=== PATIENT | female | born 1945 | race Caucasian/White ===

== ENCOUNTER → 2018-04-13 | Outpatient (CLI) | payer MEDICARE, MEDICAID ==
[~2018-04-13] MED LIST: ASPI-231 PO; GLYB2.5T71 PO
[2018-04-13 10:55] LABS: Cholesterol 190 mg/dL (< 200); HDL Cholesterol 47 mg/dL (40-59); LDL Cholesterol 132 mg/dL (< 100); Triglycerides 128 mg/dL (< 150)
== END | disposition home or self-care (01) ==
LOC: LAB 09:50
PROVIDERS: ATTEND Internal Medicine
DX: E11.9 Type 2 diabetes mellitus without complications (principal); N39.0 Urinary tract infection, site not specified; Z88.0 Allergy status to penicillin; Z88.5 Allergy status to narcotic agent
CPT/HCPCS: 36415; 80061; 82043; 87086; 87088; 87186

== ENCOUNTER → 2018-04-30 | Outpatient (CLI) | payer MEDICARE, MEDICAID ==
[2018-04-30 13:04] LABS: Albumin 3.6 g/dL (3.4-5.0); Bilirubin, Direct 0.2 mg/dL (0-0.2)
[2018-04-30 13:06] LABS: Bilirubin, Total 0.6 mg/dL (0.2-1.0); Total Protein 7.4 g/dL (6.4-8.2)
== END | disposition home or self-care (01) ==
LOC: LAB 09:38
PROVIDERS: ATTEND Internal Medicine
DX: E78.5 Hyperlipidemia, unspecified (principal)
CPT/HCPCS: 36415; 80076

== ENCOUNTER → 2018-05-14 | Outpatient (CLI) | payer MEDICARE, MEDICAID | END | disposition home or self-care (01) | LOC: XYW 09:06 | PROVIDERS: ATTEND Internal Medicine | DX: Z01.810 Encounter for preprocedural cardiovascular examination (principal) | CPT/HCPCS: 93306 ==

== ENCOUNTER → 2018-05-25 | Outpatient (CLI) | payer MEDICARE, MEDICAID ==
[2018-05-25 13:50] LABS: Albumin 3.7 g/dL (3.4-5.0); Bilirubin, Direct 0.2 mg/dL (0-0.2)
[2018-05-25 13:53] LABS: Bilirubin, Total 0.6 mg/dL (0.2-1.0); Total Protein 7.7 g/dL (6.4-8.2)
== END | disposition home or self-care (01) ==
LOC: LAB 08:05
PROVIDERS: ATTEND Internal Medicine
DX: E78.5 Hyperlipidemia, unspecified (principal)
CPT/HCPCS: 36415; 80061; 80076

== ENCOUNTER → 2018-06-29 | Outpatient (CLI) | payer MEDICARE, MEDICAID | END | disposition home or self-care (01) | LOC: XY 08:13 | PROVIDERS: ATTEND Internal Medicine | DX: I10 Essential (primary) hypertension (principal); I31.9 Disease of pericardium, unspecified; E11.9 Type 2 diabetes mellitus without complications | CPT/HCPCS: 93017 ==

== ENCOUNTER 2018-08-11 11:57 | Inpatient (IN) | payer MEDICARE, MEDICAID ==
[~2018-08-11] VITALS: Ht 170.2 cm; Wt 116.0 kg
[2018-08-11] MEDS ORDERED: VANCOMYCIN 1GM/250ML 250 ML IV ONE (13:00)
[2018-08-11 13:37] LABS: Basophils # (auto) 0 uL; Basophils % (auto) 0.4 % (0.0-2.0); Eosinophils # (auto) 0.1 uL; Eosinophils % (auto) 1.5 % (0.0-7.0); Hematocrit 40.7 % (36.0-46.0); Hemoglobin 13.3 g/dL (12.2-16.2); Lymphocytes # (auto) 1.4 uL; Lymphocytes % (auto) 15.7 % (10.0-50.0); Mean Corpuscular Hemoglobin 28.5 pg (28.0-32.0); Mean Corpuscular Hgb Conc. 32.8 g/dL (32.0-36.0); Mean Corpuscular Volume 86.8 fL (80.0-100.0); Monocytes # (auto) 0.5 uL; Monocytes % (auto) 5.9 % (0.0-12.0); Neutrophils # (auto) 6.7 uL; Neutrophils % (auto) 76.5 % (37.0-80.0); Nucleated Red Blood Cells % 0.3 %; Platelet Count (auto) 228 10^3/uL (140-450); Red Blood Cells 4.68 10^6/uL (4.0-5.20); Red Cell Distribution Width 13.1 % (11.8-14.3); White Blood Cell 8.8 10^3/uL (4.4-10.8)
[2018-08-11 13:48] LABS: Alanine Aminotransferase 13 U/L (13-56); Albumin 3.2 g/dL (3.4-5.0); Anion Gap 6 (5-15); Aspartate Aminotransferase 10 U/L (15-37); BUN/Creatinine Ratio 13.5; Blood Urea Nitrogen 13 mg/dL (7-18); Calcium 8.6 mg/dL (8.5-10.1); Carbon Dioxide 27 mmol/L (21-32); Chloride 103 mmol/L (98-107); GFR African American > 60 mL/min; GFR Non-African American > 60 mL/min; Glucose 122 mg/dL (74-106); Magnesium 1.9 mg/dL (1.6-2.6); Potassium 4.2 mmol/L (3.5-5.1); Sodium 136 mmol/L (136-145)
[2018-08-11 13:53] LABS: Alkaline Phosphatase 92 U/L (45-117); Bilirubin, Total 0.6 mg/dL (0.2-1.0); Total Protein 8.2 g/dL (6.4-8.2)
[2018-08-11] MEDS ORDERED: LEVOFLOXACIN 500MG 100 ML IV ONE (17:15)
[2018-08-11] MEDS ORDERED: TEMAZEPAM 15 MG CAP PO PRN (17:30)
[2018-08-11] MEDS ORDERED: MORPHINE SULFATE 4 MG/ML SYR/VIAL IV PRN (17:30)
[2018-08-11] MEDS ORDERED: ACETAMINOPHEN 325 MG TAB PO PRN (17:30)
[2018-08-11] MEDS ORDERED: DOCUSATE SOD 100 MG CAP PO PRN (17:30)
[2018-08-11] MEDS ORDERED: HYDROcodone-ACET 5/325MG TAB PO PRN (17:30)
[2018-08-11] MEDS ORDERED: ONDANSETRON HCL 4 MG/2 ML VIAL IV PRN (17:30)
[2018-08-11] MEDS ORDERED: DEXTROSE (50%) 50ML SYRG IV PRN (17:30)
[2018-08-11] MEDS: glyBURIDE 5 MG TAB PO SCH (18:00)
[2018-08-11 21:12] LABS: Lactic Acid w/Reflex 2.7 mmol/L (0.4-2.0)
--- NOTE | 2018-08-11 21:45 | NUR ---
MS admit from ER UDAY CROWELL admitted to tele/MS after SBAR received. Patient oriented to Rosana alvarado RN, unit, room, bed, and unit policies regarding patient care and visiting hours. Patient weighed by bedscale and encouraged to call if they need something. All questions and concerns addressed, patient verbalized understanding. Note: Came per wheelchair awake alert oriented x 4, not in distress, with dressing in both feet dry and intact, placed in the bed comfortably, vital signs checked.
[2018-08-11] MEDS: FAMOTIDINE 20 MG TAB PO SCH ×2 (21:57→22:00)
[2018-08-11] MEDS: ASCORBIC ACID 500 MG TAB PO SCH (21:58)
[2018-08-11] MEDS: CLINDAMYCIN 300MG IV 50 ML IV SCH (21:58)
[2018-08-11] MEDS: SODIUM CHLOR 0.9% PF (SALINE LOCK) 10ML VIAL/SYR IV SCH (21:58)
[2018-08-11 22:00] VITALS: BP 125/57
[2018-08-11] MEDS: ACCU-CHEK COMFORT CURVE STRIP VI SCH (22:36)
[2018-08-11] MEDS: InsuLIN REG 1unit/0.01ml Soln (100units/ml) SC SCH (22:37)
[2018-08-12 04:52] VITALS: BP 116/55
[2018-08-12 05:09] LABS: Basophils # (auto) 0 uL; Basophils % (auto) 0.7 % (0.0-2.0); Eosinophils # (auto) 0.1 uL; Eosinophils % (auto) 2.2 % (0.0-7.0); Hematocrit 35.5 % (36.0-46.0); Hemoglobin 11.8 g/dL (12.2-16.2); Lymphocytes # (auto) 0.9 uL; Mean Corpuscular Hemoglobin 28.2 pg (28.0-32.0); Mean Corpuscular Hgb Conc. 33.2 g/dL (32.0-36.0); Mean Corpuscular Volume 84.7 fL (80.0-100.0); Monocytes # (auto) 0.5 uL; Monocytes % (auto) 7.7 % (0.0-12.0); Neutrophils # (auto) 4.6 uL; Neutrophils % (auto) 74.4 % (37.0-80.0); Nucleated Red Blood Cells % 0.1 %; Platelet Count (auto) 187 10^3/uL (140-450); Red Blood Cells 4.19 10^6/uL (4.0-5.20); White Blood Cell 6.2 10^3/uL (4.4-10.8)
[2018-08-12 05:33] LABS: Calcium 8.2 mg/dL (8.5-10.1); Chloride 103 mmol/L (98-107); Potassium 4.1 mmol/L (3.5-5.1); Sodium 136 mmol/L (136-145)
[2018-08-12 05:37] LABS: Alanine Aminotransferase 9 U/L (13-56); Albumin 2.7 g/dL (3.4-5.0); Anion Gap 8 (5-15); Aspartate Aminotransferase 7 U/L (15-37); BUN/Creatinine Ratio 20.5; Blood Urea Nitrogen 18 mg/dL (7-18); Carbon Dioxide 25 mmol/L (21-32); GFR African American > 60 mL/min; GFR Non-African American > 60 mL/min; Glucose 136 mg/dL (74-106)
[2018-08-12 05:39] LABS: Alkaline Phosphatase 75 U/L (45-117); Bilirubin, Total 0.4 mg/dL (0.2-1.0); Total Protein 6.8 g/dL (6.4-8.2)
[2018-08-12] MEDS: CLINDAMYCIN 300MG IV 50 ML IV SCH ×3 (05:47→22:12)
[2018-08-12] MEDS: SODIUM CHLOR 0.9% PF (SALINE LOCK) 10ML VIAL/SYR IV SCH ×3 (05:47→22:12)
[2018-08-12] MEDS: glyBURIDE 5 MG TAB PO SCH ×2 (06:38→18:00)
[2018-08-12] MEDS: ACCU-CHEK COMFORT CURVE STRIP VI SCH ×4 (06:38→22:12)
[2018-08-12] MEDS: InsuLIN REG 1unit/0.01ml Soln (100units/ml) SC SCH ×4 (06:39→22:34)
[2018-08-12 07:23] LABS: Urine Bacteria NONE SEEN /hpf (None Seen); Urine Blood Negative /uL (Negative); Urine Specific Gravity 1.007 (1.001-1.035); Urine WBC 3 /hpf (0 - 5)
--- NOTE | 2018-08-12 07:28 | NUR ---
Report given to Erick Hagan to assume care, patient is resting not in distress.
--- NOTE | 2018-08-12 07:30 | NUR ---
Opening Shift Note Assumed care of patient, awake, alert, and oriented x4. No S/S of distress/SOB or pain. IV in right AC 20 gauge asymptomatic, intact, patent, and saline locked. Bed locked and in lowest position and call light is within reach. Instructed on POC and to call for assist PRN, and patient verbalized understanding. Will continue to monitor for changes Q1hr and PRN.
[2018-08-12] MEDS ORDERED: IPRATROPIUM BROM 0.5 MG/2.5ML INH SOL ONE (08:56)
[2018-08-12] MEDS ORDERED: ALBUTEROL SULF 2.5 MG/0.5ML(0.5%) NEB SOLN ONE (08:56)
[2018-08-12] MEDS: ZINC SULFATE 220mg CAP or TAB PO SCH (08:57)
[2018-08-12] MEDS: LEVOFLOXACIN 500MG 100 ML IV SCH (08:57)
[2018-08-12] MEDS: ASCORBIC ACID 500 MG TAB PO SCH ×2 (08:57→22:00)
[2018-08-12] MEDS: MULTIPLE VITAMIN TAB PO SCH (08:58)
[2018-08-12 09:00] VITALS: BP 120/50
[2018-08-12] MEDS: FAMOTIDINE 20 MG TAB PO SCH ×2 (09:23→22:00)
--- NOTE | 2018-08-12 09:41 | NUR ---
PT REPORTS THAT SHE WALKS FINE AND DOES NOT NEED P.T.
--- NOTE | 2018-08-12 11:00 | NUR ---
WOUND CARE NOTE: IN TO SEE PATIENT AT THIS TIME PER WOUND CARE CONSULT REQUEST. PATIENT WAS NOTED UPON ADMIT, TO HAVE WOUNDS TO BILATERAL FEET. WOUND PHOTOS TAKEN AT THAT TIME BY BEDSIDE NURSE FOR REFERENCE. PATIENT HAS MARCO SCORE OF 18. PATIENT ADMITTED TO [facility] WITH DIAGNOSIS OF DFU, BILATERAL FEET. PATIENT HAS HISTORY WITH SKIN GRAFT TO RIGHT # 3 TOE APPROXIMATELY [address] LR[address] PATIENT IS BEING FOLLOWED ON REGULAR BASIS BY DR. LR. SHE NOTED A FEW DAYS AGO, THAT HER RIGHT #3 TOE STARTED TO BECOME PAINFUL, AND NECROTIC LOOKING. WOUND CULTURES WERE TAKEN AND SENT IN FOR PROCESSING BY BEDSIDE NURSE. PATIENT'S ENTIRE RIGHT # 3 TOE IS COVERED WITH YELLOW SLOUGH. SCANT SEROUS DRAINAGE NOTED. YELITZA-WOUND IS RED, EDEMATOUS. LEFT PLANTAR FOOT HAS INTACT CALLOUS NOTED. THERE IS AN OPEN BLISTER NOTED INTERDIGITALLY BETWEEN # 1 AND 2 TOES. WOUND BED IS RED, WITH PINK PERIWOUND. SCANT SEROUS DRAINAGE NOTED. CLEANSED ALL WOUNDS WITH WOUND CLEANSER, PATTED DRY WITH STERILE GAUZE. APPLIED TELFA. WRAPPED WITH KERLIX, SECURED WITH TAPE. ELEVATED BOTH FEET UP ONTO PILLOWS FOR EDEMA CONTROL. RECOMMEND: EOD/PRN DRESSING CHANGE TO WOUND, ELEVATION OF BOTH FEET UP ONTO PILLOWS, DIETARY CONSULT, CONTINUED MONITORING BY WOUND CARE TEAM. Addendum: 08/12/18 at 1521 by Francie Kinsey RN Amended: Links added.
--- NOTE | 2018-08-12 11:15 | NUR ---
WOUND CARE NURSE AT BEDSIDE.
--- NOTE | 2018-08-12 12:00 | NUR ---
PATIENT REFUSED BLOOD SUGAR CHECK.
[2018-08-12 13:00] VITALS: BP 117/52
[2018-08-12 16:45] VITALS: BP 124/53
[2018-08-12] MEDS: Glucerna Carbsteady SHAKE Vanilla 8oz PO SCH (18:10)
--- NOTE | 2018-08-12 19:05 | NUR ---
Opening Shift Note Assumed care of patient, currently resting in bed. No S/S of distress/SOB or pain. Instructed on POC and to call for assistance PRN, will continue to monitor for changes Q1hr and PRN.
[2018-08-12 21:52] VITALS: BP 133/58
[2018-08-13 05:32] VITALS: BP 132/60
[2018-08-13] MEDS: glyBURIDE 5 MG TAB PO SCH ×2 (06:21→18:22)
[2018-08-13] MEDS: CLINDAMYCIN 300MG IV 50 ML IV SCH ×3 (06:21→21:53)
[2018-08-13] MEDS: SODIUM CHLOR 0.9% PF (SALINE LOCK) 10ML VIAL/SYR IV SCH ×3 (06:21→21:53)
[2018-08-13] MEDS: ACCU-CHEK COMFORT CURVE STRIP VI SCH ×4 (06:22→21:53)
[2018-08-13] MEDS: InsuLIN REG 1unit/0.01ml Soln (100units/ml) SC SCH ×4 (06:22→22:06)
--- NOTE | 2018-08-13 07:25 | NUR ---
Opening Shift Note Assumed care of patient, awake and alert. No S/S of distress/SOB or pain. Instructed on POC and to call for assist PRN, will continue to monitor for changes Q1hr and PRN.
[2018-08-13 07:34] LABS: Basophils # (auto) 0 uL; Basophils % (auto) 0.4 % (0.0-2.0); Eosinophils # (auto) 0.1 uL; Eosinophils % (auto) 2.4 % (0.0-7.0); Hematocrit 36.3 % (36.0-46.0); Hemoglobin 12.3 g/dL (12.2-16.2); Lymphocytes # (auto) 0.9 uL; Lymphocytes % (auto) 16.7 % (10.0-50.0); Mean Corpuscular Hgb Conc. 33.9 g/dL (32.0-36.0); Mean Corpuscular Volume 85.5 fL (80.0-100.0); Monocytes # (auto) 0.4 uL; Monocytes % (auto) 7.9 % (0.0-12.0); Neutrophils # (auto) 3.9 uL; Neutrophils % (auto) 72.6 % (37.0-80.0); Platelet Count (auto) 186 10^3/uL (140-450); Red Blood Cells 4.25 10^6/uL (4.0-5.20); Red Cell Distribution Width 12.9 % (11.8-14.3); White Blood Cell 5.4 10^3/uL (4.4-10.8)
[2018-08-13 07:40] LABS: Anion Gap 6 (5-15); BUN/Creatinine Ratio 16.7; Blood Urea Nitrogen 14 mg/dL (7-18); Calcium 8.6 mg/dL (8.5-10.1); Carbon Dioxide 27 mmol/L (21-32); Chloride 105 mmol/L (98-107); GFR African American > 60 mL/min; GFR Non-African American > 60 mL/min; Glucose 134 mg/dL (74-106); Potassium 3.8 mmol/L (3.5-5.1); Sodium 138 mmol/L (136-145)
[2018-08-13 07:51] LABS: INR 1.05 (0.9-1.15); Prothrombin Time 11.2 sec (9.27-12.13)
[2018-08-13 08:14] VITALS: BP 125/60
[2018-08-13] MEDS: Glucerna Carbsteady SHAKE Vanilla 8oz PO SCH (09:12)
[2018-08-13] MEDS: ZINC SULFATE 220mg CAP or TAB PO SCH (09:55)
[2018-08-13] MEDS: ASCORBIC ACID 500 MG TAB PO SCH ×2 (09:55→21:53)
[2018-08-13] MEDS: MULTIPLE VITAMIN TAB PO SCH (09:55)
[2018-08-13] MEDS: LEVOFLOXACIN 500MG 100 ML IV SCH (09:56)
[2018-08-13] MEDS: FAMOTIDINE 20 MG TAB PO SCH ×2 (09:56→21:53)
--- NOTE | 2018-08-13 10:20 | NUR ---
Surgery Received call from Dr. Dougherty to do MRI on right foot and keep patient NPO after midnight for surgery 08/14/18. The patient was informed and states that she does not want Dr. Dougherty to do surgery on her. She will wait for Dr. Tanner to return. Dr. Lin is aware.
[2018-08-13] MEDS ORDERED: LORazepam 2MG/ML-1ML VIAL IV ONE (10:45)
--- NOTE | 2018-08-13 11:00 | NUR ---
Wound care Dressing to left foot removed so MD could have a look at wound. Same redressed as per wound care orders. Dressing to right foot changed as well as patient complained that the dressing became loose and was uncomfortable.
--- NOTE | 2018-08-13 12:27 | NUR ---
NUTRITION CONSULT/ASSESSMENT NOTES Please refer to link notes of nutrition screen form filed under the intervention section of the plan of care for further details. Est. Needs: 1750 kcal to 2350 kcal (15-20 kcal/kgBW), 95 gms to 119 gms pro (0.8-1.0 gms/kgBW). Will continue to monitor pertinent labs and reassess nutrient needs prn Thank you for this consult. Addendum: 08/13/18 at [address] Amended: Links added.
[2018-08-13 12:46] VITALS: BP 124/57
[2018-08-13 16:21] VITALS: BP 139/65
--- NOTE | 2018-08-13 19:05 | NUR ---
Opening Shift Note Assumed care of patient, awake and alert. No S/S of distress or SOB. Patient states that since she went to have the MRI done her left knee has been hurting. She refuses any medication for pain at this time. Instructed on POC and to call for assistance PRN, will continue to monitor for changes Q1hr and PRN.
--- NOTE | 2018-08-13 20:20 | NUR ---
Received call from Dr. Farhat Dougherty called regarding recommended surgery for patient, informed him that patient told day shift nurse that she did not want to have the surgery. She is requesting Dr. Tanner to do the surgery. She is aware that he is out of town but states that she will wait for him to return. Dr. Dougherty verbalized understanding and requested for me to tell patient that it is not best to wait, and it is important to have it done as soon as possible. Verbalized understanding and informed Dr. Dougherty that if she changes her mind I will call him and let him know. He verbalized understanding.
--- NOTE | 2018-08-13 20:30 | NUR ---
Spoke with patient regarding surgery recommendation Informed patient regarding Dr. Dougherty's message about surgery. Patient is still refusing surgery at this time and wants to wait for Dr. Tanner. Educated patient on the importance of having the surgery done as soon as possible per Dr. Dougherty, she verbalized understanding and stated that she will wait for Dr. Tanner to return. No further questions at this time.
[2018-08-13 22:00] VITALS: BP 143/60
[2018-08-14 05:43] VITALS: BP 107/62
[2018-08-14] MEDS: CLINDAMYCIN 300MG IV 50 ML IV SCH ×3 (05:59→22:18)
[2018-08-14] MEDS: SODIUM CHLOR 0.9% PF (SALINE LOCK) 10ML VIAL/SYR IV SCH ×4 (06:00→22:18)
[2018-08-14] MEDS: InsuLIN REG 1unit/0.01ml Soln (100units/ml) SC SCH ×4 (06:37→22:00)
[2018-08-14] MEDS: glyBURIDE 5 MG TAB PO SCH ×2 (06:37→18:29)
[2018-08-14] MEDS: ACCU-CHEK COMFORT CURVE STRIP VI SCH ×4 (06:38→22:20)
--- NOTE | 2018-08-14 07:46 | NUR ---
Opening Shift Note Assumed care of patient, awake and alert. No S/S of distress/SOB or pain. However left knee noted to be swollen, patient states that she has pain with movement. Will follow up with MD. Instructed on POC and to call for assist PRN, will continue to monitor for changes Q1hr and PRN.
[2018-08-14 09:00] VITALS: BP 113/51
[2018-08-14] MEDS ORDERED: KETOROLAC TROMETH 30 MG/ML 1ML VIAL IV ONE (09:45)
[2018-08-14] MEDS: ZINC SULFATE 220mg CAP or TAB PO SCH (09:51)
[2018-08-14] MEDS: MULTIPLE VITAMIN TAB PO SCH (09:51)
[2018-08-14] MEDS: ASCORBIC ACID 500 MG TAB PO SCH ×2 (09:51→22:19)
[2018-08-14] MEDS: LEVOFLOXACIN 500MG 100 ML IV SCH (09:52)
[2018-08-14] MEDS: FAMOTIDINE 20 MG TAB PO SCH ×2 (09:52→22:00)
--- NOTE | 2018-08-14 11:30 | NUR ---
PICC line placement Patient educated on need for PICC line placement. All risks and benefits explained and all questions and concerns addressed prior to procedure. Noted past medical history and allergies with no contraindications. INR and Plt counts within acceptable range. 4 fr PICC line inserted via right basilic vein using [employer] US and Tip Location System. Sterile technique with maximum barrier precautions utilized. Blood return obtained from single lumen and flushed easily with NS using proper technique. PICC secured with Stat-lock; biodisc and occlusive dressing applied. Stat portable chest x-ray obtained for PICC tip placement. *Baseline Arm Circumference 33 cm. *Internal Length 47 cm. *External Length 0 cm. PICC lot #[id number]. Note:
[2018-08-14] MEDS ORDERED: LIDOCAINE 1% (LOCAL ANESTH.) PF 5ml SDV ID ONE (11:45)
--- NOTE | 2018-08-14 12:22 | NUR ---
Okay to use PICC line X-ray completed.
[2018-08-14 13:00] VITALS: BP_SYST 122; BP_SYST 125; BP_DIAS 63; BP_DIAS 72
--- NOTE | 2018-08-14 16:40 | NUR ---
Wound Care Dressing change done as per wound care orders.
[2018-08-14 17:00] VITALS: BP 115/50
--- NOTE | 2018-08-14 19:36 | NUR ---
Opening Shift Note Assumed care of patient, awake and alert. No S/S of distress/SOB or pain. Pt currently laying in bed with the rails up x2, bed is locked in the lowest position and call light is within reach. Instructed on POC and to call for assist as needed. Pt has a Single lumen PICC line in the right upper arm that flushes without any discomfort. Will continue to monitor.
[2018-08-14 22:00] VITALS: BP 120/58
[2018-08-15 05:00] VITALS: BP 126/64
[2018-08-15] MEDS: CLINDAMYCIN 300MG IV 50 ML IV SCH ×3 (05:15→21:15)
[2018-08-15] MEDS: SODIUM CHLOR 0.9% PF (SALINE LOCK) 10ML VIAL/SYR IV SCH ×5 (05:16→21:16)
[2018-08-15] MEDS: ACCU-CHEK COMFORT CURVE STRIP VI SCH ×4 (06:09→21:33)
[2018-08-15] MEDS: InsuLIN REG 1unit/0.01ml Soln (100units/ml) SC SCH ×4 (06:09→21:32)
[2018-08-15] MEDS: glyBURIDE 5 MG TAB PO SCH ×2 (06:09→18:00)
[2018-08-15 08:00] VITALS: BP 113/49
[2018-08-15 09:00] VITALS: BP 113/49
[2018-08-15] MEDS: FAMOTIDINE 20 MG TAB PO SCH ×2 (09:50→21:16)
[2018-08-15] MEDS: ZINC SULFATE 220mg CAP or TAB PO SCH (09:50)
[2018-08-15] MEDS: LEVOFLOXACIN 500MG 100 ML IV SCH (09:50)
[2018-08-15] MEDS: ASCORBIC ACID 500 MG TAB PO SCH ×2 (09:50→21:16)
[2018-08-15] MEDS: MULTIPLE VITAMIN TAB PO SCH (09:50)
[2018-08-15 13:00] VITALS: BP 128/63
[2018-08-15 17:00] VITALS: BP 133/59
[2018-08-15 22:00] VITALS: BP 129/58
[2018-08-16 05:00] VITALS: BP 119/61
[2018-08-16 06:03] LABS: Basophils # (auto) 0 uL; Basophils % (auto) 0.7 % (0.0-2.0); Eosinophils # (auto) 0.2 uL; Eosinophils % (auto) 3.5 % (0.0-7.0); Hematocrit 37.1 % (36.0-46.0); Hemoglobin 12.8 g/dL (12.2-16.2); Lymphocytes # (auto) 0.9 uL; Lymphocytes % (auto) 20.3 % (10.0-50.0); Mean Corpuscular Hemoglobin 28.9 pg (28.0-32.0); Mean Corpuscular Hgb Conc. 34.3 g/dL (32.0-36.0); Mean Corpuscular Volume 84.1 fL (80.0-100.0); Monocytes # (auto) 0.3 uL; Monocytes % (auto) 7.6 % (0.0-12.0); Neutrophils % (auto) 67.9 % (37.0-80.0); Nucleated Red Blood Cells % 0.2 %; Platelet Count (auto) 201 10^3/uL (140-450); Red Blood Cells 4.42 10^6/uL (4.0-5.20); Red Cell Distribution Width 12.8 % (11.8-14.3); White Blood Cell 4.4 10^3/uL (4.4-10.8)
[2018-08-16] MEDS: glyBURIDE 5 MG TAB PO SCH ×2 (06:05→17:25)
[2018-08-16] MEDS: SODIUM CHLOR 0.9% PF (SALINE LOCK) 10ML VIAL/SYR IV SCH ×5 (06:05→21:23)
[2018-08-16] MEDS: CLINDAMYCIN 300MG IV 50 ML IV SCH ×3 (06:05→21:22)
[2018-08-16] MEDS: InsuLIN REG 1unit/0.01ml Soln (100units/ml) SC SCH ×4 (06:06→21:24)
[2018-08-16] MEDS: ACCU-CHEK COMFORT CURVE STRIP VI SCH ×4 (06:06→21:24)
[2018-08-16 06:12] LABS: Calcium 8.8 mg/dL (8.5-10.1); Potassium 4.2 mmol/L (3.5-5.1)
[2018-08-16 06:16] LABS: BUN/Creatinine Ratio 20.5
--- NOTE | 2018-08-16 08:00 | NUR ---
Opening note Assumed care of pt awake, alert, and oriented X4. Pt is sitting up in bed with no S/S of distress noted or complaints of pain. Pt updated on POC and all questions answered. Bed is in lowest, locked position with side rails up x2 and call light within reach. Will continue to monitor Q1h and PRN.
[2018-08-16 08:16] VITALS: BP 109/52
[2018-08-16] MEDS: MULTIPLE VITAMIN TAB PO SCH (09:58)
[2018-08-16] MEDS: ASCORBIC ACID 500 MG TAB PO SCH ×2 (09:58→21:23)
[2018-08-16] MEDS: ZINC SULFATE 220mg CAP or TAB PO SCH (09:58)
[2018-08-16] MEDS: LEVOFLOXACIN 500MG 100 ML IV SCH (09:58)
[2018-08-16] MEDS: FAMOTIDINE 20 MG TAB PO SCH ×2 (09:58→21:23)
[2018-08-16] MEDS ORDERED: KETOROLAC TROMETH 30 MG/ML 1ML VIAL IV ONE (10:15)
[2018-08-16 11:51] VITALS: BP 123/56
--- NOTE | 2018-08-16 15:00 | NUR ---
Wound care Wound care performed to BLE. Area cleansed with wound cleanser and pat dry with sterile gauze. Tefla applied to right middle toe and left interdigital 1st and 2nd toe as well as distal plantar surface then wrapped in kerlix. Pt tolerated well. Will continue to monitor.
[2018-08-16 16:35] VITALS: BP 129/62
--- NOTE | 2018-08-16 18:34 | NUR ---
END OF SHIFT PATIENT RESTING IN BED. NO S/S OF DISTRESS. INSTRUCTED PATIENT TO CALL PRN. BED IN LOWEST LOCKED POSITION, CALL LIGHT WITHIN REACH. ENDORSED CARE TO SHANITA YAN.
[2018-08-16 22:00] VITALS: BP 138/60
[2018-08-17 05:51] VITALS: BP 138/63
[2018-08-17] MEDS: InsuLIN REG 1unit/0.01ml Soln (100units/ml) SC SCH ×4 (06:21→22:00)
[2018-08-17] MEDS: CLINDAMYCIN 300MG IV 50 ML IV SCH ×3 (06:21→22:27)
[2018-08-17] MEDS: glyBURIDE 5 MG TAB PO SCH ×2 (06:21→17:46)
[2018-08-17] MEDS: SODIUM CHLOR 0.9% PF (SALINE LOCK) 10ML VIAL/SYR IV SCH ×5 (06:21→22:27)
[2018-08-17] MEDS: ACCU-CHEK COMFORT CURVE STRIP VI SCH ×4 (06:22→22:28)
[2018-08-17 09:00] VITALS: BP 135/51
[2018-08-17] MEDS: FAMOTIDINE 20 MG TAB PO SCH ×2 (09:16→22:00)
[2018-08-17] MEDS: MULTIPLE VITAMIN TAB PO SCH (09:16)
[2018-08-17] MEDS: ASCORBIC ACID 500 MG TAB PO SCH ×2 (09:16→22:27)
[2018-08-17] MEDS: LEVOFLOXACIN 500MG 100 ML IV SCH (09:16)
[2018-08-17] MEDS: ZINC SULFATE 220mg CAP or TAB PO SCH (09:16)
--- NOTE | 2018-08-17 11:23 | NUR ---
IV insertion IV access obtained, via clean sterile technique by inserting 20 gauge catheter at right AC after 1 attempt. IV secured properly. No trauma to site. Patient tolerated well. Addendum: 08/17/18 at 1124 by Anna Howard RN wrong patient
--- NOTE | 2018-08-17 12:20 | NUR ---
Nutrition Follow-up Notes Wt.: 119.0 kg Pt was sleeping with no family by beside. per pt records pt with DFU and to have sx on Friday. pt is currently on ABX for her infection. pt with no distress noted per nursing. pt is currently on CCHO 45 gm/meal diet with adequate PO of 75% x 6 per RN doc Est. Needs: 1750 kcal to 2350 kcal (15-20 kcal/kgBW), 95 gms to 119 gms pro (0.8-1.0 gms/kgBW). Will continue to monitor pertinent labs and reassess nutrient needs prn Labs: All nutrition related lab wnl for 08/16. Skin: Ben scale 19, low risk, DFU per ski patrol officer. refer to WC notes for details GI: Pt had 1 BM on 08/16 per ski patrol officer. PES: Altered nutrition related lab values r/t current/chronic medical condition aeb hyperglycemia, elev. Hba1c and mod hypoalbuminemia Obesity r.t excessive PO intake aeb 193% IBW, BMI 40.9 kg/m2 and increased body adiposity Will continue to monitor PO intake, skin status, pertinent labs and weight trend. F/u in 3-5 days. Rec.: 1.) Consider Consistent Standard Carb: 60 gms/meal diet. 2.) If Albumin level continues trending down, consider Prostat 1 pkt BID. 3.) Continue close supervision with meals 4.) If pt's PO intake consistently adequate (>75%), consider d/c Glucerna Shakes.5.) Refer to CDE/RD for further nutrition educ. and weight monitoring upon discharge. 6.) Continue current plan of care.
[2018-08-17 13:00] VITALS: BP 142/65
[2018-08-17 18:04] VITALS: BP 140/55
--- NOTE | 2018-08-17 19:45 | NUR ---
Opening Shift Note Assumed care of patient, awake and alert. No S/S of distress/SOB or pain. Dressing to both feet dry and intact. Instructed on POC and to call for assist PRN, patient verbalized understanding, will continue to monitor for changes Q1hr and PRN.
[2018-08-17 21:52] VITALS: BP 131/61
[2018-08-18 05:39] VITALS: BP 117/69
[2018-08-18] MEDS: SODIUM CHLOR 0.9% PF (SALINE LOCK) 10ML VIAL/SYR IV SCH ×5 (06:21→21:49)
[2018-08-18] MEDS: glyBURIDE 5 MG TAB PO SCH (06:21)
[2018-08-18] MEDS: CLINDAMYCIN 300MG IV 50 ML IV SCH ×3 (06:21→21:49)
[2018-08-18] MEDS: InsuLIN REG 1unit/0.01ml Soln (100units/ml) SC SCH ×4 (06:21→21:49)
[2018-08-18] MEDS: ACCU-CHEK COMFORT CURVE STRIP VI SCH ×4 (06:21→21:50)
[2018-08-18 08:00] VITALS: BP 125/58
[2018-08-18 09:00] VITALS: BP 125/58
[2018-08-18] MEDS: FAMOTIDINE 20 MG TAB PO SCH ×2 (10:00→21:48)
[2018-08-18] MEDS: ASCORBIC ACID 500 MG TAB PO SCH ×2 (10:03→21:47)
[2018-08-18] MEDS: LEVOFLOXACIN 500MG 100 ML IV SCH (10:03)
[2018-08-18] MEDS: ZINC SULFATE 220mg CAP or TAB PO SCH (10:03)
[2018-08-18] MEDS: MULTIPLE VITAMIN TAB PO SCH (10:03)
[2018-08-18 13:00] VITALS: BP 133/69
--- NOTE | 2018-08-18 14:19 | NUR ---
I placed a call to Dr. Lin to discuss the plan of care for this patient.
[2018-08-18 17:00] VITALS: BP 119/57
--- NOTE | 2018-08-18 19:05 | NUR ---
Opening Note Received change of shift report from day shift RN. Patient is awake, alert and oriented x4. No signs or symptoms of distress noted at this time. Patient denies pain at this time. Reviewed plan of care with patient, patient verbalized understanding. Dressing to bilateral feet, clean, dry and intact. Bed in low and locked position, call light within reach. Will continue to monitor Q1 hour and PRN.
[2018-08-18 22:03] VITALS: BP 125/63
[2018-08-19 05:29] VITALS: BP 114/51
[2018-08-19] MEDS: SODIUM CHLOR 0.9% PF (SALINE LOCK) 10ML VIAL/SYR IV SCH ×5 (05:42→22:10)
[2018-08-19] MEDS: CLINDAMYCIN 300MG IV 50 ML IV SCH ×3 (05:42→22:09)
[2018-08-19] MEDS: InsuLIN REG 1unit/0.01ml Soln (100units/ml) SC SCH ×4 (06:56→22:19)
[2018-08-19] MEDS: ACCU-CHEK COMFORT CURVE STRIP VI SCH ×4 (06:57→22:11)
--- NOTE | 2018-08-19 07:05 | NUR ---
Closing Note Report given to day shift RN. Patient is resting in bed, awake alert and oriented x4. No signs or symptom of distress noted at this time.
--- NOTE | 2018-08-19 07:30 | NUR ---
Opening Shift Note Assuming care of patient at this time. Patient is awake, alert, and oriented x4. Patient denies pain at this time. Patient is resting in bed, bed is locked and lowered with side rails up x2. Instructed patient on the plan of care at this time and to call for assistance as needed. Call light within reach.
[2018-08-19 09:00] VITALS: BP 122/54
[2018-08-19] MEDS: ASCORBIC ACID 500 MG TAB PO SCH ×2 (10:00→22:10)
[2018-08-19] MEDS: MULTIPLE VITAMIN TAB PO SCH (10:00)
[2018-08-19] MEDS: FAMOTIDINE 20 MG TAB PO SCH ×2 (10:00→22:00)
[2018-08-19] MEDS: ZINC SULFATE 220mg CAP or TAB PO SCH (10:00)
[2018-08-19] MEDS: LEVOFLOXACIN 500MG 100 ML IV SCH (10:13)
--- NOTE | 2018-08-19 12:00 | NUR ---
WOUND CARE NOTE: Weekly reevaluation. Patient has been on wound care team's skin integrity rounds due to bilateral foot ulcers. Discussed with bedside RN, Rosemary. Patient is going for surgery with Dr Tanner today. Will have wound care team follow up post surgery. Nursing to follow Dr Tanner post op orders.
[2018-08-19 13:00] VITALS: BP 131/67
--- NOTE | 2018-08-19 13:05 | NUR ---
Re: Held insulin Held insulin due to blood sugar being 135. Patient is NPO for procedure. Will not administer insulin at this time.
[2018-08-19] MEDS ORDERED: CLINDAMYCIN 600MG IV 50 ML IV ONE (13:12)
--- NOTE | 2018-08-19 13:12 | NUR ---
Re: Patient is off Unit Transported patient to OR at this time. Patient is stable and tolerated the move well.
[2018-08-19] MEDS ORDERED: fentaNYL CITRATE 5 ML ONE (13:44)
[2018-08-19] MEDS ORDERED: MIDAZOLAM HCL 1MG/1ML-2 ML VIAL ONE (13:44)
[2018-08-19] MEDS ORDERED: PROPOFOL 10 MG/ML 20 ML IV ONE (13:44)
[2018-08-19] MEDS ORDERED: CLINDAMYCIN 900MG IV 50 ML IV ONE (13:53)
[2018-08-19] MEDS ORDERED: BUPIVACAINE 0.75% INJ 10ML MPV SDV IJ ONE (14:14)
[2018-08-19] MEDS ORDERED: ePHEDrine SULFATE 50 MG/ML AMP IV PRN (14:30)
[2018-08-19] MEDS ORDERED: ONDANSETRON HCL 4 MG/2 ML VIAL IV ONE (14:30)
[2018-08-19] MEDS ORDERED: hydrALAZINE HCL 20 MG/ML VL IV PRN (14:30)
[2018-08-19] MEDS ORDERED: fentaNYL CITRATE 100 MCG/2 ML VL IV ONE (15:00)
--- NOTE | 2018-08-19 15:30 | NUR ---
Re: Back on unit Patient is back on unit.
--- NOTE | 2018-08-19 16:14 | NUR ---
assessment Patient is a 73 year old female who is alert and oriented. Patients cognitive abilities are intact. Prior to admission patient lived home alone on her son's property and functioned independently. Patient informed me she is able to care for her own ADLs. Per patient she will return home to her prior living arrangements post discharge and family will transport her home. Patients PCP is Dr Espinosa. Patient has been admitted for osteo of foot and may need IV ABX on discharge. Patient has no home health company at this time. I informed patient she has a right to speak to a social media sr strategy manager regarding all care. I informed patient she has a right to participate in any and all discharge planning. Patient is aware of visiting hours on the hospital floor. I informed patient she has a right to privacy. Patient does not have a POA and advanced directive. I have offered patient information on POA and advanced directives. I informed the patient the advantages and benefits of having an Advanced Directive. Patient verbalized understanding and agreed to discharge plan. Addendum: 08/19/18 at 1617 by Miroslava GALDAMEZ Amended: Links added.
[2018-08-19 17:00] VITALS: BP 117/62
--- NOTE | 2018-08-19 19:15 | NUR ---
Opening Note Received report from day shift RN. Patient is awake, alert and oriented x4. No signs or symptoms of distress noted at this time. Patient denies pain at this time. Patient is s/p right third toe amputation. Dressing is clean, dry and intact. Patient is wearing a post op surgery boot per MD orders. Left foot is open to air at this time. Reviewed plan of care with patient, patient verbalized understanding. Bed in low and locked position, call light within reach. Patient instructed to call for assistance when ambulating. Will continue to monitor Q1 hour and PRN.
--- NOTE | 2018-08-19 19:54 | NUR ---
Closing Shift Note Patient is resting in bed. Bed is locked and lowered with side rails up x2. Dr. Espinosa has called and gave diet for orders. Dressing is dry and intact and patient is wearing surgery boot. Will endorse care to the teacher of gifted students RN.
[2018-08-19 21:37] VITALS: BP 129/67
--- NOTE | 2018-08-19 22:35 | NUR ---
Wound Care Wound care performed to left foot per patients request. Left foot was open to air, patient requested that it be "cleaned and covered." Area cleaned with wound cleanser, pat dry with sterile gauze, wrapped in kerlix. Patient tolerated well. Will continue to monitor Q1 hour and PRN.
--- NOTE | 2018-08-20 03:24 | NUR ---
Patient awake, sitting up in bed watching television. Patient states she is unable to sleep. No signs or symptoms of distress noted at this time, Patient denies pain at this time. Will continue to monitor Q1 hour and PRN.
[2018-08-20 05:11] VITALS: BP 130/67
[2018-08-20] MEDS: CLINDAMYCIN 300MG IV 50 ML IV SCH (05:27)
[2018-08-20 05:38] LABS: Basophils # (auto) 0 uL; Basophils % (auto) 0.5 % (0.0-2.0); Eosinophils # (auto) 0.2 uL; Eosinophils % (auto) 2.9 % (0.0-7.0); Hematocrit 39.4 % (36.0-46.0); Hemoglobin 13.3 g/dL (12.2-16.2); Lymphocytes # (auto) 1.1 uL; Lymphocytes % (auto) 20.8 % (10.0-50.0); Mean Corpuscular Hemoglobin 28.6 pg (28.0-32.0); Mean Corpuscular Hgb Conc. 33.9 g/dL (32.0-36.0); Mean Corpuscular Volume 84.4 fL (80.0-100.0); Monocytes # (auto) 0.5 uL; Monocytes % (auto) 8.6 % (0.0-12.0); Neutrophils # (auto) 3.6 uL; Neutrophils % (auto) 67.2 % (37.0-80.0); Nucleated Red Blood Cells % 0.1 %; Platelet Count (auto) 208 10^3/uL (140-450); Red Blood Cells 4.67 10^6/uL (4.0-5.20); Red Cell Distribution Width 12.6 % (11.8-14.3); White Blood Cell 5.3 10^3/uL (4.4-10.8)
[2018-08-20 05:43] LABS: BUN/Creatinine Ratio 19.1; Calcium 9.2 mg/dL (8.5-10.1)
[2018-08-20] MEDS: SODIUM CHLOR 0.9% PF (SALINE LOCK) 10ML VIAL/SYR IV SCH ×5 (05:58→22:00)
[2018-08-20] MEDS: InsuLIN REG 1unit/0.01ml Soln (100units/ml) SC SCH ×4 (06:11→22:00)
[2018-08-20] MEDS: ACCU-CHEK COMFORT CURVE STRIP VI SCH ×4 (06:12→22:00)
--- NOTE | 2018-08-20 07:05 | NUR ---
Closing Note Report given to day shift RN. Patient is awake, alert and oriented x4. No signs or symptoms of distress noted at this time
[2018-08-20 08:30] VITALS: BP 136/61
[2018-08-20 08:44] VITALS: BP 136/61
[2018-08-20] MEDS: LEVOFLOXACIN 500MG 100 ML IV SCH (09:41)
[2018-08-20] MEDS: ASCORBIC ACID 500 MG TAB PO SCH ×2 (09:41→22:00)
[2018-08-20] MEDS: MULTIPLE VITAMIN TAB PO SCH (09:41)
[2018-08-20] MEDS: ZINC SULFATE 220mg CAP or TAB PO SCH (09:41)
[2018-08-20] MEDS: FAMOTIDINE 20 MG TAB PO SCH ×2 (09:42→22:00)
[2018-08-20] MEDS ORDERED: MORPHINE SULFATE 4 MG/ML SYR/VIAL IV PRN (10:30)
[2018-08-20] MEDS ORDERED: ceFAZolin 1GM/50ML 50 ML IV ONE (10:30)
[2018-08-20] MEDS ORDERED: HYDROcodone-ACET 5/325MG TAB PO PRN (10:30)
[2018-08-20] MEDS ORDERED: TEMAZEPAM 15 MG CAP PO PRN (10:30)
--- NOTE | 2018-08-20 11:35 | NUR ---
I faxed home IV ATB order to [facility].
--- NOTE | 2018-08-20 11:46 | NUR ---
spoke with md rubio at the station and he said that we need to keep the patient till Friday bec nobody will come to pick her up and does not have the house marrero and that do not dress the operative site keep it like that.
[2018-08-20 13:00] VITALS: BP 126/61
[2018-08-20 17:00] VITALS: BP 137/64
[2018-08-20] MEDS: ceFAZolin 1GM/50ML 50 ML IV SCH (18:34)
[2018-08-20 22:00] VITALS: BP 131/64
[2018-08-21] MEDS: ceFAZolin 1GM/50ML 50 ML IV SCH ×2 (02:39→10:38)
[2018-08-21 05:00] VITALS: BP 128/64
[2018-08-21] MEDS: SODIUM CHLOR 0.9% PF (SALINE LOCK) 10ML VIAL/SYR IV SCH ×3 (06:25→14:01)
[2018-08-21] MEDS: ACCU-CHEK COMFORT CURVE STRIP VI SCH ×2 (06:25→11:23)
[2018-08-21] MEDS: InsuLIN REG 1unit/0.01ml Soln (100units/ml) SC SCH ×2 (06:26→12:15)
[2018-08-21 08:30] VITALS: BP 124/70
[2018-08-21 09:00] VITALS: BP 124/70
[2018-08-21] MEDS: MULTIPLE VITAMIN TAB PO SCH (09:55)
[2018-08-21] MEDS: ZINC SULFATE 220mg CAP or TAB PO SCH (09:55)
[2018-08-21] MEDS: ASCORBIC ACID 500 MG TAB PO SCH (09:55)
[2018-08-21] MEDS: FAMOTIDINE 20 MG TAB PO SCH (09:55)
--- NOTE | 2018-08-21 10:09 | NUR ---
called and spoke with renard, she will call me re: an update on the home iv abx that was given.
--- NOTE | 2018-08-21 10:44 | NUR ---
as per patient she already had a pending appt with md rubio on 08/25/[address] [place] [address].
[2018-08-21 10:58] VITALS: BP 132/79
--- NOTE | 2018-08-21 11:06 | NUR ---
DISCHARGE PHOTOS ON THE LEFT FOOT TAKEN
--- NOTE | 2018-08-21 11:10 | NUR ---
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
--- NOTE | 2018-08-21 11:22 | NUR ---
Re-faxed home IV ATB order to [facility].
--- NOTE | 2018-08-21 11:38 | NUR ---
CALLED AND SPOKE WITH SAROJ, SHE WILL UPDATE ME RE: INFORMATION ON HOME ABX.
--- NOTE | 2018-08-21 12:03 | NUR ---
PICC LINE DRESSING CHANGED
--- NOTE | 2018-08-21 12:17 | NUR ---
I called Deidre at [facility], let her know that I verified with MD that they do want Ancef 2gm daily, and that patient has single lumen PICC line-I also reminded her that we need home health arranged-and that patient was anxious to leave-Deidre will give me a call back.
[2018-08-21 12:48] VITALS: BP 131/65
--- NOTE | 2018-08-21 13:05 | NUR ---
Patient will be followed by [facility], [facility] to contact patient regarding IV ATB delivery time, I let nurse Sandip know that patient is set to go, I also provided her with phone numbers for [facility] and [facility] to give to patient.
--- NOTE | 2018-08-21 13:25 | NUR ---
SPOKE WITH PATIENT, PER PATIENT [facility] CALLED HER ALREADY AND ALL SET FOR THE DELIVERY OF ABX Addendum: 08/21/18 at 1337 by Kathie Pascual RN RN GIVEN NUMBER OF DYLAN DAVID AND SANKET.
--- NOTE | 2018-08-21 14:01 | NUR ---
Discharge instructions given as ordered. Encourage to follow up with [facility] diggs 08/26/18 at 1330 and md rubio on 08/25/18 as instructed. All questions and concerns addressed. Patient verbalized understanding. Medication reconciliation form completed and copy given to patient. Patient insisted to walk with all personal belongings, accompanied by staff and family member. No distress noted at time of departure.
== END 2018-08-21 13:59 | disposition home health service (06) | DRG 854 ==
LOC: ER 11:57 → OVERFLOW 17:34 → CENTRAL 21:45
PROVIDERS: ADMIT Internal Medicine; ATTEND Internal Medicine
PROC: 02HV33Z Insertion of Infusion Device into Superior Vena Cava, Percutaneous Approach (ICD-10-PCS; 2018-08-14)
PROC: 0Y6T0Z0 Detachment at Right 3rd Toe, Complete, Open Approach (ICD-10-PCS; principal; 2018-08-19 13:56)
DX: A41.9 Sepsis, unspecified organism (principal); E44.0 Moderate protein-calorie malnutrition; L03.115 Cellulitis of right lower limb; L97.419 Non-pressure chronic ulcer of right heel and midfoot with unspecified severity; L03.116 Cellulitis of left lower limb; Z68.41 Body mass index [BMI] 40.0-44.9, adult; M86.171 Other acute osteomyelitis, right ankle and foot; L97.519 Non-pressure chronic ulcer of other part of right foot with unspecified severity; L97.529 Non-pressure chronic ulcer of other part of left foot with unspecified severity; E78.5 Hyperlipidemia, unspecified; I10 Essential (primary) hypertension; E66.01 Morbid (severe) obesity due to excess calories; E11.621 Type 2 diabetes mellitus with foot ulcer; E11.21 Type 2 diabetes mellitus with diabetic nephropathy; M17.10 Unilateral primary osteoarthritis, unspecified knee; Z88.6 Allergy status to analgesic agent; Z88.0 Allergy status to penicillin; Z88.7 Allergy status to serum and vaccine; Z91.048 Other nonmedicinal substance allergy status; Z90.710 Acquired absence of both cervix and uterus; Z83.3 Family history of diabetes mellitus; Z82.49 Family history of ischemic heart disease and other diseases of the circulatory system; Z90.49 Acquired absence of other specified parts of digestive tract; Z71.3 Dietary counseling and surveillance
CPT/HCPCS: 36415; 36569; 71045; 73562; 73630; 73700; 73718; 80048; 80053; 81001; 82962; 83036; 83605; 83735; 84484; 85025; 85610; 87040; 87070; 87075; 87076; 87077; 87081; 87186; 87205; 93005; 93926; 93971; 96365; 96367; G0378; J0690; J1815; J1885; J1956; J2250; J2704; J3490

== ENCOUNTER → 2018-09-25 | Outpatient (CLI) | payer MEDICARE, MEDICAID ==
[2018-09-25 12:10] LABS: Cholesterol 216 mg/dL (< 200); HDL Cholesterol 52 mg/dL (40-59); LDL Cholesterol 142 mg/dL (< 100); Triglycerides 161 mg/dL (< 150)
== END | disposition home or self-care (01) ==
LOC: LAB 11:05
PROVIDERS: ATTEND Internal Medicine
DX: E11.9 Type 2 diabetes mellitus without complications (principal)
CPT/HCPCS: 36415; 80061; 83036

== ENCOUNTER 2018-12-08 11:36 | Inpatient (IN) | payer MEDICARE, MEDICAID | END 2018-12-11 20:00 | LOC: ER 11:36 → OVERFLOW 14:32 → EAST 16:09 | DX: A41.9 Sepsis, unspecified organism (principal); N17.0 Acute kidney failure with tubular necrosis; L03.115 Cellulitis of right lower limb; E87.1 Hypo-osmolality and hyponatremia; E44.0 Moderate protein-calorie malnutrition; M86.9 Osteomyelitis, unspecified; E11.610 Type 2 diabetes mellitus with diabetic neuropathic arthropathy; E11.621 Type 2 diabetes mellitus with foot ulcer; E66.9 Obesity, unspecified; E78.00 Pure hypercholesterolemia, unspecified; E78.5 Hyperlipidemia, unspecified; E87.8 Other disorders of electrolyte and fluid balance, not elsewhere classified; N18.3 Chronic kidney disease, stage 3 (moderate); Z79.82 Long term (current) use of aspirin; Z79.84 Long term (current) use of oral hypoglycemic drugs; E11.40 Type 2 diabetes mellitus with diabetic neuropathy, unspecified ==

== ENCOUNTER → 2019-03-12 | Outpatient (CLI) | payer MEDICARE, MEDICAID ==
[~2019-03-12] MED LIST changes: +GLYB5TAB8 PO; +METF-370 PO
[2019-03-12 09:36] LABS: Cholesterol 192 mg/dL (< 200); HDL Cholesterol 46 mg/dL (40-59); LDL Cholesterol 123 mg/dL (< 100); Triglycerides 166 mg/dL (< 150)
== END | disposition home or self-care (01) ==
LOC: LAB 08:36
PROVIDERS: ATTEND Internal Medicine
DX: E78.5 Hyperlipidemia, unspecified (principal); I12.9 Hypertensive chronic kidney disease with stage 1 through stage 4 chronic kidney disease, or unspecified chronic kidney disease; E11.22 Type 2 diabetes mellitus with diabetic chronic kidney disease; N18.3 Chronic kidney disease, stage 3 (moderate)
CPT/HCPCS: 36415; 80061; 82043

== ENCOUNTER → 2019-03-29 | Outpatient (CLI) | payer MEDICARE, MEDICAID ==
[2019-03-29 12:34] LABS: Basophils # (auto) 0 uL; Basophils % (auto) 0.6 % (0.0-2.0); Eosinophils # (auto) 0.1 uL; Eosinophils % (auto) 2.4 % (0.0-7.0); Hematocrit 39.3 % (36.0-46.0); Hemoglobin 13.1 g/dL (12.2-16.2); Lymphocytes # (auto) 1.1 uL; Mean Corpuscular Hemoglobin 28.5 pg (28.0-32.0); Mean Corpuscular Hgb Conc. 33.2 g/dL (32.0-36.0); Mean Corpuscular Volume 85.8 fL (80.0-100.0); Monocytes # (auto) 0.3 uL; Monocytes % (auto) 4.8 % (0.0-12.0); Neutrophils # (auto) 4.1 uL; Neutrophils % (auto) 72.2 % (37.0-80.0); Nucleated Red Blood Cells % 0.1 %; Platelet Count (auto) 183 10^3/uL (140-450); Red Blood Cells 4.58 10^6/uL (4.0-5.20); Red Cell Distribution Width 15.3 % (11.8-14.3); White Blood Cell 5.7 10^3/uL (4.4-10.8)
[2019-03-29 13:05] LABS: Albumin 3.4 g/dL (3.4-5.0); Bilirubin, Direct 0.1 mg/dL (0-0.2)
[2019-03-29 13:14] LABS: Bilirubin, Total 0.4 mg/dL (0.2-1.0); CRP High Sensitivity 1.24 mg/dL (< 0.3); Total Protein 7.6 g/dL (6.4-8.2)
== END | disposition home or self-care (01) ==
LOC: LAB 11:38
PROVIDERS: ATTEND Internal Medicine
DX: J45.909 Unspecified asthma, uncomplicated (principal); E78.5 Hyperlipidemia, unspecified; I12.9 Hypertensive chronic kidney disease with stage 1 through stage 4 chronic kidney disease, or unspecified chronic kidney disease; E11.22 Type 2 diabetes mellitus with diabetic chronic kidney disease; N18.3 Chronic kidney disease, stage 3 (moderate)
CPT/HCPCS: 36415; 80076; 83036; 85025; 85652; 86141

== ENCOUNTER → 2019-05-19 | Day surgery (SDC) | payer MEDICARE, MEDICAID ==
[2019-05-13 14:11] LABS: Basophils # (auto) 0.1 uL; Basophils % (auto) 1.4 % (0.0-2.0); Eosinophils # (auto) 0.2 uL; Eosinophils % (auto) 2.3 % (0.0-7.0); Hematocrit 41.8 % (36.0-46.0); Lymphocytes # (auto) 1.4 uL; Lymphocytes % (auto) 19.6 % (10.0-50.0); Mean Corpuscular Hemoglobin 28.7 pg (28.0-32.0); Mean Corpuscular Hgb Conc. 33.4 g/dL (32.0-36.0); Mean Corpuscular Volume 86.1 fL (80.0-100.0); Monocytes # (auto) 0.3 uL; Monocytes % (auto) 4.7 % (0.0-12.0); Neutrophils # (auto) 5.1 uL; Platelet Count (auto) 186 10^3/uL (140-450); Red Blood Cells 4.86 10^6/uL (4.0-5.20); Red Cell Distribution Width 14.4 % (11.8-14.3)
[2019-05-13 14:18] LABS: Urine Bacteria NONE SEEN /hpf (None Seen); Urine Blood Negative /uL (Negative); Urine Hyaline Cast MOD /lpf (0 - 2); Urine Mucus FEW (None Seen); Urine Specific Gravity 1.023 (1.001-1.035); Urine WBC 3 /hpf (0 - 5)
[2019-05-13 14:26] LABS: INR 0.98 (0.9-1.15); Partial Thromboplastin Time 27.8 sec (23.64-32.05)
[2019-05-13 14:35] LABS: Albumin 3.7 g/dL (3.4-5.0); Bilirubin, Total 0.5 mg/dL (0.2-1.0); Potassium 4.1 mmol/L (3.5-5.1); Total Protein 7.6 g/dL (6.4-8.2)
[~2019-05-19] VITALS: Ht 1 cm; Wt 0.5 kg
[~2019-05-19] MED LIST changes: +CLINDAMYCIN 600MG IV 50 ML IV ONE; -GLYB5TAB8 PO; -METF-370 PO; +MIDAZOLAM HCL 1MG/1ML-2 ML VIAL ONE; +ONDANSETRON HCL 4 MG/2 ML VIAL IV PRN; +PROPOFOL 10 MG/ML 20 ML IV ONE; +ROPIVACAINE 0.5% (5MG/ML) 20ML AMPULE IJ ONE; +ePHEDrine SULFATE 50 MG/ML AMP IV PRN; +fentaNYL CITRATE 100 MCG/2 ML VL IV PRN; +fentaNYL CITRATE 100 MCG/2 ML VL ONE; +hydrALAZINE HCL 20 MG/ML VL IV PRN
[2019-05-19 11:36] VITALS: BP 114/52
== END | disposition home or self-care (01) ==
LOC: SUR 09:04
PROVIDERS: ATTEND Podiatrist Foot & Ankle Surgery
DX: M62.472 Contracture of muscle, left ankle and foot (principal); Q66.89 Other specified congenital deformities of feet; E11.621 Type 2 diabetes mellitus with foot ulcer; L97.529 Non-pressure chronic ulcer of other part of left foot with unspecified severity; M19.90 Unspecified osteoarthritis, unspecified site; J45.909 Unspecified asthma, uncomplicated; K21.9 Gastro-esophageal reflux disease without esophagitis; E66.9 Obesity, unspecified; Z79.899 Other long term (current) drug therapy; Z88.5 Allergy status to narcotic agent; Z88.0 Allergy status to penicillin; Z88.7 Allergy status to serum and vaccine; Z91.048 Other nonmedicinal substance allergy status; Z68.42 Body mass index [BMI] 45.0-49.9, adult; Z79.84 Long term (current) use of oral hypoglycemic drugs
CPT/HCPCS: 27685; 29999; 36415; 80053; 81001; 82962; 85025; 85610; 85730; J2250; J2704; J2795; J3010; J3490

== ENCOUNTER 2019-06-08 15:49 | Inpatient (IN) | payer MEDICARE, MEDICAID ==
[~2019-06-08] VITALS: Ht 170.2 cm; Wt 82.1 kg
[~2019-06-08 15:49] MED LIST changes: -CLINDAMYCIN 600MG IV 50 ML IV ONE; -MIDAZOLAM HCL 1MG/1ML-2 ML VIAL ONE; -ONDANSETRON HCL 4 MG/2 ML VIAL IV PRN; -PROPOFOL 10 MG/ML 20 ML IV ONE; -ROPIVACAINE 0.5% (5MG/ML) 20ML AMPULE IJ ONE; -ePHEDrine SULFATE 50 MG/ML AMP IV PRN; -fentaNYL CITRATE 100 MCG/2 ML VL IV PRN; -fentaNYL CITRATE 100 MCG/2 ML VL ONE; -hydrALAZINE HCL 20 MG/ML VL IV PRN
[2019-06-08 16:47] LABS: Albumin 3.9 g/dL (3.4-5.0); Anion Gap 8 (5-15); Blood Urea Nitrogen 26 mg/dL (7-18); Calcium 9.5 mg/dL (8.5-10.1); Carbon Dioxide 28 mmol/L (21-32); Chloride 104 mmol/L (98-107); Glucose 112 mg/dL (74-106); Potassium 4.8 mmol/L (3.5-5.1); Sodium 140 mmol/L (136-145)
[2019-06-08 16:52] LABS: Alanine Aminotransferase 16 U/L (13-56); Alkaline Phosphatase 89 U/L (45-117); Aspartate Aminotransferase 18 U/L (15-37); BUN/Creatinine Ratio 19.3; Bilirubin, Total 0.5 mg/dL (0.2-1.0); GFR African American 50 mL/min; GFR Non-African American 41 mL/min
[2019-06-08 16:54] LABS: Basophils # (auto) 0 uL; Basophils % (auto) 0.5 % (0.0-2.0); Eosinophils # (auto) 0.1 uL; Eosinophils % (auto) 1.4 % (0.0-7.0); Hematocrit 42.7 % (36.0-46.0); Hemoglobin 14.1 g/dL (12.2-16.2); Lymphocytes # (auto) 1.7 uL; Lymphocytes % (auto) 20.6 % (10.0-50.0); Mean Corpuscular Hemoglobin 28.5 pg (28.0-32.0); Mean Corpuscular Volume 86.2 fL (80.0-100.0); Monocytes # (auto) 0.5 uL; Monocytes % (auto) 6.1 % (0.0-12.0); Neutrophils # (auto) 5.8 uL; Neutrophils % (auto) 71.4 % (37.0-80.0); Nucleated Red Blood Cells % 0.2 %; Platelet Count (auto) 194 10^3/uL (140-450); Red Blood Cells 4.95 10^6/uL (4.0-5.20); Red Cell Distribution Width 14.3 % (11.8-14.3); White Blood Cell 8.1 10^3/uL (4.4-10.8)
[2019-06-09] MEDS ORDERED: TEMAZEPAM 15 MG CAP PO PRN (03:00)
[2019-06-09] MEDS ORDERED: ONDANSETRON HCL 4 MG/2 ML VIAL IV PRN (03:00)
[2019-06-09] MEDS ORDERED: MECLIZINE HCL 25 MG TAB PO PRN (03:00)
[2019-06-09] MEDS ORDERED: ACETAMINOPHEN 325 MG TAB PO PRN (03:00)
[2019-06-09] MEDS ORDERED: MECLIZINE HCL 25 MG TAB PO ONE (03:00)
[2019-06-09] MEDS: PANTOPRAZOLE 40 MG TAB PO SCH (05:54)
[2019-06-09] MEDS: glyBURIDE 5 MG TAB PO SCH ×2 (06:51→17:55)
[2019-06-09] MEDS: metFORMIN HYDROCHLORIDE 500 MG TAB PO SCH ×2 (08:00→17:55)
--- NOTE | 2019-06-09 08:40 | NUR ---
MED/SURG admit from ER UDAY CROWELL admitted to Telemetry unit after SBAR received. Patient oriented to DANIELLA DE LA TORRE RN primary RN, unit, room, bed, and unit policies regarding patient care and visiting hours weighed by bedscale and encouraged to call if they need something. All questions and concerns addressed, patient verbalized understanding. Note: []
--- NOTE | 2019-06-09 09:40 | NUR ---
MD WILFREDO COTA AT BEDSIDE. ALL QUESTIONS AND CONCERNS ADDRESSED AT THIS TIME.
[2019-06-09] MEDS: ENOXAPARIN SOD 80 MG/0.8ML SYRINGE SC SCH ×2 (09:52→20:54)
[2019-06-09] MEDS ORDERED: ENOXAPARIN SOD 100 MG/1 ML SYRINGE SC SCH (10:00)
[2019-06-09 13:31] VITALS: BP 128/61
[2019-06-09 17:00] VITALS: BP 124/73
--- NOTE | 2019-06-09 20:30 | NUR ---
MD WILFREDO CORRALES AT BEDSIDE FOR NEUROLOGY CONSULT. NEW ORDERS RECEIVED. ALL QUESTIONS AND CONCERNS ADDRESSED AT THIS TIME.
[2019-06-09] MEDS ORDERED: LORazepam 2MG/ML-1ML VIAL IV PRN (21:30)
[2019-06-09] MEDS: AMITRIPTYLINE HCL 10 MG TAB PO SCH (22:00)
[2019-06-09 22:34] VITALS: BP 137/76
[2019-06-09 22:54] LABS: Folate (Folic Acid) 12.19 ng/mL (5.38-24)
[2019-06-10] MEDS: AMITRIPTYLINE HCL 10 MG TAB PO SCH (00:53)
--- NOTE | 2019-06-10 01:29 | NUR ---
PT DOES NOT WANT TO CONTINUE NEW PRESCRIPTION OF AMITRIPTYLINE PT STATES NEW MEDICATION AMITRIPTYLINE IS NOT WORKING AND "IS JUST MAKING ME JITTRY, THAT IS THE PROBLEM WITH MEDICATION IS THAT IS JUST DOES NOT AGREE WITH ME. I WILL BE OKAY AND IT WILL WEAR OFF BUT I JUST WANTED TO LET YOU KNOW."
[2019-06-10 05:14] VITALS: BP 131/61
[2019-06-10] MEDS: PANTOPRAZOLE 40 MG TAB PO SCH (06:00)
--- NOTE | 2019-06-10 06:18 | NUR ---
BLOOD GLUCOSE PATIENT BLOOD GLUCOSE 98
[2019-06-10] MEDS: glyBURIDE 5 MG TAB PO SCH ×2 (06:19→18:00)
[2019-06-10 07:16] LABS: INR 1.07 (0.9-1.15); Partial Thromboplastin Time 31.2 sec (23.64-32.05)
[2019-06-10 07:27] LABS: Potassium 3.7 mmol/L (3.5-5.1)
[2019-06-10 07:32] LABS: BUN/Creatinine Ratio 24.8
[2019-06-10 09:00] VITALS: BP 123/58
[2019-06-10] MEDS: ENOXAPARIN SOD 80 MG/0.8ML SYRINGE SC SCH ×2 (09:28→22:00)
[2019-06-10] MEDS: metFORMIN HYDROCHLORIDE 500 MG TAB PO SCH ×2 (09:29→18:00)
--- NOTE | 2019-06-10 11:40 | NUR ---
EEG COMPLETED AT BEDSIDE. SHANITA POP.
[2019-06-10] MEDS ORDERED: CYANOCOBALAMIN (B-12) 1000 MCG/1 ML VIAL IM ONE (13:15)
[2019-06-10 17:00] VITALS: BP 117/65
--- NOTE | 2019-06-10 18:20 | NUR ---
BLOOD GLUCOSE PATIENT BLOOD GLUCOSE 63. PATIENT RECEIVED DINNER.
[2019-06-10 22:12] VITALS: BP 134/72
[2019-06-11 05:31] VITALS: BP 120/55
[2019-06-11] MEDS: PANTOPRAZOLE 40 MG TAB PO SCH (06:17)
--- NOTE | 2019-06-11 07:25 | NUR ---
Opening Shift Note Assumed care of patient, awake and alert sitting in bed. No S/S of distress/SOB or pain. Instructed on POC and to call for assist PRN, patient bed locked and in lowest position and call light within reach. Will continue to monitor for changes Q1hr and PRN.
[2019-06-11] MEDS: glyBURIDE 5 MG TAB PO SCH (07:53)
[2019-06-11] MEDS: metFORMIN HYDROCHLORIDE 500 MG TAB PO SCH (08:00)
[2019-06-11 09:00] VITALS: BP 135/82
--- NOTE | 2019-06-11 09:19 | NUR ---
Dr. Chew bedside with patient discussing plan of care.
[2019-06-11] MEDS ORDERED: APIX5TAB PO (09:25)
[2019-06-11] MEDS ORDERED: CYANOCOBALAMIN 500 MCG TAB PO SCH (10:00)
[2019-06-11] MEDS ORDERED: APIXABAN 5 MG TAB PO SCH (10:00)
[2019-06-11 10:08] LABS: Basophils # (auto) 0.1 uL; Eosinophils # (auto) 0.1 uL; Eosinophils % (auto) 2.5 % (0.0-7.0); Hematocrit 39.3 % (36.0-46.0); Hemoglobin 13.3 g/dL (12.2-16.2); Lymphocytes # (auto) 0.9 uL; Lymphocytes % (auto) 22.1 % (10.0-50.0); Mean Corpuscular Hemoglobin 28.7 pg (28.0-32.0); Mean Corpuscular Hgb Conc. 33.8 g/dL (32.0-36.0); Mean Corpuscular Volume 84.9 fL (80.0-100.0); Monocytes # (auto) 0.3 uL; Monocytes % (auto) 6.7 % (0.0-12.0); Neutrophils # (auto) 2.9 uL; Neutrophils % (auto) 66.7 % (37.0-80.0); Nucleated Red Blood Cells % 0.1 %; Platelet Count (auto) 151 10^3/uL (140-450); Red Blood Cells 4.62 10^6/uL (4.0-5.20); Red Cell Distribution Width 14.4 % (11.8-14.3); White Blood Cell 4.3 10^3/uL (4.4-10.8)
[2019-06-11 10:15] LABS: BUN/Creatinine Ratio 17.7; Calcium 8.8 mg/dL (8.5-10.1); Potassium 4.1 mmol/L (3.5-5.1)
[2019-06-11 13:00] VITALS: BP 113/68
[2019-06-11 17:00] VITALS: BP 127/64
--- NOTE | 2019-06-11 17:02 | NUR ---
Dr. Pierce bedside with patient discussing plan of care
--- NOTE | 2019-06-11 18:10 | NUR ---
Discharge instructions given as ordered. Encourage to follow up with PMD as instructed. All questions and concerns addressed. Patient verbalized understanding. Medication reconciliation form completed and copy given to patient. New prescription filled at [facility] and medication brought to patient prior to discharge. No vaccines given to patient, vaccines refused. IV removed with catheter intact and pressure dressing applied.
--- NOTE | 2019-06-11 18:56 | NUR ---
Patient taken to vehicle via wheelchair with all personal belongings, accompanied by staff and family member. No distress noted at time of departure.
[2019-06-18] MEDS ORDERED: APIXABAN 5 MG TAB PO SCH (10:00)
== END 2019-06-11 18:56 | disposition home or self-care (01) | DRG 301 ==
LOC: ER 16:08 → OVERFLOW 16:09 → ER 19:15 → EAST 06-09 08:44
PROVIDERS: ADMIT Nurse Practitioner; ATTEND Internal Medicine Nephrology
DX: I82.432 Acute embolism and thrombosis of left popliteal vein (principal); N18.3 Chronic kidney disease, stage 3 (moderate); E66.9 Obesity, unspecified; G43.011 Migraine without aura, intractable, with status migrainosus; F40.240 Claustrophobia; E11.22 Type 2 diabetes mellitus with diabetic chronic kidney disease; E11.42 Type 2 diabetes mellitus with diabetic polyneuropathy; E78.5 Hyperlipidemia, unspecified; G47.00 Insomnia, unspecified; Z68.28 Body mass index [BMI] 28.0-28.9, adult; Z88.5 Allergy status to narcotic agent; Z88.0 Allergy status to penicillin; Z88.7 Allergy status to serum and vaccine; Z90.49 Acquired absence of other specified parts of digestive tract; Z90.710 Acquired absence of both cervix and uterus; Z82.49 Family history of ischemic heart disease and other diseases of the circulatory system; Z80.8 Family history of malignant neoplasm of other organs or systems; Z85.42 Personal history of malignant neoplasm of other parts of uterus; Z79.899 Other long term (current) drug therapy
CPT/HCPCS: 36415; 70450; 70551; 71046; 80048; 80053; 82607; 82746; 82962; 84155; 84165; 84443; 84484; 85025; 85379; 85610; 85652; 85730; 87081; 93005; 93970; 95819; 96372; G0378

== ENCOUNTER → 2019-08-13 | Outpatient (CLI) | payer MEDICARE, MEDICAID ==
[~2019-08-13] MED LIST changes: +APIX5TAB PO; -ASPI-231 PO
== END | disposition home or self-care (01) ==
LOC: LAB 12:01
PROVIDERS: ATTEND Internal Medicine
DX: E11.9 Type 2 diabetes mellitus without complications (principal)
CPT/HCPCS: 36415; 83036

== ENCOUNTER 2021-03-06 10:42 | Emergency (ER) | payer MEDICARE, MEDICAID ==
[~2021-03-06] VITALS: Ht 170.2 cm; Wt 110.7 kg
[2021-03-06 10:43] VITALS: BP 127/73
[2021-03-06] MEDS ORDERED: CLINDAMYCIN 600MG IV 50 ML IV ONE (11:00)
== END 2021-03-06 11:35 | disposition left against medical advice (07) ==
LOC: ER 10:42
DX: L03.116 Cellulitis of left lower limb (principal); J45.909 Unspecified asthma, uncomplicated; E11.9 Type 2 diabetes mellitus without complications; E78.5 Hyperlipidemia, unspecified; Z90.49 Acquired absence of other specified parts of digestive tract; Z90.710 Acquired absence of both cervix and uterus; Z79.899 Other long term (current) drug therapy; Z88.0 Allergy status to penicillin; Z88.5 Allergy status to narcotic agent; Z88.7 Allergy status to serum and vaccine; Z91.048 Other nonmedicinal substance allergy status

== ENCOUNTER 2021-05-02 07:19 | Day surgery (SDC) | payer MEDICARE, MEDICAID ==
[2021-05-01 13:33] LABS: Basophils # (auto) 0 10 ^3/uL (0-0.2); Basophils % (auto) 0.7 % (0.0-2.0); Eosinophils # (auto) 0.2 10 ^3/uL (0-0.8); Eosinophils % (auto) 3.4 % (0.0-7.0); Hematocrit 48.9 % (36.0-46.0); Hemoglobin 15.9 g/dL (12.2-16.2); Lymphocytes # (auto) 1.3 10 ^3/uL (0.4-5.4); Lymphocytes % (auto) 18.4 % (10.0-50.0); Mean Corpuscular Hemoglobin 27.9 pg (28.0-32.0); Mean Corpuscular Hgb Conc. 32.5 g/dL (32.0-36.0); Mean Corpuscular Volume 85.9 fL (80.0-100.0); Monocytes # (auto) 0.2 10 ^3/uL (0-1.3); Monocytes % (auto) 3.4 % (0.0-12.0); Neutrophils # (auto) 5.1 10 ^3/uL (1.6-8.6); Neutrophils % (auto) 74.1 % (37.0-80.0); Nucleated Red Blood Cells % 0.3 %; Red Blood Cells 5.69 10^6/uL (4.0-5.20); Red Cell Distribution Width 14.6 % (11.8-14.3); White Blood Cell 6.9 10^3/uL (4.4-10.8)
[2021-05-01 13:34] LABS: Urine Bacteria NONE SEEN /hpf (None Seen); Urine Blood Negative /uL (Negative); Urine Hyaline Cast FEW /lpf (0 - 2); Urine Mucus FEW (None Seen); Urine Specific Gravity 1.018 (1.001-1.035); Urine WBC 1 /hpf (0 - 5)
[2021-05-01 13:46] LABS: INR 1.06 (0.9-1.15); Partial Thromboplastin Time 29.2 sec (23.6-33.0)
[2021-05-01 14:16] LABS: Albumin 3.9 g/dL (3.4-5.0); Calcium 9.7 mg/dL (8.5-10.1)
[2021-05-01 14:20] LABS: BUN/Creatinine Ratio 14.9; Bilirubin, Total 0.5 mg/dL (0.2-1.0); Total Protein 8.2 g/dL (6.4-8.2)
[~2021-05-02] VITALS: Ht 170.2 cm; Wt 108.9 kg
[~2021-05-02 07:19] MED LIST changes: +METF-370 PO
[2021-05-02] MEDS ORDERED: PHENYLEPHRINE HCL 10 MG/ML VL IV ONE (10:13)
[2021-05-02] MEDS ORDERED: CLINDAMYCIN 600MG IV 50 ML IV ONE (10:32)
[2021-05-02] MEDS ORDERED: MORPHINE SULFATE 4 MG/ML SYR/VIAL IV PRN (11:00)
[2021-05-02] MEDS ORDERED: LABETALOL HCL 5 MG/ML 4ML SYRINGE IV PRN (11:00)
[2021-05-02] MEDS ORDERED: ONDANSETRON HCL 4 MG/2 ML VIAL IV PRN (11:00)
[2021-05-02] MEDS ORDERED: ePHEDrine SULFATE 50 MG/ML AMP IV PRN (11:00)
[2021-05-02] MEDS ORDERED: MIDAZOLAM HCL 2MG/2ML 2ml VIAL (1mg/ml) IV PRN (11:00)
[2021-05-02] MEDS ORDERED: HYDROmorphone HCL 2 MG/ML VL IV PRN (11:00)
[2021-05-02 12:15] VITALS: BP 130/44
== END 2021-05-02 12:40 | disposition home or self-care (01) ==
LOC: SUR 07:19
PROVIDERS: ATTEND Podiatrist Foot & Ankle Surgery
DX: M25.771 Osteophyte, right ankle (principal); M19.071 Primary osteoarthritis, right ankle and foot; I10 Essential (primary) hypertension; E11.9 Type 2 diabetes mellitus without complications; I25.10 Atherosclerotic heart disease of native coronary artery without angina pectoris; J45.909 Unspecified asthma, uncomplicated; Z98.890 Other specified postprocedural states; Z79.899 Other long term (current) drug therapy; Z88.0 Allergy status to penicillin; Z91.048 Other nonmedicinal substance allergy status; Z20.822 Contact with and (suspected) exposure to COVID-19; Z82.49 Family history of ischemic heart disease and other diseases of the circulatory system; Z80.8 Family history of malignant neoplasm of other organs or systems
CPT/HCPCS: 28120; 36415; 80053; 81001; 82962; 85025; 85610; 85730; 88305; 88311; J1100; J2175; J2250; J2370; J2704; J3010; J3490; U0003

== ENCOUNTER → 2021-09-21 | Outpatient (CLI) | payer MEDICARE, MEDICAID ==
[2021-09-21 09:05] LABS: Urine Bacteria FEW /hpf (None Seen); Urine Blood Negative /uL (Negative); Urine Specific Gravity 1.016 (1.001-1.035); Urine WBC 2 /hpf (0 - 5)
[2021-09-21 10:50] LABS: Basophils # (auto) 0 10 ^3/uL (0-0.2); Basophils % (auto) 0.6 % (0.0-2.0); Eosinophils # (auto) 0.1 10 ^3/uL (0-0.8); Eosinophils % (auto) 1.7 % (0.0-7.0); Hematocrit 40.3 % (36.0-46.0); Lymphocytes # (auto) 0.9 10 ^3/uL (0.4-5.4); Lymphocytes % (auto) 20.3 % (10.0-50.0); Mean Corpuscular Hemoglobin 28.4 pg (28.0-32.0); Mean Corpuscular Hgb Conc. 32.4 g/dL (32.0-36.0); Mean Corpuscular Volume 87.6 fL (80.0-100.0); Monocytes # (auto) 0.2 10 ^3/uL (0-1.3); Neutrophils # (auto) 3.3 10 ^3/uL (1.6-8.6); Neutrophils % (auto) 72.4 % (37.0-80.0); Nucleated Red Blood Cells % 0.2 %; Red Blood Cells 4.59 10^6/uL (4.0-5.20); Red Cell Distribution Width 14.5 % (11.8-14.3); White Blood Cell 4.5 10^3/uL (4.4-10.8)
[2021-09-21 10:55] LABS: Potassium 4.4 mmol/L (3.5-5.1)
[2021-09-21 11:09] LABS: Albumin 3.4 g/dL (3.4-5.0); BUN/Creatinine Ratio 20.9; Bilirubin, Total 0.5 mg/dL (0.2-1.0); Calcium 8.9 mg/dL (8.5-10.1); Total Protein 7.3 g/dL (6.4-8.2)
== END | disposition home or self-care (01) ==
LOC: LAB 08:20
PROVIDERS: ATTEND Internal Medicine
DX: E11.9 Type 2 diabetes mellitus without complications (principal); G43.909 Migraine, unspecified, not intractable, without status migrainosus
CPT/HCPCS: 36415; 80053; 80061; 81001; 82043; 83036; 85025

== ENCOUNTER → 2021-10-11 | Outpatient (CLI) | payer MEDICARE, MEDICAID ==
[2021-10-11 12:33] LABS: Potassium 4.2 mmol/L (3.5-5.1)
[2021-10-11 12:37] LABS: BUN/Creatinine Ratio 24.7
== END | disposition home or self-care (01) ==
LOC: LAB 11:04
PROVIDERS: ATTEND Internal Medicine
DX: N18.2 Chronic kidney disease, stage 2 (mild) (principal); D69.6 Thrombocytopenia, unspecified; E55.9 Vitamin D deficiency, unspecified
CPT/HCPCS: 36415; 80048; 82550; 82607; 85652

== ENCOUNTER → 2021-11-08 | Outpatient (CLI) | payer MEDICARE, MEDICAID | END | disposition home or self-care (01) | LOC: LAB 12:38 | PROVIDERS: ATTEND Internal Medicine | DX: L08.9 Local infection of the skin and subcutaneous tissue, unspecified (principal) | CPT/HCPCS: 87070; 87077; 87186; 87205 ==

== ENCOUNTER → 2022-04-12 | Outpatient (CLI) | payer MEDICARE, MEDICAID ==
[2022-04-12 11:46] LABS: Hematocrit 40.1 % (36.0-46.0); Hemoglobin 13.2 g/dL (12.2-16.2); Mean Corpuscular Hgb Conc. 32.8 g/dL (32.0-36.0); Mean Corpuscular Volume 85.2 fL (80.0-100.0); Red Blood Cells 4.71 10^6/uL (4.0-5.20); Red Cell Distribution Width 13.9 % (11.8-14.3); White Blood Cell 7.3 10^3/uL (4.4-10.8)
[2022-04-12 11:50] LABS: Basophils % (manual) 0 (0.0-2.0); Reactive Lymphocytes 0
[2022-04-12 11:54] LABS: Urine Bacteria NONE SEEN /hpf (None Seen); Urine Blood Negative /uL (Negative); Urine Specific Gravity 1.016 (1.001-1.035); Urine WBC 2 /hpf (0 - 5)
[2022-04-12 12:40] LABS: Potassium 4.6 mmol/L (3.5-5.1)
[2022-04-12 12:58] LABS: BUN/Creatinine Ratio 17.5; Bilirubin, Total 0.4 mg/dL (0.2-1.0); Calcium 8.7 mg/dL (8.5-10.1); Total Protein 7.2 g/dL (6.4-8.2)
[2022-04-12 13:15] LABS: Band Neutrophils % (manual) 3; Blast Cells 2; Eosinophils % (manual) 1 (0-7); Lymphocytes % (manual) 13 (10.0-50.0); Metamyelocytes % 2; Monocytes % (manual) 4 (0-12); Myelocytes % 4; Promyelocytes % 1
== END | disposition home or self-care (01) ==
LOC: LAB 11:19
PROVIDERS: ATTEND Internal Medicine
DX: E11.9 Type 2 diabetes mellitus without complications (principal); R10.9 Unspecified abdominal pain
CPT/HCPCS: 36415; 80053; 81001; 82150; 83690; 85007; 85027

== ENCOUNTER 2022-04-23 14:12 | Inpatient (IN) | payer MEDICARE, MEDICAID ==
[~2022-04-23] VITALS: Ht 170.2 cm; Wt 105.1 kg
[2022-04-23 22:13] LABS: Basophils # (auto) 0.1 10 ^3/uL (0-0.2); Basophils % (auto) 0.9 % (0.0-2.0); Eosinophils # (auto) 0.1 10 ^3/uL (0-0.8); Eosinophils % (auto) 1.4 % (0.0-7.0); Hematocrit 36.8 % (36.0-46.0); Hemoglobin 12.4 g/dL (12.2-16.2); Lymphocytes # (auto) 0.9 10 ^3/uL (0.4-5.4); Mean Corpuscular Hemoglobin 28.5 pg (28.0-32.0); Mean Corpuscular Hgb Conc. 33.6 g/dL (32.0-36.0); Mean Corpuscular Volume 84.6 fL (80.0-100.0); Monocytes # (auto) 0.6 10 ^3/uL (0-1.3); Monocytes % (auto) 7.7 % (0.0-12.0); Neutrophils # (auto) 5.9 10 ^3/uL (1.6-8.6); Red Blood Cells 4.35 10^6/uL (4.0-5.20); Red Cell Distribution Width 14.2 % (11.8-14.3); White Blood Cell 7.5 10^3/uL (4.4-10.8)
[2022-04-23 22:33] LABS: BUN/Creatinine Ratio 19.2; Calcium 8.8 mg/dL (8.5-10.1); Potassium 4.2 mmol/L (3.5-5.1)
[2022-04-23 22:36] LABS: Bilirubin, Total 0.6 mg/dL (0.2-1.0); Total Protein 7.4 g/dL (6.4-8.2)
[2022-04-24] MEDS ORDERED: DEXTROSE (50%) 50ML SYRG IV PRN (04:30)
[2022-04-24] MEDS ORDERED: ONDANSETRON HCL 4 MG/2 ML VIAL IV PRN ×2 (04:30→10:00)
[2022-04-24] MEDS ORDERED: MORPHINE SULFATE INJ 2 MG/ml SYRG IV PRN (04:30)
[2022-04-24] MEDS: SODIUM CHLORIDE 0.9% 1,000 ML IV SCH ×2 (05:05→07:02)
[2022-04-24 05:27] LABS: INR 1.08 (0.9-1.15); Partial Thromboplastin Time 31.9 sec (24.6-33.4)
[2022-04-24] MEDS ORDERED: levoFLOXacin 500MG 100 ML IV SCH (06:00)
[2022-04-24] MEDS: ACCU-CHEK COMFORT CURVE STRIP VI SCH ×3 (06:38→18:16)
[2022-04-24] MEDS: InsuLIN REG 1unit/0.01ml Soln (100units/ml) SC SCH ×3 (06:40→18:00)
[2022-04-24] MEDS ORDERED: CLINDAMYCIN 600MG IV 50 ML IV ONE ×2 (09:16→10:24)
[2022-04-24] MEDS ORDERED: ceFAZolin 1GM VL ONE (09:47)
[2022-04-24] MEDS: BACITRACIN TOP OINT 1 UD PKG TOP ONE ×2 (09:47→11:30)
[2022-04-24] MEDS: ROPIVACAINE 0.5% (5MG/ML) 20ML AMPULE IJ ONE ×2 (09:47→10:25)
[2022-04-24 09:52] LABS: Urine Bacteria NONE SEEN /hpf (None Seen); Urine Blood Negative /uL (Negative); Urine Specific Gravity 1.022 (1.001-1.035); Urine WBC 2 /hpf (0 - 5)
[2022-04-24] MEDS ORDERED: MIDAZOLAM HCL 2MG/2ML 2ml VIAL (1mg/ml) ONE (09:58)
[2022-04-24] MEDS ORDERED: PROPOFOL 10 MG/ML 20 ML IV ONE (09:58)
[2022-04-24] MEDS ORDERED: DexAMETHasone SOD PHOS 10MG/1ML VIAL INJ ONE ×2 (09:58→09:59)
[2022-04-24] MEDS ORDERED: fentaNYL CITRATE 100 MCG/2 ML VL ONE (09:58)
[2022-04-24] MEDS ORDERED: MEPERIDINE HCL (50 MG/ML) 1 ML VIAL ONE (09:59)
[2022-04-24] MEDS ORDERED: LABETALOL HCL 5 MG/ML 4ML SYRINGE IV PRN (10:00)
[2022-04-24] MEDS: PANTOPRAZOLE 40 MG/10 ML VIAL INJ IV SCH (10:00)
[2022-04-24] MEDS ORDERED: ePHEDrine SULFATE 50 MG/ML AMP IV PRN (10:00)
[2022-04-24] MEDS ORDERED: MIDAZOLAM HCL 2MG/2ML 2ml VIAL (1mg/ml) IV PRN (10:00)
[2022-04-24] MEDS ORDERED: HYDROmorphone HCL 2 MG/ML VL/or syr IV PRN (10:00)
[2022-04-24] MEDS ORDERED: MORPHINE SULFATE 4 MG/ML SYR/VIAL IV PRN (10:00)
[2022-04-24 13:52] VITALS: BP 121/76
[2022-04-24] MEDS ORDERED: PHENYLEPHRINE HCL 10 MG/ML VL IV ONE (14:56)
[2022-04-24 16:35] VITALS: BP 121/68
[2022-04-24] MEDS: metFORMIN HYDROCHLORIDE 500 MG TAB PO SCH (18:13)
[2022-04-24] MEDS: glyBURIDE 5 MG TAB PO SCH (18:13)
[2022-04-24 22:00] VITALS: BP 117/47
[2022-04-25] MEDS: ACCU-CHEK COMFORT CURVE STRIP VI SCH ×4 (00:08→16:44)
[2022-04-25 05:00] VITALS: BP 127/55
[2022-04-25] MEDS: InsuLIN REG 1unit/0.01ml Soln (100units/ml) SC SCH ×3 (06:00→10:55)
[2022-04-25] MEDS: glyBURIDE 5 MG TAB PO SCH ×2 (06:46→16:43)
[2022-04-25 07:16] LABS: Basophils # (auto) 0 10 ^3/uL (0-0.2); Basophils % (auto) 0.2 % (0.0-2.0); Eosinophils # (auto) 0 10 ^3/uL (0-0.8); Eosinophils % (auto) 0.1 % (0.0-7.0); Hematocrit 35.4 % (36.0-46.0); Hemoglobin 11.9 g/dL (12.2-16.2); Lymphocytes # (auto) 0.5 10 ^3/uL (0.4-5.4); Lymphocytes % (auto) 5.2 % (10.0-50.0); Mean Corpuscular Hemoglobin 28.4 pg (28.0-32.0); Mean Corpuscular Hgb Conc. 33.7 g/dL (32.0-36.0); Mean Corpuscular Volume 84.2 fL (80.0-100.0); Monocytes # (auto) 0.7 10 ^3/uL (0-1.3); Monocytes % (auto) 8.1 % (0.0-12.0); Neutrophils # (auto) 7.7 10 ^3/uL (1.6-8.6); Neutrophils % (auto) 86.4 % (37.0-80.0); Red Blood Cells 4.21 10^6/uL (4.0-5.20); Red Cell Distribution Width 13.8 % (11.8-14.3); White Blood Cell 8.9 10^3/uL (4.4-10.8)
[2022-04-25 07:38] LABS: Albumin 2.6 g/dL (3.4-5.0); Calcium 8.4 mg/dL (8.5-10.1); Potassium 4.2 mmol/L (3.5-5.1)
[2022-04-25 07:44] LABS: BUN/Creatinine Ratio 19.5; Bilirubin, Total 0.5 mg/dL (0.2-1.0); Total Protein 6.4 g/dL (6.4-8.2)
[2022-04-25 08:38] VITALS: BP 129/43
[2022-04-25] MEDS: metFORMIN HYDROCHLORIDE 500 MG TAB PO SCH ×2 (08:45→16:43)
[2022-04-25] MEDS: PANTOPRAZOLE 40 MG/10 ML VIAL INJ IV SCH (08:45)
[2022-04-25] MEDS: metroNIDAZOLE 500 MG TAB PO SCH ×3 (10:55→22:11)
[2022-04-25 12:31] VITALS: BP 124/46
[2022-04-25] MEDS ORDERED: LIDOCAINE 1% (LOCAL ANESTH.) PF 5ml SDV ID ONE (14:00)
[2022-04-25 22:00] VITALS: BP 108/51
[2022-04-25] MEDS: SODIUM CHLOR 0.9% PF (SALINE LOCK) 10ML VIAL/SYR IV SCH ×2 (22:09→22:11)
[2022-04-26] VITALS (10 sets, daily range): BP systolic 75–112; BP diastolic 36–60
[2022-04-26] MEDS: ACCU-CHEK COMFORT CURVE STRIP VI SCH ×4 (06:48→17:44)
[2022-04-26] MEDS: glyBURIDE 5 MG TAB PO SCH (06:52)
[2022-04-26] MEDS ORDERED: cefTRIAXone 1GM/50ML D5W 50 ML IV SCH (09:00)
[2022-04-26] MEDS: SODIUM CHLOR 0.9% PF (SALINE LOCK) 10ML VIAL/SYR IV SCH ×2 (10:00→22:00)
[2022-04-26] MEDS: metFORMIN HYDROCHLORIDE 500 MG TAB PO SCH (10:36)
[2022-04-26] MEDS: metroNIDAZOLE 500 MG TAB PO SCH ×2 (10:36→22:00)
[2022-04-26] MEDS ORDERED: SODIUM CHLORIDE 0.9% 500 ML IV ONE (11:00)
[2022-04-26 11:37] LABS: Albumin 2.5 g/dL (3.4-5.0); Potassium 3.6 mmol/L (3.5-5.1)
[2022-04-26 11:40] LABS: BUN/Creatinine Ratio 9.7; Bilirubin, Total 0.7 mg/dL (0.2-1.0); Total Protein 6.1 g/dL (6.4-8.2)
[2022-04-26 14:42] LABS: Hematocrit 34.1 % (36.0-46.0); Hemoglobin 10.9 g/dL (12.2-16.2); Mean Corpuscular Hemoglobin 27.3 pg (28.0-32.0); Mean Corpuscular Hgb Conc. 32.1 g/dL (32.0-36.0); Mean Corpuscular Volume 85.3 fL (80.0-100.0); Red Cell Distribution Width 14.1 % (11.8-14.3); White Blood Cell 19.3 10^3/uL (4.4-10.8)
[2022-04-26 14:52] LABS: Basophils % (manual) 0 (0.0-2.0); Blast Cells 0; Eosinophils % (manual) 0 (0-7); Metamyelocytes % 0; Myelocytes % 0; Promyelocytes % 0; Reactive Lymphocytes 0
[2022-04-26] MEDS ORDERED: VANCOMYCIN 1GM/250ML 250 ML IV ONE (15:00)
[2022-04-26] MEDS ORDERED: VANCOMYCIN PER PHARMACY 0 MG IV SCH (15:15)
[2022-04-26] MEDS ORDERED: SODIUM CHLORIDE 0.9% 1,000 ML IV ONE (15:30)
[2022-04-26] MEDS: D5W/SOD CHL 0.45% 1,000 ML IV SCH (15:36)
[2022-04-26] MEDS: ACETAMINOPHEN 325 MG TAB PO PRN (15:37)
[2022-04-26 15:57] LABS: Band Neutrophils % (manual) 8; Lymphocytes % (manual) 1 (10.0-50.0); Monocytes % (manual) 2 (0-12)
[2022-04-26 16:12] LABS: Lactic Acid w/Reflex 4.7 mmol/L (0.4-2.0)
[2022-04-26] MEDS ORDERED: NITROGLYCERIN 0.4 MG SL TAB SL PRN ×2 (21:45)
[2022-04-26] MEDS ORDERED: MORPHINE SULFATE INJ 2 MG/ml SYRG IV PRN ×2 (21:45)
[2022-04-27] VITALS (8 sets, daily range): BP systolic 77–109; BP diastolic 42–57
[2022-04-27] MEDS ORDERED: ALBUMIN 25% 50 ML IV ONE (01:45)
[2022-04-27] MEDS: SODIUM CHLOR 0.9% PF (SALINE LOCK) 10ML VIAL/SYR IV SCH ×6 (01:55→21:30)
[2022-04-27] MEDS ORDERED: NOREPINEPHRINE 8 MG/250ML KIT 0 ML IV ONE (03:04)
[2022-04-27] MEDS: ACCU-CHEK COMFORT CURVE STRIP VI SCH ×3 (06:12→13:10)
[2022-04-27] MEDS: metroNIDAZOLE 500 MG TAB PO SCH (09:07)
[2022-04-27] MEDS ORDERED: VANCOMYCIN 1GM/250ML 250 ML IV SCH (10:00)
[2022-04-27] MEDS ORDERED: ENOXAPARIN SOD 40 MG/0.4 ML SYRINGE SC SCH (10:00)
[2022-04-27] MEDS: D5W/SOD CHL 0.45% 1,000 ML IV SCH (11:30)
[2022-04-27] MEDS: VANCOMYCIN 1GM/250ML 250 ML IV SCH (13:18)
[2022-04-27] MEDS ORDERED: PIPERACILLIN-TAZOB 2.25GM 50 ML IV ONE (14:30)
[2022-04-27] MEDS: SODIUM CHLORIDE 0.9% 1,000 ML IV SCH (17:28)
[2022-04-27] MEDS ORDERED: PIPERACILLIN-TAZOB 2.25GM 50 ML IV SCH (20:30)
[2022-04-27] MEDS: PIPERACILLIN-TAZOB 2.25GM 50 ML IV SCH (21:00)
[2022-04-27] MEDS: APIXABAN 5 MG TAB PO SCH (21:21)
[2022-04-27] MEDS: ATORVASTATIN 20 MG TAB PO SCH (21:30)
[2022-04-28] MEDS: PIPERACILLIN-TAZOB 2.25GM 50 ML IV SCH ×2 (03:00→09:00)
[2022-04-28 05:00] VITALS: BP 111/60
[2022-04-28] MEDS: SODIUM CHLORIDE 0.9% 1,000 ML IV SCH ×3 (05:20→21:30)
[2022-04-28] MEDS: SODIUM CHLOR 0.9% PF (SALINE LOCK) 10ML VIAL/SYR IV SCH ×5 (05:56→21:29)
[2022-04-28 08:59] LABS: Basophils # (auto) 0 10 ^3/uL (0-0.2); Basophils % (auto) 0.3 % (0.0-2.0); Eosinophils # (auto) 0 10 ^3/uL (0-0.8); Eosinophils % (auto) 0.4 % (0.0-7.0); Hematocrit 32.6 % (36.0-46.0); Hemoglobin 10.9 g/dL (12.2-16.2); Lymphocytes # (auto) 0.6 10 ^3/uL (0.4-5.4); Lymphocytes % (auto) 6.1 % (10.0-50.0); Mean Corpuscular Hemoglobin 28.2 pg (28.0-32.0); Mean Corpuscular Hgb Conc. 33.3 g/dL (32.0-36.0); Mean Corpuscular Volume 84.6 fL (80.0-100.0); Monocytes # (auto) 0.3 10 ^3/uL (0-1.3); Monocytes % (auto) 3.5 % (0.0-12.0); Neutrophils # (auto) 8.1 10 ^3/uL (1.6-8.6); Neutrophils % (auto) 89.7 % (37.0-80.0); Red Blood Cells 3.85 10^6/uL (4.0-5.20); Red Cell Distribution Width 14.5 % (11.8-14.3); White Blood Cell 9.1 10^3/uL (4.4-10.8)
[2022-04-28 09:00] VITALS: BP 101/43
[2022-04-28] MEDS: APIXABAN 5 MG TAB PO SCH ×2 (09:03→21:29)
[2022-04-28 09:10] LABS: Albumin 2.3 g/dL (3.4-5.0); Calcium 7.8 mg/dL (8.5-10.1); Potassium 3.5 mmol/L (3.5-5.1)
[2022-04-28 09:14] LABS: BUN/Creatinine Ratio 20.6; Bilirubin, Total 0.4 mg/dL (0.2-1.0); Total Protein 5.8 g/dL (6.4-8.2)
[2022-04-28] MEDS ORDERED: levoFLOXacin 500MG 100 ML IV SCH (10:00)
[2022-04-28] MEDS ORDERED: ASPirin 81 mg TAB PO SCH (10:00)
[2022-04-28] MEDS: VANCOMYCIN 1GM/250ML 250 ML IV SCH (11:39)
[2022-04-28 12:58] VITALS: BP 119/61
[2022-04-28 15:24] LABS: Basophils # (auto) 0 10 ^3/uL (0-0.2); Basophils % (auto) 0.5 % (0.0-2.0); Eosinophils # (auto) 0.1 10 ^3/uL (0-0.8); Eosinophils % (auto) 0.9 % (0.0-7.0); Hematocrit 33.1 % (36.0-46.0); Hemoglobin 10.8 g/dL (12.2-16.2); Lymphocytes # (auto) 0.8 10 ^3/uL (0.4-5.4); Lymphocytes % (auto) 10.4 % (10.0-50.0); Mean Corpuscular Hemoglobin 27.8 pg (28.0-32.0); Mean Corpuscular Hgb Conc. 32.5 g/dL (32.0-36.0); Mean Corpuscular Volume 85.5 fL (80.0-100.0); Monocytes # (auto) 0.4 10 ^3/uL (0-1.3); Monocytes % (auto) 5.1 % (0.0-12.0); Neutrophils # (auto) 6.6 10 ^3/uL (1.6-8.6); Neutrophils % (auto) 83.1 % (37.0-80.0); Red Blood Cells 3.87 10^6/uL (4.0-5.20); Red Cell Distribution Width 14.3 % (11.8-14.3); White Blood Cell 7.9 10^3/uL (4.4-10.8)
[2022-04-28 17:17] VITALS: BP 111/50
[2022-04-28 17:27] LABS: Urine Bacteria FEW /hpf (None Seen); Urine Blood TRACE /uL (Negative); Urine Specific Gravity 1.007 (1.001-1.035); Urine WBC 16 /hpf (0 - 5)
[2022-04-28] MEDS: ATORVASTATIN 20 MG TAB PO SCH (21:29)
[2022-04-28 22:00] VITALS: BP 138/75
[2022-04-29 05:00] VITALS: BP 126/62
[2022-04-29] MEDS: SODIUM CHLOR 0.9% PF (SALINE LOCK) 10ML VIAL/SYR IV SCH ×5 (05:36→21:31)
[2022-04-29 06:21] LABS: Basophils # (auto) 0 10 ^3/uL (0-0.2); Basophils % (auto) 0.6 % (0.0-2.0); Eosinophils # (auto) 0.1 10 ^3/uL (0-0.8); Hematocrit 31.5 % (36.0-46.0); Hemoglobin 10.5 g/dL (12.2-16.2); Lymphocytes # (auto) 0.9 10 ^3/uL (0.4-5.4); Lymphocytes % (auto) 14.1 % (10.0-50.0); Mean Corpuscular Hgb Conc. 33.3 g/dL (32.0-36.0); Mean Corpuscular Volume 84.2 fL (80.0-100.0); Monocytes # (auto) 0.4 10 ^3/uL (0-1.3); Monocytes % (auto) 5.7 % (0.0-12.0); Neutrophils % (auto) 78.6 % (37.0-80.0); Red Blood Cells 3.74 10^6/uL (4.0-5.20); Red Cell Distribution Width 14.2 % (11.8-14.3); White Blood Cell 6.4 10^3/uL (4.4-10.8)
[2022-04-29 06:36] LABS: Albumin 2.2 g/dL (3.4-5.0); Calcium 7.9 mg/dL (8.5-10.1)
[2022-04-29 06:39] LABS: BUN/Creatinine Ratio 17.9; Bilirubin, Total 0.4 mg/dL (0.2-1.0); Total Protein 5.6 g/dL (6.4-8.2)
[2022-04-29] MEDS ORDERED: CEFEPIME 2 GM in SODIUM CHL 0.9% 50 ML IV ONE (08:30)
[2022-04-29] MEDS ORDERED: metroNIDAZOLE 500 MG TAB PO ONE (08:45)
[2022-04-29 09:00] VITALS: BP 111/49
[2022-04-29] MEDS ORDERED: DEXTROSE (50%) 50ML SYRG IV PRN (10:00)
[2022-04-29] MEDS ORDERED: levoFLOXacin 250MG 50 ML IV SCH (10:00)
[2022-04-29] MEDS ORDERED: metroNIDAZOLE 500 MG TAB PO SCH ×2 (10:00→10:45)
[2022-04-29] MEDS ORDERED: FUROSEMIDE 20 MG/2 ML VIAL IV ONE (10:15)
[2022-04-29] MEDS: APIXABAN 5 MG TAB PO SCH ×2 (10:22→21:31)
[2022-04-29] MEDS ORDERED: VANCOMYCIN PER PHARMACY 0 MG IV SCH (10:45)
[2022-04-29] MEDS ORDERED: VANCOMYCIN 1GM/250ML 250 ML IV SCH (12:00)
[2022-04-29] MEDS: ACCU-CHEK COMFORT CURVE STRIP VI SCH ×2 (12:04→17:49)
[2022-04-29] MEDS ORDERED: PIPERACILLIN-TAZOB 3.375GM 100 ML IV SCH (12:30)
[2022-04-29 13:00] VITALS: BP 128/61
[2022-04-29] MEDS ORDERED: CEFEPIME 2 GM in SODIUM CHL 0.9% 50 ML IV SCH ×7 (14:00→18:30)
[2022-04-29 17:00] VITALS: BP 130/69
[2022-04-29] MEDS: PIPERACILLIN-TAZOB 3.375GM 100 ML IV SCH ×2 (18:30→23:54)
[2022-04-29] MEDS: ATORVASTATIN 20 MG TAB PO SCH (21:32)
[2022-04-29 22:44] VITALS: BP 95/30
[2022-04-30] MEDS: SODIUM CHLOR 0.9% PF (SALINE LOCK) 10ML VIAL/SYR IV SCH ×5 (05:08→21:20)
[2022-04-30 05:54] VITALS: BP 121/57
[2022-04-30] MEDS: ACCU-CHEK COMFORT CURVE STRIP VI SCH ×3 (06:22→19:10)
[2022-04-30] MEDS: PIPERACILLIN-TAZOB 3.375GM 100 ML IV SCH ×3 (06:22→19:09)
[2022-04-30 08:30] LABS: BUN/Creatinine Ratio 12.5; Calcium 8.2 mg/dL (8.5-10.1); Potassium 3.6 mmol/L (3.5-5.1)
[2022-04-30 09:00] VITALS: BP 121/55
[2022-04-30] MEDS: APIXABAN 5 MG TAB PO SCH ×2 (09:32→21:20)
[2022-04-30] MEDS ORDERED: FUROSEMIDE 20 MG/2 ML VIAL IV SCH (10:00)
[2022-04-30 16:47] LABS: INR 1.18 (0.9-1.15); Partial Thromboplastin Time 35.5 sec (24.6-33.4)
[2022-04-30] MEDS: ATORVASTATIN 20 MG TAB PO SCH (21:20)
[2022-04-30 22:00] VITALS: BP 117/58
[2022-05-01] MEDS: PIPERACILLIN-TAZOB 3.375GM 100 ML IV SCH ×4 (00:24→18:47)
[2022-05-01 04:53] VITALS: BP 117/55
[2022-05-01] MEDS: SODIUM CHLOR 0.9% PF (SALINE LOCK) 10ML VIAL/SYR IV SCH ×4 (05:32→21:06)
[2022-05-01] MEDS: ACCU-CHEK COMFORT CURVE STRIP VI SCH ×3 (06:08→17:28)
[2022-05-01 09:00] VITALS: BP 12/66
[2022-05-01 09:18] LABS: Albumin 2.3 g/dL (3.4-5.0); Potassium 3.6 mmol/L (3.5-5.1)
[2022-05-01 09:24] LABS: BUN/Creatinine Ratio 10.6; Bilirubin, Total 0.6 mg/dL (0.2-1.0)
[2022-05-01 09:25] LABS: Basophils # (auto) 0.1 10 ^3/uL (0-0.2); Eosinophils # (auto) 0.1 10 ^3/uL (0-0.8); Eosinophils % (auto) 1.1 % (0.0-7.0); Hematocrit 33.2 % (36.0-46.0); Hemoglobin 10.8 g/dL (12.2-16.2); Lymphocytes % (auto) 16.9 % (10.0-50.0); Mean Corpuscular Hemoglobin 27.8 pg (28.0-32.0); Mean Corpuscular Hgb Conc. 32.6 g/dL (32.0-36.0); Mean Corpuscular Volume 85.3 fL (80.0-100.0); Monocytes # (auto) 0.6 10 ^3/uL (0-1.3); Neutrophils # (auto) 4.4 10 ^3/uL (1.6-8.6); Nucleated Red Blood Cells % 0.1 %; Red Blood Cells 3.89 10^6/uL (4.0-5.20); Red Cell Distribution Width 14.2 % (11.8-14.3); White Blood Cell 6.1 10^3/uL (4.4-10.8)
[2022-05-01] MEDS: APIXABAN 5 MG TAB PO SCH ×2 (10:44→21:06)
[2022-05-01 12:47] VITALS: BP 125/54
[2022-05-01] MEDS: LIDOCAINE 1% (LOCAL ANESTH.) PF 5ml SDV ID ONE (14:35)
[2022-05-01 16:43] VITALS: BP 136/67
[2022-05-01] MEDS: ATORVASTATIN 20 MG TAB PO SCH (21:06)
[2022-05-01 22:32] VITALS: BP 126/55
[2022-05-02] MEDS: PIPERACILLIN-TAZOB 3.375GM 100 ML IV SCH ×4 (00:44→19:00)
[2022-05-02 05:08] VITALS: BP 118/59
[2022-05-02] MEDS: ACCU-CHEK COMFORT CURVE STRIP VI SCH ×3 (06:05→18:16)
[2022-05-02] MEDS ORDERED: APIX5TAB PO (08:33)
[2022-05-02 09:00] VITALS: BP 129/65
[2022-05-02] MEDS: SODIUM CHLOR 0.9% PF (SALINE LOCK) 10ML VIAL/SYR IV SCH ×4 (09:53→22:47)
[2022-05-02] MEDS: APIXABAN 5 MG TAB PO SCH ×2 (10:18→22:48)
[2022-05-02 13:00] VITALS: BP 125/53
[2022-05-02 17:00] VITALS: BP 134/64
[2022-05-02 22:00] VITALS: BP 111/49
[2022-05-02] MEDS: ATORVASTATIN 20 MG TAB PO SCH (22:00)
[2022-05-03] MEDS: PIPERACILLIN-TAZOB 3.375GM 100 ML IV SCH ×4 (01:43→18:48)
[2022-05-03 05:00] VITALS: BP 132/63
[2022-05-03] MEDS: ACCU-CHEK COMFORT CURVE STRIP VI SCH ×4 (06:19→21:38)
[2022-05-03] MEDS: SODIUM CHLOR 0.9% PF (SALINE LOCK) 10ML VIAL/SYR IV SCH ×3 (07:31→21:37)
[2022-05-03 09:00] VITALS: BP 113/47
[2022-05-03] MEDS: APIXABAN 5 MG TAB PO SCH ×2 (09:04→21:38)
[2022-05-03] MEDS ORDERED: DEXTROSE (50%) 50ML SYRG IV PRN (10:15)
[2022-05-03] MEDS: InsuLIN REG 1unit/0.01ml Soln (100units/ml) SC SCH ×3 (11:30→21:38)
[2022-05-03 12:42] VITALS: BP 126/64
[2022-05-03] MEDS: LIDOCAINE 1% (LOCAL ANESTH.) PF 5ml SDV ID ONE (15:09)
[2022-05-03 17:01] VITALS: BP 137/55
[2022-05-03] MEDS: ATORVASTATIN 20 MG TAB PO SCH (21:38)
[2022-05-03 22:00] VITALS: BP 142/44
[2022-05-04] MEDS: PIPERACILLIN-TAZOB 3.375GM 100 ML IV SCH ×4 (00:29→18:31)
[2022-05-04 05:00] VITALS: BP 137/60
[2022-05-04] MEDS: InsuLIN REG 1unit/0.01ml Soln (100units/ml) SC SCH ×4 (06:50→22:00)
[2022-05-04] MEDS: ACCU-CHEK COMFORT CURVE STRIP VI SCH ×4 (06:50→22:01)
[2022-05-04 09:00] VITALS: BP 122/54
[2022-05-04] MEDS: SODIUM CHLOR 0.9% PF (SALINE LOCK) 10ML VIAL/SYR IV SCH ×2 (09:00→22:02)
[2022-05-04] MEDS: APIXABAN 5 MG TAB PO SCH ×2 (09:11→22:00)
[2022-05-04 13:00] VITALS: BP 126/53
[2022-05-04 17:00] VITALS: BP 142/56
[2022-05-04 22:00] VITALS: BP 123/56
[2022-05-04] MEDS: ATORVASTATIN 20 MG TAB PO SCH (22:00)
[2022-05-05] MEDS: PIPERACILLIN-TAZOB 3.375GM 100 ML IV SCH ×3 (00:20→12:24)
[2022-05-05] MEDS: ACETAMINOPHEN 325 MG TAB PO PRN (03:47)
[2022-05-05 05:00] VITALS: BP 118/71
[2022-05-05] MEDS: InsuLIN REG 1unit/0.01ml Soln (100units/ml) SC SCH ×2 (07:00→11:30)
[2022-05-05] MEDS: ACCU-CHEK COMFORT CURVE STRIP VI SCH ×2 (07:03→12:23)
[2022-05-05 09:00] VITALS: BP 109/67
[2022-05-05] MEDS: APIXABAN 5 MG TAB PO SCH (09:37)
[2022-05-05] MEDS: SODIUM CHLOR 0.9% PF (SALINE LOCK) 10ML VIAL/SYR IV SCH (09:41)
[2022-05-05 12:45] VITALS: BP 139/60
== END 2022-05-05 16:30 | disposition home health service (06) | DRG 854 ==
LOC: ER 14:12 → OVERFLOW 04-24 04:30 → WEST WING 04-24 13:17 → TELE-WESTW 04-26 22:00 → WEST WING 05-01 14:46
PROVIDERS: ADMIT Nurse Practitioner; ATTEND Internal Medicine
PROC: 0QBP0ZZ Excision of Left Metatarsal, Open Approach (ICD-10-PCS; principal; 2022-04-24 10:05)
PROC: 02HV33Z Insertion of Infusion Device into Superior Vena Cava, Percutaneous Approach (ICD-10-PCS; 2022-04-25)
PROC: B548ZZA Ultrasonography of Superior Vena Cava, Guidance (ICD-10-PCS; 2022-04-25)
PROC: 02HV33Z Insertion of Infusion Device into Superior Vena Cava, Percutaneous Approach (ICD-10-PCS; 2022-05-01)
PROC: B548ZZA Ultrasonography of Superior Vena Cava, Guidance (ICD-10-PCS; 2022-05-01)
DX: A41.9 Sepsis, unspecified organism (principal); I82.432 Acute embolism and thrombosis of left popliteal vein; N17.9 Acute kidney failure, unspecified; L03.116 Cellulitis of left lower limb; M86.8X7 Other osteomyelitis, ankle and foot; E11.22 Type 2 diabetes mellitus with diabetic chronic kidney disease; E11.69 Type 2 diabetes mellitus with other specified complication; E66.01 Morbid (severe) obesity due to excess calories; E78.5 Hyperlipidemia, unspecified; J45.909 Unspecified asthma, uncomplicated; N18.9 Chronic kidney disease, unspecified; B95.61 Methicillin susceptible Staphylococcus aureus infection as the cause of diseases classified elsewhere; E11.622 Type 2 diabetes mellitus with other skin ulcer; I12.9 Hypertensive chronic kidney disease with stage 1 through stage 4 chronic kidney disease, or unspecified chronic kidney disease; I65.21 Occlusion and stenosis of right carotid artery; E11.621 Type 2 diabetes mellitus with foot ulcer; E11.628 Type 2 diabetes mellitus with other skin complications; E11.649 Type 2 diabetes mellitus with hypoglycemia without coma; L97.529 Non-pressure chronic ulcer of other part of left foot with unspecified severity; Z80.8 Family history of malignant neoplasm of other organs or systems; Z79.4 Long term (current) use of insulin; Z68.37 Body mass index [BMI] 37.0-37.9, adult; Z82.49 Family history of ischemic heart disease and other diseases of the circulatory system; Z85.42 Personal history of malignant neoplasm of other parts of uterus; Z88.0 Allergy status to penicillin; Z87.442 Personal history of urinary calculi; Z90.710 Acquired absence of both cervix and uterus; Z86.718 Personal history of other venous thrombosis and embolism; Z88.5 Allergy status to narcotic agent; Z91.14 Patient's other noncompliance with medication regimen; Z79.84 Long term (current) use of oral hypoglycemic drugs
CPT/HCPCS: 36415; 36569; 71045; 73700; 80048; 80053; 81001; 82565; 82962; 83036; 83605; 83615; 83880; 85007; 85025; 85027; 85610; 85730; 86850; 86900; 86901; 87040; 87070; 87075; 87076; 87077; 87086; 87186; 87205; 87426; 93005; 93925; 93970; 96360; 96361; 97163; C9113; G0378; J0690; J0696; J1100; J1815; J1956; J2250; J2543; J2704; J3490

== ENCOUNTER 2022-06-19 08:00 | Day surgery (SDC) | payer MEDICARE, MEDICAID ==
[2022-06-18 14:17] LABS: Urine Bacteria None Seen /hpf (None Seen); Urine WBC None Seen /hpf (0 - 5)
[2022-06-18 14:30] LABS: Basophils # (auto) 0.1 10 ^3/uL (0-0.2); Basophils % (auto) 1.3 % (0.0-2.0); Eosinophils # (auto) 0.2 10 ^3/uL (0-0.8); Hematocrit 38.6 % (36.0-46.0); Hemoglobin 12.7 g/dL (12.2-16.2); Lymphocytes # (auto) 1.1 10 ^3/uL (0.4-5.4); Lymphocytes % (auto) 16.9 % (10.0-50.0); Mean Corpuscular Hemoglobin 28.7 pg (28.0-32.0); Mean Corpuscular Hgb Conc. 32.8 g/dL (32.0-36.0); Mean Corpuscular Volume 87.3 fL (80.0-100.0); Monocytes # (auto) 0.4 10 ^3/uL (0-1.3); Monocytes % (auto) 5.7 % (0.0-12.0); Neutrophils # (auto) 4.6 10 ^3/uL (1.6-8.6); Neutrophils % (auto) 73.1 % (37.0-80.0); Red Blood Cells 4.42 10^6/uL (4.0-5.20); Red Cell Distribution Width 17.6 % (11.8-14.3); White Blood Cell 6.3 10^3/uL (4.4-10.8)
[2022-06-18 14:37] LABS: INR 1.04 (0.9-1.15); Partial Thromboplastin Time 29.7 sec (24.6-33.4)
[2022-06-18 15:10] LABS: Alanine Aminotransferase 18 U/L (13-56); Albumin 3.2 g/dL (3.4-5.0); Anion Gap 9 (5-15); Aspartate Aminotransferase 20 U/L (15-37); BUN/Creatinine Ratio 20.4; Blood Urea Nitrogen 20 mg/dL (7-18); Calcium 9.5 mg/dL (8.5-10.1); Carbon Dioxide 25 mmol/L (21-32); Chloride 103 mmol/L (98-107); GFR African American 71 mL/min; GFR Non-African American 59 mL/min; Glucose 131 mg/dL (74-106); Potassium 4.3 mmol/L (3.5-5.1); Sodium 137 mmol/L (136-145)
[2022-06-18 15:13] LABS: Alkaline Phosphatase 91 U/L (45-117); Total Protein 7.8 g/dL (6.4-8.2)
[2022-06-18 16:21] LABS: Urine Specific Gravity 1.014 (1.001-1.035)
[2022-06-18 16:22] LABS: Urine Blood Negative /uL (Negative)
[~2022-06-19] VITALS: Ht 170.2 cm; Wt 103.9 kg
[~2022-06-19 08:00] MED LIST changes: -APIX5TAB PO; -METF-370 PO
[2022-06-19] MEDS ORDERED: CLINDAMYCIN 600MG IV 50 ML IV ONE (08:34)
[2022-06-19] MEDS ORDERED: FAMOTIDINE (10MG/ML) 2ML VL IV ONE (09:05)
[2022-06-19] MEDS ORDERED: MIDAZOLAM HCL 2MG/2ML 2ml VIAL (1mg/ml) ONE (09:06)
[2022-06-19] MEDS ORDERED: KETAMINE HCL 10 ML ONE (09:07)
[2022-06-19] MEDS ORDERED: GLYCOPYRROLATE 0.2 MG/ML 1ML VIAL ONE (09:07)
[2022-06-19] MEDS ORDERED: ONDANSETRON HCL 4 MG/2 ML VIAL ONE (09:07)
[2022-06-19] MEDS ORDERED: BUPIVACAINE 0.5% P/F INJ 10 ML VIAL ONE (09:22)
[2022-06-19] MEDS ORDERED: ONDANSETRON HCL 4 MG/2 ML VIAL IV PRN (10:00)
[2022-06-19] MEDS ORDERED: ACCU-CHEK COMFORT CURVE STRIP VI ONE (10:00)
[2022-06-19] MEDS ORDERED: HYDROmorphone HCL 2 MG/ML VL/or syr IV PRN (10:00)
[2022-06-19 10:30] VITALS: BP 148/85
== END 2022-06-19 10:42 | disposition home or self-care (01) ==
LOC: SUR 08:00
PROVIDERS: ATTEND Podiatrist Foot & Ankle Surgery
DX: E11.621 Type 2 diabetes mellitus with foot ulcer (principal); M79.672 Pain in left foot; L97.528 Non-pressure chronic ulcer of other part of left foot with other specified severity; Z79.84 Long term (current) use of oral hypoglycemic drugs; Z20.822 Contact with and (suspected) exposure to COVID-19
CPT/HCPCS: 15275; 36415; 80053; 81001; 82962; 85025; 85610; 85730; 88305; C1887; J2250; J2405; J3490; Q4126; U0003

== ENCOUNTER → 2022-11-25 | Outpatient (CLI) | payer MEDICARE, MEDICAID ==
[2022-11-25 13:05] LABS: Potassium 4.6 mmol/L (3.5-5.1)
[2022-11-25 13:14] LABS: Albumin 3.5 g/dL (3.4-5.0); Bilirubin, Total 0.6 mg/dL (0.2-1.0); Calcium 9.4 mg/dL (8.5-10.1); Total Protein 7.2 g/dL (6.4-8.2)
== END | disposition home or self-care (01) ==
LOC: LAB 11:52
PROVIDERS: ATTEND Internal Medicine
DX: E11.9 Type 2 diabetes mellitus without complications (principal)
CPT/HCPCS: 36415; 80053; 80061; 82043

== ENCOUNTER → 2022-12-02 | Outpatient (CLI) | payer MEDICARE, MEDICAID | END | disposition home or self-care (01) | LOC: XYW 11:02 | PROVIDERS: ATTEND Internal Medicine | DX: I08.0 Rheumatic disorders of both mitral and aortic valves (principal); R01.1 Cardiac murmur, unspecified | CPT/HCPCS: 93306 ==

== ENCOUNTER → 2023-07-07 | Outpatient (CLI) | payer MEDICARE, MEDICAID ==
[2023-07-07 12:14] LABS: Anion Gap 6 (5-15); Carbon Dioxide 28 mmol/L (20-30); Chloride 106 mmol/L (98-107); Potassium 4.3 mmol/L (3.5-5.1); Sodium 140 mmol/L (136-145)
[2023-07-07 12:15] LABS: Calcium 9.5 mg/dL (8.5-10.1)
[2023-07-07 12:19] LABS: Creatinine, Urine 64.09 mg/dL (30.0-125.0)
[2023-07-07 12:20] LABS: BUN/Creatinine Ratio 11.6 (10.0-20.0); Blood Urea Nitrogen 10 mg/dL (9-23); Glucose 88 mg/dL (74-106)
== END | disposition home or self-care (01) ==
LOC: LAB 11:37
PROVIDERS: ATTEND Internal Medicine
DX: E11.9 Type 2 diabetes mellitus without complications (principal); E78.5 Hyperlipidemia, unspecified
CPT/HCPCS: 36415; 80048; 82043; 82570; 83036; 84443

== ENCOUNTER 2024-03-31 19:36 | Inpatient (IN) | payer MEDICARE, MEDICAID ==
[~2024-03-31] VITALS: Ht 170.2 cm; Wt 108.5 kg
[2024-03-31 20:25] LABS: Basophils # (auto) 0.1 10 ^3/uL (0-0.2); Basophils % (auto) 0.6 % (0.0-2.0); Eosinophils # (auto) 0 10 ^3/uL (0-0.8); Eosinophils % (auto) 0.3 % (0.0-7.0); Hematocrit 43.4 % (36.0-46.0); Hemoglobin 14.2 g/dL (12.2-16.2); Lymphocytes # (auto) 0.4 10 ^3/uL (0.4-5.4); Lymphocytes % (auto) 3.6 % (10.0-50.0); Mean Corpuscular Hemoglobin 28.7 pg (28.0-32.0); Mean Corpuscular Hgb Conc. 32.8 g/dL (32.0-36.0); Mean Corpuscular Volume 87.5 fL (80.0-100.0); Monocytes # (auto) 0.2 10 ^3/uL (0-1.3); Monocytes % (auto) 1.4 % (0.0-12.0); Neutrophils # (auto) 11.1 10 ^3/uL (1.6-8.6); Neutrophils % (auto) 94.1 % (37.0-80.0); Platelet Count (auto) 120 10^3/uL (140-450); Red Blood Cells 4.96 10^6/uL (4.0-5.20); Red Cell Distribution Width 14.7 % (11.8-14.3); White Blood Cell 11.8 10^3/uL (4.4-10.8)
[2024-03-31 20:46] LABS: Alanine Aminotransferase 12 U/L (7-40); Albumin 4.3 g/dL (3.2-4.8); Alkaline Phosphatase 75 U/L (46-116); Anion Gap 9 (5-15); Aspartate Aminotransferase 16 U/L (13-40); BUN/Creatinine Ratio 18.8 (10.0-20.0); Bilirubin, Total 0.7 mg/dL (0.2-1.0); Blood Urea Nitrogen 21 mg/dL (9-23); Calcium 9.4 mg/dL (8.7-10.4); Carbon Dioxide 24 mmol/L (20-30); Chloride 106 mmol/L (98-107); Glucose 217 mg/dL (74-106); Lipase 37 U/L (12-53); Potassium 4.2 mmol/L (3.5-5.1); Sodium 139 mmol/L (136-145); Total Protein 7.1 g/dL (5.7-8.2)
[2024-03-31 23:26] VITALS: PULSE 90; RESP 12; O2SAT 95
[2024-04-01] MEDS: SODIUM CHLORIDE 0.9% 2,000 ML IV ONE (00:53)
[2024-04-01] MEDS: MORPHINE SULFATE 4 MG/ML SYR/VIAL IV ONE (01:04)
[2024-04-01] MEDS: ONDANSETRON HCL 4 MG/2 ML VIAL IV ONE (01:04)
[2024-04-01] MEDS: KETOROLAC TROMETH 30 MG/ML 1ML VIAL IV ONE (01:05)
[2024-04-01] MEDS: levoFLOXacin 500MG 100 ML IV ONE (01:05)
[2024-04-01] MEDS ORDERED: ONDANSETRON HCL 4 MG/2 ML VIAL IV PRN (04:30)
[2024-04-01] MEDS ORDERED: HYDROcodone-ACET 5/325MG TAB PO PRN (04:30)
[2024-04-01 05:26] LABS: Urine Amorphous Crystal FEW /hpf (None Seen); Urine Bacteria FEW /hpf (None Seen); Urine Blood 3+ /uL (Negative); Urine Clarity Turbid (Clear); Urine Color Light-Orange (Yellow); Urine Mucus FEW (None Seen); Urine Protein, UAD 2+ (Negative); Urine Urobilinogen Normal (Negative); Urine WBC 192 /hpf (0 - 5); Urine WBC Clumps PRESENT /hpf (None Seen)
[2024-04-01] MEDS: InsuLIN REG 1unit/0.01ml Soln (100units/ml) SC SCH (06:00)
[2024-04-01] MEDS: ACCU-CHEK COMFORT CURVE STRIP VI SCH (06:12)
[2024-04-01 07:54] VITALS: RESP 18; O2SAT 98
[2024-04-01 08:13] LABS: Chloride 107 mmol/L (98-107); Potassium 4.8 mmol/L (3.5-5.1); Sodium 140 mmol/L (136-145)
[2024-04-01 08:14] LABS: Anion Gap 6 (5-15); Calcium 8.9 mg/dL (8.7-10.4); Carbon Dioxide 27 mmol/L (20-30); Hematocrit 38.7 % (36.0-46.0); Hemoglobin 12.7 g/dL (12.2-16.2); Mean Corpuscular Hemoglobin 28.9 pg (28.0-32.0); Mean Corpuscular Hgb Conc. 32.9 g/dL (32.0-36.0); Platelet Count (auto) 111 10^3/uL (140-450); Red Cell Distribution Width 14.4 % (11.8-14.3); White Blood Cell 23.9 10^3/uL (4.4-10.8)
[2024-04-01 08:19] LABS: Glucose 192 mg/dL (74-106); Triglycerides 105 mg/dL (< 150)
[2024-04-01 08:20] LABS: BUN/Creatinine Ratio 19.4 (10.0-20.0); Blood Urea Nitrogen 24 mg/dL (9-23); LDL Cholesterol 78 mg/dL (< 100)
[2024-04-01 08:21] LABS: Cholesterol 138 mg/dL (< 200); HDL Cholesterol 41 mg/dL (40-59)
[2024-04-01 08:22] LABS: Basophils % (manual) 0 (0.0-2.0); Blast Cells 0; Eosinophils % (manual) 0 (0-7); Metamyelocytes % 0; Myelocytes % 0; Promyelocytes % 0; Reactive Lymphocytes 0
[2024-04-01] MEDS ORDERED: IPRATROPIUM BROM 0.5 MG/2.5ML INH SOL NEB PRN (09:45)
[2024-04-01] MEDS ORDERED: ALBUTEROL SULF 2.5 MG/0.5ML(0.5%) NEB SOLN NEB PRN (09:45)
[2024-04-01 10:13] VITALS: BP 153/51; PULSE 72; RESP 18; TEMP 99.4; O2SAT 98
[2024-04-01 14:23] LABS: Band Neutrophils % (manual) 6; Lymphocytes % (manual) 6 (10.0-50.0); Monocytes % (manual) 4 (0-12)
[2024-04-01 14:24] LABS: Platelet Estimate Decreased
[2024-04-01 15:19] VITALS: PULSE 63; TEMP 98; O2SAT 97
[2024-04-01 15:48] VITALS: BP 124/84; PULSE 63; RESP 16; TEMP 98; O2SAT 97
[2024-04-01 21:00] VITALS: BP 143/63; PULSE 63; RESP 16; TEMP 98.1; O2SAT 99
[2024-04-01] MEDS: levoFLOXacin 500MG 100 ML IV SCH (22:19)
[2024-04-01 22:51] LABS: Protein, Urine 19.1 mg/dL (0.0-11.9)
[2024-04-01 22:54] LABS: Creatinine, Urine 24.4 mg/dL (30.0-125.0); Urine Protein/Creatinine Ratio 0.78
[2024-04-02] VITALS (8 sets, daily range): BP systolic 101–160; BP diastolic 59–79; PULSE 56–83; RESP 16–18; TEMP 97.9–98.3; O2SAT 96–99
[2024-04-02] MEDS: DEXTROSE (50%) 50ML SYRG IV PRN (01:05)
[2024-04-02 06:11] LABS: Alanine Aminotransferase 11 U/L (7-40); Alkaline Phosphatase 58 U/L (46-116); Anion Gap 7 (5-15); BUN/Creatinine Ratio 18.8 (10.0-20.0); Blood Urea Nitrogen 19 mg/dL (9-23); Calcium 9.1 mg/dL (8.7-10.4); Carbon Dioxide 26 mmol/L (20-30); Chloride 108 mmol/L (98-107); Glucose 82 mg/dL (74-106); Potassium 3.7 mmol/L (3.5-5.1); Sodium 141 mmol/L (136-145)
[2024-04-02 06:12] LABS: Albumin 3.8 g/dL (3.2-4.8); Aspartate Aminotransferase 15 U/L (13-40); Bilirubin, Total 0.6 mg/dL (0.2-1.0); Total Protein 6.1 g/dL (5.7-8.2)
[2024-04-02 06:13] LABS: Basophils # (auto) 0 10 ^3/uL (0-0.2); Basophils % (auto) 0.4 % (0.0-2.0); Eosinophils # (auto) 0.1 10 ^3/uL (0-0.8); Hematocrit 37.8 % (36.0-46.0); Hemoglobin 12.9 g/dL (12.2-16.2); Lymphocytes # (auto) 1.2 10 ^3/uL (0.4-5.4); Lymphocytes % (auto) 11.7 % (10.0-50.0); Mean Corpuscular Hemoglobin 29.7 pg (28.0-32.0); Mean Corpuscular Volume 87.2 fL (80.0-100.0); Monocytes # (auto) 0.6 10 ^3/uL (0-1.3); Monocytes % (auto) 5.7 % (0.0-12.0); Neutrophils # (auto) 8.4 10 ^3/uL (1.6-8.6); Neutrophils % (auto) 81.2 % (37.0-80.0); Platelet Count (auto) 102 10^3/uL (140-450); Red Blood Cells 4.34 10^6/uL (4.0-5.20); Red Cell Distribution Width 14.4 % (11.8-14.3); White Blood Cell 10.4 10^3/uL (4.4-10.8)
[2024-04-02] MEDS: ENOXAPARIN SOD 40 MG/0.4 ML SYRINGE SC SCH (09:20)
[2024-04-02] MEDS: MANNITOL FTV 25% 12.5 GM/50 ML 50 ML IV ONE (17:15)
[2024-04-02] MEDS: TAMSULOSIN HYDROCHLORIDE 0.4 MG CAP PO SCH (18:00)
[2024-04-03] VITALS (9 sets, daily range): BP systolic 143–155; BP diastolic 54–82; PULSE 59–73; RESP 12–20; TEMP 97.6–98.4; O2SAT 94–99
[2024-04-03 06:58] LABS: Basophils # (auto) 0 10 ^3/uL (0-0.2); Basophils % (auto) 0.4 % (0.0-2.0); Eosinophils # (auto) 0.1 10 ^3/uL (0-0.8); Eosinophils % (auto) 1.4 % (0.0-7.0); Hematocrit 39.4 % (36.0-46.0); Hemoglobin 13.1 g/dL (12.2-16.2); Mean Corpuscular Hgb Conc. 33.2 g/dL (32.0-36.0); Mean Corpuscular Volume 87.2 fL (80.0-100.0); Monocytes # (auto) 0.5 10 ^3/uL (0-1.3); Monocytes % (auto) 7.5 % (0.0-12.0); Neutrophils # (auto) 5.6 10 ^3/uL (1.6-8.6); Neutrophils % (auto) 76.7 % (37.0-80.0); Nucleated Red Blood Cells % 0.2 %; Platelet Count (auto) 93 10^3/uL (140-450); Red Blood Cells 4.52 10^6/uL (4.0-5.20); Red Cell Distribution Width 14.4 % (11.8-14.3); White Blood Cell 7.2 10^3/uL (4.4-10.8)
[2024-04-03 07:08] LABS: Chloride 107 mmol/L (98-107); Potassium 4.7 mmol/L (3.5-5.1); Sodium 140 mmol/L (136-145)
[2024-04-03 07:09] LABS: Anion Gap 11 (5-15); Calcium 9.5 mg/dL (8.7-10.4); Carbon Dioxide 22 mmol/L (20-30)
[2024-04-03 07:14] LABS: BUN/Creatinine Ratio 11.5 (10.0-20.0); Blood Urea Nitrogen 13 mg/dL (9-23); Glucose 124 mg/dL (74-106)
[2024-04-03] MEDS: MANNITOL FTV 25% 12.5 GM/50 ML 50 ML IV ONE (10:30)
[2024-04-04] VITALS (10 sets, daily range): BP systolic 114–164; BP diastolic 51–78; PULSE 70–89; RESP 14–18; TEMP 97.8–98.5; O2SAT 95–98
[2024-04-04 11:25] LABS: Basophils # (auto) 0 10 ^3/uL (0-0.2); Basophils % (auto) 0.5 % (0.0-2.0); Eosinophils # (auto) 0.1 10 ^3/uL (0-0.8); Eosinophils % (auto) 1.5 % (0.0-7.0); Hematocrit 39.2 % (36.0-46.0); Hemoglobin 13.2 g/dL (12.2-16.2); Lymphocytes # (auto) 0.8 10 ^3/uL (0.4-5.4); Lymphocytes % (auto) 11.5 % (10.0-50.0); Mean Corpuscular Hemoglobin 29.1 pg (28.0-32.0); Mean Corpuscular Hgb Conc. 33.7 g/dL (32.0-36.0); Mean Corpuscular Volume 86.2 fL (80.0-100.0); Monocytes # (auto) 0.5 10 ^3/uL (0-1.3); Monocytes % (auto) 6.9 % (0.0-12.0); Neutrophils # (auto) 5.7 10 ^3/uL (1.6-8.6); Neutrophils % (auto) 79.6 % (37.0-80.0); Platelet Count (auto) 119 10^3/uL (140-450); Red Blood Cells 4.55 10^6/uL (4.0-5.20); White Blood Cell 7.2 10^3/uL (4.4-10.8)
[2024-04-04 11:40] LABS: Anion Gap 10 (5-15); Carbon Dioxide 23 mmol/L (20-30); Chloride 104 mmol/L (98-107); Potassium 3.8 mmol/L (3.5-5.1); Sodium 137 mmol/L (136-145)
[2024-04-04 11:41] LABS: Calcium 9.4 mg/dL (8.7-10.4)
[2024-04-04] MEDS ORDERED: hydrALAZINE HCL 20 MG/ML VL IV PRN (11:45)
[2024-04-04 11:46] LABS: BUN/Creatinine Ratio 10.3 (10.0-20.0); Blood Urea Nitrogen 16 mg/dL (9-23); Glucose 170 mg/dL (74-106)
[2024-04-05] VITALS (7 sets, daily range): BP systolic 132–164; BP diastolic 58–90; PULSE 67–80; RESP 15–19; TEMP 97.6–98.6; O2SAT 84–98
[2024-04-05 08:51] LABS: Chloride 103 mmol/L (98-107); Potassium 3.9 mmol/L (3.5-5.1); Sodium 135 mmol/L (136-145)
[2024-04-05 08:52] LABS: Anion Gap 7 (5-15); Calcium 9.6 mg/dL (8.7-10.4); Carbon Dioxide 25 mmol/L (20-30)
[2024-04-05 08:57] LABS: BUN/Creatinine Ratio 8.3 (10.0-20.0); Blood Urea Nitrogen 13 mg/dL (9-23); Glucose 153 mg/dL (74-106)
[2024-04-05] MEDS: ACETAMINOPHEN 325 MG TAB PO PRN (09:31)
[2024-04-06] VITALS (7 sets, daily range): BP systolic 118–143; BP diastolic 62–82; PULSE 64–104; RESP 16–20; TEMP 93.3–98.5; O2SAT 92–100
[2024-04-06] MEDS ORDERED: PROPOFOL 10 MG/ML 20 ML IV ONE (07:04)
[2024-04-06] MEDS ORDERED: fentaNYL CITRATE 100 MCG/2 ML VL ONE (07:04)
[2024-04-06] MEDS: CIPROFLOXACIN 400MG/200ML 200 ML IV ONE (07:43)
[2024-04-06] MEDS ORDERED: LEVO500T91 PO (14:26)
== END 2024-04-06 15:00 | disposition home or self-care (01) | DRG 690 ==
LOC: ER 19:36 → OVERFLOW 04-01 04:34 → WEST WING 04-01 15:18
PROVIDERS: ADMIT Internal Medicine; ATTEND Internal Medicine
PROC: 0TF7XZZ Fragmentation in Left Ureter, External Approach (ICD-10-PCS; principal; 2024-04-06 07:43)
DX: N13.6 Pyonephrosis (principal); K52.9 Noninfective gastroenteritis and colitis, unspecified; N17.9 Acute kidney failure, unspecified; I25.10 Atherosclerotic heart disease of native coronary artery without angina pectoris; K57.10 Diverticulosis of small intestine without perforation or abscess without bleeding; I12.9 Hypertensive chronic kidney disease with stage 1 through stage 4 chronic kidney disease, or unspecified chronic kidney disease; E11.22 Type 2 diabetes mellitus with diabetic chronic kidney disease; N18.2 Chronic kidney disease, stage 2 (mild); L97.529 Non-pressure chronic ulcer of other part of left foot with unspecified severity; E11.621 Type 2 diabetes mellitus with foot ulcer; J45.909 Unspecified asthma, uncomplicated; D72.820 Lymphocytosis (symptomatic); E11.51 Type 2 diabetes mellitus with diabetic peripheral angiopathy without gangrene; E78.5 Hyperlipidemia, unspecified; I25.2 Old myocardial infarction; Z85.841 Personal history of malignant neoplasm of brain; Z88.0 Allergy status to penicillin; Z90.710 Acquired absence of both cervix and uterus; Z91.048 Other nonmedicinal substance allergy status; Z82.49 Family history of ischemic heart disease and other diseases of the circulatory system; Z80.8 Family history of malignant neoplasm of other organs or systems; Z80.0 Family history of malignant neoplasm of digestive organs; Z85.038 Personal history of other malignant neoplasm of large intestine
CPT/HCPCS: 36415; 71045; 74018; 74176; 76775; 80048; 80053; 80061; 81001; 82306; 82570; 82607; 82962; 83036; 83605; 83690; 84156; 84443; 85007; 85025; 85027; 87040; 87086; 93306; 93925; 96365; 99291; G0378; J1815; J1885; J1956; J2405; J2704

== ENCOUNTER → 2024-05-07 | Outpatient (CLI) | payer MEDICARE, MEDICAID ==
[~2024-05-07] MED LIST changes: +LEVO500T91 PO
== END | disposition home or self-care (01) ==
LOC: LAB 10:18
PROVIDERS: ATTEND Family Medicine
DX: L82.1 Other seborrheic keratosis (principal)

== ENCOUNTER 2024-07-06 11:19 | Inpatient (IN) | payer MEDICARE, MEDICAID ==
[~2024-07-06] VITALS: Ht 170.2 cm; Wt 109.3 kg
--- NOTE | 2024-07-06 11:28 | ECG ---
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
--- NOTE | 2024-07-06 11:30 | ED.PDOC ---
HPI (NEURO) HPI Comments 79 year old female EVA presents to the ED with chief complaint of dizziness and LOC. Patient reports that she had been experiencing dizziness since 2am when going back to her bed from the bathroom, believing she had passed out and fell, hitting the left side of her head and causing a laceration with controlled bleeding now. Patient relays she was able to crawl to her bed, however, EMS states patient was found by family at 8am on the floor. Patient states she is experiencing associated symptoms of chills and tremors. EMS notes patient was 85% on RA, had a blood glucose level of 295, and has new onset A-Fib according to their EKG. Patient denies any fever, headache, chest pain, SOB, or N/V/D. Time Seen by MD: 11:25 Primary Care Provider: KASANDRA Boykin Notes: Nurses Notes, Postal Service Window Clerk Notes, Medications, Allergies Information Source: Patient, Emergency Med Personnel Mode of Arrival: EMS Severity: Moderate Dizziness/Weakness Severity: Bedridden, Unable to do activities Headache Severity: None Timing: Hours Duration: Since onset Prehospital treatment: 12 Lead EKG, Oxygen Onset: With light exertion Circumstances: Spontaneous Symptoms: Faintness, Syncope, Imbalance During: LOC After: Normal Mentation History of: DM Modifying factors: Change in position Past Medical History PAST MEDICAL HISTORY: Asthma, Cancer, DM, High Lipids, Kidney Stones Past Medical History (Other): DVTs Surgical History: Appendectomy, Hernia Repair, Hysterectomy Surgical History (Other): Cataract Surgery x2, Kidney stone removal, Bilateral foot surgery BUCKLE STRAP DRUM OPERATOR History: No Pertinent 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 STRAP DRUM 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 History Family History Family History: Family hx of Cancer Social History Smoker: Non-Smoker Alcohol: Denies ETOH Use Drugs: Denies Drug Use Lives In: Home Constitutional: reports: chills; denies: diaphoresis, fatigue, fever, malaise, sweats, weakness, others EENTM: denies: blurred vision, double vision, ear bleeding, ear discharge, ear drainage, ear pain, ear ringing, eye pain, eye redness, hearing loss, mouth pain, mouth swelling, nasal discharge, nose bleeding, nose congestion, nose pain, photophobia, tearing, throat pain, throat swelling, voice changes, others Respiratory: denies: cough, hemoptysis, orthopnea, SOB at rest, shortness of breath, SOB with excertion, stridor, wheezing, others Cardiovascular: reports: syncope; denies: chest pain, dizzy spells, diaph oresis, Dyspnea on exertion, edema, irregular heart beat, left arm pain, lightheadedness, palpitations, PND, others Gastrointestinal: denies: abdomen distended, abdominal pain, blood streaked bowels, constipated, diarrhea, dysphagia, difficulty swallowing, hematemesis, melena, nausea, poor appetite, poor fluid intake, rectal bleeding, rectal pain, vomiting, others Genitourinary: denies: abnormal vagina bleeding, burning, dyspareunia, dysuria, flank pain, frequency, hematuria, incontinence, pain, , vagina discharge, urgency, others Neurological: reports: dizziness, tremors; denies: fainting, headache, left sided numbness, left sided weakness, numbness, paresthesia, pre-existing deficit, right sided numbness, right sided weakness, seizure, speech problems, tingling, weakness, others Musculoskeletal: denies: back pain, gout, joint pain, joint swelling, muscle pain, muscle stiffness, neck pain, others Integumetry: reports: laceration (Left temporal region); denies: bruises, change in color, change in hair/nails, dryness, lesions, lumps, rash, wounds, others Allergic/Immunocompromised: denies: Difficulty Healing, Frequent Infections, Hives, Itching, others Hematologic/Lymphatic: denies: anemia, blood clots, easy bleeding, easy bruising, swollen glands, others Endocrine: denies: excessive hunger, excessive sweating, excessive thirst, excessive urination, flushing, intolerance to cold, intolerance to heat, unexplained weight gain, unexplained weight loss, others Psychiatric: denies: anxiety, bipolar disorder, depression, hopeless, panic disorder, schizophrenia, sleepless, suicidal, others All Other Systems: Reviewed and Negative Physical Exam General Appearance: Moderate Distress, Obese HEENT: Normal ENT Inspection, Pharynx Normal, TMs Normal Neck: Full Range of Motion, Non-Tender, Normal, Normal Inspection Respiratory: Chest Non-Tender, Lungs Clear, No Accessory Muscle Use, No Respiratory Distress, Normal Breath Sounds Cardiovascular: Irregular, No Edema, No JVD, No Murmur, No Gallop Breast Exam: Deferred Gastrointestinal: No Organomegaly, Non Tender, No Pulsatile Mass, Normal Bowel Sounds, Soft Genitalia: Deferred Pelvic: Deferred Rectal: Deferred Extremities: No calf tenderness, Normal capillary refill, Normal inspection, Normal range of motion, Non-tender, No pedal edema Musculoskeletal : Apperance: Normal Neurologic: Alert, human resources trainee II-XII nml as Tested, No Motor Deficits, Normal Affect, Normal Mood, No Sensory Deficits Cerebellar Function: Normal Reflexes: Normal Skin: Dry, Normal Color, Warm, Other (Dried blood to the left side of the hair and had) Lymphatic: No Adenopathy EKG EKG : Pulse Rate (adult): 92 Miles: Normal Cardiac Rhythm: Afib Block: RBBB Hypertrophy: None ST: Normal Was a procedure done? Was a procedure done?: No Differential Diagnosis (SZ) Seizure: Psychogenic Seizure, CVA/TIA, Idiopathic, Syncope X-Ray, Labs, Meds, VS Vital Signs Date Time Temp Pulse Resp B/P (MAP) Pulse Ox O2 Delivery O2 Flow Rate FiO2 07/06/24 12:09 92 24 96 Room Air* 0 21 07/06/24 12:07 97.6 107/63 (78) 96 97.6 07/06/24 12:00 90 07/06/24 11:30 92 07/06/24 11:27 97.6 117/84 (95) 95 07/06/24 11:24 92 Lab Test 07/06/24 13:42 Range/Units White Blood Count 11.5 H 4.4-10.8 10^3/uL Red Blood Count 4.78 4.0-5.20 10^6/uL Hemoglobin 13.5 12.2-16.2 g/dL Hematocrit 41.3 36.0-46.0 % Mean Corpuscular Volume 86.4 80.0-100.0 fL Mean Corpuscular Hemoglobin 28.2 28.0-32.0 pg Mean Corpuscular Hemoglobin Concent 32.7 32.0-36.0 g/dL Red Cell Distribution Width 14.3 11.8-14.3 % Platelet Count 141 140-450 10^3/uL Mean Platelet Volume 8.9 6.9-10.8 fL Neutrophils (%) (Auto) 82.3 H 37.0-80.0 % Lymphocytes (%) (Auto) 9.6 L 10.0-50.0 % Monocytes (%) (Auto) 4.1 0.0-12.0 % Eosinophils (%) (Auto) 3.2 0.0-7.0 % Basophils (%) (Auto) 0.8 0.0-2.0 % Neutrophils # (Auto) 9.4 H 1.6-8.6 10 ^3/uL Lymphocytes # (Auto) 1.1 0.4-5.4 10 ^3/uL Monocytes # (Auto) 0.5 0-1.3 10 ^3/uL Eosinophils # (Auto) 0.4 0-0.8 10 ^3/uL Basophils # (Auto) 0.1 0-0.2 10 ^3/uL Nucleated Red Blood Cells 0.4 % The CBC shows an elevated white blood cell count of 11.5 The rest of the CBC is within normal limits. The CT scan of the head shows: No sign of any abnormalities At this time, the patient was being admitted to the hospitalist. We discussed the findings with the patient The patient was still having symptoms when she does sit up and gets somewhat dizzy. Her wounds were clean but did not require any repair at this time Images Reviewed?: Images reviewed and evaluated by me Time of 1ST Reevaluation: 14:00 Reevaluation 1ST: Unchanged Patient Education/Counseling: Diagnosis, Treatment, Prognosis Family Education/Counseling: No Family Present Departure 1 Departure Time of Disposition: 13:59 Impression: Primary Impression: Autonomic dysfunction Additional Impressions: Blunt head trauma Qualified Codes: S09.8XXA - Other specified injuries of head, initial encounter New onset a-fib Disposition: ADMITTED INPATIENT Admit to: Tele Condition: Fair Critical Care Note Critical Care Time?: Yes (45 min-critical care time only) Stability Stability form required: Yes Unstable for transfer: Telemetry monitoring (Telemetry monitoring required), ED Physician Assesment (Clinical assesment) Heart Score Heart Score: Heart Score Response (Comments) Value History N/A 0 EKG N/A 0 Age N/A 0 Risk Factors N/A 0 Troponin N/A 0 Total 0 I personally scribed for TRINI PFEIFFER MD ([email or web address]) on 07/06/24 at 11:30. Electronically submitted by Bishop Olsen ([email or web address]). TRINI PFEIFFER MD Jul 06, 2024 11:30
[2024-07-06 12:09] VITALS: PULSE 92; RESP 24; O2SAT 96
--- NOTE | 2024-07-06 12:38 | DVH ---
EXAM: CT HEAD WITHOUT CONTRAST HISTORY: syncope COMPARISON: None TECHNIQUE: Axial images of the head were obtained and reformatted in coronal and sagittal planes. All CT scans at this medical facility are performed using dose modulation techniques as appropriate t o a performed exam including the following: Automated exposure control was utilized; adjustment of th e MA and/or KV according to patient size; and use of iterative reconstruction technique. CT Dose: CTDI volume is 61 mGy. Dose-length product is 973 mGy*cm FINDINGS: There is no evidence of acute intracranial hemorrhage, mass, mass effect midline shift. There is no h ydrocephalus or extra-axial fluid collection. Joseph-white matter differentiation is maintained. The visualized paranasal sinuses and mastoid air cells are clear. The calvarium is intact. IMPRESSION: 1. No acute intracranial process. HS:Y
[2024-07-06 13:53] LABS: Basophils # (auto) 0.1 10 ^3/uL (0-0.2); Basophils % (auto) 0.8 % (0.0-2.0); Eosinophils # (auto) 0.4 10 ^3/uL (0-0.8); Eosinophils % (auto) 3.2 % (0.0-7.0); Hematocrit 41.3 % (36.0-46.0); Hemoglobin 13.5 g/dL (12.2-16.2); Lymphocytes # (auto) 1.1 10 ^3/uL (0.4-5.4); Lymphocytes % (auto) 9.6 % (10.0-50.0); Mean Corpuscular Hemoglobin 28.2 pg (28.0-32.0); Mean Corpuscular Hgb Conc. 32.7 g/dL (32.0-36.0); Mean Corpuscular Volume 86.4 fL (80.0-100.0); Monocytes # (auto) 0.5 10 ^3/uL (0-1.3); Monocytes % (auto) 4.1 % (0.0-12.0); Neutrophils # (auto) 9.4 10 ^3/uL (1.6-8.6); Neutrophils % (auto) 82.3 % (37.0-80.0); Nucleated Red Blood Cells % 0.4 %; Platelet Count (auto) 141 10^3/uL (140-450); Red Blood Cells 4.78 10^6/uL (4.0-5.20); Red Cell Distribution Width 14.3 % (11.8-14.3); White Blood Cell 11.5 10^3/uL (4.4-10.8)
[2024-07-06] MEDS ORDERED: ACETAMINOPHEN 325 MG TAB PO PRN (14:30)
[2024-07-06] MEDS ORDERED: MORPHINE SULFATE INJ 2 MG/ml SYRG IV PRN (14:30)
[2024-07-06] MEDS ORDERED: HYDROcodone-ACET 5/325MG TAB PO PRN (14:30)
[2024-07-06] MEDS ORDERED: NITROGLYCERIN 0.4 MG SL TAB SL PRN (14:30)
[2024-07-06] MEDS ORDERED: ONDANSETRON HCL 4 MG/2 ML VIAL IV PRN (14:30)
[2024-07-06] MEDS ORDERED: DOCUSATE SOD 100 MG CAP PO PRN (14:30)
[2024-07-06 14:44] LABS: COVID19 ANTIGEN SOFIA FIA NEGATIVE (NEGATIVE)
--- NOTE | 2024-07-06 14:51 | DVHHP2 ---
History of Present Illness Reason for Visit: Fall with Injury History of Present Illness Carmelina Sarkar is a 79-year-old female with past medical history of hyperlipidemia, cancer, diabetes, asthma, and peripheral neuropathy who comes in S/P fall with injury. Patient states she got up at 0300 to go to the bathroom. She remembers feeling weird and then she must of lost of consciousness. Next thing she knows is that she wakes up on the floor with blood around her. It took her until about 0800 for her to make it back to her phone to call for help. Once in the ER it was discovered that she was in new onset atrial fibrillation. Patient is non-compliant with medications and states that she does not like to take them due to the side effects.The only medication she takes is her diabetic medication. Cardiovascular: hyperipidemia Pulmonary: Asthma Heme/Onc: Cancer Musculoskeletal: Other (peripheral neuropathy) Endocrine: Diabetes Past Surgical History: Appendectomy, Cataract Removal (bilateral), Hysterectomy, Hernia Repair, Other (right foot toe amputation) Family History: None Smoke: No ALCOHOL: none Drugs: None Lives: Alone Domestic Violence: Neg Review of Systems Constitutional: No: Fever, Chills, Sweats, Weakness, Malaise, Other Eyes: No: Pain, Vision change, Conjunctivae inflammation, Eyelid inflammation, Other, Redness ENT: No: Ear pain, Ear discharge, Nose pain, Nose discharge, Nose congestion, Mouth pain, Mouth swelling, Throat pain, Throat swelling, Other Respiratory: No: Cough, Dry, Shortness of breath, SOB with excertion, Wheezing, Hemoptysis, Pleuritic Pain, Sputum, Wheezing, Other Cardiovascular: No: Chest Pain, Palpitations, Orthopnea, Paroxysmal Noc. Dyspnea, Edema, Lt Headedness, Other Gastrointestinal: No: Nausea, Vomiting, Abdominal Pain, Diarrhea, Constipation, Melena, Hematochezia, Other Genitourinary: No Dysuria, No Frequency, No Incontinence, No Hematuria, No Retention, No Other Musculoskeletal: No: other, neck pain, shoulder pain, arm pain, back pain, hand pain, leg pain, foot pain Skin: No: Rash, Lesions, Jaundice, Bruising, Other Neurological: Weakness, Incoordination, Other (LOC, fall with injury to head); No: Numbness, Change in speech, Confusion, Seizures Allergies: Coded Allergies: Codeine (Verified Allergy, Mild, 03/10/17) Penicillins (Verified Allergy, Mild, 03/10/17) Tetanus Toxoid (Verified Allergy, Unknown, 03/10/17) SWELLING Uncoded Allergies: TAPE (Allergy, Unknown, 10/18/10) Exam Vital Signs Vital Signs Date Time Temp Pulse Resp B/P (MAP) Pulse Ox O2 Delivery O2 Flow Rate FiO2 07/06/24 12:09 92 24 96 Room Air* 0 21 07/06/24 12:07 97.6 107/63 (78) 97.6 General Appearance: Alert, Oriented X3, Cooperative, mild distress, Other (laceration to left side of head, no stitches required) HEENT: Atraumatic, PERRLA Respiratory: Clear to auscultation, Normal air movement Cardiovascular: Normal S1, Normal S2, Other (irregular) Abdominal: Normal bowel sounds, Soft, No tenderness Extremities: No clubbing, No cyanosis, Other (bilateral lower extremity edema) Neuro: Normal speech, Strength at 5/5 X4 ext Psych/Mental Status: Mental status NL, Mood NL Labs/Xrays Labs Test 07/06/24 13:52 07/06/24 13:42 Range/Units White Blood Count 11.5 H 4.4-10.8 10^3/uL Red Blood Count 4.78 4.0-5.20 10^6/uL Hemoglobin 13.5 12.2-16.2 g/dL Hematocrit 41.3 36.0-46.0 % Mean Corpuscular Volume 86.4 80.0-100.0 fL Mean Corpuscular Hemoglobin 28.2 28.0-32.0 pg Mean Corpuscular Hemoglobin Concent 32.7 32.0-36.0 g/dL Red Cell Distribution Width 14.3 11.8-14.3 % Platelet Count 141 140-450 10^3/uL Mean Platelet Volume 8.9 6.9-10.8 fL Neutrophils (%) (Auto) 82.3 H 37.0-80.0 % Lymphocytes (%) (Auto) 9.6 L 10.0-50.0 % Monocytes (%) (Auto) 4.1 0.0-12.0 % Eosinophils (%) (Auto) 3.2 0.0-7.0 % Basophils (%) (Auto) 0.8 0.0-2.0 % Neutrophils # (Auto) 9.4 H 1.6-8.6 10 ^3/uL Lymphocytes # (Auto) 1.1 0.4-5.4 10 ^3/uL Monocytes # (Auto) 0.5 0-1.3 10 ^3/uL Eosinophils # (Auto) 0.4 0-0.8 10 ^3/uL Basophils # (Auto) 0.1 0-0.2 10 ^3/uL Nucleated Red Blood Cells 0.4 % EXAM: CT HEAD WITHOUT CONTRAST FINDINGS: There is no evidence of acute intracranial hemorrhage, mass, mass effect midline shift. There is no hydrocephalus or extra-axial fluid collection. Joseph-white matter differentiation is maintained. The visualized paranasal sinuses and mastoid air cells are clear. The calvarium is intact. IMPRESSION: 1. No acute intracranial process. Assessment/Plan Assessment/Plan Assessment: Autonomic dysfunction, New onset a-fib, Diabetes, Asthma, Plan: Admit to Tele, Cardiology consult, Physical therapy evaluation, Fall precautions, Accu checks Q AC&HS with sliding scale, Wound care consult, Breathing treatments as needed, Home medication reconciled, Plan discussed with: Patient My Orders Orders - TERRY BOLTON Procedure Category Date Status Time Admit ADMIT 07/06/24 Transmitted 14:28 Code Status CODE 07/06/24 Transmitted 14:28 2 Gm Sodium Diet DIET 07/06/24 Transmitted Dinner Sodium Chloride Lock PHA 07/06/24 Transmitted (Saline Lock Ns) 22:00 Hydrocodone-Acet PHA 07/06/24 Transmitted 5/325mg Tab (Ross 14:30 Ondansetron Hcl PHA 07/06/24 Transmitted (Zofran) 14:30 Docusate Sodium PHA 07/06/24 Transmitted Capsule (Colace 14:30 Fall Risk Precautions ANGELITA 07/06/[address] 14:28 Complete Blood Count LAB 07/07/24 Verified 04:00 Comprehensive LAB 07/07/24 Verified Metabolic Panel 04:00 Pt Request For Service PT 07/06/24 Transmitted 14:28 Condition: Serious ANGELITA 07/06/24 Transmitted 14:28 Acetaminophen Tablet PHA 07/06/24 Transmitted (Tylenol Tablet) 14:30 Nitroglycerin PHA 07/06/24 Transmitted Sublingual (Ntrostat 14:30 Morphine Sulfate PHA 12/17/24 Transmitted Injection 14:30 Stat Ekg For Chest BANNER 07/06/24 Transmitted Pain 14:28 Notify Of Changes BANNER 07/06/24 Transmitted From Base 14:28 Spool Carrier For BANNER 07/06/24 Transmitted 24 Hours 14:28 Emergency Dysrhythmia BANNER 07/06/24 Transmitted Protocol 14:28 Rhythm Strips Once BANNER 07/06/24 Transmitted Every Shift 14:28 Oxygen By Nasal RT 07/06/24 Transmitted Cannula 14:28 Glucose Blood [facility] 07/06/24 Transmitted (Accu-Chek Comfort 17:00 Bedtime Insulin Scale PHA 07/06/24 Transmitted 22:00 Moderate Insulin Ss PHA 07/06/24 Transmitted 17:00 Dextrose 50% Syringe PHA 07/06/24 Transmitted 14:30 * Cardiology Consult CONS 07/06/24 Transmitted 14:28 Date of Service: Jul 06, 2024 Billing Provider: TERRY BOLTON Common Visit Codes: [id number] INP/OBS CARE (MOD) TERRY BOLTON Jul 06, 2024 14:51
--- NOTE | 2024-07-06 16:38 | DVH ---
EXAM: XY CHEST PORTABLE TECHNIQUE: Single frontal chest radiograph CLINICAL HISTORY: SOB COMPARISON: XY CHEST PORTABLE on DOS: 04/01/24, CHEST PORTABLE on DOS: 05/01/22, CXRP on DOS: 05/01/22 Findings/Impression: Frontal chest radiograph demonstrates no acute osseous or superficial soft tissue abnormalities. The trachea is midline. The cardiac silhouette and mediastinum are within normal limits. No pneumothorax, pleural effusions, or consolidations.
[2024-07-06] MEDS: InsuLIN REG 1unit/0.01ml Soln (100units/ml) SC SCH ×2 (17:00→22:00)
[2024-07-06] MEDS: ACCU-CHEK COMFORT CURVE STRIP VI SCH (17:00)
[2024-07-06 17:13] LABS: Anion Gap 9 (5-15)
[2024-07-06] MEDS ORDERED: ALBUTEROL SULF 2.5 MG/0.5ML(0.5%) NEB SOLN NEB PRN (17:15)
[2024-07-06] MEDS ORDERED: IPRATROPIUM BROM 0.5 MG/2.5ML INH SOL NEB PRN (17:15)
--- NOTE | 2024-07-06 17:15 | DVHINCON2 ---
Date Seen: Jul 06, 2024 Referring Physician KALLI Garcia Reason for Consultation New onset atrial fibrillation History of Present Illness This is a 79-year-old female who presented to the emergency room via EMS with a chief complaint of syncopal event. The patient reports she stood up to use the bathroom at 3:00 a.m. feeling somewhat dizzy and experiencing a subsequent syncopal event with the patient endorsing it only lasted a few seconds. Upon awaking up she noticed a left scalp laceration. She subsequently crawled back to her bed and eventually called a friend who called 911. Upon EMS arrival she was found with an oxygen saturation level of 85% on room air, blood glucose level of 295 ng/dL, and a 12 lead electrocardiogram revealing an atrial fibrillation rhythm. Denies palpitations or chest pain. Complains of increased lethargy, orthopnea, WALTERS, and PND during the past week. A subsequent 12 lead electrocardiogram in the emergency room revealed an atrial fibrillation rhythm with an associated right bundle branch block and ST segment depression to inferior and anteroseptal leads. Significant medical history includes HfpEF, history of left lower extremity DVT in 2021, peripheral vascular disease with right internal carotid artery occlusion, nli-pebkwor-ffpsfecyv diabetes mellitus, chronic kidney disease, asthma, nephrolithiasis, fasciitis, history of uterine cancer, and morbid obesity. Past Medical History Past medical history reviewed. No other significant than mentioned above. Past Surgical History Abdominal excess skin surgery Hiatal hernia repair Right 3rd toe amputation Hysterectomy Appendectomy Cataracts Bilateral lower extremity Family History: FH: brain cancer G8 MOTHER FH: heart attack G8 FATHER No Family History of: Alcoholism Cancer Cancer of colon Family History Family history reviewed. Social History Denies the use of illicit drugs, alcohol, or tobacco use. Allergies: Coded Allergies: Codeine (Verified Allergy, Mild, 03/10/17) Penicillins (Verified Allergy, Mild, 03/10/17) Tetanus Toxoid (Verified Allergy, Unknown, 03/10/17) SWELLING Uncoded Allergies: TAPE (Allergy, Unknown, 10/18/10) Home Meds Reported Medications Glyburide-Metformin (Glucovance) 1 Tab Tab, 2 TAB PO BID 10/18/10 Discontinued Scripts Levofloxacin Hemihydrate (LEVAQUIN 500 MG) 500 Mg Tab, 500 MG PO DAILY for 5 Days, #5 TAB Prov:NATALEE HAMMOND MD 04/06/24 Home Meds Home medications reviewed. Current Medications Current Medications Medications (Trade) Dose Ordered Sig/Ladan Route PRN Reason Start Time Stop Time Status Last Admin Sodium Chloride (Saline Lock Ns) 10 ml Q8HR IV 07/06/24 22:00 Acetaminophen/ Hydrocodone Bitart ([place] 5/325MG Tab) 1 tab Q4HP PRN PO MODERATE PAIN (4-6 PAIN SCALE) 07/06/24 14:30 Ondansetron HCl (Zofran) 4 mg Q4HP PRN IV NAUSEA / VOMITING 07/06/24 14:30 Docusate Sodium (Colace Capsule) 100 mg BIDPRN PRN PO FOR CONSTIPATION 07/06/24 14:30 Acetaminophen (Tylenol Tablet) 650 mg Q6HP PRN PO PAIN SCALE 1-3 OR TEMP>100.4 07/06/24 14:30 Nitroglycerin (Ntrostat Sublingual) 0.4 mg Q5MINP PRN SL FOR CHEST PAIN 07/06/24 14:30 Morphine Sulfate 2 mg Q30M PRN IV FOR CHEST PAIN 07/06/24 14:30 Diagnostic Test (Pha) (Accu-Chek Comfort Curve T) 1 strip ACHS 07/06/24 17:00 Insulin Human Regular (InsuLIN R) HS SC 07/06/24 22:00 Insulin Human Regular (InsuLIN R) AC SC 07/06/24 17:00 Dextrose 50 ml UD PRN IV Blood Sugar LESS THAN 60 07/06/24 14:30 Review of Systems Constitutional: Generalized weakness Ears, Nose, & Throat: No symptom reported Eyes: No symptom reported Neurological: Dizziness, syncope Pulmonary/Respiratory: WLATERS, PND, orthopnea Cardiovascular: No symptom reported Gastrointestinal: No symptom reported Genitourinary: No symptom reported Musculoskeletal: No symptom reported Skin: No symptom reported Psychiatric: No symptom reported Endocrine: No symptom reported Hemotologic/Lymphatic: No symptom reported Vital Signs Vital Signs Date Time Temp Pulse Resp B/P (MAP) Pulse Ox O2 Delivery O2 Flow Rate FiO2 07/06/24 12:09 92 24 96 Room Air* 0 21 07/06/24 12:07 97.6 107/63 (78) 97.6 Physical Exam General Appearance: Cooperative. Well developed. Obese. Mild acute distress Head Exam: Left scalp laceration Neck Exam: Normal inspection. Non-tender. Normal alignment Pulmonary/Respiratory: Chest non-tender. Diminished bilateral breath sounds Cardiovascular/Chest: Irregularly irregular rate and rhythm. AFib controlled rate. Anteroseptal/inferior ST depression. No murmurs. No JVD. Peripheral Pulses: 2+ Radial (R). 2+ Radial (L). 2+ Pedal (R). 2+ Pedal (L) Abdominal Exam: Normal bowel sounds. Soft. Nontender. No hepatospenomegaly. No masses Ankle Exam: Positive ankle edema, nonpitting Lower extremities: Positive lower extremity edema, nonpitting Neuro/Mental Status: A&O x4. Coherent Thoughts/Psych: Normal thought pattern. Appropriate mood and affect. Good judgement and insight Appearance: Mild acute distress Skin Exam: Left scalp laceration. Left plantar skin graft Labs/Diagnostic Data Labs Test 07/06/24 15:31 07/06/24 13:52 07/06/24 13:42 Range/Units SARS-CoV-2 Antigen (Rapid) Negative NEGATIVE White Blood Count 11.5 H 4.4-10.8 10^3/uL Red Blood Count 4.78 4.0-5.20 10^6/uL Hemoglobin 13.5 12.2-16.2 g/dL Hematocrit 41.3 36.0-46.0 % Mean Corpuscular Volume 86.4 80.0-100.0 fL Mean Corpuscular Hemoglobin 28.2 28.0-32.0 pg Mean Corpuscular Hemoglobin Concent 32.7 32.0-36.0 g/dL Red Cell Distribution Width 14.3 11.8-14.3 % Platelet Count 141 140-450 10^3/uL Mean Platelet Volume 8.9 6.9-10.8 fL Neutrophils (%) (Auto) 82.3 H 37.0-80.0 % Lymphocytes (%) (Auto) 9.6 L 10.0-50.0 % Monocytes (%) (Auto) 4.1 0.0-12.0 % Eosinophils (%) (Auto) 3.2 0.0-7.0 % Basophils (%) (Auto) 0.8 0.0-2.0 % Neutrophils # (Auto) 9.4 H 1.6-8.6 10 ^3/uL Lymphocytes # (Auto) 1.1 0.4-5.4 10 ^3/uL Monocytes # (Auto) 0.5 0-1.3 10 ^3/uL Eosinophils # (Auto) 0.4 0-0.8 10 ^3/uL Basophils # (Auto) 0.1 0-0.2 10 ^3/uL Nucleated Red Blood Cells 0.4 % Assessment Syncope and collapse Atrial fibrillation at a controlled rate, stage III, newly diagnosed Chronic decompensated HFpEF Rule out left carotid artery stenosis Rule out structural heart disease Peripheral vascular disease with chronic right carotid artery occlusion Syf-awtyqri-bmdctcgaj diabetes mellitus Chronic kidney disease History of LLE DVT in 2021 Morbid obesity Plan/Recommendation We will continue the following plan/recommendations (Dr. Higgins): * Echocardiogram to evaluate cardiac function * Bilateral carotid duplex ultrasound rule out left ICA stenosis * Bilateral lower extremity venous use rule out DVT * Bilateral lower extremity arterial duplex revealed mild PAD (04/01/24) * Hold off antiarrhythmic therapy given unknown AFib onset * Hold rate control medications given borderline BP * Initiate therapeutic anticoagulation once CMP/PTT/INR released * [id number] Score 7. HAS-BLED Score 2 * Monitor ECG changes and notify * Podiatry/Wound care consultations Patient may qualify for a cardiac catheterization and coronary angiogram. Blood work pending at this time, only CBC released. Rest of plan per clinical course. Thank you for allowing us to participate in this patient's care. Please call if you have any questions or concerns. Critical care time: 40 min. This medical document was created using an electronic medical record system with voice recognition software and computerized dictation system. Although this document has been carefully reviewed, there might still be some phonetic and typographical errors. Occasional wrong-word or ``sound-alike substitutions may have occurred due to the inherent limitations of voice recognition software. These areas are purely typographical due to imperfections of the software programs and do not reflect any compromise in the patient's medical care. Please read the chart carefully and recognize, using context, where these substitutions have occurred. Plan discussed with: Patient, Other Date of Service: Jul 06, 2024 Billing Provider: VANESA HIGGINS MD Cardiology Common Codes: [id number] CARE 30-74 MIN CRISTINE PADILLA [facility] Jul 06, 2024 17:15
[2024-07-06 17:18] LABS: BUN/Creatinine Ratio 16.1 (10.0-20.0)
[2024-07-06 17:27] LABS: INR 1.15 (0.9-1.15); Partial Thromboplastin Time 30.6 SEC (24.5-34.5); Prothrombin Time 12.1 sec (9.3-11.8)
[2024-07-06 17:30] LABS: Blood Alcohol 8.7 mg/dL (<10); Blood Urea Nitrogen 22 mg/dL (9-23); Calcium 10.1 mg/dL (8.7-10.4); Glucose 117 mg/dL (74-106)
[2024-07-06 17:31] LABS: Carbon Dioxide 23 mmol/L (20-31); Chloride 104 mmol/L (98-107); Sodium 136 mmol/L (136-145)
[2024-07-06 17:32] LABS: Potassium 5.6 mmol/L (3.5-5.1)
[2024-07-06 17:44] LABS: Magnesium 2.3 mg/dL (1.6-2.6)
[2024-07-06 17:55] VITALS: O2SAT 96
[2024-07-06] MEDS: ENOXAPARIN SOD 100 MG/1 ML SYRINGE SC ONE (18:15)
[2024-07-06] MEDS: SODIUM ZIRCONIUM CYCL 10 GM PAK PO ONE (18:47)
--- NOTE | 2024-07-06 18:55 | DVH ---
Bilateral lower extremity venous duplex Clinical History: Edema Comparison: US BILAT LOW EXT ART DUPLEX on DOS: 04/01/24, BI LOWER DVT on DOS: 04/27/22, BLDVT on DOS: 04/27/22 Technique: Duplex Doppler evaluation of the deep venous systems of both lower extremities from the common femora l veins to the popliteal veins including color Doppler and spectral/pulsed waveform analysis was perf ormed. Findings: RIGHT SIDE: The common femoral vein demonstrates appropriate compressibility and waveform variability. There is compressibility/patency of the great saphenous vein at the proximal thigh. The proximal and mid segments of the femoral vein are not compressible lack doppler flow. Distal femo ral vein is partially compressible and contains flow. The deep femoral vein demonstrates appropriate compressibility and waveform variability. The popliteal vein demonstrates appropriate compressibility and waveform variability. There is color flow at the tibioperoneal trunk and in the posterior tibial vein. LEFT SIDE: The common femoral vein demonstrates appropriate compressibility and waveform variability. There is compressibility/patency of the great saphenous vein at the proximal thigh. The femoral vein demonstrates appropriate compressibility and waveform variability. The deep femoral vein demonstrates appropriate compressibility and waveform variability. The popliteal vein demonstrates appropriate compressibility and waveform variability. There is color flow at the tibioperoneal trunk and in the posterior tibial vein. Impression: Right lower extremity: Acute occlusive DVT of the proximal and mid femoral vein and partially occlusi ve thrombosis of distal femoral vein. Left lower extremity: No evidence of DVT. The nurse in charge of the patient was notified of findings by the technologist upon completion of th e exam.
[2024-07-06 19:20] VITALS: BP 96/75; PULSE 88; RESP 21; TEMP 97.6; O2SAT 96
--- NOTE | 2024-07-06 19:36 | DVH ---
CAROTID DOPPLER ULTRASOUND HISTORY: Syncope COMPARISON: None TECHNIQUE: Real time serra scale, color Doppler, and spectral duplex images are obtained through the c arotid and vertebral arteries. Findings: Technically difficult exam. Peak systolic velocity right internal carotid artery is 27 cm/s and right common carotid artery is 32 cm/s. Ratio is 0.8. Antegrade flow noted in right vertebral artery. No significant atherosclerotic p laque noted within the right carotid arterial system. No definite flow visualized within the right external carotid artery. Peak systolic velocity left internal carotid artery is 97 cm/s and left common carotid artery is 70 c m/s. Ratio is 1.4. Antegrade flow noted in left vertebral artery. No significant atherosclerotic plaq ue noted within the left carotid arterial system. Impression: 1. No evidence of hemodynamically significant stenosis within the left carotid arterial system. 2. Decreased velocities within the right internal carotid arterial system may reflect a more proximal stenosis. 3. Antegrade flow within bilateral vertebral arteries. 4. Possible occlusion of the right external carotid artery.
[2024-07-06] MEDS: SODIUM CHLOR 0.9% PF (SALINE LOCK) 10ML VIAL/SYR IV SCH (22:15)
[2024-07-06 22:57] LABS: Urine Bacteria MANY /hpf (None Seen); Urine Blood 2+ /uL (Negative); Urine Clarity Turbid (Clear); Urine Color Yellow (Yellow); Urine Mucus FEW (None Seen); Urine Protein, UAD 2+ (Negative); Urine Specific Gravity 1.026 (1.001-1.035); Urine Squamous Epithelial Cell FEW /hpf (<5); Urine Urobilinogen 2 mg/dL (Negative); Urine WBC 14 /hpf (0 - 5); Urine pH 5.5 (5.0-9.0)
[2024-07-07] VITALS (9 sets, daily range): BP systolic 120–146; BP diastolic 63–76; PULSE 59–84; RESP 14–20; TEMP 97.8–98.9; O2SAT 93–98
[2024-07-07 05:23] LABS: Basophils # (auto) 0 10 ^3/uL (0-0.2); Basophils % (auto) 0.3 % (0.0-2.0); Eosinophils # (auto) 0 10 ^3/uL (0-0.8); Eosinophils % (auto) 0.5 % (0.0-7.0); Hematocrit 41.2 % (36.0-46.0); Hemoglobin 13.6 g/dL (12.2-16.2); Lymphocytes # (auto) 1.3 10 ^3/uL (0.4-5.4); Lymphocytes % (auto) 14.8 % (10.0-50.0); Mean Corpuscular Hemoglobin 28.4 pg (28.0-32.0); Mean Corpuscular Volume 86.2 fL (80.0-100.0); Monocytes # (auto) 0.7 10 ^3/uL (0-1.3); Monocytes % (auto) 7.6 % (0.0-12.0); Neutrophils # (auto) 6.6 10 ^3/uL (1.6-8.6); Neutrophils % (auto) 76.8 % (37.0-80.0); Platelet Count (auto) 133 10^3/uL (140-450); Red Blood Cells 4.78 10^6/uL (4.0-5.20); Red Cell Distribution Width 14.5 % (11.8-14.3); White Blood Cell 8.6 10^3/uL (4.4-10.8)
[2024-07-07 05:31] LABS: Alanine Aminotransferase 15 U/L (7-40); Albumin 4.1 g/dL (3.2-4.8); Alkaline Phosphatase 81 U/L (46-116); Anion Gap 8 (5-15); Aspartate Aminotransferase 29 U/L (13-40); BUN/Creatinine Ratio 20.7 (10.0-20.0); Bilirubin, Total 0.5 mg/dL (0.2-1.0); Carbon Dioxide 27 mmol/L (20-31); Chloride 103 mmol/L (98-107); Potassium 4.2 mmol/L (3.5-5.1); Sodium 138 mmol/L (136-145)
[2024-07-07 06:01] LABS: Blood Urea Nitrogen 28 mg/dL (9-23); Glucose 51 mg/dL (74-106)
[2024-07-07] MEDS: DEXTROSE (50%) 50ML SYRG IV PRN (06:50)
--- NOTE | 2024-07-07 12:20 | DVHPN2 ---
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 Objective vital signs Vital Sign Date Time Temp Pulse Resp B/P (MAP) Pulse Ox O2 Delivery O2 Flow Rate FiO2 07/07/24 10:14 98.9 78 14 120/63 (82) 95 98.9 07/07/24 07:30 Room Air* 0 21 medications Current Medications Medications Dose Ordered Sig/Ladan Route Start Time Stop Time Status Last Admin Dose Admin Sodium Chloride 10 ml Q8HR IV 07/06/24 22:00 07/07/24 06:06 10 ML Acetaminophen/ Hydrocodone Bitart 1 tab Q4HP PRN PO 07/06/24 14:30 Ondansetron HCl 4 mg Q4HP PRN IV 07/06/24 14:30 Docusate Sodium 100 mg BIDPRN PRN PO 07/06/24 14:30 Acetaminophen 650 mg Q6HP PRN PO 07/06/24 14:30 Nitroglycerin 0.4 mg Q5MINP PRN SL 07/06/24 14:30 Morphine Sulfate 2 mg Q30M PRN IV 07/06/24 14:30 Diagnostic Test (Pha) 1 strip ACHS 07/06/24 17:00 07/07/24 12:16 1 STRIP Insulin Human Regular HS SC 07/06/24 22:00 Insulin Human Regular AC SC 07/06/24 17:00 Dextrose 50 ml UD PRN IV 07/06/24 14:30 07/07/24 06:50 50 ML Albuterol 2.5 mg Q4HPRN PRN NEB 07/06/24 17:15 Ipratropium [place] 0.5 mg Q4HPRN PRN NEB 07/06/24 17:15 Enoxaparin Sodium 110 mg Q12HR SC 07/07/24 10:00 Examination: GENERAL:Abnormal (Generalized weakness), LUNGS:Normal, CVS:Normal, NEURO:Normal laboratory and microbiology Laboratory Tests 07/07/24 04:50 Test 07/07/24 04:50 Range/Units Serum Glucose 51 L 74-106 mg/dL Problem List/Assessment/Plan Problem List/Assessment/Plan Syncope and collapse, rule out cardiac etiology Atrial fibrillation at a controlled rate, stage III, newly diagnosed Acute on chronic HFmrEF, NYHA class III Acute occlusive DVT of right proximal and mid femoral vein Qwo-mqxkcky-iakerigal diabetes mellitus Chronic kidney disease History of LLE DVT in 2021 Morbid obesity Plan/Recommendation (Dr. Higgins): * Echocardiogram reveals EF 45%, RVSP 43 mmHg. * The aortic valve is severely thickened and severely calcific, unfortunately gradients were not measured properly * We will order repeat limited echo for HUMPHREY measurements including mean and peak gradients * Carotid US: Possible occlusion of the right external carotid artery * Orthostatic vitals * Bilateral lower extremity arterial duplex revealed mild PAD (04/01/24) * [id number] Score 7. HAS-BLED Score 2 * Therapeutic Lovenox, transition to NOAC when appropriate * Hold off antiarrhythmic agent given unknown AFib onset * Monitor ECG changes and notify Case reviewed with Dr. Higgins. Thank you for allowing us to participate in this patient's care. Please call if you have any questions or concerns. This medical document was created using an electronic medical record system with voice recognition software and computerized dictation system. Although this document has been carefully reviewed, there might still be some phonetic and typographical errors. Occasional wrong-word or ``sound-alike substitutions may have occurred due to the inherent limitations of voice recognition software. These areas are purely typographical due to imperfections of the software programs and do not reflect any compromise in the patient's medical care. Please read the chart carefully and recognize, using context, where these substitutions have occurred. Plan discussed with: Patient Date of Service: Jul 07, 2024 Billing Provider: VANESA HIGGINS MD Common Visit Codes: [id number] INP/OBS CARE(HIGH) TINA NGUYEN [employer] W[employer]ER Jul 07, 2024 12:20
[2024-07-07] MEDS: ENOXAPARIN SOD 120 MG/0.8 ML SYRINGE SC SCH (12:37)
--- NOTE | 2024-07-07 14:17 | DVHSR ---
APPROVED REPORT EXAM: LIMITED Two-dimensional and M-mode echocardiogram with Doppler and color Doppler. Blood Pressure: 107/63 mmHg INDICATION new onset afib RISK FACTORS Obesity: Height: 5'7, Weight: 231 DIMENSIONS LVDd3.5 (3.8-5.7cm)LA (2D) (1.9-4.0cm)Aortic Root3.1 (2.0-3.7cm) LVDs2.9 (2.5-4.0cm)LA (MM) (1.9-4.0cm)Aortic Cusp Exc1.2 (1.5-2.0cm) EF (%) 50.0 (55-70%)Rt. Atrium (1.9-4.0cm)Asc. Aorta3.5 cm IVSd1.0 (0.7-1.1cm)RV (D) (1.8-2.4cm) PWd1.1 (0.7-1.1cm) Mitral Valve MitralMitral Stenosis E wave0.85m/sMV Mean GR.1mmHg A wave0.01m/sMV Peak GR.3mmHg E/A ratio85.02D MVAcm2 DECEL [id number] 1/2 Timems Aortic Valve Aortic ValveAortic Stenosis V1m/Christopher Mean GR.7mmHg V21.73m/Christopher Peak GR.12mmHg LVOT Diameter1.4 (1.8-2.4cm)Doppler AVAcm2 Pulmonic Valve V20.77m/s Tricuspid Valve TR Velocity2.23m/s [id number] Other Information Quality : LimitedTechnically LimitedRhythm : Technically limited study due to patient position.body habitus. Conclusion Mildly reduced left ventricular systolic function with estimated ejection fraction of 45% in a global fashion. There is a grade diastolic dysfunction. Normal right ventricular size and dimension. Moderately elevated right ventricular systolic pressure at 43 mm of mercury. Legx-pt-abndueytsu dilated right and left atria. The aortic valve is severely thickened and severely calcific there is high likelihood of moderate aor tic valve stenosis, unfortunately the gradients were not measured properly due to poor Doppler signal . The mitral valve is thickened there is mild mitral valve regurgitation. There is mild tricuspid valve regurgitation. The pulmonary valve is grossly normal. No pericardial effusion.
--- NOTE | 2024-07-07 14:22 | DVH ---
NUCLEAR MEDICINE VENTILATION/PERFUSION LUNG SCAN. INDICATION: positive DVT, rule out PE COMPARISON: None TECHNIQUE: Following intravenous demonstration of 4.7 millicuries of technetium 99m MAA, and inhala tion of 4.7 mCi of Xe 133 scintigrams were obtained in multiple projections of the lungs. FINDINGS: There is normal uptake of radionuclide on both the ventilation and perfusion portions of the examinat ion. No mismatched perfusion defects are demonstrated. Uptake is normally homogeneous. IMPRESSION: Low probability for PE.
[2024-07-07] MEDS ORDERED: DEXTROSE (50%) 50ML SYRG IV PRN (17:15)
--- NOTE | 2024-07-07 17:26 | DVHPN2 ---
Progress Note Date Seen: Jul 07, 2024 Medical Necessity Reason Pt with a Central, PICC or Fol: No Subjective Patient reports: No new complaints Review of Systems: HEENT:Normal, CVS:Normal, RESPIRATORY:Normal, GI:Normal, :Normal, MSK:Normal, NEURO:Normal Objective vital signs Vital Sign Date Time Temp Pulse Resp B/P (MAP) Pulse Ox O2 Delivery O2 Flow Rate FiO2 07/07/24 17:17 98.0 76 20 146/74 (98) 95 98.0 07/07/24 10:14 Room Air* 0 21 medications Current Medications Medications Dose Ordered Sig/Ladan Route Start Time Stop Time Status Last Admin Dose Admin Sodium Chloride 10 ml Q8HR IV 07/06/24 22:00 07/07/24 14:00 10 ML Acetaminophen/ Hydrocodone Bitart 1 tab Q4HP PRN PO 07/06/24 14:30 Ondansetron HCl 4 mg Q4HP PRN IV 07/06/24 14:30 Docusate Sodium 100 mg BIDPRN PRN PO 07/06/24 14:30 Acetaminophen 650 mg Q6HP PRN PO 07/06/24 14:30 Nitroglycerin 0.4 mg Q5MINP PRN SL 07/06/24 14:30 Morphine Sulfate 2 mg Q30M PRN IV 07/06/24 14:30 Diagnostic Test (Pha) 1 strip ACHS 07/06/24 17:00 07/07/24 12:16 1 STRIP Insulin Human Regular HS SC 07/06/24 22:00 Insulin Human Regular AC SC 07/06/24 17:00 Dextrose 50 ml UD PRN IV 07/06/24 14:30 07/07/24 06:50 50 ML Albuterol 2.5 mg Q4HPRN PRN NEB 07/06/24 17:15 Ipratropium [place] 0.5 mg Q4HPRN PRN NEB 07/06/24 17:15 Enoxaparin Sodium 110 mg Q12HR SC 07/07/24 10:00 07/07/24 12:37 110 MG Examination: GENERAL:Normal, HEENT:Normal, NECK:Normal, LUNGS:Normal, CVS:Normal, ABDOMEN:Normal, MSK:Normal, SKIN:Normal, NEURO:Normal, :Normal laboratory and microbiology Laboratory Tests 07/07/24 04:50 Test 07/07/24 04:50 Range/Units Serum Glucose 51 L 74-106 mg/dL Problem List/Assessment/Plan Problem List/Assessment/Plan #1 a fib- new onset: eliquis #2 right leg dvt: eliquis #4 dm: ssi #5 obesity #6 ckd stage 3 #7 asthma #8 hyperlipidemia #9 peripheral neuropathy #10 thrombocytopenia: monitor advance care planning- full code- time spent 21 mins Plan discussed with: Patient My Orders My Orders Orders - JESSENIA MARROQUIN MD Procedure Category Date Status Time * Hand Sample Maker CONS 07/07/24 Transmitted Consult Date of Service: Jul 07, 2024 Billing Provider: JESSENIA MARROQUIN MD Common Visit Codes: [id number] INP/OBS CARE(HIGH) Secondary Visit Codes: [id number] CARE PLAN 30 MINUTES JESSENIA MARROQUIN MD Jul 07, 2024 17:26
[2024-07-07] MEDS: cefTRIAXone 1GM/50ML D5W 50 ML IV ONE (21:38)
[2024-07-07] MEDS: APIXABAN 5 MG TAB PO SCH (21:41)
[2024-07-07] MEDS: ACCU-CHEK COMFORT CURVE STRIP VI SCH (21:50)
[2024-07-07] MEDS: InsuLIN REG 1unit/0.01ml Soln (100units/ml) SC SCH (21:51)
[2024-07-08] VITALS (9 sets, daily range): BP systolic 117–155; BP diastolic 60–85; PULSE 71–87; RESP 18–20; TEMP 97.7–98.3; O2SAT 91–96
[2024-07-08 06:33] LABS: Basophils # (auto) 0 10 ^3/uL (0-0.2); Basophils % (auto) 0.5 % (0.0-2.0); Eosinophils # (auto) 0.1 10 ^3/uL (0-0.8); Eosinophils % (auto) 0.8 % (0.0-7.0); Hematocrit 38.2 % (36.0-46.0); Hemoglobin 12.9 g/dL (12.2-16.2); Lymphocytes # (auto) 1.1 10 ^3/uL (0.4-5.4); Lymphocytes % (auto) 17.7 % (10.0-50.0); Mean Corpuscular Hemoglobin 28.8 pg (28.0-32.0); Mean Corpuscular Hgb Conc. 33.7 g/dL (32.0-36.0); Mean Corpuscular Volume 85.6 fL (80.0-100.0); Monocytes # (auto) 0.6 10 ^3/uL (0-1.3); Neutrophils # (auto) 4.5 10 ^3/uL (1.6-8.6); Nucleated Red Blood Cells % 0.1 %; Platelet Count (auto) 116 10^3/uL (140-450); Red Blood Cells 4.46 10^6/uL (4.0-5.20); Red Cell Distribution Width 14.3 % (11.8-14.3); White Blood Cell 6.3 10^3/uL (4.4-10.8)
[2024-07-08 06:39] LABS: Calcium 9.8 mg/dL (8.7-10.4); Chloride 104 mmol/L (98-107); Potassium 4.2 mmol/L (3.5-5.1); Sodium 139 mmol/L (136-145)
[2024-07-08 06:40] LABS: Anion Gap 7 (5-15); Carbon Dioxide 28 mmol/L (20-31)
[2024-07-08 06:45] LABS: Blood Urea Nitrogen 22 mg/dL (9-23)
[2024-07-08 06:46] LABS: Glucose 119 mg/dL (74-106); Magnesium 1.9 mg/dL (1.6-2.6)
--- NOTE | 2024-07-08 09:21 | DVHSR ---
APPROVED REPORT EXAM: LIMITED Two-dimensional and M-mode echocardiogram with Doppler and color Doppler. Blood Pressure: 146/74 mmHg INDICATION Syncope limited for HUMPHREY measurments RISK FACTORS Obesity: Height: 5'7, Weight: 239 Mitral Valve MitralMitral Stenosis E/A ratio0.02D MVAcm2 Aortic Valve Aortic ValveAortic Stenosis V10.74m/Christopher Mean GR.13mmHg V22.46m/Christopher Peak GR.24mmHg LVOT Diameter1.6 (1.8-2.4cm)Doppler AVA0.60cm2 Other Information Technically limited study due to repeat for HUMPHREY velocities Conclusion Aortic valve interrogation was done by spectral Doppler, despite having low peak and mean gradient at 24 and 13mm of mercury the aortic valve area was calculated at 0.6 cm2. Given that her ejection frac tion is at 40%, we will recommend doing dobutamine stress echo to rule out low-flow low gradient severe aortic valve stenosis.
--- NOTE | 2024-07-08 09:33 | DVHPN2 ---
Consult Progress Note Subjective Other Systems: Patient remains in atrial fibrillation with controlled rate on front desk monitor. Objective vital signs Vital Sign Date Time Temp Pulse Resp B/P (MAP) Pulse Ox O2 Delivery O2 Flow Rate FiO2 07/08/24 08:57 98.2 80 20 134/69 (90) 94 98.2 07/07/24 20:00 Room Air* 0 21 Total Intake and Output 07/07/24 07/07/24 07/08/24 15:00 23:00 07:00 Intake Total 400 ml 450 ml Output Total 600 ml Balance 400 ml -150 ml medications Current Medications Medications Dose Ordered Sig/Ladan Route Start Time Stop Time Status Last Admin Dose Admin Sodium Chloride 10 ml Q8HR IV 07/06/24 22:00 07/08/24 05:57 10 ML Acetaminophen/ Hydrocodone Bitart 1 tab Q4HP PRN PO 07/06/24 14:30 Ondansetron HCl 4 mg Q4HP PRN IV 07/06/24 14:30 Docusate Sodium 100 mg BIDPRN PRN PO 07/06/24 14:30 Acetaminophen 650 mg Q6HP PRN PO 07/06/24 14:30 Nitroglycerin 0.4 mg Q5MINP PRN SL 07/06/24 14:30 Morphine Sulfate 2 mg Q30M PRN IV 07/06/24 14:30 Insulin Human Regular HS SC 07/06/24 22:00 Albuterol 2.5 mg Q4HPRN PRN NEB 07/06/24 17:15 Cancel Ipratropium [place] 0.5 mg Q4HPRN PRN NEB 07/06/24 17:15 Cancel Apixaban 10 mg BID PO 07/07/24 22:00 07/14/24 21:59 07/08/24 09:26 10 MG Apixaban 5 mg BID PO 07/14/24 22:00 Ceftriaxone Sodium 50 ml @ 100 mls/hr DAILY@09 IV 07/08/24 09:00 Diagnostic Test (Pha) 1 strip ACHS 07/07/24 22:00 07/08/24 06:21 1 STRIP Insulin Human Regular ACHS SC 07/07/24 22:00 Dextrose 50 ml UD PRN IV 07/07/24 17:15 Examination: GENERAL:Abnormal (Generalized weakness), LUNGS:Normal, CVS:Normal, NEURO:Normal laboratory and microbiology Laboratory Tests 07/08/24 05:20 Test 07/08/24 05:20 Range/Units Serum Glucose 119 H 74-106 mg/dL Problem List/Assessment/Plan Problem List/Assessment/Plan Syncope and collapse, rule out cardiac etiology Atrial fibrillation at a controlled rate, stage III, newly diagnosed Acute on chronic HFmrEF, NYHA class III Acute occlusive DVT of right proximal and mid femoral vein Ylb-ilxmulf-vaogsouxo diabetes mellitus Chronic kidney disease History of LLE DVT in 2021 Morbid obesity Plan/Recommendation (Dr. Higgins): * Echocardiogram reveals EF 45%, RVSP 43 mmHg. * The aortic valve is severely thickened and severely calcific, unfortunately gradients were not measured properly * Repeat echo shows HUMPHREY 0.6cm2, mean gradient 13 mmHg and peak gradient of 24 mmHg * Dobutamine stress echo to rule out low-flow low gradient severe aortic valve stenosis * Carotid US: Possible occlusion of the right external carotid artery * Orthostatic vitals * Bilateral lower extremity arterial duplex revealed mild PAD (04/01/24) * [id number] Score 7. HAS-BLED Score 2 * NOAC therapy, Eliquis * Hold off antiarrhythmic agent given unknown AFib onset * Monitor ECG changes and notify Case reviewed with Dr. Higgins. Thank you for allowing us to participate in this patient's care. Please call if you have any questions or concerns. This medical document was created using an electronic medical record system with voice recognition software and computerized dictation system. Although this document has been carefully reviewed, there might still be some phonetic and typographical errors. Occasional wrong-word or ``sound-alike substitutions may have occurred due to the inherent limitations of voice recognition software. These areas are purely typographical due to imperfections of the software programs and do not reflect any compromise in the patient's medical care. Please read the chart carefully and recognize, using context, where these substitutions have occurred. Plan discussed with: Patient Date of Service: Jul 08, 2024 Billing Provider: VANESA HIGGINS MD Common Visit Codes: [id number] INP/OBS CARE(HIGH) TINA NGUYEN [employer]IEF ENGINEER [employer]ODUCTION Jul 08, 2024 09:32
[2024-07-08] MEDS: cefTRIAXone 1GM/50ML D5W 50 ML IV SCH (10:40)
--- NOTE | 2024-07-08 11:32 | DVHINCON2 ---
Date of service: Jul 08, 2024 Referring Physician Hortencia Garcia NP Reason for Consultation Ulceration left foot. Sub 1st. History of Present Illness The patient was seen at bed side resting comfortably. The patient apparently lost consciousness and fell down at home. The patient was admitted for further evaluation. The patient has a chronic ulceration sub 1st left foot which has been treated by me for several weeks. The patient declines any complaints in that regard. The patient was last seen at my office last week. Past Medical History DM II, HTN, cardiac disease, hyperlipidemia, Asthma, cancer. Past Surgical History Foot surgery Family History: FH: brain cancer G8 MOTHER FH: heart attack G8 FATHER No Family History of: Alcoholism Cancer Cancer of colon Family History Reviewed and is non-contributory to management of this case. Social History Denies alcohol, tobacco and illicit drug use. Allergies: Coded Allergies: Codeine (Verified Allergy, Mild, 03/10/17) Penicillins (Verified Allergy, Mild, 03/10/17) Tetanus Toxoid (Verified Allergy, Unknown, 03/10/17) SWELLING Uncoded Allergies: TAPE (Allergy, Unknown, 10/18/10) Home Meds Reported Medications Glyburide-Metformin (Glucovance) 1 Tab Tab, 2 TAB PO BID 10/18/10 Discontinued Scripts Levofloxacin Hemihydrate (LEVAQUIN 500 MG) 500 Mg Tab, 500 MG PO DAILY for 5 Days, #5 TAB Prov:NATALEE HAMMOND MD 04/06/24 Current Medications Current Medications Medications (Trade) Dose Ordered Sig/Ladan Route PRN Reason Start Time Stop Time Status Last Admin Apixaban (Eliquis) 10 mg BID PO 07/07/24 22:00 07/14/24 21:59 07/08/24 09:26 Apixaban (Eliquis) 5 mg BID PO 07/14/24 22:00 Ceftriaxone Sodium 50 ml @ 100 mls/hr DAILY@09 IV 07/08/24 09:00 07/08/24 10:40 Diagnostic Test (Pha) (Accu-Chek Comfort Curve T) 1 strip ACHS 07/07/24 22:00 07/08/24 06:21 Insulin Human Regular (InsuLIN R) ACHS SC 07/07/24 22:00 Dextrose 50 ml UD PRN IV Blood Sugar LESS THAN 60 07/07/24 17:15 Review of Systems Review of Systems Constitutional: No: Fever, Chills, Sweats, Weakness, Malaise, Other Eyes: No: Pain, Vision change, Conjunctivae inflammation, Eyelid inflammation, Other, Redness ENT: No: Ear pain, Ear discharge, Nose pain, Nose discharge, Nose congestion, Mouth pain, Mouth swelling, Throat pain, Throat swelling, Other Respiratory: No: Cough, Dry, Shortness of breath, SOB with excertion, Wheezing, Hemoptysis, Pleuritic Pain, Sputum, Wheezing, Other Cardiovascular: No: Chest Pain, Palpitations, Orthopnea, Paroxysmal Noc. Dyspnea, Edema, Lt Headedness, Other Gastrointestinal: No: Nausea, Vomiting, Abdominal Pain, Diarrhea, Constipation, Melena, Hematochezia, Other Genitourinary: No Dysuria, No Frequency, No Incontinence, No Hematuria, No Retention, No Other Musculoskeletal: No: other, neck pain, shoulder pain, arm pain, back pain, hand pain, leg pain, foot pain. Ulceration sub 1st left foot with allograft intact. DP/PT +2/4 bilaterally, CFT 3 seconds bilaterally. Skin: No: Rash, Lesions, Jaundice, Bruising, Other Neurological: Weakness, Incoordination, Other (LOC, fall with injury to head); No: Numbness, Change in speech, Confusion, Seizures Vital Signs Vital Signs Date Time Temp Pulse Resp B/P (MAP) Pulse Ox O2 Delivery O2 Flow Rate FiO2 07/08/24 08:57 98.2 80 20 134/69 (90) 94 98.2 07/07/24 20:00 Room Air* 0 21 Physical Exam General Appearance: Alert, Oriented X3, Cooperative, mild distress, Other (laceration to left side of head, no stitches required) HEENT: Atraumatic, PERRLA Respiratory: Clear to auscultation, Normal air movement Cardiovascular: Normal S1, Normal S2, Other (irregular) Abdominal: Normal bowel sounds, Soft, No tenderness Extremities: No clubbing, No cyanosis, Other (bilateral lower extremity edema) Neuro: Normal speech, Strength at 5/5 X4 ext Psych/Mental Status: Mental status NL, Mood NL LEFT FOOT: Ulceration sub 1st Left foot with amniotic membrane allograft intact. No discharge is noted. No foul odor is noted. No ascending cellulitis is noted. No signs of infection or discharge is noted. DP/PT +2/4 bilaterally, CFT 3 seconds bilaterally. No focal deficit is noted. Labs/Diagnostic Data Labs Test 07/08/24 05:20 07/07/24 21:11 07/07/24 04:50 07/06/24 22:30 Range/Units White Blood Count 6.3 # 4.4-10.8 10^3/uL Red Blood Count 4.46 4.0-5.20 10^6/uL Hemoglobin 12.9 12.2-16.2 g/dL Hematocrit 38.2 36.0-46.0 % Mean Corpuscular Volume 85.6 80.0-100.0 fL Mean Corpuscular Hemoglobin 28.8 28.0-32.0 pg Mean Corpuscular Hemoglobin Concent 33.7 32.0-36.0 g/dL Red Cell Distribution Width 14.3 11.8-14.3 % Platelet Count 116 L 140-450 10^3/uL Mean Platelet Volume 9.0 6.9-10.8 fL Neutrophils (%) (Auto) 71.0 37.0-80.0 % Lymphocytes (%) (Auto) 17.7 10.0-50.0 % Monocytes (%) (Auto) 10.0 0.0-12.0 % Eosinophils (%) (Auto) 0.8 0.0-7.0 % Basophils (%) (Auto) 0.5 0.0-2.0 % Neutrophils # (Auto) 4.5 1.6-8.6 10 ^3/uL Lymphocytes # (Auto) 1.1 0.4-5.4 10 ^3/uL Monocytes # (Auto) 0.6 0-1.3 10 ^3/uL Eosinophils # (Auto) 0.1 0-0.8 10 ^3/uL Basophils # (Auto) 0 0-0.2 10 ^3/uL Nucleated Red Blood Cells 0.1 % Sodium Level 139 136-145 mmol/L Potassium Level 4.2 3.5-5.1 mmol/L Chloride Level 104 98-107 mmol/L Carbon Dioxide Level 28 20-31 mmol/L Anion Gap 7 5-15 Blood Urea Nitrogen 22 9-23 mg/dL Creatinine 1.05 H 0.550-1.02 mg/dL Glomerular Filtration Rate Calc 54 >90 mL/min BUN/Creatinine Ratio 21.0 H 10.0-20.0 Serum Glucose 119 H 74-106 mg/dL Calcium Level 9.8 8.7-10.4 mg/dL Magnesium Level 1.9 1.6-2.6 mg/dL POC Glucose 181 H 70-106 mg/dl Total Bilirubin 0.5 0.2-1.0 mg/dL Aspartate Amino Transferase (AST) 29 13-40 U/L Alanine Aminotransferase (ALT) 15 7-40 U/L Alkaline Phosphatase 81 46-116 U/L Total Protein 7.0 5.7-8.2 g/dL Albumin 4.1 3.2-4.8 g/dL Urine Color Yellow Yellow Urine Clarity Turbid H Clear Urine pH 5.5 5.0-9.0 Urine Specific [place] 1.026 1.001-1.035 Urine Protein 2+ H Negative Urine Ketones Trace Negative Urine Blood 2+ H Negative /uL Urine Nitrite Negative Negative Urine Bilirubin Negative Negative Urine Urobilinogen 2 H Negative mg/dL Urine Leukocyte Esterase 2+ Negative /uL Urine RBC 10 0 - 4 /hpf Urine WBC 14 0 - 5 /hpf Urine Squamous Epithelial Cells Few <5 /hpf Urine Bacteria Many H None Seen /hpf Urine Mucus Few None Seen Urine Glucose Normal Normal mg/dL Test 07/06/24 16:50 07/06/24 13:52 Range/Units Prothrombin Time 12.1 H 9.3-11.8 sec Prothrombin Time INR 1.15 0.9-1.15 Activated Partial Thromboplast Time 30.6 24.5-34.5 SEC Hemoglobin A1c 6.7 H <5.7 % A1C B-Type Natriuretic Peptide 198.40 0-100 pg/mL Triglycerides Level 195 H < 150 mg/dL Cholesterol Level 192 < 200 mg/dL LDL Cholesterol 117 H < 100 mg/dL HDL Cholesterol 47 40-59 mg/dL Thyroid Stimulating Hormone (TSH) 1.14 0.55-4.78 uIU/mL Plasma/Serum Blood Alcohol 8.7 <10 mg/dL SARS-CoV-2 Antigen (Rapid) Negative NEGATIVE Assessment Painful Chronic Sub 1st diabetic foot ulceration. Plan/Recommendation Continue with dressings as prescribed. The patient to follow up at my office upon discharge from the hospital. All questions and concerns were answered to the patient's satisfaction. Thank you for your consultation. Plan discussed with: Patient ROSIBEL LR DPM Jul 08, 2024 11:32
[2024-07-08] MEDS: DOBUTamine 1000MCG/ML 100 ML IV ONE (13:43)
[2024-07-08] MEDS: DOBUTamine 1000MCG/ML 250 ML IV ONE (13:50)
[2024-07-08] MEDS: METOPROLOL TARTRATE 1MG/1ML-5ML VIAL IV ONE (13:51)
[2024-07-08] MEDS: ATROPINE SULF 0.5 MG/5ML SYR ONE (13:51)
--- NOTE | 2024-07-08 15:28 | DVHPN2 ---
Progress Note Date Seen: Jul 08, 2024 Medical Necessity Reason Pt with a Central, PICC or Fol: No Subjective Patient reports: No new complaints Review of Systems: HEENT:Normal, CVS:Normal, RESPIRATORY:Normal, GI:Normal, :Normal, MSK:Normal, NEURO:Normal Objective vital signs Vital Sign Date Time Temp Pulse Resp B/P (MAP) Pulse Ox O2 Delivery O2 Flow Rate FiO2 07/08/24 13:49 113/60 07/08/24 12:33 97.7 73 20 91 97.7 07/08/24 08:00 Room Air* 0 21 Total Intake and Output 07/07/24 07/07/24 07/08/24 15:00 23:00 07:00 Intake Total 400 ml 450 ml Output Total 600 ml Balance 400 ml -150 ml medications Current Medications Medications Dose Ordered Sig/Ladan Route Start Time Stop Time Status Last Admin Dose Admin Sodium Chloride 10 ml Q8HR IV 07/06/24 22:00 07/08/24 05:57 10 ML Acetaminophen/ Hydrocodone Bitart 1 tab Q4HP PRN PO 07/06/24 14:30 Ondansetron HCl 4 mg Q4HP PRN IV 07/06/24 14:30 Docusate Sodium 100 mg BIDPRN PRN PO 07/06/24 14:30 Acetaminophen 650 mg Q6HP PRN PO 07/06/24 14:30 Nitroglycerin 0.4 mg Q5MINP PRN SL 07/06/24 14:30 Morphine Sulfate 2 mg Q30M PRN IV 07/06/24 14:30 Insulin Human Regular HS SC 07/06/24 22:00 Albuterol 2.5 mg Q4HPRN PRN NEB 07/06/24 17:15 Cancel Ipratropium [place] 0.5 mg Q4HPRN PRN NEB 07/06/24 17:15 Cancel Apixaban 10 mg BID PO 07/07/24 22:00 07/14/24 21:59 07/08/24 09:26 10 MG Apixaban 5 mg BID PO 07/14/24 22:00 Ceftriaxone Sodium 50 ml @ 100 mls/hr DAILY@09 IV 07/08/24 09:00 07/08/24 10:40 100 MLS/HR Diagnostic Test (Pha) 1 strip ACHS 07/07/24 22:00 07/08/24 12:35 1 STRIP Insulin Human Regular ACHS SC 07/07/24 22:00 Dextrose 50 ml UD PRN IV 07/07/24 17:15 Examination: GENERAL:Normal, HEENT:Normal, NECK:Normal, LUNGS:Normal, CVS:Normal, ABDOMEN:Normal, MSK:Normal, SKIN:Normal, NEURO:Normal, :Normal laboratory and microbiology Laboratory Tests 07/08/24 05:20 Test 07/08/24 05:20 Range/Units Serum Glucose 119 H 74-106 mg/dL Problem List/Assessment/Plan Problem List/Assessment/Plan #1 a fib- new onset: eliquis #2 right leg dvt: eliquis #4 dm: ssi #5 obesity #6 acute renal failure ?vasomotor nephropathy #7 asthma #8 hyperlipidemia #9 peripheral neuropathy #10 thrombocytopenia: monitor #11 epistaxis: monitor advance care planning- full code- time spent 21 mins Plan discussed with: Patient My Orders My Orders Orders - JESSENIA MARROQUIN MD Procedure Category Date Status Time Apixaban (Eliquis) PHA 07/07/24 In Process 22:00 Urine Bacterial SILVIA 07/07/24 Logged Culture 17:12 Ceftriaxone 1gm/50ml PHA 07/08/24 In Process D5w (Rocephin) 09:00 Glucose Blood PHA 07/07/24 In Process (Accu-Chek Comfort 22:00 Insulin R (Human) PHA 07/07/24 In Process (Insulin R) 22:00 Dextrose 50% Syringe PHA 07/07/24 In Process 17:15 Apixaban (Eliquis) PHA 07/14/24 In Process 22:00 2 Gm Sodium Diet DIET 07/08/24 Transmitted Lunch Date of Service: Jul 08, 2024 Billing Provider: JESSENIA MARROQUIN MD Common Visit Codes: [id number] INP/OBS CARE(HIGH) JESSENIA MARROQUIN MD Jul 08, 2024 15:28
--- NOTE | 2024-07-08 15:59 | DVHSR ---
APPROVED REPORT ECHOCARDIOGRAM Echocardiogram was performed by geophysical data technician in four stages in quad fashion and compared. Conclusion Dobutamine stress echo was requested to rule out low-flow low gradient aortic valve stenosis, patient presented with syncope and she had mild gradient across the aortic valve with a reduced aortic valve area as well as reduced ejection fraction of 45%, baseline echocardiography was done at the beginnin g of the procedure showing mildly reduced left ventricular ejection fraction and global fashion with an EF 45%, the resting gradient of the aortic valve was measured at15 mean mm of mercury and peak gra dient of23 mm of mercury. Patient then was placed on dobutamine stress protocol starting at 10 mics per kg per minute reaching all the way to 30 microgram/kg per minute reaching 110 % maximum predicted heart rate. Baseline EKG shows atrial fibrillation and patient remains in atrial fibrillation throu ghout the procedure. Patient denies any chest pain despite reaching to 30 mics per kg per minute, at peak stress level, there was augmentation of left ventricular wall segments with increase ejection f raction to 65%, the aortic valve gradient increased to a peak of 40 mm of mercury and a mean off one of 3 mm of mercury, could not assess with the accuracy the aortic valve area due to limited acoustic window to measure the left ventricular outflow tract diameter, no arrhythmia was noted. Impression and plan: Likely moderate aortic valve stenosis with a peak gradient of 40 mm of mercury and mean gradient of23 mm of mercury, there is good augmentation of the left ventricular wall segment s with the improvement in the ejection fraction is 65% indicating the presence of left ventricular re serve. Patient is at this point in time would need regular follow-up echocardiogram every six months to one year to assess progression of aortic valve stenosis. We will be also helpful if cardiac HOMEWORKER is conducted to measure the calcium score of the aortic valve.
[2024-07-08] MEDS: OXYMETAZOLINE HCL 0.05 % NASAL SPRAY 15ML EACHNOSTRI SCH (22:00)
[2024-07-09] VITALS (10 sets, daily range): BP systolic 124–172; BP diastolic 52–85; PULSE 58–101; RESP 17–20; TEMP 97.6–98.4; O2SAT 90–98
[2024-07-09 06:24] LABS: Chloride 105 mmol/L (98-107); Potassium 3.8 mmol/L (3.5-5.1); Sodium 139 mmol/L (136-145)
[2024-07-09 06:25] LABS: Anion Gap 6 (5-15); Calcium 9.4 mg/dL (8.7-10.4); Carbon Dioxide 28 mmol/L (20-31)
[2024-07-09 06:28] LABS: Basophils # (auto) 0 10 ^3/uL (0-0.2); Basophils % (auto) 0.6 % (0.0-2.0); Eosinophils # (auto) 0.1 10 ^3/uL (0-0.8); Eosinophils % (auto) 1.1 % (0.0-7.0); Hematocrit 39.9 % (36.0-46.0); Hemoglobin 13.3 g/dL (12.2-16.2); Lymphocytes # (auto) 1.2 10 ^3/uL (0.4-5.4); Mean Corpuscular Hemoglobin 28.7 pg (28.0-32.0); Mean Corpuscular Hgb Conc. 33.3 g/dL (32.0-36.0); Mean Corpuscular Volume 86.1 fL (80.0-100.0); Monocytes # (auto) 0.6 10 ^3/uL (0-1.3); Monocytes % (auto) 8.2 % (0.0-12.0); Neutrophils # (auto) 5.4 10 ^3/uL (1.6-8.6); Neutrophils % (auto) 74.1 % (37.0-80.0); Nucleated Red Blood Cells % 0.1 %; Platelet Count (auto) 132 10^3/uL (140-450); Red Blood Cells 4.64 10^6/uL (4.0-5.20); White Blood Cell 7.2 10^3/uL (4.4-10.8)
[2024-07-09 06:30] LABS: BUN/Creatinine Ratio 16.7 (10.0-20.0); Blood Urea Nitrogen 17 mg/dL (9-23)
[2024-07-09 06:31] LABS: Glucose 137 mg/dL (74-106)
--- NOTE | 2024-07-09 13:13 | DVHPN2 ---
Reviewed: Care Plan, H&P, Labs, Medications, Previous Orders, Radiology Changes from previous H/P or p: No Changes Eyes: No Pain, No Vision change, No Conjunctivae inflammation, No Eyelid inflammation, No Other, No Redness ENT: No Ear pain, No Ear discharge, No Nose pain, No Nose discharge, No Nose congestion, No Mouth pain, No Mouth swelling, No Throat pain, No Throat swelling, No Other Cardiovascular: No Chest Pain, No Palpitations, No Orthopnea, No Paroxysmal Noc. Dyspnea, No Edema, No Lt Headedness, No Other Respiratory: No Cough, No Dry, No Shortness of breath, No SOB with excertion, No Wheezing, No Hemoptysis, No Pleuritic Pain, No Sputum, No Other Gastrointestinal: No Nausea, No Vomiting, No Abdominal Pain, No Diarrhea, No Constipation, No Melena, No Hematochezia, No Other Genitourinary: No Dysuria, No Frequency, No Incontinence, No Hematuria, No Retention, No Other Musculoskeletal: No other, No neck pain, No shoulder pain, No arm pain, No back pain, No hand pain, No leg pain, No foot pain Skin: No Rash, No Lesions, No Jaundice, No Bruising, No Other Objective Vitals Vital Signs Date Time Temp Pulse Resp B/P (MAP) Pulse Ox O2 Delivery O2 Flow Rate FiO2 07/09/24 12:51 97.9 76 17 143/63 (89) 98 97.9 74 147/70 (95) 94 163/85 (111) 07/09/24 08:00 Room Air* 0 21 Intake/Output Intake and Output 07/09/24 07:00 Intake Total 1150 ml Output Total 1800 ml Balance -650 ml Intake Oral 1100 ml IV Total 50 ml Output Urine Total 1800 ml # Voids 3 Medications Current Medications Medications Dose Ordered Sig/Ladan Route Start Time Stop Time Status Last Admin Dose Admin Sodium Chloride 10 ml Q8HR IV 07/06/24 22:00 07/09/24 06:00 10 ML Acetaminophen/ Hydrocodone Bitart 1 tab Q4HP PRN PO 07/06/24 14:30 Ondansetron HCl 4 mg Q4HP PRN IV 07/06/24 14:30 Docusate Sodium 100 mg BIDPRN PRN PO 07/06/24 14:30 Acetaminophen 650 mg Q6HP PRN PO 07/06/24 14:30 Nitroglycerin 0.4 mg Q5MINP PRN SL 07/06/24 14:30 Morphine Sulfate 2 mg Q30M PRN IV 07/06/24 14:30 Albuterol 2.5 mg Q4HPRN PRN NEB 07/06/24 17:15 Cancel Ipratropium [place] 0.5 mg Q4HPRN PRN NEB 07/06/24 17:15 Cancel Apixaban 10 mg BID PO 07/07/24 22:00 07/14/24 21:59 07/08/24 09:26 10 MG Apixaban 5 mg BID PO 07/14/24 22:00 Ceftriaxone Sodium 50 ml @ 100 mls/hr DAILY@09 IV 07/08/24 09:00 07/09/24 09:16 100 MLS/HR Diagnostic Test (Pha) 1 strip ACHS 07/07/24 22:00 07/09/24 12:16 1 STRIP Insulin Human Regular ACHS SC 07/07/24 22:00 Dextrose 50 ml UD PRN IV 07/07/24 17:15 Oxymetazoline HCl 2 spr BID EACHNOSTRI 07/08/24 22:00 07/09/24 09:16 2 SPR Laboratory Results Laboratory Tests 07/09/24 05:32 Chemistry Test 07/09/24 05:32 Calcium Level 9.4 mg/dL (8.7-10.4) Urinalysis Test 07/06/24 22:30 Urine Color Yellow (Yellow) Urine Clarity Turbid (Clear) H Urine pH 5.5 (5.0-9.0) Urine Specific [place] 1.026 (1.001-1.035) Urine Protein 2+ (Negative) H Urine Ketones Trace (Negative) Urine Blood 2+ /uL (Negative) H Urine Nitrite Negative (Negative) Urine Bilirubin Negative (Negative) Urine Urobilinogen 2 mg/dL (Negative) H Urine Leukocyte Esterase 2+ /uL (Negative) Urine RBC 10 /hpf (0 - 4) Urine WBC 14 /hpf (0 - 5) Urine Squamous Epithelial Cells Few /hpf (<5) Urine Bacteria Many /hpf (None Seen) H Urine Mucus Few (None Seen) Urine Glucose Normal mg/dL (Normal) Labs and/or images reviewed: Labs reviewed by me, Image(s) reviewed by me Assessment/Plan Assessment/Plan Covering for Dr. Lin #1 a fib- new onset: eliquis #2 right leg dvt: eliquis #4 dm: ssi #5 obesity #6 acute renal failure ?vasomotor nephropathy #7 asthma #8 hyperlipidemia #9 peripheral neuropathy #10 thrombocytopenia: monitor #11 epistaxis: monitor Syncope MRI brain Neurology consult ordered Ejection fraction 40 % Stress test negative Noncompliance: Patient refusing to take Eliquis even though she has a AFib and DVT, she says she had epistaxis while taking Eliquis in the past. Patient was educated Plan discussed with: Patient Date of Service: Jul 09, 2024 Billing Provider: PAM GONZALEZ MD Common Visit Codes: [id number] INP/OBS CARE(HIGH) PAM GONZALEZ MD Jul 09, 2024 13:13
--- NOTE | 2024-07-09 13:23 | DVHPN2 ---
Consult Progress Note Subjective Other Systems: Patient remains in atrial fibrillation with controlled rate on front desk monitor. Objective vital signs Vital Sign Date Time Temp Pulse Resp B/P (MAP) Pulse Ox O2 Delivery O2 Flow Rate FiO2 07/09/24 12:51 97.9 76 17 143/63 (89) 98 97.9 74 147/70 (95) 94 163/85 (111) 07/09/24 08:00 Room Air* 0 21 Total Intake and Output 07/08/24 07/08/24 07/09/24 15:00 23:00 07:00 Intake Total 650 ml 500 ml Output Total 1800 ml Balance 650 ml -1300 ml medications Current Medications Medications Dose Ordered Sig/Ladan Route Start Time Stop Time Status Last Admin Dose Admin Sodium Chloride 10 ml Q8HR IV 07/06/24 22:00 07/09/24 06:00 10 ML Acetaminophen/ Hydrocodone Bitart 1 tab Q4HP PRN PO 07/06/24 14:30 Ondansetron HCl 4 mg Q4HP PRN IV 07/06/24 14:30 Docusate Sodium 100 mg BIDPRN PRN PO 07/06/24 14:30 Acetaminophen 650 mg Q6HP PRN PO 07/06/24 14:30 Nitroglycerin 0.4 mg Q5MINP PRN SL 07/06/24 14:30 Morphine Sulfate 2 mg Q30M PRN IV 07/06/24 14:30 Albuterol 2.5 mg Q4HPRN PRN NEB 07/06/24 17:15 Cancel Ipratropium [place] 0.5 mg Q4HPRN PRN NEB 07/06/24 17:15 Cancel Apixaban 10 mg BID PO 07/07/24 22:00 07/14/24 21:59 07/08/24 09:26 10 MG Apixaban 5 mg BID PO 07/14/24 22:00 Ceftriaxone Sodium 50 ml @ 100 mls/hr DAILY@09 IV 07/08/24 09:00 07/09/24 09:16 100 MLS/HR Diagnostic Test (Pha) 1 strip ACHS 07/07/24 22:00 07/09/24 12:16 1 STRIP Insulin Human Regular ACHS SC 07/07/24 22:00 Dextrose 50 ml UD PRN IV 07/07/24 17:15 Oxymetazoline HCl 2 spr BID EACHNOSTRI 07/08/24 22:00 07/09/24 09:16 2 SPR Examination: GENERAL:Normal, LUNGS:Normal, CVS:Normal, NEURO:Normal laboratory and microbiology Laboratory Tests 07/09/24 05:32 Test 07/09/24 05:32 Range/Units Serum Glucose 137 H 74-106 mg/dL Problem List/Assessment/Plan Problem List/Assessment/Plan Syncope and collapse, rule out cardiac etiology Atrial fibrillation at a controlled rate, stage III, newly diagnosed Acute on chronic HFmrEF, NYHA class III Acute occlusive DVT of right proximal and mid femoral vein Aortic valve stenosis, moderate degree Bgo-pznckkg-xuteseehy diabetes mellitus Chronic kidney disease History of LLE DVT in 2021 Morbid obesity Medical noncompliance Plan/Recommendation (Dr. Higgins): * Echocardiogram reveals EF 45%, RVSP 43 mmHg. * The aortic valve is severely thickened and severely calcific, unfortunately gradients were not measured properly * Repeat echo shows HUMPHREY 0.6cm2, mean gradient 13 mmHg and peak gradient of 24 mmHg * Dobutamine stress echo reveals likely moderate aortic valve stenosis * Carotid US: Possible occlusion of the right external carotid artery * Orthostatic vitals: Negative * Bilateral lower extremity arterial duplex revealed mild PAD (04/01/24) * [id number] Score 7. HAS-BLED Score 2 * NOAC therapy, Eliquis * Rate controlled without beta alyssa * Hold off antiarrhythmic agent given unknown AFib onset * Monitor ECG changes and notify Case reviewed with Dr. Higgins. We will recommend for the patient to follow up with Cardiology at least every six months regarding aortic valve stenosis. The patient also has been refusing Eliquis therapy. Educated the patient extensively regarding importance of taking Eliquis for acute right lower extremity DVT as well as prevention of stroke given that she has atrial fibrillation. The patient states she understands the risks involved with not taking anticoagulation. There is no further inpatient cardiac workup indicated at this time. We will also recommend outpatient event monitor. Patient is scheduled to follow up with in the outpatient cardiac clinic on 07/19/2024 at 1:00 p.m. Thank you for allowing us to participate in this patient's care. Please call if you have any questions or concerns. This medical document was created using an electronic medical record system with voice recognition software and computerized dictation system. Although this document has been carefully reviewed, there might still be some phonetic and typographical errors. Occasional wrong-word or ``sound-alike substitutions may have occurred due to the inherent limitations of voice recognition software. These areas are purely typographical due to imperfections of the software programs and do not reflect any compromise in the patient's medical care. Please read the chart carefully and recognize, using context, where these substitutions have occurred. Plan discussed with: Patient Date of Service: Jul 09, 2024 Billing Provider: VANESA HIGGINS MD Common Visit Codes: [id number] INP/OBS CARE(HIGH) TINA NGUYEN COMPUTER INFORMATION SYSTEMS PROFESSOR Jul 09, 2024 13:23
--- NOTE | 2024-07-09 14:27 | DVH ---
PROCEDURE: MRI BRAIN HEAD WO CONTRAST INDICATION: syncope EXAM DATE: 07/09/2024 02:00 PM COMPARISON: CT HEAD WITHOUT CONTRAST on DOS: 07/06/24 TECHNIQUE: MRI of the brain without intravenous contrast. FINDINGS: Diffusion weighted images of the brain demonstrate no evidence of acute infarction. There is no evidence of acute intracranial hemorrhage, extra-axial collection, mass effect, midline s hift, herniation or hydrocephalus. The ventricles, sulci and cisterns appear age appropriate. Mild changes of chronic microvascular ischemic disease. There are no signal abnormalities on the susceptibility weighted sequences. The major vascular flow voids are present. The visualized paranasal sinuses and mastoid air cells are clear. The surrounding soft tissues and o sseous structures are unremarkable. IMPRESSION: 1. No evidence of acute infarction, intracranial hemorrhage, mass effect or hydrocephalus. Mild kelly es of chronic microvascular ischemic disease. HS:Y
[2024-07-10 01:00] VITALS: BP_SYST 0; BP_SYST 102; BP_DIAS 54; PULSE 75; RESP 18; TEMP 98.3; O2SAT 94
[2024-07-10 05:00] VITALS: BP_SYST 135; BP_SYST 139; BP_SYST 144; BP_DIAS 55; BP_DIAS 62; BP_DIAS 72; PULSE 72; PULSE 78; PULSE 92; RESP 18; TEMP 98.2; O2SAT 91
[2024-07-10 08:00] VITALS: PULSE 82
[2024-07-10 09:00] VITALS: BP_SYST 152; BP_SYST 163; BP_DIAS 74; BP_DIAS 89; PULSE 70; PULSE 91; RESP 19; TEMP 97.4; O2SAT 96
--- NOTE | 2024-07-10 10:34 | DVHINCON2 ---
Date of service: Jul 10, [address] Claros Reason for Consultation Syncope History of Present Illness Ms. Sarkar is a left-handed female with a history of diabetes, dyslipidemia, headache, uterine cancer status post hysterectomy, she came to the [facility] 07/06/2024 with a chief company of dizziness and ALOC. At this time, she was alert and fully oriented, she provided the following history I saw her on 06/09/19 four presyncope/headache On 07/06/2024, when she was walking inside the house, she developed dizziness/lightheadedness, and then she woke up on the floor and she was bleeding, she was conscious to everything on waking up, she denies chest pain, nausea, increased sweating, around this event, she was dizziness/lightheadedness sometimes, but she has never had similar problem previously, she denies history of seizure, stroke Since 2016, the patient was has constant flushed with tingling, numbness in the feet Urinalysis, 07/06/2024: WBC: 14, urine leukocyte esterase: 2+ CBC, 07/09/2024: Unremarkable TG/CHO L/LDL/HDL, 02/2019: 166/192/123/46 06/2024: 195/192/117/47 HGB A1c, 07/06/2024: 6.7 Vitamin B 12, 05/2019: 164, 10/11/2021: 160, 10/03/2023:183, 01/01/2024: 519, 04/01/2024: 221 Folic acid, 05/2019: 22, 11/03/2023: 23.56 TSH, 05/2019: 1.56, 07/06/2024: 1.14 SIFE, 06/09/2019: No M protein EEG, 06/10/19: Unremarkable Venous l duplex, 07/06/2024: Right lower extremity: Acute occlusive DVT of the proximal and mid femoral vein and partially occlusive thrombosis of distal femoral vein. Left lower extremity: No evidence of DVT. The nurse in charge of the patient was notified of findings by the technologist upon completion of the exam Carotid Doppler, 07/06/2024: 1. No evidence of hemodynamically significant stenosis within the left carotid arterial system. 2. Decreased velocities within the right internal carotid arterial system may reflect a more proximal stenosis. 3. Antegrade flow within bilateral vertebral arteries. 4. Possible occlusion of the right external carotid artery. CT head, 06/08/2019: 1. No evidence of acute intracranial pathology. 2. Mild age-appropriate atrophy MRI head, 07/09/2024: No evidence of acute infarction, intracranial hemorrhage, mass effect or hydrocephalus. Mild changes of chronic microvascular ischemic disease Orthostatic vitals 07/09/2024: Unremarkable. 07/10/2024: Unremarkable Urinalysis, 07/06/2024: WBC: 14, urine leukocyte esterase: 2+ CBC, 07/09/2024: Unremarkable TG/CHO L/LDL/HDL, 02/2019: 166/192/123/46 06/2024: 195/192/117/47 HGB A1c, 07/06/2024: 6.7 Vitamin B 12, 05/2019: 164, 10/11/2021: 160, 10/03/2023:183, 01/01/2024: 519, 04/01/2024: 221 Folic acid, 05/2019: 22, 11/03/2023: 23.56 TSH, 05/2019: 1.56, 07/06/2024: 1.14 SIFE, 06/09/2019: No M protein EEG, 06/10/19: Unremarkable V/Q scan 07/07/2024: Low probability for PE Venous l duplex, 07/06/2024: Right lower extremity: Acute occlusive DVT of the proximal and mid femoral vein and partially occlusive thrombosis of distal femoral vein. Left lower extremity: No evidence of DVT. The nurse in charge of the patient was notified of findings by the technologist upon completion of the exam Carotid Doppler, 07/06/2024: 1. No evidence of hemodynamically significant stenosis within the left carotid arterial system. 2. Decreased velocities within the right internal carotid arterial system may reflect a more proximal stenosis. 3. Antegrade flow within bilateral vertebral arteries. 4. Possible occlusion of the right external carotid artery. CT head, 06/08/2019: 1. No evidence of acute intracranial pathology. 2. Mild age-appropriate atrophy MRI head, 07/09/2024: No evidence of acute infarction, intracranial hemorrhage, mass effect or hydrocephalus. Mild changes of chronic microvascular ischemic disease Past Medical History Diabetes, dyslipidemia, kidney stone, DVT (diagnosed on 06/08/2019). Past Surgical History Hysterectomy, appendectomy, hernia repair, toe amputation Family History: FH: brain cancer G8 MOTHER FH: heart attack G8 FATHER No Family History of: Alcoholism Cancer Cancer of colon Family History Brain cancer, heart attack, alcoholism. No headache Social History She is a nontobacco smoker, she denies a history of alcohol or recreational substance abuse Allergies: Coded Allergies: Codeine (Verified Allergy, Mild, 03/10/17) Penicillins (Verified Allergy, Mild, 03/10/17) Tetanus Toxoid (Verified Allergy, Unknown, 03/10/17) SWELLING Uncoded Allergies: TAPE (Allergy, Unknown, 10/18/10) Home Meds Reported Medications Glyburide-Metformin (Glucovance) 1 Tab Tab, 2 TAB PO BID 10/18/10 Discontinued Scripts Levofloxacin Hemihydrate (LEVAQUIN 500 MG) 500 Mg Tab, 500 MG PO DAILY for 5 Days, #5 TAB Prov:NATALEE HAMMOND MD 04/06/24 Current Medications Current Medications Medications (Trade) Dose Ordered Sig/Ladan Route PRN Reason Start Time Stop Time Status Last Admin Apixaban (Eliquis) 5 mg BID PO 07/14/24 22:00 Review of Systems As above, the other system negative Vital Signs Vital Signs Date Time Temp Pulse Resp B/P (MAP) Pulse Ox O2 Delivery O2 Flow Rate FiO2 07/10/24 09:00 97.4 70 19 163/74 (103) 96 97.4 91 152/89 (110) 07/09/24 20:00 Room Air* 0 21 Physical Exam GENERAL EXAM: General: the patient is well developed and nourished. No acute distress. HEENT: Normocephalic, this tenderness to palpation bilateral temporal head region, but without erythema, swelling or prominent vasculature. Neck is supple, no carotid bruits. No mass RESPIRATORY: Normal respiratory effort with symmetrical lung expansion. Lungs clear to auscultation. CARDIOVASCULAR: Regular rate and rhythm with no murmurs. S1, S2. ABDOMEN: Soft, nontender, normal bowel sound Status post toe amputation NEUROLOGICAL: MENTAL STATUS: Awake and alert. Oriented to person, place, time and general circumstances. Able to give personal history. SPEECH, LANGUAGE, HIGHER CORTICAL FUNCTION: no aphasia or dysathria. CRANIAL NERVES: #2: Intact visual guido to confrontation. The optic discs were sharp #3,4,6: Pupils are equal, round and reactive. EOMs full and conjugate. No nystagmus. #5: Facial sensation intact in all three divisions bilaterally. Mandibular strength intact. #7: Facial muscles symmetrical and strength intact. #8: Hearing grossly normal to voice. #9,10: Uvula and soft palate rise in the midline. Swallow and voice are normal. #11: Trapezius and sternomastoid strength intact bilaterally. #12: Tongue midline. No fasciculations or atrophy. SENSATION: Sensation to touch and pinprick is diminished distally in the lower extremities MOTOR: Normal tone in the upper and lower extremity. Normal muscle bulk. No fasciculations. No abnormal movements or posturing. Muscle strength of the major groups in the upper extremities is 5/5. Muscle strength of the major groups in the lower extremities is 5/5. REFLEXES: Deep tendon reflexes are symmetrically diminished in the lower extremities. No pathological reflexes. CEREBELLAR/COORDINATION: Finger to nose are normal bilaterally. GAIT/STATION: deferred Labs/Diagnostic Data Labs Test 07/10/24 05:55 07/09/24 05:32 07/08/24 05:20 07/07/24 04:50 Range/Units POC Glucose 193 H 70-106 mg/dl White Blood Count 7.2 4.4-10.8 10^3/uL Red Blood Count 4.64 4.0-5.20 10^6/uL Hemoglobin 13.3 12.2-16.2 g/dL Hematocrit 39.9 36.0-46.0 % Mean Corpuscular Volume 86.1 80.0-100.0 fL Mean Corpuscular Hemoglobin 28.7 28.0-32.0 pg Mean Corpuscular Hemoglobin Concent 33.3 32.0-36.0 g/dL Red Cell Distribution Width 14.0 11.8-14.3 % Platelet Count 132 L 140-450 10^3/uL Mean Platelet Volume 9.0 6.9-10.8 fL Neutrophils (%) (Auto) 74.1 37.0-80.0 % Lymphocytes (%) (Auto) 16.0 10.0-50.0 % Monocytes (%) (Auto) 8.2 0.0-12.0 % Eosinophils (%) (Auto) 1.1 0.0-7.0 % Basophils (%) (Auto) 0.6 0.0-2.0 % Neutrophils # (Auto) 5.4 1.6-8.6 10 ^3/uL Lymphocytes # (Auto) 1.2 0.4-5.4 10 ^3/uL Monocytes # (Auto) 0.6 0-1.3 10 ^3/uL Eosinophils # (Auto) 0.1 0-0.8 10 ^3/uL Basophils # (Auto) 0 0-0.2 10 ^3/uL Nucleated Red Blood Cells 0.1 % Sodium Level 139 136-145 mmol/L Potassium Level 3.8 3.5-5.1 mmol/L Chloride Level 105 98-107 mmol/L Carbon Dioxide Level 28 20-31 mmol/L Anion Gap 6 5-15 Blood Urea Nitrogen 17 9-23 mg/dL Creatinine 1.02 0.550-1.02 mg/dL Glomerular Filtration Rate Calc 56 >90 mL/min BUN/Creatinine Ratio 16.7 10.0-20.0 Serum Glucose 137 H 74-106 mg/dL Calcium Level 9.4 8.7-10.4 mg/dL Magnesium Level 1.9 1.6-2.6 mg/dL Total Bilirubin 0.5 0.2-1.0 mg/dL Aspartate Amino Transferase (AST) 29 13-40 U/L Alanine Aminotransferase (ALT) 15 7-40 U/L Alkaline Phosphatase 81 46-116 U/L Total Protein 7.0 5.7-8.2 g/dL Albumin 4.1 3.2-4.8 g/dL Test 07/06/24 22:30 07/06/24 16:50 07/06/24 13:52 Range/Units Urine Color Yellow Yellow Urine Clarity Turbid H Clear Urine pH 5.5 5.0-9.0 Urine Specific [place] 1.026 1.001-1.035 Urine Protein 2+ H Negative Urine Ketones Trace Negative Urine Blood 2+ H Negative /uL Urine Nitrite Negative Negative Urine Bilirubin Negative Negative Urine Urobilinogen 2 H Negative mg/dL Urine Leukocyte Esterase 2+ Negative /uL Urine RBC 10 0 - 4 /hpf Urine WBC 14 0 - 5 /hpf Urine Squamous Epithelial Cells Few <5 /hpf Urine Bacteria Many H None Seen /hpf Urine Mucus Few None Seen Urine Glucose Normal Normal mg/dL Prothrombin Time 12.1 H 9.3-11.8 sec Prothrombin Time INR 1.15 0.9-1.15 Activated Partial Thromboplast Time 30.6 24.5-34.5 SEC Hemoglobin A1c 6.7 H <5.7 % A1C B-Type Natriuretic Peptide 198.40 0-100 pg/mL Triglycerides Level 195 H < 150 mg/dL Cholesterol Level 192 < 200 mg/dL LDL Cholesterol 117 H < 100 mg/dL HDL Cholesterol 47 40-59 mg/dL Thyroid Stimulating Hormone (TSH) 1.14 0.55-4.78 uIU/mL Plasma/Serum Blood Alcohol 8.7 <10 mg/dL SARS-CoV-2 Antigen (Rapid) Negative NEGATIVE Microbiology Date/Time Source Procedure Growth Status 07/09/24 09:56 Voided Urine Urine Culture - Preliminary Resulted Assessment Passing out Syncope, ? Secondary to DVT/PE ? TIA ? Partial complex seizure Diabetic polyneuropathy Acute DVT Chronic DVT Urinary tract infection Plan/Recommendation Monitoring Support treatment Telemetry EEG Eliquis 5 mg b.i.d. IV antibiotics Foot care Daily foot inspection Soft, white and protective shoes only Progress: Poor This medical document was created using an electronic medical record system with mDialog dictation system. Although this document has been carefully reviewed, there may still be some phonetic and typographical errors. These areas are purely typographical due to imperfections of the software programs, and do not reflect any compromise in the patient's medical care. Plan discussed with: Patient, Other ELVER CORRALES MD Jul 10, 2024 10:34
--- NOTE | 2024-07-10 11:41 | DVHPN2 ---
Reviewed: Care Plan, H&P, Labs, Medications, Previous Orders, Radiology Changes from previous H/P or p: No Changes Eyes: No Pain, No Vision change, No Conjunctivae inflammation, No Eyelid inflammation, No Other, No Redness ENT: No Ear pain, No Ear discharge, No Nose pain, No Nose discharge, No Nose congestion, No Mouth pain, No Mouth swelling, No Throat pain, No Throat swelling, No Other Cardiovascular: No Chest Pain, No Palpitations, No Orthopnea, No Paroxysmal Noc. Dyspnea, No Edema, No Lt Headedness, No Other Respiratory: No Cough, No Dry, No Shortness of breath, No SOB with excertion, No Wheezing, No Hemoptysis, No Pleuritic Pain, No Sputum, No Other Gastrointestinal: No Nausea, No Vomiting, No Abdominal Pain, No Diarrhea, No Constipation, No Melena, No Hematochezia, No Other Genitourinary: No Dysuria, No Frequency, No Incontinence, No Hematuria, No Retention, No Other Musculoskeletal: No other, No neck pain, No shoulder pain, No arm pain, No back pain, No hand pain, No leg pain, No foot pain Skin: No Rash, No Lesions, No Jaundice, No Bruising, No Other Objective Vitals Vital Signs Date Time Temp Pulse Resp B/P (MAP) Pulse Ox O2 Delivery O2 Flow Rate FiO2 07/10/24 09:00 97.4 70 19 163/74 (103) 96 97.4 91 152/89 (110) 07/10/24 08:00 Room Air* 0 21 Intake/Output Intake and Output 07/10/24 07:00 Intake Total 1450 ml Balance 1450 ml Intake Oral 1400 ml IV Total 50 ml # Voids 5 Medications Current Medications Medications Dose Ordered Sig/Ladan Route Start Time Stop Time Status Last Admin Dose Admin Sodium Chloride 10 ml Q8HR IV 07/06/24 22:00 07/10/24 05:19 10 ML Acetaminophen/ Hydrocodone Bitart 1 tab Q4HP PRN PO 07/06/24 14:30 Ondansetron HCl 4 mg Q4HP PRN IV 07/06/24 14:30 Docusate Sodium 100 mg BIDPRN PRN PO 07/06/24 14:30 Acetaminophen 650 mg Q6HP PRN PO 07/06/24 14:30 Nitroglycerin 0.4 mg Q5MINP PRN SL 07/06/24 14:30 Morphine Sulfate 2 mg Q30M PRN IV 07/06/24 14:30 Albuterol 2.5 mg Q4HPRN PRN NEB 07/06/24 17:15 Cancel Ipratropium [place]ard 0.5 mg Q4HPRN PRN NEB 07/06/24 17:15 Cancel Apixaban 10 mg BID PO 07/07/24 22:00 07/14/24 21:59 07/10/24 09:02 10 MG Apixaban 5 mg BID PO 07/14/24 22:00 Ceftriaxone Sodium 50 ml @ 100 mls/hr DAILY@09 IV 07/08/24 09:00 07/10/24 09:02 100 MLS/HR Diagnostic Test (Pha) 1 strip ACHS 07/07/24 22:00 07/10/24 06:00 1 STRIP Insulin Human Regular ACHS SC 07/07/24 22:00 Dextrose 50 ml UD PRN IV 07/07/24 17:15 Oxymetazoline HCl 2 spr BID EACHNOSTRI 07/08/24 22:00 07/09/24 09:16 2 SPR Laboratory Results Laboratory Tests 07/09/24 05:32 Urinalysis Test 07/06/24 22:30 Urine Color Yellow (Yellow) Urine Clarity Turbid (Clear) H Urine pH 5.5 (5.0-9.0) Urine Specific [place] 1.026 (1.001-1.035) Urine Protein 2+ (Negative) H Urine Ketones Trace (Negative) Urine Blood 2+ /uL (Negative) H Urine Nitrite Negative (Negative) Urine Bilirubin Negative (Negative) Urine Urobilinogen 2 mg/dL (Negative) H Urine Leukocyte Esterase 2+ /uL (Negative) Urine RBC 10 /hpf (0 - 4) Urine WBC 14 /hpf (0 - 5) Urine Squamous Epithelial Cells Few /hpf (<5) Urine Bacteria Many /hpf (None Seen) H Urine Mucus Few (None Seen) Urine Glucose Normal mg/dL (Normal) Microbiology Microbiology Date/Time Source Procedure Growth Status 07/09/24 09:56 Voided Urine Urine Culture - Preliminary Resulted Labs and/or images reviewed: Labs reviewed by me, Image(s) reviewed by me Assessment/Plan Assessment/Plan Covering for Dr. Lin #1 a fib- new onset: eliquis #2 right leg dvt: eliquis #4 dm: ssi #5 obesity #6 acute renal failure ?vasomotor nephropathy #7 asthma #8 hyperlipidemia #9 peripheral neuropathy #10 thrombocytopenia: monitor #11 epistaxis: monitor Syncope MRI brain, Neurology consult ordered Ejection fraction 40 % Stress test negative Noncompliance: Patient refusing to take Eliquis even though she has a AFib and DVT, she says she had epistaxis while taking Eliquis in the past. Patient was educated Patient requesting to be discharged today Plan discussed with: Patient My Orders Orders - PAM GONZALEZ MD Procedure Category Date Status Time * Neurology Consult CONS 07/09/24 Transmitted 13:21 Brain Head Wo Contrast MRI 07/09/24 Resulted 13:23 Date of Service: Jul 10, 2024 Billing Provider: PAM GONZALEZ MD Common Visit Codes: [id number] INP/OBS CARE(HIGH) PAM GONZALEZ MD Jul 10, 2024 11:41
--- NOTE | 2024-07-10 11:46 | DVHDS2 ---
Discharge Summary Date of Admission Jul 06, 2024 at 14:28 Date of Discharge: Jul 10, 2024 Admitting Diagnosis Syncope Wounds: None Labs/Diagnostic Data: Laboratory Results Test 07/10/24 05:55 07/09/24 05:32 07/08/24 05:20 07/07/24 04:50 POC Glucose 193 mg/dl (70-106) White Blood Count 7.2 10^3/uL (4.4-10.8) Red Blood Count 4.64 10^6/uL (4.0-5.20) Hemoglobin 13.3 g/dL (12.2-16.2) Hematocrit 39.9 % (36.0-46.0) Mean Corpuscular Volume 86.1 fL (80.0-100.0) Mean Corpuscular Hemoglobin 28.7 pg (28.0-32.0) Mean Corpuscular Hemoglobin Concent 33.3 g/dL (32.0-36.0) Red Cell Distribution Width 14.0 % (11.8-14.3) Platelet Count 132 10^3/uL (140-450) Mean Platelet Volume 9.0 fL (6.9-10.8) Neutrophils (%) (Auto) 74.1 % (37.0-80.0) Lymphocytes (%) (Auto) 16.0 % (10.0-50.0) Monocytes (%) (Auto) 8.2 % (0.0-12.0) Eosinophils (%) (Auto) 1.1 % (0.0-7.0) Basophils (%) (Auto) 0.6 % (0.0-2.0) Neutrophils # (Auto) 5.4 10 ^3/uL (1.6-8.6) Lymphocytes # (Auto) 1.2 10 ^3/uL (0.4-5.4) Monocytes # (Auto) 0.6 10 ^3/uL (0-1.3) Eosinophils # (Auto) 0.1 10 ^3/uL (0-0.8) Basophils # (Auto) 0 10 ^3/uL (0-0.2) Nucleated Red Blood Cells 0.1 % Sodium Level 139 mmol/L (136-145) Potassium Level 3.8 mmol/L (3.5-5.1) Chloride Level 105 mmol/L (98-107) Carbon Dioxide Level 28 mmol/L (20-31) Anion Gap 6 (5-15) Blood Urea Nitrogen 17 mg/dL (9-23) Creatinine 1.02 mg/dL (0.550-1.02) Glomerular Filtration Rate Calc 56 mL/min (>90) BUN/Creatinine Ratio 16.7 (10.0-20.0) Serum Glucose 137 mg/dL (74-106) Calcium Level 9.4 mg/dL (8.7-10.4) Magnesium Level 1.9 mg/dL (1.6-2.6) Total Bilirubin 0.5 mg/dL (0.2-1.0) Aspartate Amino Transferase (AST) 29 U/L (13-40) Alanine Aminotransferase (ALT) 15 U/L (7-40) Alkaline Phosphatase 81 U/L (46-116) Total Protein 7.0 g/dL (5.7-8.2) Albumin 4.1 g/dL (3.2-4.8) Test 07/06/24 22:30 07/06/24 16:50 07/06/24 13:52 Urine Color Yellow (Yellow) Urine Clarity Turbid (Clear) Urine pH 5.5 (5.0-9.0) Urine Specific [place] 1.026 (1.001-1.035) Urine Protein 2+ (Negative) Urine Ketones Trace (Negative) Urine Blood 2+ /uL (Negative) Urine Nitrite Negative (Negative) Urine Bilirubin Negative (Negative) Urine Urobilinogen 2 mg/dL (Negative) Urine Leukocyte Esterase 2+ /uL (Negative) Urine RBC 10 /hpf (0 - 4) Urine WBC 14 /hpf (0 - 5) Urine Squamous Epithelial Cells Few /hpf (<5) Urine Bacteria Many /hpf (None Seen) Urine Mucus Few (None Seen) Urine Glucose Normal mg/dL (Normal) Prothrombin Time 12.1 sec (9.3-11.8) Prothrombin Time INR 1.15 (0.9-1.15) Activated Partial Thromboplast Time 30.6 SEC (24.5-34.5) Hemoglobin A1c 6.7 % A1C (<5.7) B-Type Natriuretic Peptide 198.40 pg/mL (0-100) Triglycerides Level 195 mg/dL (< 150) Cholesterol Level 192 mg/dL (< 200) LDL Cholesterol 117 mg/dL (< 100) HDL Cholesterol 47 mg/dL (40-59) Thyroid Stimulating Hormone (TSH) 1.14 uIU/mL (0.55-4.78) Plasma/Serum Blood Alcohol 8.7 mg/dL (<10) SARS-CoV-2 Antigen (Rapid) Negative (NEGATIVE) Other Laboratory Tests 07/09/24 05:32 Brief Hx & Hospital Course: Patient was originally taken care of by Dr. Lin 79-year-old female with a history of atrial fibrillation DVT right leg diabetes obesity asthma hyperlipidemia peripheral neuropathy thrombocytopenia history of epistaxis came in for syncopal episode. Ejection fraction [address] head was negative MRI brain was negative neurology consult appreciated. Yue test negative Cardiolite stress test negative seen by Cardiology. The patient was placed on Eliquis for AFib and DVT patient is refusing to take Eliquis saying that she had episodes of nosebleeds in the past patient was educated about the importance of taking Eliquis patient wants to be discharged today discharged home prescription for Eliquis sent to the pharmacy. General condition stable . Consults/Reason for consult [employer] or Procedures CT head MRI brain Carotid ultrasound Echocardiogram V/Q scan Condition at Discharge: Fair Final Diagnosis/Problems List #1 a fib- new onset: eliquis #2 right leg dvt: eliquis #4 dm: ssi #5 obesity #6 acute renal failure ?vasomotor nephropathy #7 asthma #8 hyperlipidemia #9 peripheral neuropathy #10 thrombocytopenia: monitor #11 epistaxis: monitor Syncope MRI brain, Neurology consult ordered Ejection fraction 40 % Stress test negative PE ruled out Carotid artery ultrasound normal Noncompliance: Patient refusing to take Eliquis even though she has a AFib and DVT, she says she had epistaxis while taking Eliquis in the past. Patient was educate Discharge Disposition: Home Discharge Instruct/Medications Diet: Cardiac 2g Na,low cholest Activity: Light activity Follow Up/Referral: Resume all previous home medications Follow up with your primary Dr Espinosa Medications: Eliquis 5 mg p.o. b.i.d. 180 Transmitted to pharmacy [address] (Time taken for discharge summary 35 minutes) Discharge Statement: "Patient was advised to return to the ER or call 911 if any headaches, dizziness, shortness of breath, chest pain, abdominal pain, bleeding, fevers, or worsening of medical condition. Patient was counseled about treatment plan, medications, possible side effects, patientverbalized understanding. All questions were answered to the best of my ability. This discharge took greater then 30 minutes in planning, reviewing documentation, counseling the patient, and discussing with other team members." ASSESSMENT ASSESSMENT Hospital Course Improved Assessment #1 a fib- new onset: eliquis #2 right leg dvt: eliquis #4 dm: ssi #5 obesity #6 acute renal failure ?vasomotor nephropathy #7 asthma #8 hyperlipidemia #9 peripheral neuropathy #10 thrombocytopenia: monitor #11 epistaxis: monitor Syncope MRI brain, Neurology consult ordered Ejection fraction 40 % Stress test negative PE ruled out Carotid artery ultrasound normal Noncompliance: Patient refusing to take Eliquis even though she has a AFib and DVT, she says she had epistaxis while taking Eliquis in the past. Patient was educate Date of Service: Jul 10, 2024 Billing Provider: PAM GONZALEZ MD Common Visit Codes: [id number] DISCH DAY >30min PAM GONZALEZ MD Jul 10, 2024 11:46
[2024-07-10 11:54] VITALS: TEMP 36.3
[2024-07-10 13:00] VITALS: BP_SYST 127; BP_SYST 134; BP_SYST 161; BP_DIAS 55; BP_DIAS 65; BP_DIAS 75; PULSE 63; PULSE 64; PULSE 88; RESP 17; TEMP 97.7; O2SAT 95
[2024-07-12] MEDS ORDERED: APIX5TAB PO (13:58)
[2024-07-14] MEDS ORDERED: APIXABAN 5 MG TAB PO SCH (22:00)
== END 2024-07-10 14:14 | disposition home or self-care (01) | DRG 299 ==
LOC: EDBD 11:19 → ER 11:19 → EDUNIT# 11:19 → TELE 14:28 → TELE-WESTW 07-07 09:38
PROVIDERS: ADMIT Nurse Practitioner Family; ATTEND Family Medicine
DX: I82.411 Acute embolism and thrombosis of right femoral vein (principal); I50.43 Acute on chronic combined systolic (congestive) and diastolic (congestive) heart failure; N17.0 Acute kidney failure with tubular necrosis; N39.0 Urinary tract infection, site not specified; I13.0 Hypertensive heart and chronic kidney disease with heart failure and stage 1 through stage 4 chronic kidney disease, or unspecified chronic kidney disease; I48.91 Unspecified atrial fibrillation; R55 Syncope and collapse; Z20.822 Contact with and (suspected) exposure to COVID-19; E11.22 Type 2 diabetes mellitus with diabetic chronic kidney disease; S09.90XA Unspecified injury of head, initial encounter; W18.39XA Other fall on same level, initial encounter; E78.5 Hyperlipidemia, unspecified; J45.909 Unspecified asthma, uncomplicated; I65.21 Occlusion and stenosis of right carotid artery; E66.01 Morbid (severe) obesity due to excess calories; E11.621 Type 2 diabetes mellitus with foot ulcer; D69.6 Thrombocytopenia, unspecified; N18.30 Chronic kidney disease, stage 3 unspecified; R04.0 Epistaxis; I35.0 Nonrheumatic aortic (valve) stenosis; F17.200 Nicotine dependence, unspecified, uncomplicated; E11.42 Type 2 diabetes mellitus with diabetic polyneuropathy; Z87.442 Personal history of urinary calculi; Z90.710 Acquired absence of both cervix and uterus; Y92.89 Other specified places as the place of occurrence of the external cause; Y93.89 Activity, other specified; Y99.8 Other external cause status; Z89.431 Acquired absence of right foot; Z88.0 Allergy status to penicillin; Z88.5 Allergy status to narcotic agent; Z91.048 Other nonmedicinal substance allergy status; Z86.718 Personal history of other venous thrombosis and embolism; Z85.42 Personal history of malignant neoplasm of other parts of uterus; Z80.8 Family history of malignant neoplasm of other organs or systems; Z80.0 Family history of malignant neoplasm of digestive organs; Z82.49 Family history of ischemic heart disease and other diseases of the circulatory system; Z91.199 Patient's noncompliance with other medical treatment and regimen due to unspecified reason; Z79.84 Long term (current) use of oral hypoglycemic drugs; Z68.37 Body mass index [BMI] 37.0-37.9, adult
CPT/HCPCS: 36415; 70450; 70551; 71045; 78582; 80048; 80053; 80061; 80320; 81001; 82962; 83036; 83735; 83880; 84443; 85025; 85610; 85730; 87086; 87426; 93005; 93017; 93306; 93350; 93886; 93970; 97116; 97163; 97530; 99291; G0378; J0461; J1815

== ENCOUNTER → 2024-08-09 | Outpatient (CLI) | payer MEDICARE, MEDICAID ==
[~2024-08-09] MED LIST changes: +APIX5TAB PO; -LEVO500T91 PO
[2024-08-09 11:55] LABS: Basophils # (auto) 0.1 10 ^3/uL (0-0.2); Basophils % (auto) 0.9 % (0.0-2.0); Eosinophils # (auto) 0.2 10 ^3/uL (0-0.8); Eosinophils % (auto) 2.5 % (0.0-7.0); Hematocrit 39.7 % (36.0-46.0); Hemoglobin 12.9 g/dL (12.2-16.2); Lymphocytes # (auto) 1.5 10 ^3/uL (0.4-5.4); Lymphocytes % (auto) 21.8 % (10.0-50.0); Mean Corpuscular Hemoglobin 28.2 pg (28.0-32.0); Mean Corpuscular Hgb Conc. 32.4 g/dL (32.0-36.0); Mean Corpuscular Volume 87.1 fL (80.0-100.0); Monocytes # (auto) 0.4 10 ^3/uL (0-1.3); Monocytes % (auto) 6.6 % (0.0-12.0); Neutrophils # (auto) 4.6 10 ^3/uL (1.6-8.6); Neutrophils % (auto) 68.2 % (37.0-80.0); Nucleated Red Blood Cells % 0.2 %; Platelet Count (auto) 149 10^3/uL (140-450); Red Blood Cells 4.56 10^6/uL (4.0-5.20); Red Cell Distribution Width 14.9 % (11.8-14.3); White Blood Cell 6.7 10^3/uL (4.4-10.8)
[2024-08-09 12:37] LABS: Creatinine, Urine 48.35 mg/dL (30.0-125.0)
[2024-08-09 12:43] LABS: Alanine Aminotransferase 14 U/L (7-40); Albumin 4.5 g/dL (3.2-4.8); Alkaline Phosphatase 75 U/L (46-116); Anion Gap 9 (5-15); Aspartate Aminotransferase 24 U/L (13-40); BUN/Creatinine Ratio 21.1 (10.0-20.0); Blood Urea Nitrogen 20 mg/dL (9-23); Calcium 10.2 mg/dL (8.7-10.4); Carbon Dioxide 26 mmol/L (20-31); Chloride 105 mmol/L (98-107); HDL Cholesterol 57 mg/dL (40-59); Potassium 4.3 mmol/L (3.5-5.1); Sodium 140 mmol/L (136-145); Triglycerides 101 mg/dL (< 150)
[2024-08-09 12:44] LABS: Bilirubin, Total 0.7 mg/dL (0.2-1.0); Total Protein 7.3 g/dL (5.7-8.2)
[2024-08-09 12:54] LABS: Cholesterol 200 mg/dL (< 200); Glucose 58 mg/dL (74-106); LDL Cholesterol 132 mg/dL (< 100)
== END | disposition home or self-care (01) ==
LOC: LAB 11:06
PROVIDERS: ATTEND Internal Medicine
DX: I13.0 Hypertensive heart and chronic kidney disease with heart failure and stage 1 through stage 4 chronic kidney disease, or unspecified chronic kidney disease (principal); E11.22 Type 2 diabetes mellitus with diabetic chronic kidney disease; N18.9 Chronic kidney disease, unspecified; I27.20 Pulmonary hypertension, unspecified; D69.6 Thrombocytopenia, unspecified
CPT/HCPCS: 36415; 80053; 80061; 82043; 82570; 83036; 85025

== ENCOUNTER 2024-10-08 11:05 | Inpatient (IN) | payer MEDICARE, MEDICAID ==
[~2024-10-08] VITALS: Ht 170.2 cm; Wt 115.0 kg
--- NOTE | 2024-10-08 11:22 | ED.PDOC ---
Musculoskeletal HPI Comments 79Y F with PMHx DM, arthritis, asthma, neuropathy, and Afib presents to ED via EMS for chief complaint bilateral shoulder pain x4days with rt knee pain, weakness, and poor appetite. Pt states her rt knee constantly "locks up". Pt is usually able to stand up and get to walker, but now has decreased mobility. Pt last had a fall in 2024, where she had a left rib fracture. Pt was also seen at a [facility] facility yesterday and was told her WBC count was elevated. No other symptoms reported. Time Seen by MD: 11:07 Primary Care Provider: CYNDIE Reviewed Notes: Nurses Notes, Manager E [employer] Notes, Medications, Allergies Allergies: Coded Allergies: Codeine (Verified Allergy, Mild, 03/10/17) Penicillins (Verified Allergy, Mild, 03/10/17) Tetanus Toxoid (Verified Allergy, Unknown, 03/10/17) SWELLING Uncoded Allergies: TAPE (Allergy, Unknown, 10/18/10) Home Meds Active Scripts Apixaban Base (ELIQUIS) 5 Mg Tab, 5 MG PO BID, #180 TAB Prov:PAM GONZALEZ MD 07/12/24 Reported Medications Glyburide-Metformin (Glucovance) 1 Tab Tab, 2 TAB PO BID 10/18/10 Information Source: Patient, Emergency Med Personnel, [facility] Medical Record Mode of Arrival: EMS Brought in by: EMS Location: Bilateral Extremity Location: Knee (right), Shoulder Timing: Days Prehospital treatment: None Severity: Moderate Able to Move Extremity: No Bear Weight: Limited Pain: Moderate Mechanism: Unknown Circumstances: Unknown Onset of Symptoms: Spontaneous Symptoms: Pain DVT Risk Factors: NONE History of: Arthritis Associated signs and symptoms: Shoulder pain, Weakness, Knee pain Past Medical History PAST MEDICAL HISTORY: Asthma, Cancer, DM, High Lipids, Kidney Stones Surgical History: Appendectomy, Hernia Repair, Hysterectomy IRONER SOCK History: No Pertinent IRONER SOCK History Family History Family History: Family hx of Cancer Social History Smoker: Non-Smoker Alcohol: Denies ETOH Use Drugs: Denies Drug Use Lives In: Home Constitutional: reports: weakness; denies: chills, diaphoresis, fatigue, fever, malaise, sweats, others EENTM: denies: blurred vision, double vision, ear bleeding, ear discharge, ear drainage, ear pain, ear ringing, eye pain, eye redness, hearing loss, mouth pain, mouth swelling, nasal discharge, nose bleeding, nose congestion, nose pain, photophobia, tearing, throat pain, throat swelling, voice changes, others Respiratory: denies: cough, hemoptysis, orthopnea, SOB at rest, shortness of breath, SOB with excertion, stridor, wheezing, others Cardiovascular: denies: chest pain, dizzy spells, diaphoresis, Dyspnea on exertion, edema, irregular heart beat, left arm pain, lightheadedness, palpitations, PND, syncope, others Gastrointestinal: reports: poor appetite; denies: abdomen distended, abdominal pain, blood streaked bowels, constipated, diarrhea, dysphagia, difficulty swallowing, hematemesis, melena, nausea, poor fluid intake, rectal bleeding, rectal pain, vomiting, others Genitourinary: denies: abnormal vagina bleeding, burning, dyspareunia, dysuria, flank pain, frequency, hematuria, incontinence, pain, , vagina discharge, urgency, others Neurological: denies: dizziness, fainting, headache, left sided numbness, left sided weakness, numbness, paresthesia, pre-existing deficit, right sided numbness, right sided weakness, seizure, speech problems, tingling, tremors, weakness, others Musculoskeletal: reports: joint pain, others (bilateral shoulder pain, rt knee pain); denies: back pain, gout, joint swelling, muscle pain, muscle stiffness, neck pain Integumetry: denies: bruises, change in color, change in hair/nails, dryness, laceration, lesions, lumps, rash, wounds, others Allergic/Immunocompromised: denies: Difficulty Healing, Frequent Infections, Hives, Itching, others Hematologic/Lymphatic: denies: anemia, blood clots, easy bleeding, easy bruising, swollen glands, others Endocrine: denies: excessive hunger, excessive sweating, excessive thirst, excessive urination, flushing, intolerance to cold, intolerance to heat, unexplained weight gain, unexplained weight loss, others Psychiatric: denies: anxiety, bipolar disorder, depression, hopeless, panic disorder, schizophrenia, sleepless, suicidal, others All Other Systems: Reviewed and Negative Physical Exam General Appearance: No Apparent Distress, Normal HEENT: Normal ENT Inspection, Pharynx Normal, TMs Normal Neck: Full Range of Motion, Non-Tender, Normal, Normal Inspection Respiratory: Chest Non-Tender, Lungs Clear, No Accessory Muscle Use, No Respiratory Distress, Normal Breath Sounds Cardiovascular: No Edema, No JVD, No Murmur, No Gallop, Normal Peripheral Pulses, Regular Rate/Rhythm Breast Exam: Deferred Gastrointestinal: No Organomegaly, Non Tender, No Pulsatile Mass, Normal Bowel Sounds, Soft Genitalia: Deferred Pelvic: Deferred Rectal: Deferred Extremities: No calf tenderness, Normal capillary refill, Normal inspection, Normal range of motion, Non-tender, No pedal edema Musculoskeletal : Location: Left Extremity Location: Shoulder Apperance: Tenderness: Moderate Neurologic: Alert, cracking still operator II-XII nml as Tested, No Motor Deficits, Normal Affect, Normal Mood, No Sensory Deficits Cerebellar Function: Normal Reflexes: Normal Skin: Dry, Normal Color, Warm Lymphatic: No Adenopathy Was a procedure done? Was a procedure done?: No Differential Diagnosis EXT Differential Diagnosis: Fracture, Sprain, Dislocation, Gout, DJD, Myocardial Infarction, Contusion, Strain, Rheumatoid, Neurovascular injury, Arthritis, Bursitis X-Ray, Labs, Meds, VS Vital Signs Date Time Temp Pulse Resp B/P (MAP) Pulse Ox O2 Delivery O2 Flow Rate FiO2 10/08/24 11:23 97.2 88 18 142/73 (96) 99 97.2 10/08/24 11:12 100 Lab Test 10/08/24 11:30 Range/Units White Blood Count 15.0 H 4.4-10.8 10^3/uL Red Blood Count 4.96 4.0-5.20 10^6/uL Hemoglobin 13.9 12.2-16.2 g/dL Hematocrit 41.8 36.0-46.0 % Mean Corpuscular Volume 84.3 80.0-100.0 fL Mean Corpuscular Hemoglobin 28.1 28.0-32.0 pg Mean Corpuscular Hemoglobin Concent 33.3 32.0-36.0 g/dL Red Cell Distribution Width 16.2 H 11.8-14.3 % Platelet Count 124 L 140-450 10^3/uL Mean Platelet Volume 9.0 6.9-10.8 fL Neutrophils (%) (Auto) 95.1 H 37.0-80.0 % Lymphocytes (%) (Auto) 1.9 L 10.0-50.0 % Monocytes (%) (Auto) 2.8 0.0-12.0 % Eosinophils (%) (Auto) 0.1 0.0-7.0 % Basophils (%) (Auto) 0.1 0.0-2.0 % Neutrophils # (Auto) 14.3 H 1.6-8.6 10 ^3/uL Lymphocytes # (Auto) 0.3 L 0.4-5.4 10 ^3/uL Monocytes # (Auto) 0.4 0-1.3 10 ^3/uL Eosinophils # (Auto) 0 0-0.8 10 ^3/uL Basophils # (Auto) 0 0-0.2 10 ^3/uL Nucleated Red Blood Cells 0.0 % Sodium Level 135 L 136-145 mmol/L Potassium Level 3.9 3.5-5.1 mmol/L Chloride Level 102 98-107 mmol/L Carbon Dioxide Level 25 20-31 mmol/L Anion Gap 8 5-15 Blood Urea Nitrogen 49 H 9-23 mg/dL Creatinine 1.09 H 0.550-1.02 mg/dL Glomerular Filtration Rate Calc 52 >90 mL/min BUN/Creatinine Ratio 45.0 H 10.0-20.0 Serum Glucose 183 H 74-106 mg/dL Calcium Level 9.7 8.7-10.4 mg/dL Current Medications Medications (Trade) Dose Ordered Sig/Ladan Route Start Time Stop Time Status Last Admin Acetaminophen/ Hydrocodone Bitart ([place] 5/325MG Tab) 1 tab ONCE ONCE PO 10/08/24 11:15 10/08/24 11:16 DC 10/08/24 11:30 [place] [address] Ph: [phone] DIAGNOSTIC IMAGING Diagnostic Imaging Report : [id number] Signed PATIENT: UDAY CROWELL ACCT: [id number] UNIT: [id number] : 1945 LOC: ER ROOM / BED: / AGE / SEX: 79 / F ADM STATUS: REG ER SERVICE 1111 ORDERING PHYSICIAN: JERICA BRENNAN MD PROCEDURE(s): CXRP - CHEST PORTABLE REASON: r/o pneumonia ORDER NUMBER(s): [id number], ACCESSION NUMBER(s): [id number] CHEST RADIOGRAPH Indication: P pneumonia n Technique: Single frontal view of the chest was obtained COMPARISON: XY CHEST PORTABLE on DOS: 07/06/24, XY CHEST PORTABLE on DOS: 04/01/24, CHEST PORTABLE on DOS: 05/01/22, CXRP on DOS: 05/01/22, CXRP on DOS: 04/30/22 FINDINGS: Lines and Tubes: None Lungs: Clear Pleura: No effusion. No pneumothorax. Cardiomediastinal contours: Unremarkable Bones: Unremarkable IMPRESSION: No acute disease. ATED BY: JAMIE FONG MD DICTATED DATE/TIME: 10/08/241210 SIGNED BY: JAMIE FONG MD SIGNED DATE/TIME: 10/08/241210 CC: [place] [id number] Ph: [phone] DIAGNOSTIC IMAGING Diagnostic Imaging Report : [id number] Signed PATIENT: UDAY CROWELL ACCT: [id number] UNIT: [id number] : 1945 LOC: ER ROOM / BED: / AGE / SEX: 79 / F ADM STATUS: REG ER SERVICE 1113 ORDERING PHYSICIAN: JERICA BRENNAN MD PROCEDURE(s): LSHD2 - L SHOULDER 2+ VIEW XRAY REASON: left shoulder pain ORDER NUMBER(s): [id number], ACCESSION NUMBER(s): [id number] CLINICAL INDICATION: left shoulder pain TECHNIQUE: XY L SHOULDER 2+ VIEW XRAY Comparison: None FINDINGS/IMPRESSION: : There is no evidence of acute fracture or dislocation. Soft tissues are unremarkable. Degenerative changes of the shoulder. ATED BY: JAMIE FONG MD DICTATED DATE/TIME: 10/08/241210 SIGNED BY: JAMIE FONG MD SIGNED DATE/TIME: 10/08/241210 CC: Time of 1ST Reevaluation: 11:37 Reevaluation 1ST: Unchanged Time of 2ND Reevaluation: 12:42 Reevaluation 2ND: Unchanged Patient Education/Counseling: Diagnosis, Treatment, Prognosis, Need For Follow Up Family Education/Counseling: No Family Present Additional Information Previous visit documents reviewed: DV discharge 07/10/2024, 04/06/2024, 05/05/2022 The following tests were ordered, and results were reviewed by me: CBC, BMP, UA, CXR, Lt shoulder x-ray Additional Information was gathered from interviewing the following independent historians: EMS I reviewed and agreed with the following test results read by other providers: CXR, lt shoulder x-ray I discussed treatment and results with medical personnel and: Patient pt still reports that her left shoulder is painful to touch and movement and her weakness is a so bad that she has not been able to get out of her chair for 3 days. she lives alone. pt was told she has a high WBC at [facility] yesterday, but no infections are found. today we have the same results. she will be admitted for workup of the generalized weakness, leukocytosis, and left shoulder pain. the should is not swollen, not red, not warm to touch, so i do not suspect septi c joint. cxr is unremarkable. U is pending. i started rocephin empirically Departure 1 Departure Time of Disposition: 12:46 Impression: Primary Impression: Generalized weakness Additional Impressions: Shoulder pain, left Qualified Codes: M25.512 - Pain in left shoulder Leukocytosis Qualified Codes: D72.829 - Elevated white blood cell count, unspecified Disposition: ADMITTED INPATIENT Admit to: Med Surg Condition: Fair Critical Care Note Critical Care Time?: No Stability Stability form required: No Heart Score Heart Score: Heart Score Response (Comments) Value History N/A 0 EKG N/A 0 Age N/A 0 Risk Factors N/A 0 Troponin N/A 0 Total 0 I personally scribed for JERICA BRENNAN MD ([email or web address]) on 10/08/24 at 11:22. Electronically submitted by Connie Valentine ([employer]). I personally scribed for JERICA BRENNAN MD ([email or web address]) on 10/08/24 at 12:42. Electronically submitted by Connie Valentine ([employer]). JERICA BRENNAN MD Oct 08, 2024 11:22
[2024-10-08] MEDS: HYDROcodone-ACET 5/325MG TAB PO ONE (11:30)
[2024-10-08 11:50] LABS: Basophils # (auto) 0 10 ^3/uL (0-0.2); Basophils % (auto) 0.1 % (0.0-2.0); Eosinophils # (auto) 0 10 ^3/uL (0-0.8); Eosinophils % (auto) 0.1 % (0.0-7.0); Hematocrit 41.8 % (36.0-46.0); Hemoglobin 13.9 g/dL (12.2-16.2); Lymphocytes # (auto) 0.3 10 ^3/uL (0.4-5.4); Lymphocytes % (auto) 1.9 % (10.0-50.0); Mean Corpuscular Hemoglobin 28.1 pg (28.0-32.0); Mean Corpuscular Hgb Conc. 33.3 g/dL (32.0-36.0); Mean Corpuscular Volume 84.3 fL (80.0-100.0); Monocytes # (auto) 0.4 10 ^3/uL (0-1.3); Monocytes % (auto) 2.8 % (0.0-12.0); Neutrophils # (auto) 14.3 10 ^3/uL (1.6-8.6); Neutrophils % (auto) 95.1 % (37.0-80.0); Platelet Count (auto) 124 10^3/uL (140-450); Red Blood Cells 4.96 10^6/uL (4.0-5.20); Red Cell Distribution Width 16.2 % (11.8-14.3)
[2024-10-08 11:59] LABS: Chloride 102 mmol/L (98-107); Potassium 3.9 mmol/L (3.5-5.1)
[2024-10-08 12:00] LABS: Anion Gap 8 (5-15); Calcium 9.7 mg/dL (8.7-10.4); Carbon Dioxide 25 mmol/L (20-31)
[2024-10-08 12:01] LABS: Sodium 135 mmol/L (136-145)
[2024-10-08 12:05] LABS: Blood Urea Nitrogen 49 mg/dL (9-23); Glucose 183 mg/dL (74-106)
--- NOTE | 2024-10-08 12:13 | DVH ---
CHEST RADIOGRAPH Indication: P pneumonia n Technique: Single frontal view of the chest was obtained COMPARISON: XY CHEST PORTABLE on DOS: 07/06/24, XY CHEST PORTABLE on DOS: 04/01/24, CHEST PORTABLE on DOS: 05/01/22, CXRP on DOS: 05/01/22, CXRP on DOS: 04/30/22 FINDINGS: Lines and Tubes: None Lungs: Clear Pleura: No effusion. No pneumothorax. Cardiomediastinal contours: Unremarkable Bones: Unremarkable IMPRESSION: No acute disease.
--- NOTE | 2024-10-08 12:14 | DVH ---
CLINICAL INDICATION: left shoulder pain TECHNIQUE: XY L SHOULDER 2+ VIEW XRAY Comparison: None FINDINGS/IMPRESSION: : There is no evidence of acute fracture or dislocation. Soft tissues are unremarkable. Degenerative changes of the shoulder.
[2024-10-08 13:45] VITALS: PULSE 88; RESP 16; O2SAT 98
[2024-10-08 14:20] LABS: Urine Bacteria MANY /hpf (None Seen); Urine Blood TRACE /uL (Negative); Urine Clarity Turbid (Clear); Urine Color Yellow (Yellow); Urine Mucus FEW (None Seen); Urine Protein, UAD 1+ (Negative); Urine Specific Gravity 1.028 (1.001-1.035); Urine Squamous Epithelial Cell None Seen /hpf (<5); Urine Urobilinogen 2 mg/dL (Negative); Urine WBC 6 /HPF (0-5); Urine pH 5.5 (5.0-9.0)
[2024-10-08] MEDS: SODIUM CHLORIDE 0.9% 500 ML IV ONE (15:19)
[2024-10-08] MEDS: cefTRIAXone 1GM/50ML D5W 50 ML IV ONE (15:19)
[2024-10-08] MEDS: fentaNYL CITRATE 100 MCG/2 ML VL IV ONE (15:37)
--- NOTE | 2024-10-08 16:08 | ECG ---
[facility] Test Date: 2024-10-08 Test Time: 11:12:01 Pat Name: UDAY CROWELL Department: ED Room: 0274 Gender: F Senior Biostatistician: crow : 1945 Requested By: JERICA BRENNAN Order Number: [id number] Reading MD: Reji Medeiros Measurements Intervals [place] Rate: 100 P: 0 NE: 0 QRS: 78 QRSD: 132 T: -12 QT: 352 QTc: 454 Interpretive Statements Atrial fibrillation Right bundle branch block Inferior infarct, age indeterminate Consider anterolateral infarct Electronically Signed On 10-09-2024 17:45:22 PDT by Reji Medeiros Please click the below link to view image of tracing.
[2024-10-08] MEDS ORDERED: DEXTROSE (50%) 50ML SYRG IV PRN (16:30)
[2024-10-08] MEDS ORDERED: ONDANSETRON HCL 4 MG/2 ML VIAL IV PRN (16:30)
--- NOTE | 2024-10-08 16:34 | DVHHP2 ---
History of Present Illness Reason for Visit: Right knee pain with generalized weakness History of Present Illness Carmelina Sarkar is a 79-year-old female with past medical history of arthritis, hyperlipidemia, diabetes type 2, asthma, AFib on Eliquis, peripheral neuropathy, lithotripsy, appendectomy, bilateral cataract removal, hysterectomy, hernia repair, right 3rd toe amputation, bone spurs, and cancer. Patient states that she had a reproductive organs removed and does not know what type of cancer. Patient also reports that she fell on August 03, 2024 when her niece brought her some shoes and she slipped and fell on her right side of her hip. She states she is to rib fractures from the fall. Patient reports the right knee pain sharp constant and 7/10 pain. Patient also reports that she can not lift up her left shoulder in his in pain. Patient reports that she was taking Eliquis for her AFib but stopped taking a month ago and told her doctor which instructed her to still take. She said that she stopped taking it because of nosebleeds. At educated the patient to continue to take the medication as it has serious consequences if not. Patient states she understand and she said that she has the right to refuse. Patient also reports that she lives alone and uses a front wheel walker with ambulation. However since Friday of this week she stated that she has been progressively getting weak and not been able to walk. She also reports that she was at [facility] on Friday and was discharged . She stated that she did not want to be discharged because she was not ready. Patient currently denies any chest pain, fever, chills, lightheadedness, dizziness, shortness of breath, abdominal pain, nausea, vomiting, and diarrhea. Patient denies falling on her left side. Cardiovascular: AFIB, hyperipidemia Pulmonary: Asthma Endocrine: Diabetes Past Medical History Arthritis Cancer Peripheral neuropathy Bone spurs Past Surgical History: Appendectomy, Hysterectomy, Hernia Repair, Other (Lithotripsy, bilateral cataract removal, and right 3rd toe amputation) Family History: Cancer, Other (Mom with brain cancer and dad with WI) Smoke: No ALCOHOL: none Drugs: None Lives: Alone Domestic Violence: Neg Review of Systems Constitutional: Yes: Weakness Musculoskeletal: other (Right knee pain), shoulder pain Allergies: Coded Allergies: Codeine (Verified Allergy, Mild, 03/10/17) Penicillins (Verified Allergy, Mild, 03/10/17) Tetanus Toxoid (Verified Allergy, Unknown, 03/10/17) SWELLING Uncoded Allergies: TAPE (Allergy, Unknown, 10/18/10) Medications Current Medications Medications Dose Ordered Sig/Ladan Route Start Time Stop Time Status Last Admin Dose Admin Apixaban 5 mg BID PO 10/08/24 22:00 Exam Vital Signs Vital Signs Date Time Temp Pulse Resp B/P (MAP) Pulse Ox O2 Delivery O2 Flow Rate FiO2 10/08/24 16:00 98.5 90 12 132/48 (76) 97 98.5 10/08/24 13:45 Room Air* 0 21 General Appearance: Alert, Oriented X3, Cooperative, mild distress HEENT: Atraumatic, PERRLA, EOMI, Mucous membr. moist/pink Respiratory: Normal air movement Cardiovascular: Normal S1, Normal S2, No murmurs Abdominal: Soft Extremities: Normal pulses Neuro: Normal speech, Sensation intact Psych/Mental Status: Mental status NL, Mood NL Labs/Xrays Labs Test 10/08/24 13:50 10/08/24 11:30 Range/Units Urine Color Yellow Yellow Urine Clarity Turbid H Clear Urine pH 5.5 5.0-9.0 Urine Specific [place] 1.028 1.001-1.035 Urine Protein 1+ H Negative Urine Ketones Negative Negative Urine Blood Trace H Negative /uL Urine Nitrite Negative Negative Urine Bilirubin Negative Negative Urine Urobilinogen 2 H Negative mg/dL Urine Leukocyte Esterase 1+ Negative /uL Urine RBC 2 0 - 4 /hpf Urine Microscopic WBC 6 H 0-5 /HPF Urine Squamous Epithelial Cells None seen <5 /hpf Urine Bacteria Many H None Seen /hpf Urine Mucus Few None Seen Urine Glucose Normal Normal mg/dL White Blood Count 15.0 H 4.4-10.8 10^3/uL Red Blood Count 4.96 4.0-5.20 10^6/uL Hemoglobin 13.9 12.2-16.2 g/dL Hematocrit 41.8 36.0-46.0 % Mean Corpuscular Volume 84.3 80.0-100.0 fL Mean Corpuscular Hemoglobin 28.1 28.0-32.0 pg Mean Corpuscular Hemoglobin Concent 33.3 32.0-36.0 g/dL Red Cell Distribution Width 16.2 H 11.8-14.3 % Platelet Count 124 L 140-450 10^3/uL Mean Platelet Volume 9.0 6.9-10.8 fL Neutrophils (%) (Auto) 95.1 H 37.0-80.0 % Lymphocytes (%) (Auto) 1.9 L 10.0-50.0 % Monocytes (%) (Auto) 2.8 0.0-12.0 % Eosinophils (%) (Auto) 0.1 0.0-7.0 % Basophils (%) (Auto) 0.1 0.0-2.0 % Neutrophils # (Auto) 14.3 H 1.6-8.6 10 ^3/uL Lymphocytes # (Auto) 0.3 L 0.4-5.4 10 ^3/uL Monocytes # (Auto) 0.4 0-1.3 10 ^3/uL Eosinophils # (Auto) 0 0-0.8 10 ^3/uL Basophils # (Auto) 0 0-0.2 10 ^3/uL Nucleated Red Blood Cells 0.0 % Sodium Level 135 L 136-145 mmol/L Potassium Level 3.9 3.5-5.1 mmol/L Chloride Level 102 98-107 mmol/L Carbon Dioxide Level 25 20-31 mmol/L Anion Gap 8 5-15 Blood Urea Nitrogen 49 H 9-23 mg/dL Creatinine 1.09 H 0.550-1.02 mg/dL Glomerular Filtration Rate Calc 52 >90 mL/min BUN/Creatinine Ratio 45.0 H 10.0-20.0 Serum Glucose 183 H 74-106 mg/dL Calcium Level 9.7 8.7-10.4 mg/dL CLINICAL INDICATION: right knee pain TECHNIQUE: 2 radiographic views of the right knee were obtained. Comparison: None FINDINGS/IMPRESSION: Arthritic changes noted of the knee all 3 compartments of the right knee with deformity of the proximal tibia correlate for history of old trauma. Although a cortical break is not currently seen the angulation of the proximal tibia suggests old trauma which May have healed consider CT for further evaluation. The visualized joint space is well maintained. The alignment is anatomical. There is no radiopaque foreign body. CLINICAL INDICATION: left shoulder pain TECHNIQUE: XY L SHOULDER 2+ VIEW XRAY Comparison: None FINDINGS/IMPRESSION: : There is no evidence of acute fracture or dislocation. Soft tissues are unremarkable. Degenerative changes of the shoulder. CHEST RADIOGRAPH Indication: P pneumonia n Technique: Single frontal view of the chest was obtained COMPARISON: XY CHEST PORTABLE on DOS: 07/06/24, XY CHEST PORTABLE on DOS: 04/01/24, CHEST PORTABLE on DOS: 05/01/22, CXRP on DOS: 05/01/22, CXRP on DOS: 04/30/22 FINDINGS: Lines and Tubes: None Lungs: Clear Pleura: No effusion. No pneumothorax. Cardiomediastinal contours: Unremarkable Bones: Unremarkable IMPRESSION: No acute disease. Assessment/Plan Assessment/Plan Assessment Intractable right knee pain Intractable left shoulder pain Generalized weakness ?Degenerative joint disease Leukocytosis likely due to UTI Diabetes type 2 uncontrolled HIRAL Thrombocytopenia History of hyperlipidemia History of asthma History of AFib on Eliquis History of arthritis History of cancer History of peripheral neuropathy History of lithotripsy History of appendectomy History of bilateral cataract removal History of hysterectomy History of hernia repair History of right 3rd toe amputation History of bone spurs Plan Admit to med surge UA IV antibiotics-ceftriaxone NS half a L given ED Pain management EKG UA Chest x-ray noted X-ray left shoulder noted X-ray right knee noted CT right tib-fib ordered IV fluids ESR CRP Diet Discussed plan of care with patient and nurse Home medications reconciled - Eliquis Plan discussed with: Patient My Orders Orders - GEORGE ZHENG 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 Procedure Category Date Status Time R Knee 2v Xray XY 10/08/24 Taken 15:57 Apixaban (Eliquis) PHA 10/08/24 In Process 22:00 Admit ADMIT 10/08/24 Verified 16:23 Allergies ANGELITA 10/08/24 Verified 16:23 Code Status CODE 10/08/24 Verified 16:23 Ondansetron Hcl PHA 10/08/24 Verified (Zofran) 16:30 Complete Blood Count LAB 10/09/24 Verified 04:00 Comprehensive LAB 10/09/24 Verified Metabolic Panel 04:00 Cardiac DIET 10/08/24 Verified Diet-2gna,Lofat,Lochol Dinner Acetaminophen Tablet PHA 10/08/24 Verified (Tylenol Tablet) 16:30 Glucose Blood PHA 10/08/24 Verified (Accu-Chek Comfort 17:00 Mild Sliding Scale PHA 10/08/24 Verified 17:00 Dextrose 50% Syringe PHA 10/08/24 Verified 16:30 Hemoglobin A1c LAB 10/08/24 Verified 16:23 NS PHA 10/08/24 Verified 16:30 Erythrocyte LAB 10/08/24 Verified Sedimentation Rate 16:23 C-Reactive Protein LAB 10/08/24 Verified 16:23 Ceftriaxone Ivpb PHA 10/09/24 Verified Rocephin 09:00 Date of Service: Oct 08, 2024 Billing Provider: GEORGE ZHENG Common Visit Codes: [id number] INP/OBS CARE (HIGH) GEORGE ZHENG Oct 08, 2024 16:34
--- NOTE | 2024-10-08 16:46 | DVH ---
CLINICAL INDICATION: right knee pain TECHNIQUE: 2 radiographic views of the right knee were obtained. Comparison: None FINDINGS/IMPRESSION: Arthritic changes noted of the knee all 3 compartments of the right knee with deformity of the proxim al tibia correlate for history of old trauma. Although a cortical break is not currently seen the angulation of the proximal tibia suggests old tra carlos which May have healed consider CT for further evaluation. The visualized joint space is well maintained. The alignment is anatomical. There is no radiopaque foreign body.
[2024-10-08] MEDS: ACCU-CHEK COMFORT CURVE STRIP VI SCH (17:00)
[2024-10-08] MEDS: InsuLIN REG 1unit/0.01ml Soln (100units/ml) SC SCH (17:00)
[2024-10-08 17:09] VITALS: BP 171/61; PULSE 69; RESP 16; TEMP 97.6; O2SAT 96
[2024-10-08] MEDS: ACETAMINOPHEN 325 MG TAB PO PRN (18:03)
[2024-10-08] MEDS: SODIUM CHLORIDE 0.9% 1,000 ML IV SCH (18:04)
[2024-10-08 19:06] LABS: Erythrocyte Sedimentation Rate 66 mm/hr (0-20)
[2024-10-08 20:00] VITALS: PULSE 87; RESP 18; O2SAT 97
[2024-10-08 21:00] VITALS: BP 119/49; PULSE 97; RESP 18; TEMP 98.3; O2SAT 96
[2024-10-08] MEDS: HYDROcodone-ACET 5/325MG TAB PO PRN (21:27)
[2024-10-08] MEDS: APIXABAN 5 MG TAB PO SCH (21:29)
[2024-10-09] VITALS (9 sets, daily range): BP systolic 99–164; BP diastolic 39–70; PULSE 71–105; RESP 16–20; TEMP 97.7–99.3; O2SAT 92–100
[2024-10-09 06:02] LABS: Basophils # (auto) 0 10 ^3/uL (0-0.2); Basophils % (auto) 0.1 % (0.0-2.0); Eosinophils # (auto) 0 10 ^3/uL (0-0.8); Eosinophils % (auto) 0.2 % (0.0-7.0); Hematocrit 39.2 % (36.0-46.0); Hemoglobin 12.6 g/dL (12.2-16.2); Lymphocytes # (auto) 0.5 10 ^3/uL (0.4-5.4); Lymphocytes % (auto) 4.3 % (10.0-50.0); Mean Corpuscular Hemoglobin 27.5 pg (28.0-32.0); Mean Corpuscular Hgb Conc. 32.1 g/dL (32.0-36.0); Mean Corpuscular Volume 85.7 fL (80.0-100.0); Monocytes # (auto) 0.7 10 ^3/uL (0-1.3); Monocytes % (auto) 5.8 % (0.0-12.0); Neutrophils # (auto) 10.4 10 ^3/uL (1.6-8.6); Neutrophils % (auto) 89.6 % (37.0-80.0); Nucleated Red Blood Cells % 0.1 %; Platelet Count (auto) 97 10^3/uL (140-450); Red Blood Cells 4.57 10^6/uL (4.0-5.20); Red Cell Distribution Width 16.2 % (11.8-14.3); White Blood Cell 11.6 10^3/uL (4.4-10.8)
[2024-10-09 06:35] LABS: Alanine Aminotransferase 12 U/L (7-40); Albumin 3.6 g/dL (3.2-4.8); Alkaline Phosphatase 115 U/L (46-116); Anion Gap 9 (5-15); Aspartate Aminotransferase 25 U/L (13-40); BUN/Creatinine Ratio 41.4 (10.0-20.0); Bilirubin, Total 0.7 mg/dL (0.2-1.0); Calcium 9.4 mg/dL (8.7-10.4); Total Protein 6.2 g/dL (5.7-8.2)
[2024-10-09 06:36] LABS: Blood Urea Nitrogen 41 mg/dL (9-23); Carbon Dioxide 20 mmol/L (20-31); Chloride 104 mmol/L (98-107); Glucose 146 mg/dL (74-106); Potassium 4.4 mmol/L (3.5-5.1); Sodium 133 mmol/L (136-145)
[2024-10-09] MEDS: cefTRIAXone 1GM/50ML D5W 50 ML IV SCH (08:30)
--- NOTE | 2024-10-09 11:19 | DVHPN2 ---
Reviewed: Care Plan, H&P, Labs, Medications, Previous Orders, Radiology Changes from previous H/P or p: No Changes Musculoskeletal: other (Right knee pain), shoulder pain Objective Vitals Vital Signs Date Time Temp Pulse Resp B/P (MAP) Pulse Ox O2 Delivery O2 Flow Rate FiO2 10/09/24 08:42 98.8 92 20 121/42 (68) 93 98.8 10/08/24 20:00 Room Air* 0 21 Intake/Output Intake and Output 10/09/24 07:00 Intake Total 1650 ml Balance 1650 ml Intake Oral 1000 ml IV Total 650 ml # Voids 1 Medications Current Medications Medications Dose Ordered Sig/Ladan Route Start Time Stop Time Status Last Admin Dose Admin Apixaban 5 mg BID PO 10/08/24 22:00 10/08/24 21:29 5 MG Ondansetron HCl 4 mg Q4HP PRN IV 10/08/24 16:30 Acetaminophen 650 mg Q6HP PRN PO 10/08/24 16:30 10/08/24 18:03 650 MG Diagnostic Test (Pha) 1 strip ACHS 10/08/24 17:00 10/09/24 05:52 1 STRIP Insulin Human Regular ACHS SC 10/08/24 17:00 Dextrose 50 ml UD PRN IV 10/08/24 16:30 Sodium Chloride 1,000 ml @ 100 mls/hr Q10H IV 10/08/24 16:30 10/09/24 06:53 100 MLS/HR Ceftriaxone Sodium 50 ml @ 100 mls/hr DAILY@09 IV 10/09/24 09:00 10/09/24 08:30 100 MLS/HR Acetaminophen/ Hydrocodone Bitart 1 tab Q6HPRN PRN PO 10/08/24 20:15 10/09/24 05:56 1 TAB Laboratory Results Laboratory Tests 10/09/24 05:07 Chemistry Test 10/08/24 11:30 10/09/24 05:07 Calcium Level 9.7 mg/dL (8.7-10.4) 9.4 mg/dL (8.7-10.4) Albumin 3.6 g/dL (3.2-4.8) Total Protein 6.2 g/dL (5.7-8.2) LFT Test 10/09/24 05:07 Alanine Aminotransferase (ALT) 12 U/L (7-40) Alkaline Phosphatase 115 U/L (46-116) Aspartate Amino Transferase (AST) 25 U/L (13-40) Total Bilirubin 0.7 mg/dL (0.2-1.0) HgA1c, TSH Test 10/08/24 11:30 Hemoglobin A1c 6.2 % A1C (<5.7) H Urinalysis Test 10/08/24 13:50 Urine Color Yellow (Yellow) Urine Clarity Turbid (Clear) H Urine pH 5.5 (5.0-9.0) Urine Specific [place] 1.028 (1.001-1.035) Urine Protein 1+ (Negative) H Urine Ketones Negative (Negative) Urine Blood Trace /uL (Negative) H Urine Nitrite Negative (Negative) Urine Bilirubin Negative (Negative) Urine Urobilinogen 2 mg/dL (Negative) H Urine Leukocyte Esterase 1+ /uL (Negative) Urine RBC 2 /hpf (0 - 4) Urine Microscopic WBC 6 /HPF (0-5) H Urine Squamous Epithelial Cells None seen /hpf (<5) Urine Bacteria Many /hpf (None Seen) H Urine Mucus Few (None Seen) Urine Glucose Normal mg/dL (Normal) Labs and/or images reviewed: Labs reviewed by me, Image(s) reviewed by me Assessment/Plan Assessment/Plan Intractable right knee pain x-ray shows severe DJD with possible old right proximal tibial fracture, CT right knee pending, ortho consult for Dr. Kendall Intractable left shoulder pain x-ray shows severe DJD Generalized weakness Mild UTI Diabetes type 2 uncontrolled HIRAL Thrombocytopenia Hypercholesterolemia Asthma AFib on Eliquis History of uterine cancer History of kidney stones status post lithotripsy Moderate malnutrition PCP Dr Espinosa Plan discussed with: Patient Date of Service: Oct 09, 2024 Billing Provider: PAM GONZALEZ MD Common Visit Codes: [id number] INP/OBS CARE(HIGH) PAM GONZALEZ MD Oct 09, 2024 11:19
--- NOTE | 2024-10-09 12:46 | DVH ---
INDICATION: r/o fx COMPARISON: None TECHNIQUE: CT of the right tibia and fibula was performed without contrast. Volume transverse images were obtained and reconstructed in multiple planes using bone and soft tissue algorithms. Radiation Dose Information: CT Dose: CTDI volume is 25.13 mGy. Dose-length product is 1245.21 mGy*cm FINDINGS: Severe advanced degenerative osteoarthritic changes seen of both the knee and ankle. No fracture. No osteomyelitis. IMPRESSION: 1. No fracture. Severe degenerative osteoarthritic changes of the knee and ankle 2. All CT scans at this medical facility are performed using dose modulation techniques as appropriat e to a performed exam including the following: Automated exposure control was utilized; adjustment of the MA and/or KV according to patient size; and use of iterative reconstruction technique.
[2024-10-10] VITALS (7 sets, daily range): BP systolic 106–138; BP diastolic 45–56; PULSE 81–101; RESP 17–20; TEMP 97.9–99.3; O2SAT 90–92
--- NOTE | 2024-10-10 10:42 | DVHPN2 ---
Reviewed: Care Plan, H&P, Labs, Medications, Previous Orders, Radiology Changes from previous H/P or p: No Changes Musculoskeletal: other (Right knee pain), shoulder pain Objective Vitals Vital Signs Date Time Temp Pulse Resp B/P (MAP) Pulse Ox O2 Delivery O2 Flow Rate FiO2 10/10/24 08:57 97.9 94 20 138/56 (83) 91 97.9 10/09/24 20:00 Room Air* 0 21 Intake/Output Intake and Output 10/10/24 07:00 Intake Total 700 ml Balance 700 ml Intake Oral 700 ml # Voids 3 Medications Current Medications Medications Dose Ordered Sig/Ladan Route Start Time Stop Time Status Last Admin Dose Admin Apixaban 5 mg BID PO 10/08/24 22:00 10/10/24 10:21 5 MG Ondansetron HCl 4 mg Q4HP PRN IV 10/08/24 16:30 Acetaminophen 650 mg Q6HP PRN PO 10/08/24 16:30 10/08/24 18:03 650 MG Diagnostic Test (Pha) 1 strip ACHS 10/08/24 17:00 10/10/24 06:27 1 STRIP Insulin Human Regular ACHS SC 10/08/24 17:00 Dextrose 50 ml UD PRN IV 10/08/24 16:30 Sodium Chloride 1,000 ml @ 100 mls/hr Q10H IV 10/08/24 16:30 10/10/24 10:22 100 MLS/HR Ceftriaxone Sodium 50 ml @ 100 mls/hr DAILY@09 IV 10/09/24 09:00 10/10/24 10:22 100 MLS/HR Acetaminophen/ Hydrocodone Bitart 1 tab Q6HPRN PRN PO 10/08/24 20:15 10/10/24 06:52 1 TAB Laboratory Results Laboratory Tests 10/09/24 05:07 Urinalysis Test 10/08/24 13:50 Urine Color Yellow (Yellow) Urine Clarity Turbid (Clear) H Urine pH 5.5 (5.0-9.0) Urine Specific [place] 1.028 (1.001-1.035) Urine Protein 1+ (Negative) H Urine Ketones Negative (Negative) Urine Blood Trace /uL (Negative) H Urine Nitrite Negative (Negative) Urine Bilirubin Negative (Negative) Urine Urobilinogen 2 mg/dL (Negative) H Urine Leukocyte Esterase 1+ /uL (Negative) Urine RBC 2 /hpf (0 - 4) Urine Microscopic WBC 6 /HPF (0-5) H Urine Squamous Epithelial Cells None seen /hpf (<5) Urine Bacteria Many /hpf (None Seen) H Urine Mucus Few (None Seen) Urine Glucose Normal mg/dL (Normal) Labs and/or images reviewed: Labs reviewed by me, Image(s) reviewed by me Assessment/Plan Assessment/Plan Sepsis Secondary to the cellulitis of the right foot: Rocephin clindamycin Intractable right knee pain x-ray shows severe DJD with possible old right proximal tibial fracture, CT right knee pending, ortho consult for Dr. Kendall Intractable left shoulder pain x-ray shows severe DJD Generalized weakness Mild UTI Diabetes type 2 uncontrolled HIRAL Cellulitis right foot : Consult for patient's child care attendant Dr. Tanner Thrombocytopenia Hypercholesterolemia Asthma AFib on Eliquis History of uterine cancer History of kidney stones status post lithotripsy Moderate malnutrition PCP Dr Espinosa Plan discussed with: Patient My Orders Orders - PAM GONZALEZ MD Procedure Category Date Status Time * Orthopedic Consult CONS 10/09/24 Transmitted 11:20 Date of Service: Oct 10, 2024 Billing Provider: PAM GONZALEZ MD Common Visit Codes: [id number] INP/OBS CARE(HIGH) PAM GONZALEZ MD Oct 10, 2024 10:42
--- NOTE | 2024-10-10 12:41 | DVHINCON2 ---
Date of service: Oct 10, 2024 Reason for Consultation Left shoulder and right knee pain History of Present Illness Mrs. Sarkar is a 79-year-old female who was brought to the hospital due to complaints of progressively worsening left shoulder and right knee pain. Patient reports that she was given a new pair of shoes with thick heels at the beginning of this year which caused her to slip and fall onto her right lower extremity and has been having progressively worsening right knee pain and left shoulder pain since this most recent fall. Patient reports that she had occasional episodes of right knee pain and left shoulder pain which she believes were due to her osteoarthritis but the pain has been worse since this most recent incident. Patient is otherwise feeling well denying any chest pain, shortness of breath, nausea, vomiting, fever, or chills. Past Medical History AFib, hyperlipidemia, asthma, diabetes, osteoarthritis, cancer, peripheral neuropathy Past Surgical History Appendectomy, Hysterectomy, Hernia Repair, Other (Lithotripsy, bilateral cataract removal, and right 3rd toe amputation) Family History: FH: brain cancer G8 MOTHER FH: heart attack G8 FATHER No Family History of: Alcoholism Cancer Cancer of colon Family History Family history of cancer Social History Patient denies smoking, EtOH, or illicit substance abuse Allergies: Coded Allergies: Codeine (Verified Allergy, Mild, 03/10/17) Penicillins (Verified Allergy, Mild, 03/10/17) Tetanus Toxoid (Verified Allergy, Unknown, 03/10/17) SWELLING Uncoded Allergies: TAPE (Allergy, Unknown, 10/18/10) Home Meds Active Scripts Apixaban Base (ELIQUIS) 5 Mg Tab, 5 MG PO BID, #180 TAB Prov:PAM GONZALEZ MD 07/12/24 Reported Medications Glyburide-Metformin (Glucovance) 1 Tab Tab, 2 TAB PO BID 10/18/10 Current Medications Current Medications Medications (Trade) Dose Ordered Sig/Ladan Route PRN Reason Start Time Stop Time Status Last Admin Clindamycin Phosphate 50 ml @ 50 mls/hr Q8HR IV 10/10/24 14:00 Review of Systems 10 point review of systems negative except as per HPI Vital Signs Vital Signs Date Time Temp Pulse Resp B/P (MAP) Pulse Ox O2 Delivery O2 Flow Rate FiO2 10/10/24 12:33 99.3 85 20 117/50 (72) 91 99.3 10/10/24 08:00 Room Air* 0 21 Physical Exam General appearance: A&O x4 in no acute distress HEENT: Normal ENT inspection, pharynx normal, TMs normal Neck: Full range of motion, nontender, normal inspection Respiratory: Chest nontender, without accessory muscle use, no respiratory distress Cardiovascular: No edema, no JVD, normal peripheral pulses Gastrointestinal: Soft, nontender, no organomegaly. Musculoskeletal: Left shoulder range of motion grossly limited with pain on m ovement, right knee range of motion grossly limited with pain on movement, no calf tenderness, normal capillary refill, no pedal edema, neurovascularly intact. Skin: Dry, normal color, warm Lymphatic: No adenopathy Labs/Diagnostic Data Labs Test 10/10/24 11:48 10/09/24 05:07 10/08/24 13:50 10/08/24 11:30 Range/Units POC Glucose 153 H 70-106 mg/dl White Blood Count 11.6 H 4.4-10.8 10^3/uL Red Blood Count 4.57 4.0-5.20 10^6/uL Hemoglobin 12.6 12.2-16.2 g/dL Hematocrit 39.2 36.0-46.0 % Mean Corpuscular Volume 85.7 80.0-100.0 fL Mean Corpuscular Hemoglobin 27.5 L 28.0-32.0 pg Mean Corpuscular Hemoglobin Concent 32.1 32.0-36.0 g/dL Red Cell Distribution Width 16.2 H 11.8-14.3 % Platelet Count 97 L 140-450 10^3/uL Mean Platelet Volume 9.2 6.9-10.8 fL Neutrophils (%) (Auto) 89.6 H 37.0-80.0 % Lymphocytes (%) (Auto) 4.3 L 10.0-50.0 % Monocytes (%) (Auto) 5.8 0.0-12.0 % Eosinophils (%) (Auto) 0.2 0.0-7.0 % Basophils (%) (Auto) 0.1 0.0-2.0 % Neutrophils # (Auto) 10.4 H 1.6-8.6 10 ^3/uL Lymphocytes # (Auto) 0.5 0.4-5.4 10 ^3/uL Monocytes # (Auto) 0.7 0-1.3 10 ^3/uL Eosinophils # (Auto) 0 0-0.8 10 ^3/uL Basophils # (Auto) 0 0-0.2 10 ^3/uL Nucleated Red Blood Cells 0.1 % Sodium Level 133 L 136-145 mmol/L Potassium Level 4.4 3.5-5.1 mmol/L Chloride Level 104 98-107 mmol/L Carbon Dioxide Level 20 20-31 mmol/L Anion Gap 9 5-15 Blood Urea Nitrogen 41 H 9-23 mg/dL Creatinine 0.99 0.550-1.02 mg/dL Glomerular Filtration Rate Calc 58 >90 mL/min BUN/Creatinine Ratio 41.4 H 10.0-20.0 Serum Glucose 146 H 74-106 mg/dL Calcium Level 9.4 8.7-10.4 mg/dL Total Bilirubin 0.7 0.2-1.0 mg/dL Aspartate Amino Transferase (AST) 25 13-40 U/L Alanine Aminotransferase (ALT) 12 7-40 U/L Alkaline Phosphatase 115 46-116 U/L Total Protein 6.2 5.7-8.2 g/dL Albumin 3.6 3.2-4.8 g/dL Urine Color Yellow Yellow Urine Clarity Turbid H Clear Urine pH 5.5 5.0-9.0 Urine Specific [place] 1.028 1.001-1.035 Urine Protein 1+ H Negative Urine Ketones Negative Negative Urine Blood Trace H Negative /uL Urine Nitrite Negative Negative Urine Bilirubin Negative Negative Urine Urobilinogen 2 H Negative mg/dL Urine Leukocyte Esterase 1+ Negative /uL Urine RBC 2 0 - 4 /hpf Urine Microscopic WBC 6 H 0-5 /HPF Urine Squamous Epithelial Cells None seen <5 /hpf Urine Bacteria Many H None Seen /hpf Urine Mucus Few None Seen Urine Glucose Normal Normal mg/dL Erythrocyte Sedimentation Rate 66 H 0-20 mm/hr Hemoglobin A1c 6.2 H <5.7 % A1C C-Reactive Protein High Sensitivity > 20.00 H <1.0 mg/dL Left shoulder x-ray reviewed and demonstrated: There is no evidence of acute fracture or dislocation. Soft tissues are unremarkable. Degenerative changes of the shoulder. Right knee x-ray reviewed and demonstrated: Arthritic changes noted of the knee all 3 compartments of the right knee with deformity of the proximal tibia correlate for history of old trauma. Although a cortical break is not currently seen the angulation of the proximal tibia suggests old trauma which May have healed consider CT for further evaluation. The visualized joint space is well maintained. The alignment is anatomical. There is no radiopaque foreign body. Right lower extremity CT scan reviewed and demonstrated: No fracture. Severe degenerative osteoarthritic changes of the knee and ankle Assessment Left glenohumeral osteoarthritis and her right knee tricompartmental osteoarthritis Plan/Recommendation I had a lengthy discussion with the patient and after discussing her case and reviewing her imaging studies with Dr. Berg we have recommended against any surgical intervention at this time and instead advised to continue with conservative treatment with pain control. I advised the patient to continue conservative treatment with rice and to follow up with our office on an outpatient basis for further evaluation and treatment options. She understood and agreed. Thank you for allowing us to participate in the care of your patient. Plan discussed with: Patient ALEC TINSLEY Oct 10, 2024 12:41
--- NOTE | 2024-10-10 13:23 | DVH ---
BILATERAL Lower Extremity Arterial Duplex Date: 10/10/2024 11:24 AM Clinical History: Right foot cellulitis Comparison: US BILAT LOW EXT ART DUPLEX on DOS: 04/01/24, BILAT LOW EXT ART DUPLEX on DOS: 04/25/22 Technique: Duplex Doppler evaluation including color Doppler and spectral/pulsed waveform analysis of the lower extremity arteries was performed. Finding: Velocities and waveforms within normal limits. IMPRESSION: There is no evidence for peripheral vascular insufficiency in the right lower extremity. No significant focal stenosis is identified.
[2024-10-10] MEDS: CLINDAMYCIN 300MG IV 50 ML IV SCH (14:33)
[2024-10-10] MEDS: traMADol HCL 50 MG TAB PO ONE (23:32)
[2024-10-11] VITALS (7 sets, daily range): BP systolic 116–131; BP diastolic 52–69; PULSE 69–84; RESP 17–19; TEMP 97.5–98; O2SAT 93–98
--- NOTE | 2024-10-11 12:13 | DVHPN2 ---
Reviewed: Care Plan, H&P, Labs, Medications, Previous Orders, Radiology Changes from previous H/P or p: No Changes Musculoskeletal: other (Right knee pain), shoulder pain Objective Vitals Vital Signs Date Time Temp Pulse Resp B/P (MAP) Pulse Ox O2 Delivery O2 Flow Rate FiO2 10/11/24 09:00 97.5 71 18 116/59 (78) 94 97.5 10/10/24 20:00 Room Air* 0 21 Intake/Output Intake and Output 10/11/24 07:00 Intake Total 1865 ml Balance 1865 ml Intake Oral 715 ml IV Total 1150 ml # Voids 2 Medications Current Medications Medications Dose Ordered Sig/Ladan Route Start Time Stop Time Status Last Admin Dose Admin Apixaban 5 mg BID PO 10/08/24 22:00 10/10/24 10:21 5 MG Ondansetron HCl 4 mg Q4HP PRN IV 10/08/24 16:30 Acetaminophen 650 mg Q6HP PRN PO 10/08/24 16:30 10/08/24 18:03 650 MG Diagnostic Test (Pha) 1 strip ACHS 10/08/24 17:00 10/11/24 06:24 1 STRIP Insulin Human Regular ACHS SC 10/08/24 17:00 Dextrose 50 ml UD PRN IV 10/08/24 16:30 Sodium Chloride 1,000 ml @ 100 mls/hr Q10H IV 10/08/24 16:30 10/10/24 23:00 100 MLS/HR Ceftriaxone Sodium 50 ml @ 100 mls/hr DAILY@09 IV 10/09/24 09:00 10/11/24 08:47 100 MLS/HR Acetaminophen/ Hydrocodone Bitart 1 tab Q6HPRN PRN PO 10/08/24 20:15 10/11/24 11:00 1 TAB Clindamycin Phosphate 50 ml @ 50 mls/hr Q8HR IV 10/10/24 14:00 10/11/24 05:29 50 MLS/HR Laboratory Results Laboratory Tests 10/09/24 05:07 Urinalysis Test 10/08/24 13:50 Urine Color Yellow (Yellow) Urine Clarity Turbid (Clear) H Urine pH 5.5 (5.0-9.0) Urine Specific [place] 1.028 (1.001-1.035) Urine Protein 1+ (Negative) H Urine Ketones Negative (Negative) Urine Blood Trace /uL (Negative) H Urine Nitrite Negative (Negative) Urine Bilirubin Negative (Negative) Urine Urobilinogen 2 mg/dL (Negative) H Urine Leukocyte Esterase 1+ /uL (Negative) Urine RBC 2 /hpf (0 - 4) Urine Microscopic WBC 6 /HPF (0-5) H Urine Squamous Epithelial Cells None seen /hpf (<5) Urine Bacteria Many /hpf (None Seen) H Urine Mucus Few (None Seen) Urine Glucose Normal mg/dL (Normal) Labs and/or images reviewed: Labs reviewed by me, Image(s) reviewed by me Assessment/Plan Assessment/Plan Sepsis Secondary to cellulitis of the right foot: Rocephin clindamycin Intractable right knee pain x-ray shows severe DJD with possible old right proximal tibial fracture, CT right knee shows severe DJD ortho consult for Dr. Berg appreciated advised conservative management with pain medications and physical therapy Intractable left shoulder pain x-ray shows severe DJD, Dr. Berg advised conservative management Generalized weakness Mild UTI Diabetes type 2 uncontrolled HIRAL Cellulitis right foot : Consult for patient's non destructive testing scientist Dr. Tanner Thrombocytopenia Hypercholesterolemia Asthma AFib on Eliquis History of uterine cancer History of kidney stones status post lithotripsy Moderate malnutrition Bilateral lower extremity arterial ultrasound negative for any occlusion PCP Dr Espinosa Physical therapy ordered Plan discussed with: Patient Date of Service: Oct 11, 2024 Billing Provider: PAM GONZALEZ MD Common Visit Codes: [id number] INP/OBS CARE(HIGH) PAM GONZALEZ MD Oct 11, 2024 12:13
[2024-10-11 19:44] LABS: COVID19 ANTIGEN SOFIA FIA NEGATIVE (NEGATIVE)
[2024-10-12 01:00] VITALS: BP 137/50; PULSE 82; RESP 17; TEMP 98.3; O2SAT 94
[2024-10-12 05:00] VITALS: BP 128/49; PULSE 62; RESP 17; TEMP 98; O2SAT 99
[2024-10-12 08:00] VITALS: PULSE 80; RESP 17; O2SAT 98
[2024-10-12 09:00] VITALS: BP 128/46; PULSE 76; RESP 16; TEMP 97.5; O2SAT 95
--- NOTE | 2024-10-12 10:19 | DVHPN2 ---
Reviewed: Care Plan, H&P, Labs, Medications, Previous Orders, Radiology Changes from previous H/P or p: No Changes Musculoskeletal: other (Right knee pain), shoulder pain Objective Vitals Vital Signs Date Time Temp Pulse Resp B/P (MAP) Pulse Ox O2 Delivery O2 Flow Rate FiO2 10/12/24 05:00 98.0 62 17 128/49 (75) 99 98.0 10/11/24 20:00 Room Air* 0 21 Intake/Output Intake and Output 10/12/24 07:00 Intake Total 3662 ml Balance 3662 ml Intake Oral 2012 ml IV Total 1650 ml # Voids 5 Medications Current Medications Medications Dose Ordered Sig/Ladan Route Start Time Stop Time Status Last Admin Dose Admin Apixaban 5 mg BID PO 10/08/24 22:00 10/10/24 10:21 5 MG Ondansetron HCl 4 mg Q4HP PRN IV 10/08/24 16:30 Acetaminophen 650 mg Q6HP PRN PO 10/08/24 16:30 10/08/24 18:03 650 MG Diagnostic Test (Pha) 1 strip ACHS 10/08/24 17:00 10/12/24 06:25 1 STRIP Insulin Human Regular ACHS SC 10/08/24 17:00 Dextrose 50 ml UD PRN IV 10/08/24 16:30 Sodium Chloride 1,000 ml @ 100 mls/hr Q10H IV 10/08/24 16:30 10/12/24 00:21 100 MLS/HR Ceftriaxone Sodium 50 ml @ 100 mls/hr DAILY@09 IV 10/09/24 09:00 10/12/24 09:21 100 MLS/HR Acetaminophen/ Hydrocodone Bitart 1 tab Q6HPRN PRN PO 10/08/24 20:15 10/12/24 07:05 1 TAB Clindamycin Phosphate 50 ml @ 50 mls/hr Q8HR IV 10/10/24 14:00 10/12/24 05:59 50 MLS/HR Laboratory Results Laboratory Tests 10/09/24 05:07 Urinalysis Test 10/08/24 13:50 Urine Color Yellow (Yellow) Urine Clarity Turbid (Clear) H Urine pH 5.5 (5.0-9.0) Urine Specific [place] 1.028 (1.001-1.035) Urine Protein 1+ (Negative) H Urine Ketones Negative (Negative) Urine Blood Trace /uL (Negative) H Urine Nitrite Negative (Negative) Urine Bilirubin Negative (Negative) Urine Urobilinogen 2 mg/dL (Negative) H Urine Leukocyte Esterase 1+ /uL (Negative) Urine RBC 2 /hpf (0 - 4) Urine Microscopic WBC 6 /HPF (0-5) H Urine Squamous Epithelial Cells None seen /hpf (<5) Urine Bacteria Many /hpf (None Seen) H Urine Mucus Few (None Seen) Urine Glucose Normal mg/dL (Normal) Labs and/or images reviewed: Labs reviewed by me, Image(s) reviewed by me Assessment/Plan Assessment/Plan Sepsis Secondary to cellulitis of the right foot: Rocephin clindamycin Intractable right knee pain x-ray shows severe DJD with possible old right proximal tibial fracture, CT right knee shows severe DJD ortho consult for Dr. Berg appreciated advised conservative management with pain medications and physical therapy Intractable left shoulder pain x-ray shows severe DJD, Dr. Berg advised conservative management Generalized weakness Mild UTI Diabetes type 2 uncontrolled HIRAL Cellulitis right foot : Consult for patient's straddle bug operator Dr. Tanner Thrombocytopenia Hypercholesterolemia Asthma AFib on Eliquis History of uterine cancer History of kidney stones status post lithotripsy Moderate malnutrition Bilateral lower extremity arterial ultrasound negative for any occlusion Physical therapy ordered Midline ordered Physical therapy ordered Plan discussed with: Patient My Orders Orders - PAM GONZALEZ MD Procedure Category Date Status Time Consistent DIET 10/11/24 Transmitted Carb(Ccho)Diabetes Lunch Pt Request For Service PT 10/11/24 Logged 12:16 Date of Service: Oct 12, 2024 Billing Provider: PAM GONZALEZ MD Common Visit Codes: [id number] INP/OBS CARE(HIGH) PAM GONZALEZ MD Oct 12, 2024 10:19
--- NOTE | 2024-10-12 10:30 | DVHDS2 ---
Discharge Summary Date of Admission Oct 08, 2024 at 16:23 Date of Discharge: Oct 12, 2024 Admitting Diagnosis Generalized weakness infection of the bilateral feet Wounds: Bilateral foot cellulitis Labs/Diagnostic Data: Laboratory Results Test 10/12/24 06:18 10/11/24 18:39 10/09/24 05:07 10/08/24 13:50 POC Glucose 118 mg/dl (70-106) SARS-CoV-2 Antigen (Rapid) Negative (NEGATIVE) White Blood Count 11.6 10^3/uL (4.4-10.8) Red Blood Count 4.57 10^6/uL (4.0-5.20) Hemoglobin 12.6 g/dL (12.2-16.2) Hematocrit 39.2 % (36.0-46.0) Mean Corpuscular Volume 85.7 fL (80.0-100.0) Mean Corpuscular Hemoglobin 27.5 pg (28.0-32.0) Mean Corpuscular Hemoglobin Concent 32.1 g/dL (32.0-36.0) Red Cell Distribution Width 16.2 % (11.8-14.3) Platelet Count 97 10^3/uL (140-450) Mean Platelet Volume 9.2 fL (6.9-10.8) Neutrophils (%) (Auto) 89.6 % (37.0-80.0) Lymphocytes (%) (Auto) 4.3 % (10.0-50.0) Monocytes (%) (Auto) 5.8 % (0.0-12.0) Eosinophils (%) (Auto) 0.2 % (0.0-7.0) Basophils (%) (Auto) 0.1 % (0.0-2.0) Neutrophils # (Auto) 10.4 10 ^3/uL (1.6-8.6) Lymphocytes # (Auto) 0.5 10 ^3/uL (0.4-5.4) Monocytes # (Auto) 0.7 10 ^3/uL (0-1.3) Eosinophils # (Auto) 0 10 ^3/uL (0-0.8) Basophils # (Auto) 0 10 ^3/uL (0-0.2) Nucleated Red Blood Cells 0.1 % Sodium Level 133 mmol/L (136-145) Potassium Level 4.4 mmol/L (3.5-5.1) Chloride Level 104 mmol/L (98-107) Carbon Dioxide Level 20 mmol/L (20-31) Anion Gap 9 (5-15) Blood Urea Nitrogen 41 mg/dL (9-23) Creatinine 0.99 mg/dL (0.550-1.02) Glomerular Filtration Rate Calc 58 mL/min (>90) BUN/Creatinine Ratio 41.4 (10.0-20.0) Serum Glucose 146 mg/dL (74-106) Calcium Level 9.4 mg/dL (8.7-10.4) Total Bilirubin 0.7 mg/dL (0.2-1.0) Aspartate Amino Transferase (AST) 25 U/L (13-40) Alanine Aminotransferase (ALT) 12 U/L (7-40) Alkaline Phosphatase 115 U/L (46-116) Total Protein 6.2 g/dL (5.7-8.2) Albumin 3.6 g/dL (3.2-4.8) Urine Color Yellow (Yellow) Urine Clarity Turbid (Clear) Urine pH 5.5 (5.0-9.0) Urine Specific [place] 1.028 (1.001-1.035) Urine Protein 1+ (Negative) Urine Ketones Negative (Negative) Urine Blood Trace /uL (Negative) Urine Nitrite Negative (Negative) Urine Bilirubin Negative (Negative) Urine Urobilinogen 2 mg/dL (Negative) Urine Leukocyte Esterase 1+ /uL (Negative) Urine RBC 2 /hpf (0 - 4) Urine Microscopic WBC 6 /HPF (0-5) Urine Squamous Epithelial Cells None seen /hpf (<5) Urine Bacteria Many /hpf (None Seen) Urine Mucus Few (None Seen) Urine Glucose Normal mg/dL (Normal) Test 10/08/24 11:30 Erythrocyte Sedimentation Rate 66 mm/hr (0-20) Hemoglobin A1c 6.2 % A1C (<5.7) C-Reactive Protein High Sensitivity > 20.00 mg/dL (<1.0) Other Laboratory Tests 10/09/24 05:07 Brief Hx & Hospital Course: 79-year-old female with a history of diabetes hypercholesterolemia AFib on Eliquis history of uterine cancer history of kidney stones status post lithotripsy came in for generalized weakness and infection bilateral feet. Patient was started on Rocephin and clindamycin patient also had intractable right knee pain x-ray showed DJD and possible old right proximal tibial fracture. Seen by orthopedic Dr Berg advised conservative management patient also had severe pain in the left shoulder x-ray showed severe DJD changes and orthopedic advised conservative management. A podiatric consult was placed for Dr Tanner is also patient's crime scene specialist. Consult pending Being discharged to half-way facility for IV antibiotics for four weeks and for physical therapy. The patient lives alone in a trailer and has difficulty getting in and out of application trainer because of severe knee pain and physical therapy recommended half-way facility placement for rehab . patient agrees . Consults/Reason for consult None Podiatric Consult for Dr. Tanner pending Operations or Procedures None Condition at Discharge: Fair Final Diagnosis/Problems List Sepsis Secondary to cellulitis of the right foot: Rocephin clindamycin Intractable right knee pain x-ray shows severe DJD with possible old right proximal tibial fracture, CT right knee shows severe DJD ortho consult for Dr. Berg appreciated advised conservative management with pain medications and physical therapy Intractable left shoulder pain x-ray shows severe DJD, Dr. Berg advised conservative management Generalized weakness Mild UTI Diabetes type 2 uncontrolled HIRAL Cellulitis right foot : Consult for patient's crime scene specialist Dr. Tanner Thrombocytopenia Hypercholesterolemia Asthma AFib on Eliquis History of uterine cancer History of kidney stones status post lithotripsy Moderate malnutrition Bilateral lower extremity arterial ultrasound negative for any occlusion Discharge Disposition: Detention Facility Discharge Instruct/Medications Diet: Cardiac 2g Na,low cholest Activity: Light activity Follow Up/Referral: Follow up with the assisted Medications: Rocephin 1 g IV daily for four weeks clindamycin 300 mg IV q.8 hours for 4 weeks 39 (Time taken for discharge summary 39 minutes) Discharge Statement: "Patient was advised to return to the ER or call 911 if any headaches, dizziness, shortness of breath, chest pain, abdominal pain, bleeding, fevers, or worsening of medical condition. Patient was counseled about treatment plan, medications, possible side effects, patientverbalized understanding. All questions were answered to the best of my ability. This discharge took greater then 30 minutes in planning, reviewing documentation, counseling the patient, and discussing with other team members." ASSESSMENT ASSESSMENT Hospital Course Marginally improved Assessment Sepsis Secondary to cellulitis of the right foot: Rocephin clindamycin Intractable right knee pain x-ray shows severe DJD with possible old right proximal tibial fracture, CT right knee shows severe DJD ortho consult for Dr. Berg appreciated advised conservative management with pain medications and physical therapy Intractable left shoulder pain x-ray shows severe DJD, Dr. Berg advised conservative management Generalized weakness Mild UTI Diabetes type 2 uncontrolled HIRAL Cellulitis right foot : Consult for patient's crime scene specialist Dr. Tanner Thrombocytopenia Hypercholesterolemia Asthma AFib on Eliquis History of uterine cancer History of kidney stones status post lithotripsy Moderate malnutrition Bilateral lower extremity arterial ultrasound negative for any occlusion Date of Service: Oct 12, 2024 Billing Provider: PAM GONZALEZ MD Common Visit Codes: 30675-LAQ/OBS DISCH DAY >30min PAM GONZALEZ MD Oct 12, 2024 10:30
--- NOTE | 2024-10-12 11:26 | DVHINCON2 ---
Date of service: Oct 12, 2024 Referring Physician FAB Segal Reason for Consultation Status post healed ulceration sub 5th to the left foot. History of Present Illness This is a 79-year-old white female who I am very familiar with as the patient at my office. The patient apparently has been seen at my office for a chronic nonhealing ulceration which has resolved as of last week without sequela. Apparently the patient on August 03, 2019 had fell and sustained a broken rib and apparently she fell again and sustained injury to her right knee and right hip as well. Patient was admitted for further evaluation and management. Patient has a history of diabetes hypertension AFib with surgical history of amputation 3rd right toe 5th left toe as well and radical hysterectomy as well. Patient was seen at bedside today resting comfortably declining any complaints has no new complaints. Patient apparently will be transferred to [facility] sometime today for rehab. Patient denies nausea vomiting diarrhea or shortness of breath. Past Medical History Diabetes type 2 Hypertension Arthritis AFib High lipids Past Surgical History Amputation of the 5th left toe 3rd right toe Radical hysterectomy Family History: FH: brain cancer G8 MOTHER FH: heart attack G8 FATHER No Family History of: Alcoholism Cancer Cancer of colon Family History Reviewed and is noncontributory to management of this case Social History Denies smoking Denies alcohol use Denies the use of illicit drugs Lives at home Allergies: Coded Allergies: Codeine (Verified Allergy, Mild, 03/10/17) Penicillins (Verified Allergy, Mild, 03/10/17) Tetanus Toxoid (Verified Allergy, Unknown, 03/10/17) SWELLING Uncoded Allergies: TAPE (Allergy, Unknown, 10/18/10) Home Meds Active Scripts Apixaban Base (ELIQUIS) 5 Mg Tab, 5 MG PO BID, #180 TAB Prov:PAM GONZALEZ MD 07/12/24 Reported Medications Glyburide-Metformin (Glucovance) 1 Tab Tab, 2 TAB PO BID 10/18/10 Review of Systems For history of present illness otherwise negative Vital Signs Vital Signs Date Time Temp Pulse Resp B/P (MAP) Pulse Ox O2 Delivery O2 Flow Rate FiO2 10/12/24 09:00 97.5 76 16 128/46 (73) 95 97.5 10/12/24 08:00 Room Air* 0 21 Physical Exam General Appearance: Alert, Oriented X3, Cooperative, mild distress HEENT: Atraumatic, PERRLA, EOMI, Mucous membr. moist/pink Respiratory: Normal air movement Cardiovascular: Normal S1, Normal S2, No murmurs Abdominal: Soft Extremities: Normal pulses, healed ulcer with good stable scab formation noted to the sub 5th left foot. Dp/PT +2/4 bilaterally, CFT 3 seconds, No focal deficit noted. Neuro: Normal speech, Sensation intact Psych/Mental Status: Mental status NL, Mood NL Arterial study BLE is WNL. no significant stenosis noted BLE. Labs/Diagnostic Data Labs Test 10/12/24 06:18 10/11/24 18:39 10/09/24 05:07 10/08/24 13:50 Range/Units POC Glucose 118 H 70-106 mg/dl SARS-CoV-2 Antigen (Rapid) Negative NEGATIVE White Blood Count 11.6 H 4.4-10.8 10^3/uL Red Blood Count 4.57 4.0-5.20 10^6/uL Hemoglobin 12.6 12.2-16.2 g/dL Hematocrit 39.2 36.0-46.0 % Mean Corpuscular Volume 85.7 80.0-100.0 fL Mean Corpuscular Hemoglobin 27.5 L 28.0-32.0 pg Mean Corpuscular Hemoglobin Concent 32.1 32.0-36.0 g/dL Red Cell Distribution Width 16.2 H 11.8-14.3 % Platelet Count 97 L 140-450 10^3/uL Mean Platelet Volume 9.2 6.9-10.8 fL Neutrophils (%) (Auto) 89.6 H 37.0-80.0 % Lymphocytes (%) (Auto) 4.3 L 10.0-50.0 % Monocytes (%) (Auto) 5.8 0.0-12.0 % Eosinophils (%) (Auto) 0.2 0.0-7.0 % Basophils (%) (Auto) 0.1 0.0-2.0 % Neutrophils # (Auto) 10.4 H 1.6-8.6 10 ^3/uL Lymphocytes # (Auto) 0.5 0.4-5.4 10 ^3/uL Monocytes # (Auto) 0.7 0-1.3 10 ^3/uL Eosinophils # (Auto) 0 0-0.8 10 ^3/uL Basophils # (Auto) 0 0-0.2 10 ^3/uL Nucleated Red Blood Cells 0.1 % Sodium Level 133 L 136-145 mmol/L Potassium Level 4.4 3.5-5.1 mmol/L Chloride Level 104 98-107 mmol/L Carbon Dioxide Level 20 20-31 mmol/L Anion Gap 9 5-15 Blood Urea Nitrogen 41 H 9-23 mg/dL Creatinine 0.99 0.550-1.02 mg/dL Glomerular Filtration Rate Calc 58 >90 mL/min BUN/Creatinine Ratio 41.4 H 10.0-20.0 Serum Glucose 146 H 74-106 mg/dL Calcium Level 9.4 8.7-10.4 mg/dL Total Bilirubin 0.7 0.2-1.0 mg/dL Aspartate Amino Transferase (AST) 25 13-40 U/L Alanine Aminotransferase (ALT) 12 7-40 U/L Alkaline Phosphatase 115 46-116 U/L Total Protein 6.2 5.7-8.2 g/dL Albumin 3.6 3.2-4.8 g/dL Urine Color Yellow Yellow Urine Clarity Turbid H Clear Urine pH 5.5 5.0-9.0 Urine Specific [place] 1.028 1.001-1.035 Urine Protein 1+ H Negative Urine Ketones Negative Negative Urine Blood Trace H Negative /uL Urine Nitrite Negative Negative Urine Bilirubin Negative Negative Urine Urobilinogen 2 H Negative mg/dL Urine Leukocyte Esterase 1+ Negative /uL Urine RBC 2 0 - 4 /hpf Urine Microscopic WBC 6 H 0-5 /HPF Urine Squamous Epithelial Cells None seen <5 /hpf Urine Bacteria Many H None Seen /hpf Urine Mucus Few None Seen Urine Glucose Normal Normal mg/dL Test 10/08/24 11:30 Range/Units Erythrocyte Sedimentation Rate 66 H 0-20 mm/hr Hemoglobin A1c 6.2 H <5.7 % A1C C-Reactive Protein High Sensitivity > 20.00 H <1.0 mg/dL Assessment Healed ulceration sub 5th left foot. Intractable right knee pain Intractable left shoulder pain Generalized weakness ?Degenerative joint disease Leukocytosis likely due to UTI Diabetes type 2 uncontrolled HIRAL Thrombocytopenia History of hyperlipidemia History of asthma History of AFib on Eliquis History of arthritis History of cancer History of peripheral neuropathy History of lithotripsy History of appendectomy History of bilateral cataract removal History of hysterectomy History of hernia repair History of right 3rd toe amputation History of bone spurs Plan/Recommendation The patient is advised to continue to offload the left foot prevent any further exacerbations. The patient will be transferred today to [facility] for rehab. The patient will schedule an appointment at my office upon discharge from the facility. All questions and concerns were answered trot he patient's satisfaction. Thank you for your consultation. Plan discussed with: Patient ROSIBEL LR DPM Oct 12, 2024 11:26
[2024-10-12 13:00] VITALS: BP 120/68; PULSE 70; RESP 18; TEMP 97.4; O2SAT 98
[2024-10-12] MEDS ORDERED: ALBUTEROL SULF 2.5 MG/0.5ML(0.5%) NEB SOLN NEB PRN (13:45)
== END 2024-10-12 17:45 | DRG 872 ==
LOC: ER 11:05 → EDBD 11:05 → OVERFLOW 16:23 → WEST WING 17:14
PROVIDERS: ADMIT Family Medicine; ATTEND Family Medicine
PROC: 05HD33Z Insertion of Infusion Device into Right Cephalic Vein, Percutaneous Approach (ICD-10-PCS; principal; 2024-10-12)
PROC: B54MZZA Ultrasonography of Right Upper Extremity Veins, Guidance (ICD-10-PCS; 2024-10-12)
DX: A41.9 Sepsis, unspecified organism (principal); N17.9 Acute kidney failure, unspecified; N39.0 Urinary tract infection, site not specified; E44.0 Moderate protein-calorie malnutrition; L03.115 Cellulitis of right lower limb; J45.909 Unspecified asthma, uncomplicated; I48.91 Unspecified atrial fibrillation; E11.65 Type 2 diabetes mellitus with hyperglycemia; M17.11 Unilateral primary osteoarthritis, right knee; I10 Essential (primary) hypertension; Z20.822 Contact with and (suspected) exposure to COVID-19; E78.00 Pure hypercholesterolemia, unspecified; M19.012 Primary osteoarthritis, left shoulder; E11.42 Type 2 diabetes mellitus with diabetic polyneuropathy; D69.6 Thrombocytopenia, unspecified; Z68.39 Body mass index [BMI] 39.0-39.9, adult; Z88.0 Allergy status to penicillin; Z88.5 Allergy status to narcotic agent; Z91.048 Other nonmedicinal substance allergy status; Z79.84 Long term (current) use of oral hypoglycemic drugs; Z79.01 Long term (current) use of anticoagulants; Z79.899 Other long term (current) drug therapy; Z90.49 Acquired absence of other specified parts of digestive tract; Z90.710 Acquired absence of both cervix and uterus; Z89.421 Acquired absence of other right toe(s); Z85.42 Personal history of malignant neoplasm of other parts of uterus; Z82.49 Family history of ischemic heart disease and other diseases of the circulatory system; Z80.8 Family history of malignant neoplasm of other organs or systems; Z80.0 Family history of malignant neoplasm of digestive organs; Z98.42 Cataract extraction status, left eye; Z98.41 Cataract extraction status, right eye; Z87.442 Personal history of urinary calculi
CPT/HCPCS: 36415; 71045; 73030; 73560; 73700; 80048; 80053; 81001; 82962; 83036; 85025; 85652; 86141; 87426; 93005; 93926; 96365; 97110; 97163; 97530; G0378; J3490

== ENCOUNTER 2024-12-02 12:21 | Inpatient (IN) | payer MEDICARE, MEDICAID ==
[~2024-12-02] VITALS: Ht 167.6 cm; Wt 103.0 kg
--- NOTE | 2024-12-02 12:54 | ED.PDOC ---
History of Present Illness HPI Comments 71-year-old female brought in by ambulance with no prior history associated with a chief complaint of bed sore. EMS informed us that the patient was sent from [facility]. EMS state that the nurses at the facility informed that the patient stated that she did not want to go but the nurses convinced the patient to go to the ER. Nurses that the to EMS that the been sore is getting worse but the patient is in denial. EMS note the pain of the that sore was a 0/10 at the facility but when they moved the pt from the facility bed to in the EMS gurney it jumped to a 10/10. Patient states that she does not want people to touch or clean the bed sore. Denies chills, fever, N/V/D, SOB, CP. No other associated symptoms, modifiers, recent injuries or sick contacts present at this time. Chief Complaint: Wound Check Time Seen by MD: 12:25 Primary Care Provider: Francisca Reviewed Notes: Nurses Notes, Yardage Caller Notes, Medications, Allergies Allergies: Coded Allergies: Codeine (Verified Allergy, Mild, 03/10/17) Penicillins (Verified Allergy, Mild, 03/10/17) Tetanus Toxoid (Verified Allergy, Unknown, 03/10/17) SWELLING Uncoded Allergies: TAPE (Allergy, Unknown, 10/18/10) Home Meds Active Scripts Apixaban Base (ELIQUIS) 5 Mg Tab, 5 MG PO BID, #180 TAB Prov:PAM GONZALEZ MD 07/12/24 Reported Medications Glyburide-Metformin (Glucovance) 1 Tab Tab, 2 TAB PO BID 10/18/10 Information Source: Patient, Emergency Med Personnel Mode of Arrival: EMS Severity: Moderate Timing: Came on: Gradually Duration: Since onset Prehospital treatment: None Past Medical History PAST MEDICAL HISTORY: Denies Surgical History: Denies all surgeries SLAB WORKER History: No Pertinent SLAB WORKER History Family History Family History: Reviewed,noncontributory to illness, Unknown Social History Smoker: Non-Smoker Alcohol: Denies ETOH Use Drugs: Denies Drug Use Lives In: Home Constitutional: reports: others (Bed sore); denies: chills, diaphoresis, fatigue, fever, malaise, sweats, weakness EENTM: denies: blurred vision, double vision, ear bleeding, ear discharge, ear drainage, ear pain, ear ringing, eye pain, eye redness, hearing loss, mouth pain, mouth swelling, nasal discharge, nose bleeding, nose congestion, nose pain, photophobia, tearing, throat pain, throat swelling, voice changes, others Respiratory: denies: cough, hemoptysis, orthopnea, SOB at rest, shortness of breath, SOB with excertion, stridor, wheezing, others Cardiovascular: denies: chest pain, dizzy spells, diaphoresis, Dyspnea on exertion, edema, irregular heart beat, left arm pain, lightheadedness, palpitations, PND, syncope, others Gastrointestinal: denies: abdomen distended, abdominal pain, blood streaked bowels, constipated, diarrhea, dysphagia, difficulty swallowing, hematemesis, melena, nausea, poor appetite, poor fluid intake, rectal bleeding, rectal pain, vomiting, others Genitourinary: denies: abnormal vagina bleeding, burning, dyspareunia, dysuria, flank pain, frequency, hematuria, incontinence, pain, , vagina discharge, urgency, others Neurological: denies: dizziness, fainting, headache, left sided numbness, left sided weakness, numbness, paresthesia, pre-existing deficit, right sided n umbness, right sided weakness, seizure, speech problems, tingling, tremors, weakness, others Musculoskeletal: denies: back pain, gout, joint pain, joint swelling, muscle pain, muscle stiffness, neck pain, others Integumetry: denies: bruises, change in color, change in hair/nails, dryness, laceration, lesions, lumps, rash, wounds, others Allergic/Immunocompromised: denies: Difficulty Healing, Frequent Infections, Hives, Itching, others Hematologic/Lymphatic: denies: anemia, blood clots, easy bleeding, easy bruising, swollen glands, others Endocrine: denies: excessive hunger, excessive sweating, excessive thirst, excessive urination, flushing, intolerance to cold, intolerance to heat, unexplained weight gain, unexplained weight loss, others Psychiatric: denies: anxiety, bipolar disorder, depression, hopeless, panic disorder, schizophrenia, sleepless, suicidal, others All Other Systems: Reviewed and Negative Physical Exam General Appearance: No Apparent Distress, Normal HEENT: Normal ENT Inspection, Pharynx Normal, TMs Normal Neck: Full Range of Motion, Non-Tender, Normal, Normal Inspection Respiratory: Chest Non-Tender, Lungs Clear, No Accessory Muscle Use, No Respiratory Distress, Normal Breath Sounds Cardiovascular: No Edema, No JVD, No Murmur, No Gallop, Normal Peripheral Pulses, Regular Rate/Rhythm Breast Exam: Deferred Gastrointestinal: No Organomegaly, Non Tender, No Pulsatile Mass, Normal Bowel Sounds, Soft Genitalia: Deferred Pelvic: Deferred Rectal: Deferred Extremities: No calf tenderness, Normal capillary refill, Normal inspection, Normal range of motion, Non-tender, No pedal edema Musculoskeletal : Apperance: Normal Neurologic: Alert, refrigeration person II-XII nml as Tested, No Motor Deficits, Normal Affect, Normal Mood, No Sensory Deficits Cerebellar Function: Normal Reflexes: Normal Skin: Dry, Normal Color, Warm, Wounds (Large buttock wound) Lymphatic: No Adenopathy Was a procedure done? Was a procedure done?: No Differential Dx Considerations may include: Nonhealing wound, worsening cellulitis, generalized weakness X-Ray, Labs, Meds, VS Vital Signs Date Time Temp Pulse Resp B/P (MAP) Pulse Ox O2 Delivery O2 Flow Rate FiO2 12/02/24 14:30 97.9 104 19 122/69 (86) 99 97.9 12/02/24 14:30 104 19 99 Room Air* 0 21 12/02/24 12:37 97.0 98 18 140/90 (107) 100 97.0 Lab Test 12/02/24 13:10 Range/Units White Blood Count 6.6 4.4-10.8 10^3/uL Red Blood Count 4.47 4.0-5.20 10^6/uL Hemoglobin 12.4 12.2-16.2 g/dL Hematocrit 37.9 36.0-46.0 % Mean Corpuscular Volume 84.7 80.0-100.0 fL Mean Corpuscular Hemoglobin 27.6 L 28.0-32.0 pg Mean Corpuscular Hemoglobin Concent 32.6 32.0-36.0 g/dL Red Cell Distribution Width 16.5 H 11.8-14.3 % Platelet Count 179 140-450 10^3/uL Mean Platelet Volume 7.5 6.9-10.8 fL Neutrophils (%) (Auto) 73.5 37.0-80.0 % Lymphocytes (%) (Auto) 17.1 10.0-50.0 % Monocytes (%) (Auto) 8.8 0.0-12.0 % Eosinophils (%) (Auto) 0.3 0.0-7.0 % Basophils (%) (Auto) 0.3 0.0-2.0 % Neutrophils # (Auto) 4.9 1.6-8.6 10 ^3/uL Lymphocytes # (Auto) 1.1 0.4-5.4 10 ^3/uL Monocytes # (Auto) 0.6 0-1.3 10 ^3/uL Eosinophils # (Auto) 0 0-0.8 10 ^3/uL Basophils # (Auto) 0 0-0.2 10 ^3/uL Nucleated Red Blood Cells 0.1 % Sodium Level 135 L 136-145 mmol/L Potassium Level 3.9 3.5-5.1 mmol/L Chloride Level 100 98-107 mmol/L Carbon Dioxide Level 25 20-31 mmol/L Anion Gap 10 5-15 Blood Urea Nitrogen 16 9-23 mg/dL Creatinine 0.74 0.550-1.02 mg/dL Glomerular Filtration Rate Calc 83 >90 mL/min BUN/Creatinine Ratio 21.6 H 10.0-20.0 Serum Glucose 76 74-106 mg/dL Lactic Acid Level 1.7 0.4-2.0 mmol/L Calcium Level 9.4 8.7-10.4 mg/dL Time of 1ST Reevaluation: 12:55 Reevaluation 1ST: Unchanged Patient Education/Counseling: Diagnosis, Treatment, Prognosis Family Education/Counseling: No Family Present Departure 1 Departure Time of Disposition: 16:18 (Patient presents with worsening pain to her buttock ulcer. We will empirically cover patient is still with antibiotics and admit patient for further workup) Impression: Primary Impression: Decubitus ulcer Qualified Codes: L89.323 - Pressure ulcer of left buttock, stage 3 Disposition: ADMITTED INPATIENT Admit to: Med Surg Condition: Serious Critical Care Note Critical Care Time?: No Stability Stability form required: No I personally scribed for CINTIA MENENDEZ MD ([email or web address]) on 12/02/24 at 12:54. Electronically submitted by Reginald Peterson ([email or web address]). CINTIA MENENDEZ MD December 02, 2024 12:54
[2024-12-02 13:24] LABS: Basophils # (auto) 0 10 ^3/uL (0-0.2); Basophils % (auto) 0.3 % (0.0-2.0); Eosinophils # (auto) 0 10 ^3/uL (0-0.8); Eosinophils % (auto) 0.3 % (0.0-7.0); Hematocrit 37.9 % (36.0-46.0); Hemoglobin 12.4 g/dL (12.2-16.2); Lymphocytes # (auto) 1.1 10 ^3/uL (0.4-5.4); Lymphocytes % (auto) 17.1 % (10.0-50.0); Mean Corpuscular Hemoglobin 27.6 pg (28.0-32.0); Mean Corpuscular Hgb Conc. 32.6 g/dL (32.0-36.0); Mean Corpuscular Volume 84.7 fL (80.0-100.0); Monocytes # (auto) 0.6 10 ^3/uL (0-1.3); Monocytes % (auto) 8.8 % (0.0-12.0); Neutrophils # (auto) 4.9 10 ^3/uL (1.6-8.6); Neutrophils % (auto) 73.5 % (37.0-80.0); Nucleated Red Blood Cells % 0.1 %; Platelet Count (auto) 179 10^3/uL (140-450); Red Blood Cells 4.47 10^6/uL (4.0-5.20); Red Cell Distribution Width 16.5 % (11.8-14.3); White Blood Cell 6.6 10^3/uL (4.4-10.8)
[2024-12-02 13:39] LABS: Chloride 100 mmol/L (98-107); Potassium 3.9 mmol/L (3.5-5.1)
[2024-12-02 13:40] LABS: Anion Gap 10 (5-15); Calcium 9.4 mg/dL (8.7-10.4); Carbon Dioxide 25 mmol/L (20-31)
[2024-12-02 13:41] LABS: Sodium 135 mmol/L (136-145)
[2024-12-02 13:45] LABS: BUN/Creatinine Ratio 21.6 (10.0-20.0); Blood Urea Nitrogen 16 mg/dL (9-23); Glucose 76 mg/dL (74-106)
[2024-12-02 14:30] VITALS: PULSE 104; RESP 19; O2SAT 99
[2024-12-02] MEDS: MORPHINE SULFATE 4 MG/ML SYR/VIAL IV ONE (16:50)
[2024-12-02] MEDS: VANCOMYCIN 1GM/200ML PM 200 ML IV ONE (16:52)
[2024-12-02] MEDS: SODIUM CHLORIDE 0.9% 1,000 ML IV ONE ×2 (16:53→22:36)
[2024-12-02] MEDS: IOHEXOL 300 MG/ML 100ML BOTTLE IJ ONE (17:04)
--- NOTE | 2024-12-02 17:54 | DVH ---
Exam: CT CT AB PEL WITH IV CON ONLY History: worsening gluteal wound Comparison Study: None Contrast: Type of contrast: Omnipaque 300 Contrast injected: 100 mL Contrast wasted: 0 TECHNIQUE: A digital director epidemiology image was obtained. During the uneventful, intravenous administration of c ontrast material, multislice data acquisition was obtained through the abdomen and pelvis. The data s et was subsequently reconstructed into axial images. Images were reviewed on a work station using a c ombination of axial and multiplanar using a variety of window levels and settings. Radiation Dose Information: CT Dose: CTDI volume is 26.54 mGy. Dose-length product is 1485.51 mGy*cm FINDINGS: Lung Bases: No acute or significant lung base finding. Normal heart size. No pleural or pericardial effusion. Liver: The liver is normal in size. No focal lesions. Normal hepatic vascular enhancement. Gallbladder and Biliary Tree: Calcified gallstones Spleen: Unremarkable Pancreas: The pancreas is normal in appearance without focal lesions or abnormal enhancement. Adrenal Glands: Unremarkable Kidneys: 9 mm nonobstructing calculus right kidney Bladder: Unremarkable Bowel: The stomach is grossly normal in appearance. Small bowel and colon are normal in caliber and d istribution. The appendix is not visualized; however, no secondary findings of acute appendicitis gregory ntified. Ascites: Absent Lymphadenopathy: No mesenteric, retroperitoneal or periportal lymphadenopathy. Abdominal Wall and Mesentery: Unremarkable. Vasculature: The visualized abdominal aorta is normal in size and caliber. Abdominal and pelvic vess els demonstrate normal enhancement. Pelvic Organs: Unremarkable Musculoskeletal: No aggressive focal bony lesions, acute fractures or dislocation. Soft tissues: Ulceration in the skin in the right gluteal region surrounding subcutaneous edema and i nflammatory changes. Measures a proximally 17 mm in depth 27 mm in width. There is gas noted in the soft tissues series 2 images 82- 85 IMPRESSION: 1. Disruption of the skin in the right gluteal area with surrounding inflammatory changes in subcutan eous tissues approximately 17 mm in depth and 27 mm in width. There are several small bubbles of air in the adjacent soft tissues suggesting infection; series 2, images 82--85. 2. Cholelithiasis 3. 9 mm nonobstructing calculus right kidney. All CT scans at this medical facility are performed using dose modulation techniques as appropriate t o a performed exam including the following: Automated exposure control was utilized; adjustment of th e MA and/or KV according to patient size; and use of iterative reconstruction technique.
--- NOTE | 2024-12-02 22:32 | DVHHP2 ---
History of Present Illness History of Present Illness Patient is 79 years old female with a past medical history of asthma, diabetes mellitus type 2, hyperlipidemia, atrial fibrillation on Eliquis, bedsore, uterine cancer, kidney stone, neuropathy was brought in from [facility] due to worsening bedsore. As per patient she has been having basilar for a while, which got worse. Patient also reported pain in the back 04/29. Patient reported she had wound debridement 2 weeks before at the facility. Even after that she had ongoing back pain. On further inquiry patient reported dysuria for last couple of days. Patient denied any fever, chest pain, short of breath, dysarthria or change in vision. Of the abdomen and pelvis with contrast revealed-1. Disruption of the skin in the right gluteal area with surrounding inflammatory changes in subcutaneous tissues approximately 17 mm in depth and 27 mm in width. There are several small bubbles of air in the adjacent soft tissues suggesting infection; series 2, images 82--85.. Cholelithiasis. 9 mm nonobstructing calculus right kidney. Past Medical History asthma, diabetes mellitus type 2, hyperlipidemia, atrial fibrillation on Eliquis, bedsore, uterine cancer, kidney stone, neuropathy Review of Systems Review of Systems Allergy- codeine, penicillin, tape, tetanus toxoid Patient was seen today at the bedside. Cardiovascular- deny acute chest pain or shortness of breath or cough or palpitation Respiratory denies cough or short of breath or wheezing Gastrointestinal- denies any rectal bleeding, nausea or vomiting Musculoskeletal-lower extremity pain, right knee swollen Neurological- denies acute dysarthria, dysphagia, change in vision Psychiatry- denies depression or SI or HI Skin- denies acute rash or purpura Allergies: Coded Allergies: Codeine (Verified Allergy, Mild, 03/10/17) Penicillins (Verified Allergy, Mild, 03/10/17) Tetanus Toxoid (Verified Allergy, Unknown, 03/10/17) SWELLING Uncoded Allergies: TAPE (Allergy, Unknown, 10/18/10) Exam Vital Signs Vital Signs Date Time Temp Pulse Resp B/P (MAP) Pulse Ox O2 Delivery O2 Flow Rate FiO2 12/02/24 19:30 Room Air* 0 N/A Nasal Cannula* 12/02/24 19:30 97.9 104 16 93/51 (65) 99 97.9 Exam General examination- awake, alert, oriented conversant HEENT- PEERLA, no acute nasal discharge Cardiovascular- S1-S2 audible, rate and rhythm regular, no murmur Respiratory- CTAB, no wheeze or rhonchi Gastrointestinal-nontender, bowel sound+. Nondistended Musculoskeletal-stage IV wound on the right gluteal to part of the left gluteal region of the sacral area, parasacral is skin redness and erythematous Lower extremity- right lower food pigmentation, right knee swollen, red, warm, tender to touch Neurological- cranial nerves intact, no acute dysarthria or dysphagia Psychiatry- denies depression or SI or HI Skin- no acute rash or purpura Labs/Xrays Labs Test 12/02/24 13:10 Range/Units White Blood Count 6.6 4.4-10.8 10^3/uL Red Blood Count 4.47 4.0-5.20 10^6/uL Hemoglobin 12.4 12.2-16.2 g/dL Hematocrit 37.9 36.0-46.0 % Mean Corpuscular Volume 84.7 80.0-100.0 fL Mean Corpuscular Hemoglobin 27.6 L 28.0-32.0 pg Mean Corpuscular Hemoglobin Concent 32.6 32.0-36.0 g/dL Red Cell Distribution Width 16.5 H 11.8-14.3 % Platelet Count 179 140-450 10^3/uL Mean Platelet Volume 7.5 6.9-10.8 fL Neutrophils (%) (Auto) 73.5 37.0-80.0 % Lymphocytes (%) (Auto) 17.1 10.0-50.0 % Monocytes (%) (Auto) 8.8 0.0-12.0 % Eosinophils (%) (Auto) 0.3 0.0-7.0 % Basophils (%) (Auto) 0.3 0.0-2.0 % Neutrophils # (Auto) 4.9 1.6-8.6 10 ^3/uL Lymphocytes # (Auto) 1.1 0.4-5.4 10 ^3/uL Monocytes # (Auto) 0.6 0-1.3 10 ^3/uL Eosinophils # (Auto) 0 0-0.8 10 ^3/uL Basophils # (Auto) 0 0-0.2 10 ^3/uL Nucleated Red Blood Cells 0.1 % Sodium Level 135 L 136-145 mmol/L Potassium Level 3.9 3.5-5.1 mmol/L Chloride Level 100 98-107 mmol/L Carbon Dioxide Level 25 20-31 mmol/L Anion Gap 10 5-15 Blood Urea Nitrogen 16 9-23 mg/dL Creatinine 0.74 0.550-1.02 mg/dL Glomerular Filtration Rate Calc 83 >90 mL/min BUN/Creatinine Ratio 21.6 H 10.0-20.0 Serum Glucose 76 74-106 mg/dL Lactic Acid Level 1.7 0.4-2.0 mmol/L Calcium Level 9.4 8.7-10.4 mg/dL Assessment/Plan Assessment/Plan Assessment and plan Infected stage IV right gluteal and partial left gluteal ulcer, Stage I sacral ulcer Suspected Sepsis Suspected UTI Hypokalemia-supplemented asthma, diabetes mellitus type 2, hyperlipidemia, atrial fibrillation on Eliquis, uterine cancer, kidney stone, neuropathy Plan Ordered surgery consult Ordered wound consult Ordered blood culture, wound culture, urine culture Ordered ceftriaxone and vancomycin Insulin sliding scale mild Atorvastatin 40 mg p.o. q.h.s. Supplemented for hypokalemia Ordered IV normal saline Pending UA report Ordered surgery consult Goals of care, Code status ; discussed with >15 minutes PUD prophylaxis: Pantoprazole DVT prophylaxis: Eliquis Plan discussed with Dr. Hammond , nursing staff, Total time spent on patient evaluation, chart review, assessment and plan, discussion discussion >35 minutes Plan discussed with: Patient, Other (RN) My Orders Orders - JEFFREY SANCHEZ Procedure Category Date Status Time Admit ADMIT 12/02/24 Transmitted 22:26 Notify Of Changes [facility] 12/02/24 In Process From Base 22:26 Urinalysis LAB 12/02/24 Logged 22:28 Wound Culture W/ Gs SILVIA 12/02/24 Logged 22:28 Urine Bacterial SILVIA 12/02/24 Logged Culture 22:28 * Wound Consult CONS 12/02/24 Transmitted NS PHA 12/02/24 Transmitted 22:30 NS PHA 12/02/24 Transmitted 22:30 Date of Service: December 02, 2024 Billing Provider: NATALEE HAMMOND MD Common Visit Codes: [id number] INP/OBS CARE (HIGH) Secondary Visit Codes: [id number] CARE PLAN 30 MINUTES JEFFREY SANCHEZ December 02, 2024 22:32
[2024-12-03] MEDS: SODIUM CHLORIDE 0.9% 1,000 ML IV SCH (00:25)
[2024-12-03] MEDS ORDERED: MORPHINE SULFATE INJ 2 MG/ml SYRG IV PRN (01:15)
[2024-12-03] MEDS ORDERED: VANCOMYCIN PER PHARMACY 0 MG IV SCH (01:15)
[2024-12-03] MEDS: PANTOPRAZOLE 40 MG TAB PO ONE (01:23)
[2024-12-03] MEDS: ACETAMINOPHEN 325 MG TAB PO PRN (01:23)
[2024-12-03] MEDS ORDERED: DEXTROSE (50%) 50ML SYRG IV PRN (01:30)
[2024-12-03] MEDS: cefTRIAXone 1GM/50ML D5W 50 ML IV ONE (01:45)
[2024-12-03] MEDS: SODIUM CHLORIDE 0.9% 500 ML IV ONE (03:15)
[2024-12-03 03:53] VITALS: PULSE 102; RESP 17; O2SAT 84
--- NOTE | 2024-12-03 05:19 | DVH ---
EXAM: XY R KNEE 2V XRAY HISTORY: pain, redness, swelling COMPARISON: XY R KNEE 2V XRAY on DOS: 10/08/24 TECHNIQUE: AP and lateral views of the right knee were performed. FINDINGS: No acute fracture is identified about the right knee. Medial and lateral compartment joint space linda rowing and periarticular osteophytes. [id number] contact in the medial compartment. Soft tissue swe lling in the suprapatellar. IMPRESSION: No acute fracture or dislocation. Severe osteoarthrosis. Soft tissue swelling. If there is concern for infection, recommend MRI of the right knee without and with intravenous contrast.
[2024-12-03] MEDS: GABAPENTIN 100 MG CAP PO SCH (06:00)
[2024-12-03] MEDS: PANTOPRAZOLE 40 MG TAB PO SCH (06:05)
[2024-12-03 06:11] LABS: COVID19 ANTIGEN SOFIA FIA NEGATIVE (NEGATIVE); Rapid Influenza A Negative (Negative); Rapid Influenza B Negative (Negative)
[2024-12-03 06:24] LABS: Basophils # (auto) 0 10 ^3/uL (0-0.2); Basophils % (auto) 0.2 % (0.0-2.0); Eosinophils # (auto) 0.1 10 ^3/uL (0-0.8); Eosinophils % (auto) 0.7 % (0.0-7.0); Hemoglobin 11.9 g/dL (12.2-16.2); Lymphocytes # (auto) 1.2 10 ^3/uL (0.4-5.4); Lymphocytes % (auto) 15.3 % (10.0-50.0); Mean Corpuscular Hemoglobin 28.1 pg (28.0-32.0); Mean Corpuscular Hgb Conc. 32.9 g/dL (32.0-36.0); Mean Corpuscular Volume 85.3 fL (80.0-100.0); Monocytes # (auto) 0.5 10 ^3/uL (0-1.3); Monocytes % (auto) 6.5 % (0.0-12.0); Neutrophils % (auto) 77.3 % (37.0-80.0); Platelet Count (auto) 180 10^3/uL (140-450); Red Blood Cells 4.22 10^6/uL (4.0-5.20); Red Cell Distribution Width 16.5 % (11.8-14.3); White Blood Cell 7.7 10^3/uL (4.4-10.8)
[2024-12-03 06:43] LABS: Alkaline Phosphatase 78 U/L (46-116); Anion Gap 8 (5-15); BUN/Creatinine Ratio 17.3 (10.0-20.0); Blood Urea Nitrogen 13 mg/dL (9-23); Calcium 9.1 mg/dL (8.7-10.4); Carbon Dioxide 24 mmol/L (20-31); Chloride 106 mmol/L (98-107); Sodium 138 mmol/L (136-145)
[2024-12-03 06:48] LABS: Alanine Aminotransferase < 9 U/L (7-40); Albumin 3.1 g/dL (3.2-4.8); Aspartate Aminotransferase 13 U/L (13-40); Glucose 73 mg/dL (74-106); Magnesium 1.5 mg/dL (1.6-2.6); Potassium 3.3 mmol/L (3.5-5.1)
[2024-12-03] MEDS: InsuLIN REG 1unit/0.01ml Soln (100units/ml) SC SCH (07:00)
[2024-12-03] MEDS: ACCU-CHEK COMFORT CURVE STRIP VI SCH (07:01)
[2024-12-03 07:02] LABS: Uric Acid 3.8 mg/dL (3.1-7.8)
[2024-12-03 07:30] VITALS: PULSE 81; RESP 13; O2SAT 97
[2024-12-03] MEDS: MAGNESIUM SULFATE 1GM/100ML 100 ML IV ONE (08:10)
[2024-12-03] MEDS: POTASSIUM CHL 20 Meq TABLET PO ONE (08:10)
[2024-12-03] MEDS: ASPirin 81 mg TAB PO SCH (10:00)
[2024-12-03] MEDS: APIXABAN 5 MG TAB PO SCH (10:00)
[2024-12-03] MEDS ORDERED: HEPARIN SODIUM (PORCINE) 5000 UNITS/ML 1ML VIAL SC SCH (10:00)
[2024-12-03] MEDS: cefTRIAXone 1GM/50ML D5W 50 ML IV SCH (11:10)
[2024-12-03] MEDS: metroNIDAZOLE 500MG/100ML 100 ML IV ONE (11:41)
[2024-12-03] MEDS: metroNIDAZOLE 500MG/100ML 100 ML IV SCH (14:06)
--- NOTE | 2024-12-03 14:21 | DVHPNRES ---
Progress Note Date Seen: December 03, 2024 Resident Creating Document: MILO OSWALD RESIDENT Has the PT tested + for MRSA If YES, has PT been informed?: No Medical Necessity Reason Pt with a Central, PICC or Fol: No Subjective Review of Systems UDAY CROWELL is 79 years old female with a past medical history of asthma, diabetes mellitus type 2, hyperlipidemia, atrial fibrillation on Eliquis, bedsore, uterine cancer, kidney stone, neuropathy was brought in from [facility] due to worsening bedsore. As per patient she has been having basilar for a while, which got worse. Patient also reported pain in the back 04/29. Patient reported she had wound debridement 2 weeks before at the facility. Even after that she had ongoing back pain. On further inquiry patient reported dysuria for last couple of days. Patient denied any fever, chest pain, short of breath, dysarthria or change in vision. Patient seen and examined at the bedside. Patient seen and examined at the bedside. Patient currently reporting mild pain and refusing wound care. Currently on IV antibiotics. Objective vital signs Vital Sign Date Time Temp Pulse Resp B/P (MAP) Pulse Ox O2 Delivery O2 Flow Rate FiO2 12/03/24 12:00 98.0 89 11 136/68 (90) 95 98.0 12/03/24 07:30 Room Air* 0 21 Total Intake and Output 12/02/24 12/02/24 12/03/24 15:00 23:00 07:00 Intake Total 2425 ml Balance 2425 ml medications Current Medications Medications Dose Ordered Sig/Ladan Route Start Time Stop Time Status Last Admin Dose Admin Sodium Chloride 1,000 ml @ 125 mls/hr Q8H IV 12/02/24 22:30 12/03/24 05:58 125 MLS/HR Morphine Sulfate 1 mg Q4HP PRN IV 12/03/24 01:15 Acetaminophen 650 mg Q6HP PRN PO 12/03/24 01:15 12/03/24 01:23 650 MG Ceftriaxone Sodium 50 ml @ 100 mls/hr DAILY@09 IV 12/03/24 09:00 12/03/24 11:10 100 MLS/HR Vancomycin HCl 0 ml @ 0 mls/hr UD IV 12/03/24 01:15 Pantoprazole Sodium 40 mg DAILY@0600 PO 12/03/24 06:00 Apixaban 5 mg BID PO 12/03/24 10:00 Diagnostic Test (Pha) 1 strip ACHS 12/03/24 07:00 12/03/24 11:39 1 STRIP Insulin Human Regular ACHS SC 12/03/24 07:00 Dextrose 50 ml UD PRN IV 12/03/24 01:30 Gabapentin 100 mg TID PO 12/03/24 06:00 Atorvastatin Calcium 40 mg HS PO 12/03/24 22:00 Aspirin 81 mg DAILY PO 12/03/24 10:00 Metronidazole 100 ml @ 100 mls/hr Q8HR IV 12/03/24 14:00 12/03/24 14:06 100 MLS/HR Examination Pt is lying on bed General Appearance: Alert, Oriented X3, Cooperative, Not in acute distress HEENT: Atraumatic, Mucous membranes moist/pink Respiratory: Clear to auscultation, Normal air movement, No added sounds Cardiovascular: Regular rate, Normal S1, Normal S2, No murmurs Abdominal/Trunk: Active bowel sounds, Soft, no distention, no tenderness,stage IV wound on the right gluteal to part of the left gluteal region of the sacral area, parasacral is skin redness and erythematous Extremities: No edema, Normal pulses, No tenderness/swelling Skin: sacral wound as described above Neuro: Normal speech, sensorimotor deficits none Psych/Mental Status: Mental status NL, Mood NL Nurse was there as sharperone during examination laboratory and microbiology Laboratory Tests 12/03/24 06:08 Test 12/03/24 06:08 Range/Units Serum Glucose 73 L 74-106 mg/dL Microbiology Date/Time Source Procedure Growth Status 12/03/24 05:25 Nose MRSA Screen - Final Complete 12/02/24 13:10 Blood Blood Culture - Preliminary NO GROWTH AFTER 24 HOURS OF INCUBATION. Resulted Labs and/or images reviewed: Labs reviewed by me, Image(s) reviewed by me Problem List/Assessment/Plan Problem List/Assessment/Plan # Stage IV right gluteal and partial left gluteal ulcer, Likely infected # Stage I sacral ulcer # ?Sepsis from ulcer -- Ordered surgery consult - Ordered wound consult - Ordered blood culture, wound culture, urine culture - Ordered ceftriaxone and vancomycin - refusing care # ? UTI - pending urinalysis - ordered urine bacterial culture - currently giving Rocephin # Hypokalemia - Repleting - Monitor lab # type 2 DM with HbA1c 5.7 - Accu-Cheks and insulin sliding scale # Asthma, - not in exacerbation # hyperlipidemia- Lipitor # Atrial fibrillation on Eliquis, # Uterine cancer, # kidney stone, # neuropathy Protonix Eliquis Cardiac/Renal diet Goals of care discussed with the patient for more than 29 minutes: Full code status Case management discussed with Dr. Sanchez, patient and nurse Plan discussed with: Patient My Orders My Orders Orders - MILO OSWALD Procedure Category Date Status Time Metronidazole PHA 12/03/24 In Process 500mg/100ml (Flagyl 14:00 Rt Knee With Out Con MRI 12/03/24 Logged 12:50 Date of Service: December 03, 2024 Billing Provider: RONALDO SUMNER MD Common Visit Codes: [id number] INP/OBS CARE(HIGH) MILO OSWALD December 03, 2024 14:21 RONALDO SUMNER MD December 05, 2024 00:54
[2024-12-03 15:43] VITALS: BP 144/68; PULSE 101; RESP 18; TEMP 97.7; O2SAT 98
--- NOTE | 2024-12-03 16:05 | DVH ---
CLINICAL HISTORY: septic arthritis COMPARISON: None TECHNIQUE: Multisequence multiplanar MRI images of the right knee knee were obtained without contrast . FINDINGS: Motion limited study. Large complex collection in the right knee joint, likely correlating with repor opal clinical history of septic arthritis. There is marrow edema with areas of patchy T2 hyperintense and T1 hypointense signal involving the distal femur, proximal tibia, proximal fibula, and patella, consistent with osteomyelitis in the setting of septic arthritis. The osseous findings are most sever e in the medial femoral condyle and medial tibial plateau. Severe osteoarthritic changes are seen inv olving all 3 compartments with joint space narrowing, subchondral sclerosis, and prominent marginal o steophytes, also greatest involving the medial compartment. There is extrusion of the body of the med ial meniscus, abutting and displacing the MCL. Large medial osteophyte of the distal femur also displ aces the MCL. There is a multidirectional tear involving the posterior horn of the medial meniscus, w ith macerated appearance. Suspected tear of the posterior horn of the lateral meniscus at its medial aspect, appears to be multidirectional. Very limited visualization of the ACL. Can not exclude tear. Intrasubstance signal in the PCL, may be due to intrasubstance degeneration interstitial tear. Quadr iceps mechanism and patellar tendon appear intact given the limitations of the exam. There is edema i n Hoffa's fat pad. There is edema along the superficial fibers of the medial collateral ligament and lateral collateral ligament, may be sequela of the process in the joint. Intramuscular edema involvin g the popliteus, gastrocnemius, and soleus muscles, suspected myositis. Milder intramuscular edema se en in the distal semimembranosus, sartorius, and biceps femoris muscles, also possible myositis. Prom inent intramuscular edema in the vastus medialis muscle, likely myositis. IMPRESSION: 1. Large complex collection in the joint, likely correlating with reported clinical history of septic arthritis. 2. Suspected osteomyelitis of the distal femur, proximal tibia, proximal fibula, and patella, suspect ed osteomyelitis. 3. Suspected myositis involving the adjacent musculature around the knee as detailed above. 4. Medial and lateral meniscal tears as detailed above with prominent extrusion of the body of the me dial meniscus. 5. Severe arthritic changes. 6. Additional findings as detailed above. 7. Motion limited study.
[2024-12-03 17:00] VITALS: BP 128/59; PULSE 100; RESP 18; TEMP 97.5; O2SAT 100
[2024-12-03] MEDS: CEFEPIME 1GM/ 50ML 50 ML IV ONE (17:00)
--- NOTE | 2024-12-03 18:52 | DVHINCON2 ---
Date of service: December 03, 2024 History of Present Illness 79-year-old female with a history of multiple medical problems admitted secondary to worsening sacral ulcer. Past Medical History Asthma, diabetes mellitus type 2, hyperlipidemia, atrial fibrillation on Eliquis, bedsore, uterine cancer, kidney stone, neuropathy Past Surgical History TAHBSO. Bilateral lower extremity surgeries. Appendectomy. Family History: FH: brain cancer G8 MOTHER FH: heart attack G8 FATHER No Family History of: Alcoholism Cancer Cancer of colon Family History Noncontributory Social History Denies alcohol, tobacco, IV drug use Allergies: Coded Allergies: Codeine (Verified Allergy, Mild, 03/10/17) Penicillins (Verified Allergy, Mild, 03/10/17) Tetanus Toxoid (Verified Allergy, Unknown, 03/10/17) SWELLING Uncoded Allergies: TAPE (Allergy, Unknown, 10/18/10) Home Meds Active Scripts Apixaban Base (ELIQUIS) 5 Mg Tab, 5 MG PO BID, #180 TAB Prov:PAM GONZALEZ MD 07/12/24 Reported Medications Glyburide-Metformin (Glucovance) 1 Tab Tab, 2 TAB PO BID 10/18/10 Current Medications Current Medications Medications (Trade) Dose Ordered Sig/Ladan Route PRN Reason Start Time Stop Time Status Last Admin Sodium Chloride 1,000 ml @ 125 mls/hr Q8H IV 12/02/24 22:30 12/03/24 14:25 Morphine Sulfate 1 mg Q4HP PRN IV SEVERE PAIN (7-10 PAIN SCALE) 12/03/24 01:15 Acetaminophen (Tylenol Tablet) 650 mg Q6HP PRN PO MODERATE PAIN (4-6 PAIN SCALE) 12/03/24 01:15 12/03/24 01:23 Ceftriaxone Sodium 50 ml @ 100 mls/hr DAILY@09 IV 12/03/24 09:00 12/03/24 16:31 DC 12/03/24 11:10 Vancomycin HCl 0 ml @ 0 mls/hr UD IV 12/03/24 01:15 Pantoprazole Sodium (Protonix Tablet) 40 mg DAILY@0600 PO 12/03/24 06:00 Heparin Sodium (Porcine) 5,000 units Q12HR SC 12/03/24 10:00 12/03/24 03:08 DC Apixaban (Eliquis) 5 mg BID PO 12/03/24 10:00 Diagnostic Test (Pha) (Accu-Chek Comfort Curve T) 1 strip ACHS 12/03/24 07:00 12/03/24 17:00 Insulin Human Regular (InsuLIN R) ACHS SC 12/03/24 07:00 Dextrose 50 ml UD PRN IV Blood Sugar LESS THAN 60 12/03/24 01:30 Gabapentin (Neurontin Capsule) 100 mg TID PO 12/03/24 06:00 Atorvastatin Calcium (Lipitor) 40 mg HS PO 12/03/24 22:00 Aspirin 81 mg DAILY PO 12/03/24 10:00 Metronidazole 100 ml @ 100 mls/hr Q8HR IV 12/03/24 14:00 12/03/24 14:06 Cefepime HCl 50 ml @ 12.5 mls/hr Q8H IV 12/04/24 01:00 Vital Signs Vital Signs Date Time Temp Pulse Resp B/P (MAP) Pulse Ox O2 Delivery O2 Flow Rate FiO2 12/03/24 17:00 97.5 100 18 128/59 (82) 100 97.5 12/03/24 15:43 Room Air* 0 21 Physical Exam GEN: Obese elderly female in no acute distress. Alert. HEENT: Normocephalic atraumatic. Moist mucous membranes. Anicteric sclerae. Skin: There is a stage IV sacral pressure ulcer that is relatively clean without gross necrotic tissue. There was some minimal serous drainage. Labs/Diagnostic Data Labs Test 12/03/24 17:02 12/03/24 06:08 12/03/24 05:25 12/02/24 13:10 Range/Units POC Glucose 154 H 70-106 mg/dl White Blood Count 7.7 4.4-10.8 10^3/uL Red Blood Count 4.22 4.0-5.20 10^6/uL Hemoglobin 11.9 L 12.2-16.2 g/dL Hematocrit 36.0 36.0-46.0 % Mean Corpuscular Volume 85.3 80.0-100.0 fL Mean Corpuscular Hemoglobin 28.1 28.0-32.0 pg Mean Corpuscular Hemoglobin Concent 32.9 32.0-36.0 g/dL Red Cell Distribution Width 16.5 H 11.8-14.3 % Platelet Count 180 140-450 10^3/uL Mean Platelet Volume 7.5 6.9-10.8 fL Neutrophils (%) (Auto) 77.3 37.0-80.0 % Lymphocytes (%) (Auto) 15.3 10.0-50.0 % Monocytes (%) (Auto) 6.5 0.0-12.0 % Eosinophils (%) (Auto) 0.7 0.0-7.0 % Basophils (%) (Auto) 0.2 0.0-2.0 % Neutrophils # (Auto) 6.0 1.6-8.6 10 ^3/uL Lymphocytes # (Auto) 1.2 0.4-5.4 10 ^3/uL Monocytes # (Auto) 0.5 0-1.3 10 ^3/uL Eosinophils # (Auto) 0.1 0-0.8 10 ^3/uL Basophils # (Auto) 0 0-0.2 10 ^3/uL Nucleated Red Blood Cells 0.0 % Sodium Level 138 136-145 mmol/L Potassium Level 3.3 L 3.5-5.1 mmol/L Chloride Level 106 98-107 mmol/L Carbon Dioxide Level 24 20-31 mmol/L Anion Gap 8 5-15 Blood Urea Nitrogen 13 9-23 mg/dL Creatinine 0.75 0.550-1.02 mg/dL Glomerular Filtration Rate Calc 81 >90 mL/min BUN/Creatinine Ratio 17.3 10.0-20.0 Serum Glucose 73 L 74-106 mg/dL Hemoglobin A1c 5.7 <5.7 % A1C Uric Acid 3.8 3.1-7.8 mg/dL Calcium Level 9.1 8.7-10.4 mg/dL Magnesium Level 1.5 L 1.6-2.6 mg/dL Total Bilirubin 1.0 0.2-1.0 mg/dL Aspartate Amino Transferase (AST) 13 13-40 U/L Alanine Aminotransferase (ALT) < 9 7-40 U/L Alkaline Phosphatase 78 46-116 U/L Total Protein 7.0 5.7-8.2 g/dL Albumin 3.1 L 3.2-4.8 g/dL Vitamin B12 Level 232 211-911 pg/mL Vitamin D 25-Hydroxy 35.5 30.0-100 ng/mL Thyroid Stimulating Hormone (TSH) 1.57 0.55-4.78 uIU/mL Influenza Type A Antigen Negative Negative Influenza Type B Antigen Negative Negative SARS-CoV-2 Antigen (Rapid) Negative NEGATIVE Lactic Acid Level 1.7 0.4-2.0 mmol/L Microbiology Date/Time Source Procedure Growth Status 12/03/24 05:25 Nose MRSA Screen - Final Complete 12/02/24 13:10 Blood Blood Culture - Preliminary NO GROWTH AFTER 24 HOURS OF INCUBATION. Resulted Assessment 1. Stage IV sacral pressure ulcer, relatively clean Plan/Recommendation 1. She will be a good candidate for VAC dressing. However patient is allergic to tape and refuses any kind of tape in order to treat her wound. I recommend continuing with local wound care at this time as no surgical debridement is necessary at this time. Plan discussed with: Patient SIRENA ROSS MD December 03, 2024 18:52
[2024-12-03 20:00] VITALS: PULSE 90; RESP 19
[2024-12-03 21:00] VITALS: BP 132/51; PULSE 90; RESP 19; TEMP 98.1; O2SAT 98
[2024-12-03] MEDS: ATORVASTATIN 20 MG TAB PO SCH (22:00)
[2024-12-04] VITALS (7 sets, daily range): BP systolic 95–151; BP diastolic 36–65; PULSE 74–89; RESP 19–20; TEMP 97.6–98.9; O2SAT 96–99
[2024-12-04] MEDS: CEFEPIME 1GM/ 50ML 50 ML IV SCH (01:04)
[2024-12-04 06:51] LABS: Basophils # (auto) 0 10 ^3/uL (0-0.2); Basophils % (auto) 0.2 % (0.0-2.0); Eosinophils # (auto) 0.1 10 ^3/uL (0-0.8); Eosinophils % (auto) 0.8 % (0.0-7.0); Hemoglobin 10.8 g/dL (12.2-16.2); Lymphocytes # (auto) 1.2 10 ^3/uL (0.4-5.4); Lymphocytes % (auto) 16.9 % (10.0-50.0); Mean Corpuscular Hemoglobin 27.5 pg (28.0-32.0); Mean Corpuscular Hgb Conc. 32.8 g/dL (32.0-36.0); Monocytes # (auto) 0.4 10 ^3/uL (0-1.3); Monocytes % (auto) 5.8 % (0.0-12.0); Neutrophils # (auto) 5.5 10 ^3/uL (1.6-8.6); Neutrophils % (auto) 76.3 % (37.0-80.0); Nucleated Red Blood Cells % 0.1 %; Platelet Count (auto) 168 10^3/uL (140-450); Red Blood Cells 3.93 10^6/uL (4.0-5.20); Red Cell Distribution Width 16.6 % (11.8-14.3); White Blood Cell 7.2 10^3/uL (4.4-10.8)
[2024-12-04 06:56] LABS: Chloride 106 mmol/L (98-107); Potassium 3.7 mmol/L (3.5-5.1); Sodium 136 mmol/L (136-145)
[2024-12-04 06:57] LABS: Anion Gap 9 (5-15); Carbon Dioxide 21 mmol/L (20-31)
[2024-12-04 07:02] LABS: BUN/Creatinine Ratio 20.3 (10.0-20.0); Blood Urea Nitrogen 14 mg/dL (9-23); Glucose 97 mg/dL (74-106)
[2024-12-04] MEDS: ERGOCALCIFEROL 50,000 UNIT(1.25MG) CAP PO SCH (08:00)
--- NOTE | 2024-12-04 09:33 | DVHPN2 ---
Subjective Pain in the right knee with limited range of motion going on since September admission. Gluteal pressure ulcers developed at the correction facility. Reviewed: Care Plan, H&P, Labs, Medications, Previous Orders, Radiology, Other (Physician President/surgery) Changes from previous H/P or p: No Changes Objective Vitals Vital Signs Date Time Temp Pulse Resp B/P (MAP) Pulse Ox O2 Delivery O2 Flow Rate FiO2 12/04/24 08:53 97.6 87 20 113/53 (73) 98 97.6 12/03/24 20:00 Room Air* 0 21 Intake/Output Intake and Output 12/04/24 07:00 Intake Total 1830 ml Balance 1830 ml Intake Oral 480 ml IV Total 1350 ml # Voids 2 General Appearance: Alert, Oriented X3, Cooperative, No acute distress HEENT: Atraumatic Lungs: Clear to auscultation Cardiovascular: Regular rate Abdomen: Normal bowel sounds Musculoskeletal: Other (Right knee warm and tender with limited range of motion) Extremities: Other (Decubitus ulcers in the gluteal and sacral area) Medications Current Medications Medications Dose Ordered Sig/Ladan Route Start Time Stop Time Status Last Admin Dose Admin Sodium Chloride 1,000 ml @ 125 mls/hr Q8H IV 12/02/24 22:30 12/03/24 21:59 125 MLS/HR Morphine Sulfate 1 mg Q4HP PRN IV 12/03/24 01:15 Acetaminophen 650 mg Q6HP PRN PO 12/03/24 01:15 12/03/24 01:23 650 MG Vancomycin HCl 0 ml @ 0 mls/hr UD IV 12/03/24 01:15 Pantoprazole Sodium 40 mg DAILY@0600 PO 12/03/24 06:00 Apixaban 5 mg BID PO 12/03/24 10:00 Diagnostic Test (Pha) 1 strip ACHS 12/03/24 07:00 12/04/24 05:41 1 STRIP Insulin Human Regular ACHS SC 12/03/24 07:00 Dextrose 50 ml UD PRN IV 12/03/24 01:30 Gabapentin 100 mg TID PO 12/03/24 06:00 Atorvastatin Calcium 40 mg HS PO 12/03/24 22:00 Aspirin 81 mg DAILY PO 12/03/24 10:00 Metronidazole 100 ml @ 100 mls/hr Q8HR IV 12/03/24 14:00 12/04/24 05:31 100 MLS/HR Cefepime HCl 50 ml @ 12.5 mls/hr Q8H IV 12/04/24 01:00 12/04/24 01:04 12.5 MLS/HR Vancomycin HCl 300 ml @ 200 mls/hr Q24H IV 12/03/24 23:00 12/03/24 23:05 200 MLS/HR Ergocalciferol 50,000 unit Q7D PO 12/04/24 08:00 Laboratory Results Laboratory Tests 12/04/24 06:07 Chemistry Test 12/04/24 06:07 Calcium Level 9.0 mg/dL (8.7-10.4) Microbiology Microbiology Date/Time Source Procedure Growth Status 12/03/24 05:25 Nose MRSA Screen - Final Complete 12/02/24 13:10 Blood Blood Culture - Preliminary NO GROWTH AFTER 24 HOURS OF INCUBATION. Resulted Assessment/Plan Assessment/Plan Right knee septic arthritis Right knee large complex effusion Suspected osteomyelitis of the distal femur proximal tibia, fibula and patella Suspected myositis Gluteal and sacral decubitus ulcers Anemia of chronic disease Diabetes Asthma Hyperlipidemia Atrial fibrillation History of uterine cancer Nephrolithiasis Poor medical compliance Plan: Continue vancomycin and cefepime for now. Orthopedic consultation. Further plan per orders Plan discussed with: Patient Date of Service: December 04, 2024 Billing Provider: TREVOR AGEE MD Common Visit Codes: [id number] INP/OBS CARE(HIGH) TREVOR AGEE MD December 04, 2024 09:33
[2024-12-04 09:57] LABS: INR 1.23 (0.9-1.15); Prothrombin Time 12.8 sec (9.3-11.8)
[2024-12-04 10:15] LABS: Erythrocyte Sedimentation Rate 69 mm/hr (0-20)
--- NOTE | 2024-12-04 16:20 | DVHINCON2 ---
ALEC TINSLEY 12/04/24 1620: Date of service: December 04, 2024 Reason for Consultation Right knee pain History of Present Illness Mrs. Sarkar is a 79-year-old female who has been experiencing progressively worsening right knee pain since mid September without a known inciting injury or incident. Patient reports that her pain has been progressively worsening over the last few months and feels as if her knee swelling more and more and the pain has begun to limit her physical activity and quality of life. Patient has not been able to bear weight on her right side due to the pain and has developed decubitus ulcers due to her limitations. Patient was otherwise feeling well denying any other complaints or concerns during my evaluation. Past Medical History asthma, diabetes mellitus type 2, hyperlipidemia, atrial fibrillation on Eliquis, bedsore, uterine cancer, kidney stone, neuropathy Past Surgical History TAHBSO. Bilateral lower extremity surgeries. Appendectomy. Family History: FH: brain cancer G8 MOTHER FH: heart attack G8 FATHER No Family History of: Alcoholism Cancer Cancer of colon Family History Noncontributory Social History Patient denies smoking, EtOH, or any illicit substance abuse Allergies: Coded Allergies: Codeine (Verified Allergy, Mild, 03/10/17) Penicillins (Verified Allergy, Mild, 03/10/17) Tetanus Toxoid (Verified Allergy, Unknown, 03/10/17) SWELLING Uncoded Allergies: TAPE (Allergy, Unknown, 10/18/10) Home Meds Active Scripts Apixaban Base (ELIQUIS) 5 Mg Tab, 5 MG PO BID, #180 TAB Prov:PAM GONZALEZ MD 07/12/24 Reported Medications Glyburide-Metformin (Glucovance) 1 Tab Tab, 2 TAB PO BID 10/18/10 Current Medications Current Medications Medications (Trade) Dose Ordered Sig/Ladan Route PRN Reason Start Time Stop Time Status Last Admin Atorvastatin Calcium (Lipitor) 40 mg HS PO 12/03/24 22:00 Cefepime HCl 50 ml @ 12.5 mls/hr Q8H IV 12/04/24 01:00 12/04/24 10:47 Vancomycin HCl 300 ml @ 200 mls/hr Q24H IV 12/03/24 23:00 12/03/24 23:05 Ergocalciferol (Vitamin D 50,000 Unit) 50,000 unit Q7D PO 12/04/24 08:00 Review of Systems 10 point review of systems negative except as per HPI Vital Signs Vital Signs Date Time Temp Pulse Resp B/P (MAP) Pulse Ox O2 Delivery O2 Flow Rate FiO2 12/04/24 11:59 97.7 84 20 151/65 (93) 99 97.7 12/03/24 20:00 Room Air* 0 21 Physical Exam General appearance: A&O x4 in no acute distress HEENT: Normal ENT inspection, pharynx normal, TMs normal Neck: Full range of motion, nontender, normal inspection Respiratory: Chest nontender, without accessory muscle use, no respiratory distress Cardiovascular: No edema, no JVD, normal peripheral pulses Gastrointestinal: Soft, nontender, no organomegaly. Musculoskeletal: Right knee range of motion grossly limited with pain on slight movement, no calf tenderness, normal capillary refill, no pedal edema, neurovascularly intact. Skin: Dry, normal color, warm Lymphatic: No adenopathy Labs/Diagnostic Data Labs Test 12/04/24 12:19 12/04/24 06:07 12/03/24 06:08 12/03/24 05:25 Range/Units POC Glucose 154 H 70-106 mg/dl White Blood Count 7.2 4.4-10.8 10^3/uL Red Blood Count 3.93 L 4.0-5.20 10^6/uL Hemoglobin 10.8 L 12.2-16.2 g/dL Hematocrit 33.0 L 36.0-46.0 % Mean Corpuscular Volume 84.0 80.0-100.0 fL Mean Corpuscular Hemoglobin 27.5 L 28.0-32.0 pg Mean Corpuscular Hemoglobin Concent 32.8 32.0-36.0 g/dL Red Cell Distribution Width 16.6 H 11.8-14.3 % Platelet Count 168 140-450 10^3/uL Mean Platelet Volume 7.7 6.9-10.8 fL Neutrophils (%) (Auto) 76.3 37.0-80.0 % Lymphocytes (%) (Auto) 16.9 10.0-50.0 % Monocytes (%) (Auto) 5.8 0.0-12.0 % Eosinophils (%) (Auto) 0.8 0.0-7.0 % Basophils (%) (Auto) 0.2 0.0-2.0 % Neutrophils # (Auto) 5.5 1.6-8.6 10 ^3/uL Lymphocytes # (Auto) 1.2 0.4-5.4 10 ^3/uL Monocytes # (Auto) 0.4 0-1.3 10 ^3/uL Eosinophils # (Auto) 0.1 0-0.8 10 ^3/uL Basophils # (Auto) 0 0-0.2 10 ^3/uL Nucleated Red Blood Cells 0.1 % Erythrocyte Sedimentation Rate 69 H 0-20 mm/hr Prothrombin Time 12.8 H 9.3-11.8 sec Prothrombin Time INR 1.23 H 0.9-1.15 Sodium Level 136 136-145 mmol/L Potassium Level 3.7 3.5-5.1 mmol/L Chloride Level 106 98-107 mmol/L Carbon Dioxide Level 21 20-31 mmol/L Anion Gap 9 5-15 Blood Urea Nitrogen 14 9-23 mg/dL Creatinine 0.69 0.550-1.02 mg/dL Glomerular Filtration Rate Calc 89 >90 mL/min BUN/Creatinine Ratio 20.3 H 10.0-20.0 Serum Glucose 97 74-106 mg/dL Calcium Level 9.0 8.7-10.4 mg/dL Hemoglobin A1c 5.7 <5.7 % A1C Uric Acid 3.8 3.1-7.8 mg/dL Magnesium Level 1.5 L 1.6-2.6 mg/dL Total Bilirubin 1.0 0.2-1.0 mg/dL Aspartate Amino Transferase (AST) 13 13-40 U/L Alanine Aminotransferase (ALT) < 9 7-40 U/L Alkaline Phosphatase 78 46-116 U/L Total Protein 7.0 5.7-8.2 g/dL Albumin 3.1 L 3.2-4.8 g/dL Vitamin B12 Level 232 211-911 pg/mL Vitamin D 25-Hydroxy 35.5 30.0-100 ng/mL Thyroid Stimulating Hormone (TSH) 1.57 0.55-4.78 uIU/mL Influenza Type A Antigen Negative Negative Influenza Type B Antigen Negative Negative SARS-CoV-2 Antigen (Rapid) Negative NEGATIVE Test 12/02/24 13:10 Range/Units Lactic Acid Level 1.7 0.4-2.0 mmol/L Microbiology Date/Time Source Procedure Growth Status 12/03/24 05:25 Nose MRSA Screen - Final Complete 12/02/24 13:10 Blood Blood Culture - Preliminary NO GROWTH AFTER 48 HOURS OF INCUBATION. Resulted Right knee x-ray reviewed and demonstrated: No acute fracture or dislocation. Severe osteoarthrosis. Soft tissue swelling. Right knee MRI reviewed and demonstrated: Large complex collection in the joint, likely correlating with reported clinical history of septic arthritis. Suspected osteomyelitis of the distal femur, proximal tibia, proximal fibula, and patella, suspected osteomyelitis. Suspected myositis involving the adjacent musculature around the knee as detailed above. Medial and lateral meniscal tears as detailed above with prominent extrusion of the body of the medial meniscus. Severe arthritic changes. Assessment Right knee osteoarthritis and chronic osteomyelitis Plan/Recommendation I had a lengthy discussion with the patient regarding nonoperative versus operative management and after discussing her case and reviewing her imaging studies with Dr. Berg we have recommended a right knee arthroscopic irrigation and debridement. I discussed all of the risks and complications involved with surgery including but not limited to bleeding, infection, nerve injury, chronic pain, nonunion, malunion, need for further surgery, blood clots, DVT, PE, cardiac and pulmonary complications, and even . She understood and agreed to proceed with the surgery. We will plan to undergo surgery Friday if schedule allows and patient remains medically stable, we recommend continuing with antibiotics while pending surgery. Thank you for allowing us to participate in the care of your patient. Plan discussed with: Patient BAHMAN BERG MD 12/07/24 0821: Family History: FH: brain cancer G8 MOTHER FH: heart attack G8 FATHER No Family History of: Alcoholism Cancer Cancer of colon Allergies: Coded Allergies: Codeine (Verified Allergy, Mild, 03/10/17) Penicillins (Verified Allergy, Mild, 03/10/17) Tetanus Toxoid (Verified Allergy, Unknown, 03/10/17) SWELLING Uncoded Allergies: TAPE (Allergy, Unknown, 10/18/10) Home Meds Active Scripts Apixaban Base (ELIQUIS) 5 Mg Tab, 5 MG PO BID, #180 TAB Prov:PAM GONZALEZ MD 07/12/24 Reported Medications Glyburide-Metformin (Glucovance) 1 Tab Tab, 2 TAB PO BID 10/18/10 Assessment Will consider open due to extensive osteomyelitis ALEC TINSLEY December 04, 2024 16:20 BAHMAN BERG MD December 07, 2024 08:21
[2024-12-04 17:31] LABS: Urine Bacteria FEW /hpf (None Seen); Urine Blood TRACE /uL (Negative); Urine Clarity Turbid (Clear); Urine Color Yellow (Yellow); Urine Mucus FEW (None Seen); Urine Protein, UAD 1+ (Negative); Urine Specific Gravity 1.017 (1.001-1.035); Urine Squamous Epithelial Cell FEW /hpf (<5); Urine Urobilinogen Normal (Negative); Urine WBC 359 /HPF (0-5); Urine pH 5.5 (5.0-9.0)
[2024-12-04 17:47] LABS: Amphetamine Screen, Urine Neg (NEGATIVE); Barbiturate Scree,Urine Neg (NEGATIVE); Benzodiazephine Screen, Urine Neg (NEGATIVE); Cannabinoid Screen, Urine Neg (NEGATIVE); Cocaine Screen, Urine Neg (NEGATIVE); Opiate Scree,Urine Neg (NEGATIVE); Phencyclidine Screen, Urine Neg (NEGATIVE)
[2024-12-05 01:00] VITALS: BP 122/50; PULSE 89; RESP 18; TEMP 98; O2SAT 96
[2024-12-05 05:00] VITALS: BP 133/55; PULSE 86; RESP 20; TEMP 98.1; O2SAT 96
[2024-12-05 09:00] VITALS: BP 128/52; PULSE 79; RESP 16; TEMP 98; O2SAT 96
[2024-12-05 09:33] LABS: Basophils # (auto) 0 10 ^3/uL (0-0.2); Basophils % (auto) 0.3 % (0.0-2.0); Eosinophils # (auto) 0.1 10 ^3/uL (0-0.8); Eosinophils % (auto) 0.9 % (0.0-7.0); Hematocrit 34.1 % (36.0-46.0); Lymphocytes # (auto) 0.9 10 ^3/uL (0.4-5.4); Lymphocytes % (auto) 13.6 % (10.0-50.0); Mean Corpuscular Hemoglobin 27.4 pg (28.0-32.0); Mean Corpuscular Hgb Conc. 32.4 g/dL (32.0-36.0); Mean Corpuscular Volume 84.6 fL (80.0-100.0); Monocytes # (auto) 0.4 10 ^3/uL (0-1.3); Monocytes % (auto) 6.2 % (0.0-12.0); Neutrophils # (auto) 5.5 10 ^3/uL (1.6-8.6); Platelet Count (auto) 175 10^3/uL (140-450); Red Blood Cells 4.03 10^6/uL (4.0-5.20); Red Cell Distribution Width 16.5 % (11.8-14.3); White Blood Cell 6.9 10^3/uL (4.4-10.8)
[2024-12-05 09:49] LABS: Alkaline Phosphatase 74 U/L (46-116); Anion Gap 8 (5-15); BUN/Creatinine Ratio 17.3 (10.0-20.0); Blood Urea Nitrogen 13 mg/dL (9-23); Calcium 8.9 mg/dL (8.7-10.4); Carbon Dioxide 22 mmol/L (20-31); Chloride 105 mmol/L (98-107); Total Protein 6.7 g/dL (5.7-8.2)
[2024-12-05 09:50] LABS: Aspartate Aminotransferase 12 U/L (13-40); Bilirubin, Total 0.6 mg/dL (0.2-1.0); Glucose 183 mg/dL (74-106); Potassium 3.4 mmol/L (3.5-5.1); Sodium 135 mmol/L (136-145)
[2024-12-05 09:51] LABS: Alanine Aminotransferase < 9 U/L (7-40); Albumin 2.9 g/dL (3.2-4.8)
[2024-12-05 10:13] LABS: Erythrocyte Sedimentation Rate 74 mm/hr (0-20)
--- NOTE | 2024-12-05 11:58 | DVHPNRES ---
Progress Note Date Seen: December 05, 2024 Resident Creating Document: KHANH ROSALES RESIDENT Has the PT tested + for MRSA If YES, has PT been informed?: No Medical Necessity Reason Pt with a Central, PICC or Fol: No Medical Necessity Reason History of Presenting illness UDAY CROWELL is 79 years old female with a past medical history of asthma, diabetes mellitus type 2, hyperlipidemia, atrial fibrillation on Eliquis, bedsore, uterine cancer, kidney stone, neuropathy was brought in from [facility] due to worsening bedsore. As per patient she has been having basilar for a while, which got worse. Patient also reported pain in the back 04/29. Patient reported she had wound debridement 2 weeks before at the facility. Even after that she had ongoing back pain. On further inquiry patient reported dysuria for last couple of days. Patient denied any fever, chest pain, short of breath, dysarthria or change in vision. Patient seen and examined at the bedside. PN: 12/05/2024: Patient seen and examined at the bedside. She has has no major complaints today. She denies fever, chills,nausea or vomiting. Having pain in her right knee that is a plan for arthrocentesis up on Friday. Of note, patient is currently on antibiotics she also has diabetes however according to the nurse patient is only accepting to take IV antibiotics, but she is very non compliant wit other medication. On examination today there is notable to be a used stage IV sacral ulcer and we are going to call wound care to have it assessed. Subjective Review of Systems Constitutional: Denies fever no chills no feeling of malaise HEENT: Denies headache, ear pain, ear discharges, conjunctivitis, nasal discharge throat pain Cardiovascular: Denies chest pain, palpitation, orthopnea, PND, or pedal edema Respiratory: Denies shortness of breath, cough cough, sputum production, hemoptysis, GI: Denies abdominal pain, nausea, vomiting, diarrhea, hematemesis, hematochezia, : Denies frequency, urgency, hematuria, Endocrine: Denies unintentional weight gain or weight loss, feeling of hot flashes, [place]: Denies easy bruising, bleeding disorders, epistaxis Musculoskeletal: Denies joint pains, muscle aches Psych: No evidence of depression, emi, suicidal ideation Sacrum: Large 5x5 deep ulcer, possible stage 4 Changes from previous H/P or p: No Changes Objective vital signs Vital Sign Date Time Temp Pulse Resp B/P (MAP) Pulse Ox O2 Delivery O2 Flow Rate FiO2 12/05/24 09:00 98.0 79 16 128/52 (77) 96 98.0 12/05/24 08:10 Room Air* 0 21 Total Intake and Output 12/04/24 12/04/24 12/05/24 15:00 23:00 07:00 Intake Total 50 ml 1605 ml 650 ml Output Total 600 ml Balance 50 ml 1005 ml 650 ml medications Current Medications Medications Dose Ordered Sig/Ladan Route Start Time Stop Time Status Last Admin Dose Admin Sodium Chloride 1,000 ml @ 125 mls/hr Q8H IV 12/02/24 22:30 12/03/24 21:59 125 MLS/HR Morphine Sulfate 1 mg Q4HP PRN IV 12/03/24 01:15 Acetaminophen 650 mg Q6HP PRN PO 12/03/24 01:15 12/03/24 01:23 650 MG Vancomycin HCl 0 ml @ 0 mls/hr UD IV 12/03/24 01:15 Pantoprazole Sodium 40 mg DAILY@0600 PO 12/03/24 06:00 Apixaban 5 mg BID PO 12/03/24 10:00 Diagnostic Test (Pha) 1 strip ACHS 12/03/24 07:00 12/05/24 05:37 1 STRIP Insulin Human Regular ACHS SC 12/03/24 07:00 Dextrose 50 ml UD PRN IV 12/03/24 01:30 Gabapentin 100 mg TID PO 12/03/24 06:00 Atorvastatin Calcium 40 mg HS PO 12/03/24 22:00 Aspirin 81 mg DAILY PO 12/03/24 10:00 Metronidazole 100 ml @ 100 mls/hr Q8HR IV 12/03/24 14:00 12/05/24 05:10 100 MLS/HR Cefepime HCl 50 ml @ 12.5 mls/hr Q8H IV 12/04/24 01:00 12/05/24 09:02 12.5 MLS/HR Vancomycin HCl 300 ml @ 200 mls/hr Q24H IV 12/03/24 23:00 12/04/24 23:14 200 MLS/HR Ergocalciferol 50,000 unit Q7D PO 12/04/24 08:00 Examination General Appearance: Alert, Oriented X3, Cooperative, No acute distress HEENT: Atraumatic, PERRLA, EOMI, Mucous membrane moist/pink Respiratory: Clear to auscultation, Normal air movement Cardiovascular: Regular rate, Normal S1, Normal S2, No murmurs, no chest wall tenderness Abdominal: NO distention, no tenderness, bowel sounds present, no scars noted Extremities: No clubbing, No cyanosis, No edema, Normal pulses, No tenderness/swelling Skin: No rashes, Sacrum ulcer stage IV Neuro: Normal gait, Normal speech, Strength at 5/5 X4 ext, Normal tone, Sensation intact, Cranial nerves 3-12 NL, Reflexes 2+ Psych/Mental Status: Mental status NL, Mood NL laboratory and microbiology Laboratory Tests 12/05/24 09:14 Test 12/05/24 09:14 Range/Units Serum Glucose 183 H 74-106 mg/dL Microbiology Date/Time Source Procedure Growth Status 12/03/24 05:25 Nose MRSA Screen - Final Complete 12/02/24 13:10 Blood Blood Culture - Preliminary NO GROWTH AFTER 48 HOURS OF INCUBATION. Resulted Problem List/Assessment/Plan Problem List/Assessment/Plan Problem List/Assessment/Plan # Stage IV right gluteal and partial left gluteal ulcer, Likely infected # Stage I sacral ulcer # ?Sepsis from ulcer -- Surgery: recommended VAC dressing. However patient is allergic to tape and refuses any kind of tape in order to treat her wound. recommend continuing with local wound care at this time as no surgical debridement is necessary at this time - wound care following - blood culture: No growth - wound culture: Pendinng - Continue ceftriaxone and vancomycin - refusing care # UTI - UA: positive esterase, and few bacteremia - Urine bacterial culture; pending - Continue Rocephin # Hypokalemia - Repleting - Monitor lab # type 2 DM with HbA1c 5.7 - Accu-Cheks and insulin sliding scale # Asthma, - not in exacerbation # hyperlipidemia- Lipitor # Atrial fibrillation on Eliquis, # Uterine cancer, # kidney stone, # neuropathy Protonix Eliquis Cardiac/Renal diet Goals of care discussed with the patient for more than 16 minutes: Full code status Case management discussed with Dr. Sanchez, patient and nurse Plan discussed with: Patient Plan discussed with: Patient Dietary Evaluation Review Recommendations by RD: Dietary education by RD, Protein Supplementation Comments: 1) Initiate Pro-Stat @ 30 mL qd 2) Initiate Yosef @ 1 pk bid 3) Initiate vitamin C @ 500 mg bid and zinc sulfate @ 220 mg qd for 7-10 days 4) Initiate multivitamin @ 1 tab qd 5) Encourage optimal PO intake. If < 50%, initite Glucerna qd 6) Refer to outpatient RD/CDCES for weight management 7) Follow-up with cardiology 8) Continue to monitor I&O, labs, and skin integrity Expected Outcomes/Goals: 1) appetite and labs to improve 2) wounds to improve 3) f/u in 3-5 days Date of Service: December 05, 2024 Billing Provider: RONALDO SUMNER MD Common Visit Codes: [id number] INP/OBS CARE(HIGH) KHANH ROSALES RESIDENT December 05, 2024 11:58 RONALDO SUMNER MD Dec 20, 2024 09:19
[2024-12-05 13:00] VITALS: BP 101/42; PULSE 83; RESP 17; TEMP 98; O2SAT 96
[2024-12-05 17:00] VITALS: BP 131/50; PULSE 75; RESP 16; TEMP 98; O2SAT 97
[2024-12-05 20:00] VITALS: RESP 16
[2024-12-05] MEDS: POTASSIUM EFFERVESENT TAB 25 MEQ ONE (20:53)
[2024-12-05] MEDS: POTASSIUM EFFERVESENT TAB 25 MEQ PO ONE (20:57)
[2024-12-06] VITALS (7 sets, daily range): BP systolic 109–140; BP diastolic 50–73; PULSE 54–97; RESP 16–54; TEMP 97.5–98.5; O2SAT 93–97
[2024-12-06 06:26] LABS: Basophils # (auto) 0 10 ^3/uL (0-0.2); Basophils % (auto) 0.2 % (0.0-2.0); Eosinophils # (auto) 0.1 10 ^3/uL (0-0.8); Eosinophils % (auto) 1.6 % (0.0-7.0); Hematocrit 33.4 % (36.0-46.0); Hemoglobin 10.9 g/dL (12.2-16.2); Lymphocytes # (auto) 0.9 10 ^3/uL (0.4-5.4); Lymphocytes % (auto) 17.7 % (10.0-50.0); Mean Corpuscular Hemoglobin 27.7 pg (28.0-32.0); Mean Corpuscular Hgb Conc. 32.8 g/dL (32.0-36.0); Mean Corpuscular Volume 84.4 fL (80.0-100.0); Monocytes # (auto) 0.5 10 ^3/uL (0-1.3); Monocytes % (auto) 8.6 % (0.0-12.0); Neutrophils # (auto) 3.8 10 ^3/uL (1.6-8.6); Neutrophils % (auto) 71.9 % (37.0-80.0); Nucleated Red Blood Cells % 0.1 %; Platelet Count (auto) 175 10^3/uL (140-450); Red Blood Cells 3.95 10^6/uL (4.0-5.20); White Blood Cell 5.3 10^3/uL (4.4-10.8)
[2024-12-06 10:15] LABS: Alkaline Phosphatase 69 U/L (46-116); Anion Gap 7 (5-15); BUN/Creatinine Ratio 21.5 (10.0-20.0); Bilirubin, Total 0.4 mg/dL (0.2-1.0); Blood Urea Nitrogen 14 mg/dL (9-23); Carbon Dioxide 25 mmol/L (20-31); Chloride 106 mmol/L (98-107); Potassium 4.1 mmol/L (3.5-5.1); Sodium 138 mmol/L (136-145)
[2024-12-06 10:17] LABS: Alanine Aminotransferase < 9 U/L (7-40); Albumin 2.6 g/dL (3.2-4.8); Aspartate Aminotransferase 12 U/L (13-40); Calcium 8.6 mg/dL (8.7-10.4); Glucose 140 mg/dL (74-106)
--- NOTE | 2024-12-06 10:57 | DVHPNRES ---
Progress Note Date Seen: December 06, 2024 Resident Creating Document: MILO OSWALD RESIDENT Has the PT tested + for MRSA If YES, has PT been informed?: No Medical Necessity Reason Pt with a Central, PICC or Fol: No Subjective Review of Systems Patient seen and examined at the bedside. Patient currently reporting mild pain in her right knee. orthopedic senior treasury consultant evaluated the patient and advised possible arthrocentesis tomorrow. Patient reports: Feels better Objective vital signs Vital Sign Date Time Temp Pulse Resp B/P (MAP) Pulse Ox O2 Delivery O2 Flow Rate FiO2 12/06/24 08:00 81 18 93 Room Air* 0 21 12/06/24 05:00 98.0 126/53 (77) 98.0 Total Intake and Output 12/05/24 12/05/24 12/06/24 15:00 23:00 07:00 Intake Total 275 ml 650 ml 1050 ml Balance 275 ml 650 ml 1050 ml medications Current Medications Medications Dose Ordered Sig/Ladan Route Start Time Stop Time Status Last Admin Dose Admin Sodium Chloride 1,000 ml @ 125 mls/hr Q8H IV 12/02/24 22:30 12/05/24 22:30 125 MLS/HR Morphine Sulfate 1 mg Q4HP PRN IV 12/03/24 01:15 Acetaminophen 650 mg Q6HP PRN PO 12/03/24 01:15 12/03/24 01:23 650 MG Vancomycin HCl 0 ml @ 0 mls/hr UD IV 12/03/24 01:15 Pantoprazole Sodium 40 mg DAILY@0600 PO 12/03/24 06:00 Apixaban 5 mg BID PO 12/03/24 10:00 Diagnostic Test (Pha) 1 strip ACHS 12/03/24 07:00 12/06/24 06:07 1 STRIP Insulin Human Regular ACHS SC 12/03/24 07:00 Dextrose 50 ml UD PRN IV 12/03/24 01:30 Gabapentin 100 mg TID PO 12/03/24 06:00 Atorvastatin Calcium 40 mg HS PO 12/03/24 22:00 Aspirin 81 mg DAILY PO 12/03/24 10:00 Metronidazole 100 ml @ 100 mls/hr Q8HR IV 12/03/24 14:00 12/06/24 06:07 100 MLS/HR Cefepime HCl 50 ml @ 12.5 mls/hr Q8H IV 12/04/24 01:00 12/06/24 08:52 12.5 MLS/HR Vancomycin HCl 300 ml @ 200 mls/hr Q24H IV 12/03/24 23:00 12/05/24 23:39 200 MLS/HR Ergocalciferol 50,000 unit Q7D PO 12/04/24 08:00 Examination Pt is lying on bed General Appearance: Alert, Oriented X3, Cooperative, Not in acute distress HEENT: Atraumatic, Mucous membranes moist/pink Respiratory: Clear to auscultation, Normal air movement, No added sounds Cardiovascular: Regular rate, Normal S1, Normal S2, No murmurs Abdominal/Trunk: Active bowel sounds, Soft, no distention, no tenderness,stage IV wound on the right gluteal to part of the left gluteal region of the sacral area, parasacral is skin redness and erythematous Extremities: No edema, Normal pulses, but red, tender, hot, swollen right knee Skin: sacral wound as described above Neuro: Normal speech, sensorimotor deficits none Psych/Mental Status: Mental status NL, Mood NL Nurse was there as sharperone during examination laboratory and microbiology Laboratory Tests 12/06/24 05:42 Test 12/06/24 05:42 Range/Units Serum Glucose 140 H 74-106 mg/dL Microbiology Date/Time Source Procedure Growth Status 12/04/24 10:43 Sacrum Gram Stain - Final Resulted 12/04/24 10:43 Sacrum Wound Culture - Preliminary Resulted 12/02/24 13:10 Blood Blood Culture - Preliminary NO GROWTH AFTER 72 HOURS OF INCUBATION. Resulted Labs and/or images reviewed: Labs reviewed by me, Image(s) reviewed by me Problem List/Assessment/Plan Problem List/Assessment/Plan # Stage IV right gluteal and partial left gluteal ulcer, Likely infected # Stage I sacral ulcer # ?Sepsis from ulcer - Surgery consult advised advised to continue local wound care as patient is allergic to tape - Ordered wound consult - Ordered blood culture, wound culture, urine culture - Ordered ceftriaxone and vancomycin - refusing care # Rt knee septic arthritis with a possible osteomyelitis - orthopedic on board, advised right knee arthroscopic irrigation and debridement likely tomorrow # ? UTI - pending urinalysis - ordered urine bacterial culture - currently giving Rocephin # Hypokalemia - Repleting - Monitor lab # type 2 DM with HbA1c 5.7 - Accu-Cheks and insulin sliding scale # Asthma, - not in exacerbation # hyperlipidemia- Lipitor # Atrial fibrillation on Eliquis, # Uterine cancer, # kidney stone, # neuropathy Protonix Eliquis Cardiac/Renal diet Goals of care discussed with the patient for more than 29 minutes: Full code status Case management discussed with Dr. Sanchez, patient and nurse Plan discussed with: Patient Dietary Evaluation Review Recommendations by RD: Dietary education by RD, Protein Supplementation Comments: 1) Initiate Pro-Stat @ 30 mL qd 2) Initiate Yosef @ 1 pk bid 3) Initiate vitamin C @ 500 mg bid and zinc sulfate @ 220 mg qd for 7-10 days 4) Initiate multivitamin @ 1 tab qd 5) Encourage optimal PO intake. If < 50%, initite Glucerna qd 6) Refer to outpatient RD/[facility] for weight management 7) Follow-up with cardiology 8) Continue to monitor I&O, labs, and skin integrity Expected Outcomes/Goals: 1) appetite and labs to improve 2) wounds to improve 3) f/u in 3-5 days Date of Service: December 06, 2024 Billing Provider: RONALDO SUMNER MD Common Visit Codes: [id number] INP/OBS CARE(HIGH) MILO OSWALD RESIDENT December 06, 2024 10:57 RONALDO SUMNER MD Dec 20, 2024 09:30
--- NOTE | 2024-12-06 13:11 | ECG ---
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
--- NOTE | 2024-12-06 14:10 | DVHINCON2 ---
PAKO CASTRO RESDIENT 12/06/24 1410: Date Seen: December 06, 2024 Referring Physician Cristian DIEGO Reason for Consultation Preop evaluation History of Present Illness This is a 59-year-old female with past medical history of diabetes, dyslipidemia, permanent AFib (not on anticoagulant) uterine cancer (status post hysterectomy), kidney stone, and neuropathy brought to the hospital from [facility] due to worsening bedsore. She has been at nursing facility for rehabilitation, but her bedsore has worsened which prompted this visit. Surgery evaluated patient, recommended conservative management for bedsores. She also has right knee pain since 6-7 weeks, which has progressively worsened, and due to knee pain the patient being bed-bound since 7 weeks. MRI of the knee shows possible septic arthritis/osteomyelitis, orthopedics planned for right knee arthroscopic irrigation and debridement on cardiology is consulted for cardiovascular risk stratification. PMHx: diabetes, dyslipidemia, permanent AFib uterine cancer (status post hysterectomy), kidney stone, and neuropathy PSHx: Hysterectomy, debridement of bedsore Family history: Noncontributory Social history: Patient is brought from nursing facility (being in facility for rehabilitation), bed-bound due to severe knee pain Home medication: Glyburide/metformin 5/500 mg b.i.d., patient was previously recommended to use Eliquis for AFib (but the patient has stopped taking medicine due to nosebleed). Allergic history: Codeine, penicillin, tape, tetanus toxoid Patient seen and examined at bedside. Patient is complaining of right knee pain. Past Medical History Per H&P Past Surgical History Per H&P Family History: FH: brain cancer G8 MOTHER FH: heart attack G8 FATHER No Family History of: Alcoholism Cancer Cancer of colon Family History Per H&P Social History Per H&P Allergies: Coded Allergies: Codeine (Verified Allergy, Mild, 03/10/17) Penicillins (Verified Allergy, Mild, 03/10/17) Tetanus Toxoid (Verified Allergy, Unknown, 03/10/17) SWELLING Uncoded Allergies: TAPE (Allergy, Unknown, 10/18/10) Home Meds Active Scripts Apixaban Base (ELIQUIS) 5 Mg Tab, 5 MG PO BID, #180 TAB Prov:PAM GONZALEZ MD 07/12/24 Reported Medications Glyburide-Metformin (Glucovance) 1 Tab Tab, 2 TAB PO BID 3/31/11 Home Meds Per H&P Current Medications Per H&P Review of Systems Per H&P Vital Signs Vital Signs Date Time Temp Pulse Resp B/P (MAP) Pulse Ox O2 Delivery O2 Flow Rate FiO2 12/06/24 08:00 81 18 93 Room Air* 0 21 12/06/24 05:00 98.0 126/53 (77) 98.0 Physical Exam General Appearance: Alert, Oriented X3, Cooperative, No acute distress HEENT: Atraumatic, PERRLA, EOMI, Mucous membrane moist/pink Respiratory: Clear to auscultation, Normal air movement Cardiovascular: Regular rate, Normal S1, Normal S2, No murmurs, no chest wall tenderness Abdominal: Normal bowel sounds, Soft, No tenderness, No hepatospenomegaly, No masses Extremities: Right knee is swollen, warm and tender, with decreased range of motion of right knee due to severe pain Skin: Grade 4 sacral bedsore Neuro: Normal gait, Normal speech, Strength at 5/5 X4 ext, Normal tone, Sensation intact, Cranial nerves 3-12 NL, Reflexes 2+ Psych/Mental Status: Mental status NL, Mood NL Labs/Diagnostic Data Labs Test 12/06/24 12:18 12/06/24 05:42 12/05/24 09:14 12/04/24 17:32 Range/Units POC Glucose 186 H 70-106 mg/dl White Blood Count 5.3 4.4-10.8 10^3/uL Red Blood Count 3.95 L 4.0-5.20 10^6/uL Hemoglobin 10.9 L 12.2-16.2 g/dL Hematocrit 33.4 L 36.0-46.0 % Mean Corpuscular Volume 84.4 80.0-100.0 fL Mean Corpuscular Hemoglobin 27.7 L 28.0-32.0 pg Mean Corpuscular Hemoglobin Concent 32.8 32.0-36.0 g/dL Red Cell Distribution Width 17.0 H 11.8-14.3 % Platelet Count 175 140-450 10^3/uL Mean Platelet Volume 7.7 6.9-10.8 fL Neutrophils (%) (Auto) 71.9 37.0-80.0 % Lymphocytes (%) (Auto) 17.7 10.0-50.0 % Monocytes (%) (Auto) 8.6 0.0-12.0 % Eosinophils (%) (Auto) 1.6 0.0-7.0 % Basophils (%) (Auto) 0.2 0.0-2.0 % Neutrophils # (Auto) 3.8 1.6-8.6 10 ^3/uL Lymphocytes # (Auto) 0.9 0.4-5.4 10 ^3/uL Monocytes # (Auto) 0.5 0-1.3 10 ^3/uL Eosinophils # (Auto) 0.1 0-0.8 10 ^3/uL Basophils # (Auto) 0 0-0.2 10 ^3/uL Nucleated Red Blood Cells 0.1 % Sodium Level 138 136-145 mmol/L Potassium Level 4.1 3.5-5.1 mmol/L Chloride Level 106 98-107 mmol/L Carbon Dioxide Level 25 20-31 mmol/L Anion Gap 7 5-15 Blood Urea Nitrogen 14 9-23 mg/dL Creatinine 0.65 0.550-1.02 mg/dL Glomerular Filtration Rate Calc 90 >90 mL/min BUN/Creatinine Ratio 21.5 H 10.0-20.0 Serum Glucose 140 H 74-106 mg/dL Calcium Level 8.6 L 8.7-10.4 mg/dL Magnesium Level 1.6 1.6-2.6 mg/dL Total Bilirubin 0.4 0.2-1.0 mg/dL Aspartate Amino Transferase (AST) 12 L 13-40 U/L Alanine Aminotransferase (ALT) < 9 7-40 U/L Alkaline Phosphatase 69 46-116 U/L Troponin I High Sensitivity 12 </=34 ng/L B-Type Natriuretic Peptide 229.88 0-100 pg/mL Total Protein 6.0 5.7-8.2 g/dL Albumin 2.6 L 3.2-4.8 g/dL Erythrocyte Sedimentation Rate 74 H 0-20 mm/hr Urine Color Yellow Yellow Urine Clarity Turbid H Clear Urine pH 5.5 5.0-9.0 Urine Specific [place] 1.017 1.001-1.035 Urine Protein 1+ H Negative Urine Ketones Negative Negative Urine Blood Trace H Negative /uL Urine Nitrite Negative Negative Urine Bilirubin Negative Negative Urine Urobilinogen Normal Negative mg/dL Urine Leukocyte Esterase 3+ Negative /uL Urine RBC 17 0 - 4 /hpf Urine Microscopic WBC 359 H 0-5 /HPF Urine Squamous Epithelial Cells Few <5 /hpf Urine Bacteria Few H None Seen /hpf Urine Mucus Few None Seen Urine Glucose Normal Normal mg/dL Test 12/04/24 06:07 12/03/24 17:05 12/03/24 06:08 12/03/24 05:25 Range/Units Prothrombin Time 12.8 H 9.3-11.8 sec Prothrombin Time INR 1.23 H 0.9-1.15 Urine Opiates Screen Neg NEGATIVE Urine Fentanyl Screen Neg NEGATIVE Urine Barbiturates Screen Neg NEGATIVE Urine Phencyclidine Screen Neg NEGATIVE Urine Amphetamines Screen Neg NEGATIVE Urine Benzodiazepines Screen Neg NEGATIVE Urine Cocaine Screen Neg NEGATIVE Urine Cannabinoids Screen Neg NEGATIVE Hemoglobin A1c 5.7 <5.7 % A1C Uric Acid 3.8 3.1-7.8 mg/dL Vitamin B12 Level 232 211-911 pg/mL Vitamin D 25-Hydroxy 35.5 30.0-100 ng/mL Thyroid Stimulating Hormone (TSH) 1.57 0.55-4.78 uIU/mL Influenza Type A Antigen Negative Negative Influenza Type B Antigen Negative Negative SARS-CoV-2 Antigen (Rapid) Negative NEGATIVE Test 12/02/24 13:10 Range/Units Lactic Acid Level 1.7 0.4-2.0 mmol/L Microbiology Date/Time Source Procedure Growth Status 12/04/24 10:43 Sacrum Gram Stain - Final Resulted 12/04/24 10:43 Sacrum Wound Culture - Preliminary Resulted 12/02/24 13:10 Blood Blood Culture - Preliminary NO GROWTH AFTER 72 HOURS OF INCUBATION. Resulted Assessment Preprocedural cardiovascular examination Grade 4 decubitus ulcer, present on admission Right knee?septic gastritis/gout flare-up, planned for arthroscopy and irrigation & debridement Permanent atrial fibrillation, stage IV (not on anticoagulant) Diabetes type 2 Dyslipidemia History of uterine cancer status post hysterectomy * EKGs shows, atrial fibrillation with heart rate 70s * Serial trop I is normal, BNP is mildly raised at 229 * Echo, aortic stenosis with low peak and mean gradient at 24 and 13mm of mercury the aortic valve area was calculated at 0.6 cm2. EF 40% * Chads Vasc score, 4 * RCRI (revised cardiac risk index): 0 point * METs (metabolic equivalents): Could not assess as the patient is bed-bound due to severe right knee pain, 7 week back patient could climb a flight of stairs; METs = 4 Plan/Recommendation (Case discussed with Dr. Salguero) * Considering elective orthopedic procedure (arthroscopy, intermediate risk procedure) and having RCRI 0 points, patient is at low risk of cardiac complication * Stopped Eliquis, Lovenox therapeutic dose * Considering high chads Vasc score, the patient needs long-term anticoagulant upon discharge, Dr. Salguero and me had a prolonged discussion regarding requirement of anticoagulant (risk and benefits of anticoagulant), the patient adamantly refused to use anticoagulant due to having history of nosebleed * Keep K above 4, and Mag above 2 * Rest of plan, per primary team, we sign off the patient Thank you for allowing us to participate in this patient's care. Please call if you have any questions or concerns. Plan discussed with: Patient, Other (MOTHER TESTER) NYHA Physical activity limitations: NA Date of Service: December 06, 2024 Billing Provider: PAKO CASTRO Cardiology Common Codes: [id number] INP/OBS CARE (High) ACACIA SALGUERO MD 12/07/24 1226: Family History: FH: brain cancer G8 MOTHER FH: heart attack G8 FATHER No Family History of: Alcoholism Cancer Cancer of colon Allergies: Coded Allergies: Codeine (Verified Allergy, Mild, 03/10/17) Penicillins (Verified Allergy, Mild, 03/10/17) Tetanus Toxoid (Verified Allergy, Unknown, 03/10/17) SWELLING Uncoded Allergies: TAPE (Allergy, Unknown, 10/18/10) Home Meds Active Scripts Apixaban Base (ELIQUIS) 5 Mg Tab, 5 MG PO BID, #180 TAB Prov:PAM GONZALEZ MD 07/12/24 Reported Medications Glyburide-Metformin (Glucovance) 1 Tab Tab, 2 TAB PO BID 10/18/10 Plan/Recommendation seen with cardiac team pt can proceed to surgery pt refuses doac , understands risk benefits and alternatives Plan discussed with: Patient PAKO CASTRO December 06, 2024 14:10 ACACIA SALGUERO MD December 07, 2024 12:26
--- NOTE | 2024-12-06 14:47 | DVH ---
CHEST RADIOGRAPH Indication: pre op eval, pain Technique: Single frontal view of the chest was obtained Comparison: XY CHEST PORTABLE on DOS: 10/08/24, XY CHEST PORTABLE on DOS: 07/06/24, XY CHEST PORTABLE on DOS: 04/01/24, CHEST PORTABLE on DOS: 05/01/22, CXRP on DOS: 05/01/22 FINDINGS: Lines and Tubes: None Lungs: No focal consolidation. Pleura: No effusion. No pneumothorax. Cardiomediastinal contours: Cardiomegaly Bones: No acute osseous abnormality. IMPRESSION: Cardiomegaly with mild CHF.
[2024-12-06] MEDS: ENOXAPARIN SOD 100 MG/1 ML SYRINGE SC SCH (22:00)
[2024-12-07] VITALS (8 sets, daily range): BP systolic 112–145; BP diastolic 41–70; PULSE 53–82; RESP 12–18; TEMP 96.5–98.4; O2SAT 93–100
[2024-12-07 08:40] LABS: Basophils # (auto) 0 10 ^3/uL (0-0.2); Basophils % (auto) 0.3 % (0.0-2.0); Eosinophils # (auto) 0.1 10 ^3/uL (0-0.8); Eosinophils % (auto) 2.8 % (0.0-7.0); Hematocrit 32.7 % (36.0-46.0); Hemoglobin 10.7 g/dL (12.2-16.2); Lymphocytes # (auto) 0.9 10 ^3/uL (0.4-5.4); Lymphocytes % (auto) 19.4 % (10.0-50.0); Mean Corpuscular Hemoglobin 27.7 pg (28.0-32.0); Mean Corpuscular Hgb Conc. 32.6 g/dL (32.0-36.0); Monocytes # (auto) 0.5 10 ^3/uL (0-1.3); Monocytes % (auto) 10.6 % (0.0-12.0); Neutrophils # (auto) 3.2 10 ^3/uL (1.6-8.6); Neutrophils % (auto) 66.9 % (37.0-80.0); Platelet Count (auto) 174 10^3/uL (140-450); Red Blood Cells 3.85 10^6/uL (4.0-5.20); Red Cell Distribution Width 16.6 % (11.8-14.3); White Blood Cell 4.8 10^3/uL (4.4-10.8)
[2024-12-07 08:47] LABS: Potassium 4.3 mmol/L (3.5-5.1); Sodium 140 mmol/L (136-145)
[2024-12-07 08:48] LABS: Anion Gap 8 (5-15); Calcium 9.1 mg/dL (8.7-10.4); Carbon Dioxide 25 mmol/L (20-31)
[2024-12-07 08:53] LABS: BUN/Creatinine Ratio 18.5 (10.0-20.0); Blood Urea Nitrogen 12 mg/dL (9-23)
[2024-12-07 08:54] LABS: Chloride 107 mmol/L (98-107); Glucose 138 mg/dL (74-106)
--- NOTE | 2024-12-07 11:32 | DVHSR ---
APPROVED REPORT EXAM: Two-dimensional and M-mode echocardiogram with Doppler and color Doppler. Blood Pressure: 126/53 mmHg INDICATION Pre-Op RISK FACTORS Obesity: Height: 5'6", Weight: 226 DIMENSIONS LVDd4.1 (3.8-5.7cm)LA (2D)4.5 (1.9-4.0cm)Aortic Root3.4 (2.0-3.7cm) LVDs2.9 (2.5-4.0cm)LA (MM) (1.9-4.0cm)Aortic Cusp Exc0.6 (1.5-2.0cm) EF (%) 58.0 (55-70%)Rt. Atrium4.4 (1.9-4.0cm)Asc. Aorta cm IVSd1.1 (0.7-1.1cm)RV (D) (1.8-2.4cm) PWd1.0 (0.7-1.1cm) Mitral Valve MitralMitral Stenosis E wave1.58m/sMV Mean GR.mmHg A wave0.60m/sMV Peak GR.mmHg E/A ratio2.62D MVAcm2 DECEL [id number] 1/2 Timems Aortic Valve Aortic ValveAortic Stenosis V10.93m/Christopher Mean GR.20mmHg V22.96m/Christopher Peak GR.35mmHg LVOT Diameter1.8 (1.8-2.4cm)Doppler AVA0.80cm2 Pulmonic Valve V21.14m/s Tricuspid Valve TR Velocity3.27m/s [id number] Other Information Technically limited study due to body habitus. Conclusion lvef 55% moderate LVH normal rv function severe restriction in AV, moderate by gradient of 19 mmhg, howewver UHMPHREY <1 so suspected mod to sev ere , consider additional workup if indicated mild to moderate tricuspid regurg mild pulm htn mild to moderate mitral regurg
--- NOTE | 2024-12-07 12:06 | DVHPNRES ---
Progress Note Date Seen: December 07, 2024 Resident Creating Document: MILO OSWALD RESIDENT Has the PT tested + for MRSA If YES, has PT been informed?: No Medical Necessity Reason Pt with a Central, PICC or Fol: No Subjective Review of Systems Patient seen and examined at the bedside. Patient currently reporting mild pain at knee. Possible arthrocentesis today. Patient reports: Feels better Objective vital signs Vital Sign Date Time Temp Pulse Resp B/P (MAP) Pulse Ox O2 Delivery O2 Flow Rate FiO2 12/07/24 09:00 97.5 77 18 121/41 (67) 99 97.5 12/06/24 20:00 Room Air* 0 21 Total Intake and Output 12/06/24 12/06/24 12/07/24 15:00 23:00 07:00 Intake Total 50 ml 1520 ml 450 ml Output Total 1 ml Balance 50 ml 1519 ml 450 ml medications Current Medications Medications Dose Ordered Sig/Ladan Route Start Time Stop Time Status Last Admin Dose Admin Sodium Chloride 1,000 ml @ 125 mls/hr Q8H IV 12/02/24 22:30 12/06/24 20:36 125 MLS/HR Morphine Sulfate 1 mg Q4HP PRN IV 12/03/24 01:15 Acetaminophen 650 mg Q6HP PRN PO 12/03/24 01:15 12/03/24 01:23 650 MG Vancomycin HCl 0 ml @ 0 mls/hr UD IV 12/03/24 01:15 Pantoprazole Sodium 40 mg DAILY@0600 PO 12/03/24 06:00 Diagnostic Test (Pha) 1 strip ACHS 12/03/24 07:00 12/07/24 06:07 1 STRIP Insulin Human Regular ACHS SC 12/03/24 07:00 Dextrose 50 ml UD PRN IV 12/03/24 01:30 Gabapentin 100 mg TID PO 12/03/24 06:00 Atorvastatin Calcium 40 mg HS PO 12/03/24 22:00 Aspirin 81 mg DAILY PO 12/03/24 10:00 Metronidazole 100 ml @ 100 mls/hr Q8HR IV 12/03/24 14:00 12/07/24 05:40 100 MLS/HR Cefepime HCl 50 ml @ 12.5 mls/hr Q8H IV 12/04/24 01:00 12/07/24 09:20 12.5 MLS/HR Vancomycin HCl 300 ml @ 200 mls/hr Q24H IV 12/03/24 23:00 12/06/24 23:03 200 MLS/HR Ergocalciferol 50,000 unit Q7D PO 12/04/24 08:00 Enoxaparin Sodium 100 mg Q12HR SC 12/06/24 22:00 Examination Pt is lying on bed General Appearance: Alert, Oriented X3, Cooperative, Not in acute distress HEENT: Atraumatic, Mucous membranes moist/pink Respiratory: Clear to auscultation, Normal air movement, No added sounds Cardiovascular: Regular rate, Normal S1, Normal S2, No murmurs Abdominal/Trunk: Active bowel sounds, Soft, no distention, no tenderness,stage IV wound on the right gluteal to part of the left gluteal region of the sacral area, parasacral is skin redness and erythematous Extremities: No edema, Normal pulses, but red, tender, hot, swollen right knee Skin: sacral wound as described above Neuro: Normal speech, sensorimotor deficits none Psych/Mental Status: Mental status NL, Mood NL Nurse was there as sharperone during examination laboratory and microbiology Laboratory Tests 12/07/24 05:16 12/07/24 05:13 Test 12/07/24 05:16 Range/Units Serum Glucose 138 H 74-106 mg/dL Microbiology Date/Time Source Procedure Growth Status 12/04/24 10:43 Sacrum Gram Stain - Final Resulted 12/04/24 10:43 Sacrum Wound Culture - Preliminary Resulted 12/02/24 13:10 Blood Blood Culture - Preliminary NO GROWTH AFTER 72 HOURS OF INCUBATION. Resulted Labs and/or images reviewed: Labs reviewed by me, Image(s) reviewed by me Problem List/Assessment/Plan Problem List/Assessment/Plan # Stage IV right gluteal and partial left gluteal ulcer, Likely infected # Stage I sacral ulcer # ?Sepsis from ulcer - Surgery consult advised advised to continue local wound care as patient is allergic to tape - Ordered wound consult - Ordered blood culture, wound culture, urine culture - Initially ceftriaxone and vancomycin then, - Dc rocephin, started on vancomycin, cefepime, Flagyl - refusing care # Rt knee septic arthritis with a possible osteomyelitis - orthopedic on board, advised right knee arthroscopic irrigation and debridement likely tomorrow - Initially ceftriaxone and vancomycin then, - Dc rocephin, started on vancomycin, cefepime, Flagyl - Cardiology consulted for preop evaluation, given intermediate risk procedure, low risk of cardiac complications, stop Eliquis and Lovenox for now( Considering high chads Vasc score, the patient needs long-term anticoagulant upon discharge, but the patient adamantly refused to use anticoagulant due to having history of nosebleed despite explaining risks and benefits) -echocardiogram showed LVEF 55% # Acute complicated cystitis - evident on urinalysis - ordered urine bacterial culture - currently giving antibiotics as described above # Hypokalemia - Repleting - Monitor lab # type 2 DM with HbA1c 5.7 - Accu-Cheks and insulin sliding scale # Asthma, - not in exacerbation # hyperlipidemia- Lipitor # Permanent A fib, stage IV (not on anticoagulant)-patient refusing anticoagulant # History of uterine cancer status post hysterectomy # kidney stone, # neuropathy Protonix Eliquis Cardiac/Renal diet Goals of care discussed with the patient for more than 29 minutes: Full code status Case management discussed with Dr. Sanchez, patient and nurse Plan discussed with: Patient My Orders My Orders Orders - MILO OSWALD Procedure Category Date Status Time Cleanse Wound With Ns ANGELITA 12/06/24 In Process 11:25 Apply Barrier Cream ANGELITA 12/06/24 In Process 14:35 * Dietary Consult CONS 12/06/24 Transmitted 14:39 Dietary Evaluation Review Recommendations by RD: Dietary education by RD, Protein Supplementation Comments: 1) Initiate Pro-Stat @ 30 mL qd 2) Initiate Yosef @ 1 pk bid 3) Initiate vitamin C @ 500 mg bid and zinc sulfate @ 220 mg qd for 7-10 days 4) Initiate multivitamin @ 1 tab qd 5) Encourage optimal PO intake. If < 50%, initite Glucerna qd 6) Refer to outpatient RD/CDCES for weight management 7) Follow-up with cardiology 8) Continue to monitor I&O, labs, and skin integrity Expected Outcomes/Goals: 1) appetite and labs to improve 2) wounds to improve 3) f/u in 3-5 days Date of Service: December 07, 2024 Billing Provider: RONALDO SUMNER MD Common Visit Codes: [id number] INP/OBS CARE(HIGH) MILO OSWALD December 07, 2024 12:06 RONALDO SUMNER MD Dec 20, 2024 09:37
[2024-12-07] MEDS ORDERED: fentaNYL CITRATE 100 MCG/2 ML VL ONE (14:37)
[2024-12-07] MEDS ORDERED: MIDAZOLAM HCL 2MG/2ML 2ml VIAL (1mg/ml) ONE (14:37)
[2024-12-07] MEDS ORDERED: PROPOFOL 10 MG/ML 20 ML IV ONE (14:38)
[2024-12-07] MEDS ORDERED: HYDROmorphone HCL 2 MG/ML VL/or syr IV PRN (15:15)
[2024-12-07] MEDS ORDERED: ONDANSETRON HCL 4 MG/2 ML VIAL ONE (15:45)
[2024-12-07] MEDS ORDERED: METOCLOPRAMIDE HCL 5MG/ml INJ 2ml VIAL ONE (15:45)
[2024-12-07] MEDS ORDERED: ePHEDrine SULFATE 50 MG/ML AMP SC PRN (16:45)
--- NOTE | 2024-12-07 17:48 | DVHOP ---
DATE OF SURGERY: 12/07/2024 PREOPERATIVE DIAGNOSIS: Right knee arthritis, possibly chronic septic arthritis or osteomyelitis. POSTOPERATIVE DIAGNOSIS: Right knee primary osteoarthritis. ANESTHESIA: General. COMPLICATIONS: None. HUMAN GEOGRAPHY FACULTY MEMBER: Cristian Gamez PA-C. BLOOD LOSS: 5 mL. IMPLANTS USED: None. PROCEDURE PERFORMED: Right knee arthroscopy with extensive synovial debridement, cultures and loose body removal. INDICATION FOR PROCEDURE: The patient is a 79-year-old female who presented to the emergency room with a history of right leg cellulitis and knee pain. Clinical and radiological evaluation demonstrated effusion and inability to move the right knee. MRI showed extensive fluid and edema in the distal femur and the proximal tibia. Severe osteoarthritis was also noted. Although the patient did not have any elevated cell count and symptoms were present for 3 months, there was a suspicion of osteomyelitis based on MRI. Nonoperative and operative management options were discussed. Arthroscopic irrigation and debridement with distal femur and proximal tibia decompression was discussed with her. Benefits, risks, and treatment alternatives were discussed. Specific complications of the surgery such as neurovascular injury, infection, arthrofibrosis, loss of limb or life were discussed. The patient decided to proceed with the surgery. PROCEDURE IN DETAIL: The patient was identified in the preoperative holding area and the surgical site was marked. The consent was verified. She was brought into the operating room and placed supine on the operating table. General anesthesia was administered. Intravenous antibiotics was given. The extremity was prepped and draped in the usual sterile manner. A timeout was called out to confirm the identify of the patient, the nature of surgery, the site of surgery, the availability of implants, x-rays and allergies to medications. A standard anterolateral port was established. A cannula was inserted. Swabs were taken for cultures. No evidence of any pus was noted. A 30-degree scope was inserted. An anteromedial portal was established. A probe was inserted and the findings were as follows: * Severe osteoarthritis, grade 4 tricompartmental. * Extensive synovitis and loose bodies. * Synovial fluid. * Torn ACL, intact PCL. * Degenerative menisci tears. Based on the findings, I decided to drill a few holes through the distal femur to look for any signs of osteomyelitis. Significant damage to the cartilage as well as bone was noted. A lot of floating loose bodies were noted. These were osteochondral in nature. These were removed. Debridement was done. No evidence of pus was noted. Irrigation was given and the skin incisions were closed with 3-0 Monocryl. Sterile dressing was applied. DISPOSITION: Good. The patient was extubated and taken to the recovery without any complications. PLAN: Weight bear as tolerated. Range of motion as tolerated. After the cultures, we will consider giving a cortisone shot for osteoarthritis. NOT a candidate for total knee replacement at present due to morbid obesity MD CAROL Rubio/KAROLINA TID: [id number] RECEIPT: [id number] [facility]
[2024-12-07] MEDS: KETOROLAC TROMETH 30 MG/ML 1ML VIAL IV ONE (23:21)
[2024-12-08 01:00] VITALS: BP 90/40; PULSE 71; RESP 18; TEMP 97.7; O2SAT 93
[2024-12-08 05:00] VITALS: BP 106/55; PULSE 66; RESP 18; TEMP 97.6; O2SAT 96
[2024-12-08 06:09] LABS: Basophils # (auto) 0 10 ^3/uL (0-0.2); Basophils % (auto) 0.4 % (0.0-2.0); Eosinophils # (auto) 0.1 10 ^3/uL (0-0.8); Eosinophils % (auto) 2.5 % (0.0-7.0); Hematocrit 32.3 % (36.0-46.0); Hemoglobin 10.4 g/dL (12.2-16.2); Lymphocytes # (auto) 0.9 10 ^3/uL (0.4-5.4); Mean Corpuscular Hemoglobin 27.6 pg (28.0-32.0); Mean Corpuscular Hgb Conc. 32.2 g/dL (32.0-36.0); Mean Corpuscular Volume 85.5 fL (80.0-100.0); Monocytes # (auto) 0.5 10 ^3/uL (0-1.3); Monocytes % (auto) 12.1 % (0.0-12.0); Neutrophils # (auto) 2.8 10 ^3/uL (1.6-8.6); Nucleated Red Blood Cells % 0.1 %; Platelet Count (auto) 167 10^3/uL (140-450); Red Blood Cells 3.77 10^6/uL (4.0-5.20); Red Cell Distribution Width 16.4 % (11.8-14.3); White Blood Cell 4.4 10^3/uL (4.4-10.8)
[2024-12-08 06:30] LABS: Anion Gap 9 (5-15); Carbon Dioxide 24 mmol/L (20-31); Chloride 106 mmol/L (98-107); Potassium 3.9 mmol/L (3.5-5.1); Sodium 139 mmol/L (136-145)
[2024-12-08 06:36] LABS: BUN/Creatinine Ratio 21.3 (10.0-20.0); Blood Urea Nitrogen 17 mg/dL (9-23); Calcium 8.1 mg/dL (8.7-10.4); Glucose 165 mg/dL (74-106)
[2024-12-08 09:30] VITALS: BP 122/46; PULSE 68; RESP 17; TEMP 97.6; O2SAT 96
[2024-12-08] MEDS: KETOROLAC TROMETH 30 MG/ML 1ML VIAL IV ONE (11:13)
[2024-12-08] MEDS: ACETAMINOPHEN IV 1000 MG/100ML (10MG/ML) IV ONE (11:13)
[2024-12-08] MEDS: ONDANSETRON HCL 4 MG/2 ML VIAL IV ONE (11:14)
[2024-12-08] MEDS ORDERED: ERGO1CAP23 PO (11:50)
[2024-12-08] MEDS ORDERED: GAB100C PO (11:50)
[2024-12-08] MEDS ORDERED: ATOR20TA50 PO (11:50)
--- NOTE | 2024-12-08 13:22 | DVHDSRES ---
Discharge Summary Date of Admission Resident Creating Document: MILO OSWALD RESIDENT December 02, 2024 at 22:26 Date of Discharge: December 08, 2024 Admitting Diagnosis # Stage IV right gluteal and partial left gluteal ulcer, Likely stable Labs/Diagnostic Data: Laboratory Results Test 12/08/24 11:05 12/08/24 05:20 12/06/24 21:53 12/06/24 05:42 POC Glucose 157 mg/dl (70-106) White Blood Count 4.4 10^3/uL (4.4-10.8) Red Blood Count 3.77 10^6/uL (4.0-5.20) Hemoglobin 10.4 g/dL (12.2-16.2) Hematocrit 32.3 % (36.0-46.0) Mean Corpuscular Volume 85.5 fL (80.0-100.0) Mean Corpuscular Hemoglobin 27.6 pg (28.0-32.0) Mean Corpuscular Hemoglobin Concent 32.2 g/dL (32.0-36.0) Red Cell Distribution Width 16.4 % (11.8-14.3) Platelet Count 167 10^3/uL (140-450) Mean Platelet Volume 7.7 fL (6.9-10.8) Neutrophils (%) (Auto) 64.0 % (37.0-80.0) Lymphocytes (%) (Auto) 21.0 % (10.0-50.0) Monocytes (%) (Auto) 12.1 % (0.0-12.0) Eosinophils (%) (Auto) 2.5 % (0.0-7.0) Basophils (%) (Auto) 0.4 % (0.0-2.0) Neutrophils # (Auto) 2.8 10 ^3/uL (1.6-8.6) Lymphocytes # (Auto) 0.9 10 ^3/uL (0.4-5.4) Monocytes # (Auto) 0.5 10 ^3/uL (0-1.3) Eosinophils # (Auto) 0.1 10 ^3/uL (0-0.8) Basophils # (Auto) 0 10 ^3/uL (0-0.2) Nucleated Red Blood Cells 0.1 % Sodium Level 139 mmol/L (136-145) Potassium Level 3.9 mmol/L (3.5-5.1) Chloride Level 106 mmol/L (98-107) Carbon Dioxide Level 24 mmol/L (20-31) Anion Gap 9 (5-15) Blood Urea Nitrogen 17 mg/dL (9-23) Creatinine 0.80 mg/dL (0.550-1.02) Glomerular Filtration Rate Calc 75 mL/min (>90) BUN/Creatinine Ratio 21.3 (10.0-20.0) Serum Glucose 165 mg/dL (74-106) Calcium Level 8.1 mg/dL (8.7-10.4) Vancomycin Level Trough 13.8 ug/mL (5-10) Magnesium Level 1.6 mg/dL (1.6-2.6) Total Bilirubin 0.4 mg/dL (0.2-1.0) Aspartate Amino Transferase (AST) 12 U/L (13-40) Alanine Aminotransferase (ALT) < 9 U/L (7-40) Alkaline Phosphatase 69 U/L (46-116) Troponin I High Sensitivity 12 ng/L (</=34) B-Type Natriuretic Peptide 229.88 pg/mL (0-100) Total Protein 6.0 g/dL (5.7-8.2) Albumin 2.6 g/dL (3.2-4.8) Test 12/05/24 09:14 12/04/24 17:32 12/04/24 06:07 12/03/24 17:05 Erythrocyte Sedimentation Rate 74 mm/hr (0-20) Urine Color Yellow (Yellow) Urine Clarity Turbid (Clear) Urine pH 5.5 (5.0-9.0) Urine Specific [place] 1.017 (1.001-1.035) Urine Protein 1+ (Negative) Urine Ketones Negative (Negative) Urine Blood Trace /uL (Negative) Urine Nitrite Negative (Negative) Urine Bilirubin Negative (Negative) Urine Urobilinogen Normal mg/dL (Negative) Urine Leukocyte Esterase 3+ /uL (Negative) Urine RBC 17 /hpf (0 - 4) Urine Microscopic WBC 359 /HPF (0-5) Urine Squamous Epithelial Cells Few /hpf (<5) Urine Bacteria Few /hpf (None Seen) Urine Mucus Few (None Seen) Urine Glucose Normal mg/dL (Normal) Prothrombin Time 12.8 sec (9.3-11.8) Prothrombin Time INR 1.23 (0.9-1.15) Urine Opiates Screen Neg (NEGATIVE) Urine Fentanyl Screen Neg (NEGATIVE) Urine Barbiturates Screen Neg (NEGATIVE) Urine Phencyclidine Screen Neg (NEGATIVE) Urine Amphetamines Screen Neg (NEGATIVE) Urine Benzodiazepines Screen Neg (NEGATIVE) Urine Cocaine Screen Neg (NEGATIVE) Urine Cannabinoids Screen Neg (NEGATIVE) Test 12/03/24 06:08 12/03/24 05:25 12/02/24 13:10 Hemoglobin A1c 5.7 % A1C (<5.7) Uric Acid 3.8 mg/dL (3.1-7.8) Vitamin B12 Level 232 pg/mL (211-911) Vitamin D 25-Hydroxy 35.5 ng/mL (30.0-100) Thyroid Stimulating Hormone (TSH) 1.57 uIU/mL (0.55-4.78) Influenza Type A Antigen Negative (Negative) Influenza Type B Antigen Negative (Negative) SARS-CoV-2 Antigen (Rapid) Negative (NEGATIVE) Lactic Acid Level 1.7 mmol/L (0.4-2.0) Other Laboratory Tests 12/08/24 05:20 Brief Hx & Hospital Course: UDAY CROWELL is 79 years old female with a past medical history of asthma, diabetes mellitus type 2, hyperlipidemia, atrial fibrillation on Eliquis, bedsore, uterine cancer, kidney stone, neuropathy was brought in from [facility] due to worsening bedsore. As per patient she has been having basilar for a while, which got worse. Patient also reported pain in the back /. Patient reported she had wound debridement 2 weeks before at the facility. Even after that she had ongoing back pain. On further inquiry patient reported dysuria for last couple of days. Patient denied any fever, chest pain, short of breath, dysarthria or change in vision. 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 She was admitted with concerns for possible sepsis secondary to pressure ulcers. Cultures were obtained (blood, wound, and urine) no growth., and she was initially started on ceftriaxone and vancomycin, later transitioned to vancomycin, cefepime, and Flagyl. Sepsis was ruled out, and no surgical debridement was deemed necessary. Although a VAC dressing was considered, the patient declined due to a tape allergy and refusal of wound care. Local wound care was continued. The patient was also evaluated for right knee pain with concern for septic arthritis or osteomyelitis. Arthrocentesis and imaging revealed severe tricompartmental osteoarthritis (grade 4), extensive synovitis, loose bodies, a torn ACL with intact PCL, and degenerative meniscal tears. Septic arthritis was ruled out. Orthopedic surgery recommended arthroscopic irrigation and debridement, and cardiology cleared the patient for surgery with low cardiac risk. However, the patient refused anticoagulation therapy despite a high LOLA?DS?-VASc score due to a history of nosebleeds. Echocardiogram showed preserved left ventricular function (LVEF 55%). Additionally, the patient was treated for acute complicated cystitis based on urinalysis findings. Hypokalemia was identified and corrected. Her diabetes was well-controlled (HbA1c 5.7%) and managed with insulin sliding scale and Accu- Cheks. Asthma remained stable without exacerbation. Hyperlipidemia was managed with Lipitor. The patient was maintained on a cardiac/renal diet and Protonix. Patient refused Eliquis. The patients condition improved during hospitalization. She remained hemodynamically stable and was deemed appropriate for discharge to a [facility] facility ([facility]) with optimal medical management. No further antibiotics were required as there was no evidence of septic arthritis or active wound infection. She was advised to weight bear and perform range of motion exercises as tolerated. A cortisone injection for osteoarthritis may be considered following final culture results. Pt is lying on bed General Appearance: Alert, Oriented X3, Cooperative, Not in acute distress HEENT: Atraumatic, Mucous membranes moist/pink Respiratory: Clear to auscultation, Normal air movement, No added sounds Cardiovascular: Regular rate, Normal S1, Normal S2, No murmurs Abdominal/Trunk: Active bowel sounds, Soft, no distention, no tenderness,stage IV wound on the right gluteal to part of the left gluteal region of the sacral area, parasacral is skin redness and improved Extremities: right knee improved warmth, swelling after arthrocentesis Skin: sacral wound as described above Neuro: Normal speech, sensorimotor deficits none Psych/Mental Status: Mental status NL, Mood NL Nurse was there as sharperone during examination Operations or Procedures CT CT AB PEL WITH IV CON ONLY 1. Disruption of the skin in the right gluteal area with surrounding inflammatory changes in subcutaneous tissues approximately 17 mm in depth and 27 mm in width. There are several small bubbles of air in the adjacent soft tissues suggesting infection; series 2, images 82--85. 2. Cholelithiasis 3. 9 mm nonobstructing calculus right kidney. ----- XY R KNEE 2V XRAY IMPRESSION: No acute fracture or dislocation. Severe osteoarthrosis. Soft tissue swelling. If there is concern for infection, recommend MRI of the right knee without and with intravenous contrast. ---- Multisequence multiplanar MRI images of the right knee knee were obtained without contrast. IMPRESSION: 1. Large complex collection in the joint, likely correlating with reported clinical history of septic arthritis. 2. Suspected osteomyelitis of the distal femur, proximal tibia, proximal fibula, and patella, suspected osteomyelitis. 3. Suspected myositis involving the adjacent musculature around the knee as detailed above. 4. Medial and lateral meniscal tears as detailed above with prominent extrusion of the body of the medial meniscus. 5. Severe arthritic changes. 6. Additional findings as detailed above. 7. Motion limited study. OF SURGERY: 12/07/2024 PREOPERATIVE DIAGNOSIS: Right knee arthritis, possibly chronic septic arthritis or osteomyelitis. POSTOPERATIVE DIAGNOSIS: Right knee primary osteoarthritis. ANESTHESIA: General. COMPLICATIONS: None. CLOTH WASHER BACK TENDER: Cristian Gamez PA-C. BLOOD LOSS: 5 mL. IMPLANTS USED: None. PROCEDURE PERFORMED: Right knee arthroscopy with extensive synovial debridement, cultures and loose body removal. INDICATION FOR PROCEDURE: The patient is a 79-year-old female who presented to the emergency room with a history of right leg cellulitis and knee pain. Clinical and radiological evaluation demonstrated effusion and inability to move the right knee. MRI showed extensive fluid and edema in the distal femur and the proximal tibia. Severe osteoarthritis was also noted. Although the patient did not have any elevated cell count and symptoms were present for 3 months, there was a suspicion of osteomyelitis based on MRI. Nonoperative and operative management options were discussed. Arthroscopic irrigation and debridement with distal femur and proximal tibia decompression was discussed with her. Benefits, risks, and treatment alternatives were discussed. Specific complications of the surgery such as neurovascular injury, infection, arthrofibrosis, loss of limb or life were discussed. The patient decided to proceed with the surgery. PROCEDURE IN DETAIL: The patient was identified in the preoperative holding area and the surgical site was marked. The consent was verified. She was brought into the operating room and placed supine on the operating table. General anesthesia was administered. Intravenous antibiotics was given. The extremity was prepped and draped in the usual sterile manner. A timeout was called out to confirm the identify of the patient, the nature of surgery, the site of surgery, the availability of implants, x-rays and allergies to medications. A standard anterolateral port was established. A cannula was inserted. Swabs were taken for cultures. No evidence of any pus was noted. A 30-degree scope was inserted. An anteromedial portal was established. A probe was inserted and the findings were as follows: * Severe osteoarthritis, grade 4 tricompartmental. * Extensive synovitis and loose bodies. * Synovial fluid. * Torn ACL, intact PCL. * Degenerative menisci tears. Based on the findings, I decided to drill a few holes through the distal femur to look for any signs of osteomyelitis. Significant damage to the cartilage as well as bone was noted. A lot of floating loose bodies were noted. These were osteochondral in nature. These were removed. Debridement was done. No evidence of pus was noted. Irrigation was given and the skin incisions were closed with 3-0 Monocryl. Sterile dressing was applied. DISPOSITION: Good. The patient was extubated and taken to the recovery without any complications. PLAN: Weight bear as tolerated. Range of motion as tolerated. After the cultures, we will consider giving a cortisone shot for osteoarthritis. Leopoldo Berg MD KK/KAROLINA Condition at Discharge: Stable Final Diagnosis/Problems List # Stage IV right gluteal and partial left gluteal ulcer, Likely stable # Stage I sacral ulcer # Ruled out Rt knee septic arthritis & osteomyelitis # Severe osteoarthritis, grade 4 tricompartmental. # Torn ACL, intact PCL. # Degenerative menisci tears. # Acute complicated cystitis # Sepsis from UTI- resolved # Hypokalemia # type 2 DM with HbA1c 5.7 # Asthma, - not in exacerbation # hyperlipidemia # Permanent A fib, stage IV (not on anticoagulant)-patient refusing anticoagulant # History of uterine cancer status post hysterectomy # kidney stone, # neuropathy Discharge Disposition: Care Home Facility Discharge Instruct/Medications Diet: Consistent carbohydrate, Cardiac 2g Na,low cholest Activity: No Restrictions, As Tolerated Follow Up/Referral: PCP Ortho clinic in 2 weeks Dc clinic Medications: Resumed home medications along with Atorvastatin 40 mg daily once Ergocalciferol weekly once Gabapentin mg t.i.d. Discharge Statement: "Patient was advised to return to the ER or call 911 if any headaches, dizziness, shortness of breath, chest pain, abdominal pain, bleeding, fevers, or worsening of medical condition. Patient was counseled about treatment plan, medications, possible side effects, patientverbalized understanding. All questions were answered to the best of my ability. This discharge took greater then 30 minutes in planning, reviewing documentation, counseling the patient, and discussing with other team members." ASSESSMENT ASSESSMENT Assessment # Stage IV right gluteal and partial left gluteal ulcer, Likely stable # Stage I sacral ulcer # Ruled out Rt knee septic arthritis & osteomyelitis # Severe osteoarthritis, grade 4 tricompartmental. # Torn ACL, intact PCL. # Degenerative menisci tears. # Acute complicated cystitis # Sepsis from UTI- resolved # Hypokalemia # type 2 DM with HbA1c 5.7 # Asthma, - not in exacerbation # hyperlipidemia # Permanent A fib, stage IV (not on anticoagulant)-patient refusing anticoagulant # History of uterine cancer status post hysterectomy # kidney stone, # neuropathy Date of Service: December 08, 2024 Billing Provider: RONALDO SUMNER MD Common Visit Codes: 61191-HGA/OBS DISCH DAY >30min MILO OSWALD RESIDENT December 08, 2024 13:22 RONALDO SUMNER MD Dec 22, 2024 08:50
[2024-12-08 13:29] VITALS: BP 109/45; PULSE 72; RESP 18; TEMP 98; O2SAT 95
[2024-12-08 16:30] VITALS: BP 116/31; PULSE 50; RESP 17; TEMP 98.2; O2SAT 97
== END 2024-12-08 20:30 | DRG 871 ==
LOC: EDUNIT# 12:21 → EDBD 12:21 → ER 12:23 → OVERFLOW 22:26 → CENTRAL 12-03 15:09 → EAST 12-06 09:12
PROVIDERS: ADMIT Student in an Organized Health Care Education/Training Program; ATTEND Internal Medicine
PROC: 0HBKXZZ Excision of Right Lower Leg Skin, External Approach (ICD-10-PCS; principal; 2024-12-07 15:34)
DX: A41.9 Sepsis, unspecified organism (principal); L89.154 Pressure ulcer of sacral region, stage 4; I48.21 Permanent atrial fibrillation; M00.9 Pyogenic arthritis, unspecified; M86.60 Other chronic osteomyelitis, unspecified site; M17.11 Unilateral primary osteoarthritis, right knee; C55 Malignant neoplasm of uterus, part unspecified; D63.8 Anemia in other chronic diseases classified elsewhere; E11.69 Type 2 diabetes mellitus with other specified complication; E78.5 Hyperlipidemia, unspecified; E87.6 Hypokalemia; J45.909 Unspecified asthma, uncomplicated; N20.0 Calculus of kidney; Z20.822 Contact with and (suspected) exposure to COVID-19; E11.40 Type 2 diabetes mellitus with diabetic neuropathy, unspecified; I35.0 Nonrheumatic aortic (valve) stenosis; M10.9 Gout, unspecified; Z74.01 Bed confinement status; Z79.01 Long term (current) use of anticoagulants; Z80.0 Family history of malignant neoplasm of digestive organs; Z80.8 Family history of malignant neoplasm of other organs or systems; Z82.49 Family history of ischemic heart disease and other diseases of the circulatory system; Z85.42 Personal history of malignant neoplasm of other parts of uterus; Z87.442 Personal history of urinary calculi; Z88.0 Allergy status to penicillin; Z88.5 Allergy status to narcotic agent; Z90.710 Acquired absence of both cervix and uterus; Z91.048 Other nonmedicinal substance allergy status
CPT/HCPCS: 36415; 71045; 73560; 73721; 74177; 80048; 80053; 80202; 80307; 81001; 82306; 82565; 82607; 82962; 83036; 83605; 83735; 83880; 84443; 84484; 84550; 85025; 85610; 85652; 87040; 87070; 87075; 87077; 87081; 87086; 87186; 87205; 87426; 87804; 93005; 93306; 96365; G0378; J0131; J1885; J2250; J2405; J2704; J3490

== ENCOUNTER 2025-02-18 21:01 | Inpatient (IN) | payer MEDICARE, MEDICAID ==
[~2025-02-18] VITALS: Ht 170.2 cm; Wt 102.5 kg
[~2025-02-18 21:01] MED LIST changes: +ATOR20TA50 PO; +ERGO1CAP23 PO; +GAB100C PO
--- NOTE | 2025-02-18 21:21 | ECG ---
[facility] Test Date: 2025-02-18 Test Time: 21:13:49 Pat Name: UDAY CROWELL Department: ER Room: 0208T Gender: F Entry Level Recruiter: JET : 1945 Requested By: ALYCIA CONNOR Order Number: [id number] Reading MD: Reji Medeiros Measurements Intervals [place] Rate: 81 P: 0 NV: 0 QRS: 62 QRSD: 140 T: -6 QT: 423 QTc: 491 Interpretive Statements Atrial fibrillation Right bundle branch block Inferior infarct, old Probable anterolateral infarct, old Electronically Signed On 02-21-2025 22:03:19 PDT by Reji Medeiros Please click the below link to view image of tracing.
--- NOTE | 2025-02-18 21:35 | ED.PDOC ---
History of Present Illness HPI Comments 79 year old female with a Hx of DM and A-FIB was BIBA for the c/c of Generalized Weakness w/ an associated R Gluteal Bed Sore. EMS states that Pt left AMA from a Post Acute Facility earlier today, and notes that pt could not walk on her own once she left the facility. Pt states that she feels the "heat got to her". Pt states that she takes Metformin to control her DM, but notes she refuses to take any Insulin or Blood Thinners. EMS notes that pt BS was 210 on route to the ED. Pt denies any CP, ABD pain, MERCADO, Dizziness, Blurry Vision, or another other associated symptoms or modifiers at this time. Chief Complaint: General Weakness Time Seen by MD: 21:30 Primary Care Provider: Francisca Reviewed Notes: Nurses Notes, After School Program Assistant Notes, Medications, Allergies Allergies: Coded Allergies: Codeine (Verified Allergy, Mild, 03/10/17) Penicillins (Verified Allergy, Mild, 03/10/17) Tetanus Toxoid (Verified Allergy, Unknown, 03/10/17) SWELLING Uncoded Allergies: TAPE (Allergy, Unknown, 10/18/10) Home Meds Active Scripts Ergocalciferol (VITAMIN D 68327 UNIT) 50,[address] [place], [address] UNIT PO Q7D for 90 Days, #12 CAP Prov:MILO OSWALD RESIDENT 12/08/24 Atorvastatin Calcium (ATORVASTATIN CALCIUM) 20 Mg Tab, 40 MG PO HS for 30 Days, #60 TAB Prov:MILO OSWALD RESIDENT 12/08/24 Gabapentin (Gabapentin) 100 Mg Cap, 100 MG PO TID for 30 Days, #30 CAP Prov:MILO OSWALD RESIDENT 12/08/24 Apixaban Base (ELIQUIS) 5 Mg Tab, 5 MG PO BID, #180 TAB Prov:PAM GONZALEZ MD 07/12/24 Reported Medications Glyburide-Metformin (Glucovance) 1 Tab Tab, 2 TAB PO BID 10/18/10 Mode of Arrival: EMS Severity: Moderate Timing: Hours Duration: Since onset, Hours Prehospital treatment: 12 Lead EKG, Accucheck, Mechanic Welder, Oxygen Past Medical History PAST MEDICAL HISTORY: AFIB, DM Surgical History: Denies all surgeries INVESTIGATION LIEUTENANT History: No Pertinent INVESTIGATION LIEUTENANT History Family History Family History: Reviewed,noncontributory to illness, Unknown Social History Smoker: Non-Smoker Alcohol: Denies ETOH Use Drugs: Denies Drug Use Lives In: Home All Other Systems: Reviewed and Negative (Comprehensive systems review obtained and negative except for what is stated in the HPI.) Physical Exam General Appearance: No Apparent Distress, Obese HEENT: Other (Pupils and face symmetric. Moist mucous membranes.) Neck: Full Range of Motion, Normal Inspection Respiratory: Lungs Clear, No Accessory Muscle Use, No Respiratory Distress, Normal Breath Sounds Cardiovascular: No JVD, Regular Rate/Rhythm Breast Exam: Deferred Gastrointestinal: Non Tender, Soft Genitalia: Deferred Pelvic: Deferred Rectal: Deferred Extremities: Leg edema, Normal range of motion, Non-tender, Pedal edema Neurologic: Alert (Oriented x4), Normal Affect, Normal Mood, Other (Moves all extremities) Cerebellar Function: NOT DONE Reflexes: NOT DONE Skin: Dry, Normal Color, Warm Lymphatic: NOT DONE Was a procedure done? Was a procedure done?: No EKG EKG : Comments AFib, rate 81, QRS and QTC prolonged, right bundle branch block, old inferior infarct, nonspecific T change. Differential Dx Considerations may include: Deconditioning, CHF, electrolyte imbalance, infection such as UTI, among others X-Ray, Labs, Meds, VS Vital Signs Date Time Temp Pulse Resp B/P (MAP) Pulse Ox O2 Delivery O2 Flow Rate FiO2 02/18/25 23:08 97.5 67 16 126/51 (76) 96 97.5 02/18/25 23:08 67 16 96 Room Air 02/18/25 21:13 81 02/18/25 21:12 98.4 83 18 132/75 95 98.4 Lab Test 02/18/25 23:04 02/18/25 22:03 Range/Units Troponin I High Sensitivity 14 13 </=34 ng/L White Blood Count 6.6 4.4-10.8 10^3/uL Red Blood Count 4.69 4.0-5.20 10^6/uL Hemoglobin 13.3 12.2-16.2 g/dL Hematocrit 39.4 36.0-46.0 % Mean Corpuscular Volume 84.0 80.0-100.0 fL Mean Corpuscular Hemoglobin 28.4 28.0-32.0 pg Mean Corpuscular Hemoglobin Concent 33.8 32.0-36.0 g/dL Red Cell Distribution Width 14.9 H 11.8-14.3 % Platelet Count 163 140-450 10^3/uL Mean Platelet Volume 8.8 6.9-10.8 fL Neutrophils (%) (Auto) 73.0 37.0-80.0 % Lymphocytes (%) (Auto) 17.9 10.0-50.0 % Monocytes (%) (Auto) 7.5 0.0-12.0 % Eosinophils (%) (Auto) 0.9 0.0-7.0 % Basophils (%) (Auto) 0.7 0.0-2.0 % Neutrophils # (Auto) 4.8 1.6-8.6 10 ^3/uL Lymphocytes # (Auto) 1.2 0.4-5.4 10 ^3/uL Monocytes # (Auto) 0.5 0-1.3 10 ^3/uL Eosinophils # (Auto) 0.1 0-0.8 10 ^3/uL Basophils # (Auto) 0 0-0.2 10 ^3/uL Nucleated Red Blood Cells 0.1 % Sodium Level 139 136-145 mmol/L Potassium Level 4.2 3.5-5.1 mmol/L Chloride Level 105 98-107 mmol/L Carbon Dioxide Level 26 20-31 mmol/L Anion Gap 8 5-15 Blood Urea Nitrogen 19 9-23 mg/dL Creatinine 1.17 H 0.550-1.02 mg/dL Glomerular Filtration Rate Calc 48 >90 mL/min BUN/Creatinine Ratio 16.2 10.0-20.0 Serum Glucose 147 H 74-106 mg/dL Calcium Level 9.5 8.7-10.4 mg/dL B-Type Natriuretic Peptide 170.26 0-100 pg/mL PATIENT: UDAY CROWELL ACCT: [id number] UNIT: [id number] : 1945 LOC: ER ROOM / BED: / AGE / SEX: 79 / F ADM STATUS: REG ER SERVICE 31 ORDERING PHYSICIAN: ALYCIA SIMMONS MD PROCEDURE(s): CXRP - CHEST PORTABLE REASON: gen weak ORDER NUMBER(s): [id number], ACCESSION NUMBER(s): [id number] CHEST RADIOGRAPH Indication: gen weak Technique: Single frontal view of the chest was obtained Comparison: XY CHEST XRAY 1 VIEW on DOS: 12/06/24, XY CHEST PORTABLE on DOS: 10/08/24, XY CHEST PORTABLE on DOS: 07/06/24, XY CHEST PORTABLE on DOS: 04/01/24, CHEST PORTABLE on DOS: 05/01/22 FINDINGS: Lines and Tubes: None Lungs: No focal consolidation. Pleura: No effusion or pneumothorax. Cardiomediastinal contours: Unremarkable Bones: No acute osseous abnormality. IMPRESSION: 1. No acute cardiopulmonary disease. X-Ray, Labs, Meds, VS Comment 79-year-old female with a history of AFib and diabetes brought in by EMS from home complaining of generalized weakness and inability to ambulate after leaving AMA from a post acute care facility today. Vitals unremarkable Exam remarkable for lower extremity edema Rhythm strip independently interpreted by me: AFib, rate 81 Chest x-ray unremarkable CBC unremarkable, basic metabolic panel remarkable for creatinine 1.17, BNP 170.26, 2 serial troponins negative Patient received [place] 5/325 mg p.o. in the ED for buttock pain (noted is a healing decubitus ulcer on the right buttock area) Plan is to admit the patient for PT OT evaluation and eventual SNF placement. Time of 1ST Reevaluation: 22:00 Reevaluation 1ST: Unchanged Patient Education/Counseling: Diagnosis, Treatment, Need For Follow Up Family Education/Counseling: No Family Present SEPSIS Sepsis Screen Date sepsis recognized/suspect: Feb 18, 2025 Time Sepsis recognized/suspect: 2111 Recent Procedure: No On Antibiotic Therapy: No Respiratory Rate >20: No Heart Rate >90: No Temp<36 C (96.8 F) or >38.3 C: No SBP <90 or MAP <65 mmHG: No New Acute Mental Status Change: No Is the patient on CPAP, BIPAP,: No Physician Orders Chest Portable (02/18/25 21:32) Urinalysis (02/18/25 21:32) Troponin-I Hs (02/19/25 00:32) Vital Signs Date Time Temp Pulse Resp B/P (MAP) Pulse Ox O2 Delivery O2 Flow Rate FiO2 02/18/25 23:08 97.5 67 16 126/51 (76) 96 97.5 02/18/25 23:08 67 16 96 Room Air 02/18/25 21:13 81 02/18/25 21:12 98.4 83 18 132/75 95 98.4 Laboratory Tests Test 02/18/25 22:03 White Blood Count 6.6 10^3/uL (4.4-10.8) Departure 1 Departure Time of Disposition: 00:48 Impression: Primary Impression: Generalized weakness Additional Impressions: Unable to ambulate At risk for falls Disposition: ADMITTED INPATIENT Admit to: Med Surg Condition: Guarded Critical Care Note Critical Care Time?: No Stability Stability form required: No Heart Score Heart Score: Heart Score Response (Comments) Value History N/A 0 EKG N/A 0 Age N/A 0 Risk Factors N/A 0 Troponin N/A 0 Total 0 I personally scribed for ALYCIA SIMMONS MD ([facility]) on 02/18/25 at 21:35. Electronically submitted by Ry Tinajero ([email or web address]). I personally scribed for ALYCIA SIMMONS MD ([facility]) on 02/18/25 at 22:13. Electronically submitted by Ry Tinajero ([email or web address]). ALYCIA SIMMONS MD Feb 18, 2025 21:35
--- NOTE | 2025-02-18 22:11 | DVH ---
CHEST RADIOGRAPH Indication: gen weak Technique: Single frontal view of the chest was obtained Comparison: XY CHEST XRAY 1 VIEW on DOS: 12/06/24, XY CHEST PORTABLE on DOS: 10/08/24, XY CHEST PORTABL E on DOS: 07/06/24, XY CHEST PORTABLE on DOS: 04/01/24, CHEST PORTABLE on DOS: 05/01/22 FINDINGS: Lines and Tubes: None Lungs: No focal consolidation. Pleura: No effusion or pneumothorax. Cardiomediastinal contours: Unremarkable Bones: No acute osseous abnormality. IMPRESSION: 1. No acute cardiopulmonary disease.
[2025-02-18 22:28] LABS: Hematocrit 39.4 % (36.0-46.0); Hemoglobin 13.3 g/dL (12.2-16.2); Mean Corpuscular Hemoglobin 28.4 pg (28.0-32.0); Mean Corpuscular Volume 84.0 fL (80.0-100.0); Nucleated Red Blood Cells % 0.1 %
[2025-02-18 22:34] LABS: Chloride 105 mmol/L (98-107); Potassium 4.2 mmol/L (3.5-5.1); Sodium 139 mmol/L (136-145)
[2025-02-18 22:35] LABS: Anion Gap 8 (5-15); Carbon Dioxide 26 mmol/L (20-31)
[2025-02-18 22:36] LABS: Calcium 9.5 mg/dL (8.7-10.4)
[2025-02-18 22:40] LABS: BUN/Creatinine Ratio 16.2 (10.0-20.0); Blood Urea Nitrogen 19 mg/dL (9-23); Glucose 147 mg/dL (74-106)
[2025-02-18] MEDS: HYDROcodone-ACET 5/325MG TAB PO ONE (23:07)
--- NOTE | 2025-02-19 03:31 | DVHHPRES ---
History of Present Illness Resident Creating Document: KEYLA TAYLOR RESIDENT History of Present Illness Carmelina Lopez is a 79 year old female with a past medical history of DM2, asthma, peripheral neuropathy and A-Fib. The patient visited the ED with a chief complain of 1 day of generalized weakness associated with fatigue and feeling lightheaded. The patient reports that for the last months she has been a patient in a post acute facility due to a decubitus sacral ulcer, but yesterday she decided to go AMA because she was feeling better. In the ED the EKG reported atrial fibrillation with heart rate of 81, chest x-ray unremarkable, CBC unremarkable, basic metabolic panel remarkable for creatinine 1.17, BNP 170.26, 2 serial troponins negative. Patient denies fever, chills, abdominal pain, nausea, vomit, or other symptoms. 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: Periperal neuropathy Musculoskeletal: Osteoarthritis (Bilatelar knee) Renal/: Chronic renal failure (CKD stage 3b ) Endocrine: Diabetes Dermatology: Cellulitis (Hx of cellulitis in bilateral lower extremities due to ella insuficency.) Past Surgical History: Hysterectomy, Hernia Repair Family History: Other (Brain cancer in mother) Smoke: No ALCOHOL: none Drugs: None Review of Systems Constitutional: Yes: Weakness; No: Fever, Chills, Sweats, Malaise, Other Eyes: No: Pain, Vision change, Conjunctivae inflammation, Eyelid inflammation, Other, Redness ENT: No: Ear pain, Ear discharge, Nose pain, Nose discharge, Nose congestion, Mouth pain, Mouth swelling, Throat pain, Throat swelling, Other Respiratory: No: Cough, Dry, Shortness of breath, SOB with excertion, Wheezing, Hemoptysis, Pleuritic Pain, Sputum, Wheezing, Other Cardiovascular: No: Chest Pain, Palpitations, Orthopnea, Paroxysmal Noc. Dyspnea, Edema, Lt Headedness, Other Gastrointestinal: No: Nausea, Vomiting, Abdominal Pain, Diarrhea, Constipation, Melena, Hematochezia, Other Genitourinary: No Dysuria, No Frequency, No Incontinence, No Hematuria, No Retention, No Other Musculoskeletal: other (Right Knee pain and warmth) Skin: No: Rash, Lesions, Jaundice, Bruising, Other Neurological: Weakness; No: Numbness, Incoordination, Change in speech, Confusion, Seizures, Other Allergies: Coded Allergies: Codeine (Verified Allergy, Mild, 03/10/17) Penicillins (Verified Allergy, Mild, 03/10/17) Tetanus Toxoid (Verified Allergy, Unknown, 03/10/17) SWELLING Uncoded Allergies: TAPE (Allergy, Unknown, 10/18/10) Medications Current Medications Medications Dose Ordered Sig/Ladan Route Start Time Stop Time Status Last Admin Dose Admin Pantoprazole Sodium 40 mg DAILY PO 02/19/25 10:00 UNV Apixaban 5 mg BID PO 02/19/25 10:00 UNV Exam Vital Signs Vital Signs Date Time Temp Pulse Resp B/P (MAP) Pulse Ox O2 Delivery O2 Flow Rate FiO2 02/18/25 23:08 97.5 67 16 126/51 (76) 96 97.5 02/18/25 23:08 Room Air General Appearance: Alert, Oriented X3, Cooperative, mild distress HEENT: Atraumatic, PERRLA, Mucous membr. moist/pink Respiratory: Clear to auscultation, Normal air movement Cardiovascular: No murmurs, Other (Irregular pulse) Abdominal: Normal bowel sounds, Soft, No tenderness, No masses Extremities: No clubbing, No cyanosis, No edema, Normal pulses, Other (Bilateral leg swelling, there is erythema in both shins. Right foot: 2nd digit is missing. ) Skin: No rashes (There is a decubitus ulcer on right buttchick, stage 2), No b reakdown Neuro: Normal speech, Strength at 5/5 X4 ext, Normal tone, Sensation intact, Cranial nerves 3-12 NL Psych/Mental Status: Mental status NL, Mood NL Labs/Xrays Labs Test 02/19/25 01:13 02/18/25 22:03 Range/Units Troponin I High Sensitivity 13 </=34 ng/L White Blood Count 6.6 4.4-10.8 10^3/uL Red Blood Count 4.69 4.0-5.20 10^6/uL Hemoglobin 13.3 12.2-16.2 g/dL Hematocrit 39.4 36.0-46.0 % Mean Corpuscular Volume 84.0 80.0-100.0 fL Mean Corpuscular Hemoglobin 28.4 28.0-32.0 pg Mean Corpuscular Hemoglobin Concent 33.8 32.0-36.0 g/dL Red Cell Distribution Width 14.9 H 11.8-14.3 % Platelet Count 163 140-450 10^3/uL Mean Platelet Volume 8.8 6.9-10.8 fL Neutrophils (%) (Auto) 73.0 37.0-80.0 % Lymphocytes (%) (Auto) 17.9 10.0-50.0 % Monocytes (%) (Auto) 7.5 0.0-12.0 % Eosinophils (%) (Auto) 0.9 0.0-7.0 % Basophils (%) (Auto) 0.7 0.0-2.0 % Neutrophils # (Auto) 4.8 1.6-8.6 10 ^3/uL Lymphocytes # (Auto) 1.2 0.4-5.4 10 ^3/uL Monocytes # (Auto) 0.5 0-1.3 10 ^3/uL Eosinophils # (Auto) 0.1 0-0.8 10 ^3/uL Basophils # (Auto) 0 0-0.2 10 ^3/uL Nucleated Red Blood Cells 0.1 % Sodium Level 139 136-145 mmol/L Potassium Level 4.2 3.5-5.1 mmol/L Chloride Level 105 98-107 mmol/L Carbon Dioxide Level 26 20-31 mmol/L Anion Gap 8 5-15 Blood Urea Nitrogen 19 9-23 mg/dL Creatinine 1.17 H 0.550-1.02 mg/dL Glomerular Filtration Rate Calc 48 >90 mL/min BUN/Creatinine Ratio 16.2 10.0-20.0 Serum Glucose 147 H 74-106 mg/dL Calcium Level 9.5 8.7-10.4 mg/dL B-Type Natriuretic Peptide 170.26 0-100 pg/mL SEPSIS Sepsis Screen Date sepsis recognized/suspect: Feb 18, 2025 Time Sepsis recognized/suspect: 2111 Recent Procedure: No On Antibiotic Therapy: No Respiratory Rate >20: No Heart Rate >90: No Temp<36 C (96.8 F) or >38.3 C: No SBP <90 or MAP <65 mmHG: No New Acute Mental Status Change: No Is the patient on CPAP, BIPAP,: No Physician Orders Chest Portable (02/18/25 21:32) Urinalysis (02/18/25 21:32) Admit (02/19/25 02:31) Code Status (02/19/25 02:31) Vital Signs .PER UNIT PROTOCOL (02/19/25 02:31) Review Orders With Adm.Md (02/19/25 02:31) Bedside Commode (02/19/25 02:31) Consistent Carb(Ccho)Diabetes (02/19/25 Breakfast) Notify Md Of Changes From Base (02/19/25 02:31) Advance Directive (02/19/25 02:31) Patient Condition (02/19/25 02:31) Allergies (02/19/25 02:31) Drug Screen (02/19/25 02:31) Notify Md Of Changes From Base (02/19/25 02:31) [employer]ili[employer] Supervisor For 24 Hours (02/19/25 02:31) Sodium Chloride 0.9% (02/19/25 02:45) Complete Blood Count (02/19/25 04:00) Comprehensive Metabolic Panel (02/19/25 04:00) * Cardiology Consult (02/19/25 02:31) * Wound Consult (02/19/25 ) Metoprolol Xl Succinate (Toprol Xl) (02/19/25 02:45) Pantoprazole Tablet (Protonix Tablet) (02/19/25 10:00) Apixaban (Eliquis) (02/19/25 10:00) Lactic Acid W/ Reflex Order (02/19/25 04:00) Electrocardigram (02/19/25 05:50) Blood Culture (02/19/25 02:50) Covid19 Antigen Zaira (02/19/25 ) Rapid Influenza A&B (02/19/25 02:53) Vital Signs Date Time Temp Pulse Resp B/P (MAP) Pulse Ox O2 Delivery O2 Flow Rate FiO2 02/18/25 23:08 97.5 67 16 126/51 (76) 96 97.5 02/18/25 23:08 67 16 96 Room Air 02/18/25 21:13 81 02/18/25 21:12 98.4 83 18 132/75 95 98.4 Laboratory Tests Test 02/18/25 22:03 White Blood Count 6.6 10^3/uL (4.4-10.8) Assessment/Plan Assessment/Plan #Generalized weakness likely due to A-Fib and/or dehydration EKG Troponins UA UDS ECHO #A-Fib Metoprolol succinate 25mg po Apixaban [id number] score: 4 #Dehydration IV fluids #Type 2 DM with hyperglycemia Insulin sliding scale #Decubitus ulcer, stage 2 Wound consult Wound care #Asthma, not in exacerbation #Peripheral Neuropathy Gabapentin 300mg #Obesity Counseling life style. Cardiac diet/ Low carb diet. DVT prophylaxis PUD prophylaxis Protonic Goals of care discussed with the patient > 35 min. Discussed plan of care with Dr. Lawrence Code status: Full code PCP: Dr. Espinosa Plan discussed with: Patient, the patient agrees with the plan. Plan discussed with: Patient My Orders Orders - KEYLA TAYLOR RESIDENT Procedure Category Date Status Time Admit ADMIT 02/19/25 Transmitted 02:31 Code Status CODE 02/19/25 Transmitted 02:31 Vital Signs [facility] 02/19/25 In Process 02:31 Review Orders With [facility] 02/19/25 In Process Adm. 02:31 Bedside Commode [facility] 02/19/25 In Process 02:31 Consistent DIET 02/19/25 Transmitted Carb(Ccho)Diabetes Breakfast Notify Md Of Changes [facility] 02/19/25 In Process From Base 02:31 Advance Directive [facility] 02/19/25 In Process 02:31 Patient Condition ORDERS 02/19/25 Transmitted 02:31 Allergies [facility] 02/19/25 In Process 02:31 Drug Screen LAB 02/19/25 Logged 02:31 Notify Of Changes [facility] 02/19/25 In Process From Base 02:31 [employer] Supervisor For [facility] 02/19/25 In Process 24 Hours 02:31 Sodium Chloride 0.9% PHA 02/19/25 Logged 02:45 Complete Blood Count LAB 02/19/25 Logged 04:00 Comprehensive LAB 02/19/25 Logged Metabolic Panel 04:00 * Cardiology Consult CONS 02/19/25 Transmitted 02:31 * Wound Consult CONS 02/19/25 Transmitted Metoprolol Xl PHA 02/19/25 Logged Succinate (Toprol Xl) 02:45 Pantoprazole Tablet PHA 02/19/25 Logged (Protonix Tablet) 10:00 Apixaban (Eliquis) PHA 02/19/25 Logged 10:00 Lactic Acid W/ Reflex LAB 02/19/25 Logged Order 04:00 Electrocardigram EKG 02/19/25 Logged 05:50 Blood Culture SILVIA 02/19/25 Logged 02:50 Covid19 Antigen Zaira LAB 02/19/25 Transmitted Rapid Influenza A&B LAB 02/19/25 Transmitted 02:53 Common Visit Codes: 57524-[id number] INP/OBS CARE (HIGH) Secondary Visit Codes: 64817-[id number] CARE PLAN 30 MINUTES BRANDONKEYLA RESIDENT Feb 19, 2025 03:31
[2025-02-19] MEDS ORDERED: DEXTROSE (50%) 50ML SYRG IV PRN (03:45)
[2025-02-19 03:47] LABS: Hematocrit 40.2 % (36.0-46.0); Hemoglobin 13.5 g/dL (12.2-16.2); Mean Corpuscular Hemoglobin 28.4 pg (28.0-32.0); Mean Corpuscular Volume 84.9 fL (80.0-100.0); Nucleated Red Blood Cells % 0.2 %
[2025-02-19 03:56] LABS: Alanine Aminotransferase 12 U/L (7-40); Albumin 4.2 g/dL (3.2-4.8); Alkaline Phosphatase 87 U/L (46-116); Anion Gap 8 (5-15); BUN/Creatinine Ratio 14.8 (10.0-20.0); Blood Urea Nitrogen 17 mg/dL (9-23); Calcium 9.7 mg/dL (8.7-10.4); Carbon Dioxide 27 mmol/L (20-31); Chloride 103 mmol/L (98-107); Potassium 4.0 mmol/L (3.5-5.1); Sodium 138 mmol/L (136-145); Total Protein 7.5 g/dL (5.7-8.2)
[2025-02-19 03:57] LABS: Bilirubin, Total 1.0 mg/dL (0.2-1.0)
[2025-02-19 03:59] LABS: Glucose 123 mg/dL (74-106)
[2025-02-19] MEDS: METOPROLOL SUCCINATE XL 50 MG TAB PO ONE (04:08)
[2025-02-19] MEDS: ceFAZolin 1GM/50ML 50 ML IV ONE (04:11)
[2025-02-19] MEDS: SODIUM CHLORIDE 0.9% 1,850 ML IV ONE (04:18)
[2025-02-19 04:25] VITALS: PULSE 65; RESP 22; O2SAT 98
[2025-02-19] MEDS: GABAPENTIN 100 MG CAP PO SCH (06:00)
[2025-02-19] MEDS: InsuLIN REG 1unit/0.01ml Soln (100units/ml) SC SCH (06:00)
[2025-02-19] MEDS: ACCU-CHEK COMFORT CURVE STRIP VI SCH (06:25)
[2025-02-19 07:30] VITALS: PULSE 56; RESP 16; O2SAT 94
[2025-02-19] MEDS: APIXABAN 5 MG TAB PO SCH (10:00)
[2025-02-19] MEDS: PANTOPRAZOLE 40 MG TAB PO SCH (10:00)
[2025-02-19 11:05] LABS: COVID19 ANTIGEN SOFIA FIA NEGATIVE (NEGATIVE)
--- NOTE | 2025-02-19 12:47 | DVHINCON2 ---
Date Seen: Feb 19, 2025 Referring Physician MD Shaun Reason for Consultation Atrial fibrillation History of Present Illness 79-year-old female presents to the emergency department via EMS with complaint of generalized weakness and gluteal pressure ulcers. Mobile Home Technician consulted for evaluation of known chronic atrial fibrillation. The patient is alert and oriented x 3, she confirms a known history of chronic AFib but states that she refuses to take antiarrhythmic, rate control, or anticoagulation medications. She does not follow with a boat hand. She denies chest pain shortness of breath, palpitation, or dizziness. In the ED, 12 lead ECG shows atrial fibrillation with controlled ventricular response. Troponin is negative. Chart review reveals a prior admission at this facility in November 2024 for pressure ulcers, during which an echocardiogram showed: EF 55%, moderate left ventricular hypertrophy, moderate to severe aortic stenosis, mild pulmonary hypertension, and mild to moderate mitral regurgitation. Past medical history significant for chronic AFib, diabetes, uterine cancer, post total hysterectomy, dyslipidemia, obesity, and documented medical noncompliance. Past Medical History As stated in HPI Past Surgical History Hysterectomy Appendectomy Family History: FH: brain cancer G8 MOTHER FH: heart attack G8 FATHER No Family History of: Alcoholism Cancer Cancer of colon Family History Reviewed, non-contributory to the management of this case. Social History The patient lives at home, denies smoking, alcohol or illicit drugs abuse. Allergies: Coded Allergies: Codeine (Verified Allergy, Mild, 03/10/17) Penicillins (Verified Allergy, Mild, 03/10/17) Tetanus Toxoid (Verified Allergy, Unknown, 03/10/17) SWELLING Uncoded Allergies: TAPE (Allergy, Unknown, 10/18/10) Home Meds Active Scripts Ergocalciferol (VITAMIN D 62049 UNIT) 50,[address] [place], [address] UNIT PO Q7D for 90 Days, #12 CAP Prov:MILO OSWALD RESIDENT 12/08/24 Atorvastatin Calcium (ATORVASTATIN CALCIUM) 20 Mg Tab, 40 MG PO HS for 30 Days, #60 TAB Prov:MILO OSWALD RESIDENT 12/08/24 Gabapentin (Gabapentin) 100 Mg Cap, 100 MG PO TID for 30 Days, #30 CAP Prov:MILO OSWALD RESIDENT 12/08/24 Apixaban Base (ELIQUIS) 5 Mg Tab, 5 MG PO BID, #180 TAB Prov:PAM GONZALEZ MD 07/12/24 Reported Medications Glyburide-Metformin (Glucovance) 1 Tab Tab, 2 TAB PO BID 10/18/10 Current Medications Current Medications Medications (Trade) Dose Ordered Sig/Ladan Route PRN Reason Start Time Stop Time Status Last Admin Pantoprazole Sodium (Protonix Tablet) 40 mg DAILY PO 02/19/25 10:00 Apixaban (Eliquis) 5 mg BID PO 02/19/25 10:00 Diagnostic Test (Pha) (Accu-Chek Comfort Curve T) 1 strip Q6HR 02/19/25 06:00 02/19/25 12:17 Insulin Human Regular (InsuLIN R) Q6HR SC 02/19/25 06:00 Dextrose 50 ml UD PRN IV Blood Sugar LESS THAN 60 02/19/25 03:45 Gabapentin (Neurontin Capsule) 100 mg TID PO 02/19/25 06:00 Review of Systems Constitutional: Generalized weakness Ears, Nose, & Throat: No symptom reported Eyes: No symptom reported Neurological: No symptoms reported Pulmonary/Respiratory: No symptom reported Cardiovascular: Denies chest pain, palpitations, and syncope Gastrointestinal: No symptom reported Genitourinary: No symptom reported Musculoskeletal: No symptom reported Skin: No symptom reported Psychiatric: No symptom reported Endocrine: No symptom reported Hematologic/Lymphatic: No symptom reported Vital Signs Vital Signs Date Time Temp Pulse Resp B/P (MAP) Pulse Ox O2 Delivery O2 Flow Rate FiO2 02/19/25 11:30 57 16 127/58 (81) 91 02/19/25 07:30 Room Air* 0 21 02/19/25 07:30 97.7 97.7 Physical Exam INITIAL VITAL SIGNS: Reviewed by me GENERAL: Alert and interactive. No acute distress. HEAD: Head is normocephalic and atraumatic. EYES: EOMI, PERRL. No scleral icterus. No conjunctival injection. ENT: Moist mucous membranes. NECK: Supple, No masses, Full range of motion. RESPIRATORY: No tachypnea. Clear breath sounds bilaterally. No wheezing, rales, rhonchi. CV: Irregularly irregular rhythm, murmurs GI/: Active bowel sounds, soft, nondistended, nontender. No guarding. No rebound. No masses. No CVA tenderness. INTEGUMENTARY: Warm and dry. No obvious rashes. NEUROLOGIC: Alert and oriented. Face is symmetric. Speech is normal. Moves all extremities equally. Labs/Diagnostic Data Labs Test 02/19/25 09:40 02/19/25 06:16 02/19/25 03:05 02/19/25 01:13 Range/Units Influenza Type A Antigen Positive Negative Influenza Type B Antigen Positive Negative SARS-CoV-2 Antigen (Rapid) Negative NEGATIVE POC Glucose 120 H 70-106 mg/dl White Blood Count 5.9 4.4-10.8 10^3/uL Red Blood Count 4.74 4.0-5.20 10^6/uL Hemoglobin 13.5 12.2-16.2 g/dL Hematocrit 40.2 36.0-46.0 % Mean Corpuscular Volume 84.9 80.0-100.0 fL Mean Corpuscular Hemoglobin 28.4 28.0-32.0 pg Mean Corpuscular Hemoglobin Concent 33.5 32.0-36.0 g/dL Red Cell Distribution Width 14.9 H 11.8-14.3 % Platelet Count 156 140-450 10^3/uL Mean Platelet Volume 8.6 6.9-10.8 fL Neutrophils (%) (Auto) 61.3 37.0-80.0 % Lymphocytes (%) (Auto) 27.9 10.0-50.0 % Monocytes (%) (Auto) 8.9 0.0-12.0 % Eosinophils (%) (Auto) 1.2 0.0-7.0 % Basophils (%) (Auto) 0.7 0.0-2.0 % Neutrophils # (Auto) 3.6 1.6-8.6 10 ^3/uL Lymphocytes # (Auto) 1.6 0.4-5.4 10 ^3/uL Monocytes # (Auto) 0.5 0-1.3 10 ^3/uL Eosinophils # (Auto) 0.1 0-0.8 10 ^3/uL Basophils # (Auto) 0 0-0.2 10 ^3/uL Nucleated Red Blood Cells 0.2 % Sodium Level 138 136-145 mmol/L Potassium Level 4.0 3.5-5.1 mmol/L Chloride Level 103 98-107 mmol/L Carbon Dioxide Level 27 20-31 mmol/L Anion Gap 8 5-15 Blood Urea Nitrogen 17 9-23 mg/dL Creatinine 1.15 H 0.550-1.02 mg/dL Glomerular Filtration Rate Calc 49 >90 mL/min BUN/Creatinine Ratio 14.8 10.0-20.0 Serum Glucose 123 H 74-106 mg/dL Lactic Acid Level 1.7 0.4-2.0 mmol/L Calcium Level 9.7 8.7-10.4 mg/dL Total Bilirubin 1.0 0.2-1.0 mg/dL Aspartate Amino Transferase (AST) 30 13-40 U/L Alanine Aminotransferase (ALT) 12 7-40 U/L Alkaline Phosphatase 87 46-116 U/L Total Protein 7.5 5.7-8.2 g/dL Albumin 4.2 3.2-4.8 g/dL Troponin I High Sensitivity 13 </=34 ng/L Test 02/18/25 22:03 Range/Units B-Type Natriuretic Peptide 170.26 0-100 pg/mL PROCEDURE(s): CXRP - CHEST PORTABLE REASON: gen Tarari ORDER NUMBER(s): [id number], ACCESSION NUMBER(s): [id number] CHEST RADIOGRAPH Indication: gen Tarari Technique: Single frontal view of the chest was obtained Comparison: XY CHEST XRAY 1 VIEW on DOS: 12/06/24, XY CHEST PORTABLE on DOS: 10/08/24, XY CHEST PORTABLE on DOS: 07/06/24, XY CHEST PORTABLE on DOS: 04/01/24, CHEST PORTABLE on DOS: 05/01/22 FINDINGS: Lines and Tubes: None Lungs: No focal consolidation. Pleura: No effusion or pneumothorax. Cardiomediastinal contours: Unremarkable Bones: No acute osseous abnormality. IMPRESSION: 1. No acute cardiopulmonary disease. Assessment Chronic afib Moderate to severe aortic stenosis Moderate LVH and mild moderate MR Mild pulmonary hypertension Pressure ulcers, gluteal region HIRAL on CKD Type 2 diabetes, A1c controlled Dyslipidemia Obesity Medical noncompliance Plan/Recommendation (Dr. Adams): From a Cardiology perspective, the patient is known case of chronic atrial fibrillation with controlled ventricular response, currently asymptomatic with a negative troponin and no signs of decompensation. Her CHADS-VASc score is 4, indicating a high risk for cardioembolic stroke, for which anticoagulation would be strongly recommended. her HAS-BLED score is 1, reflecting a low bleeding risk and supporting the safety of anticoagulation from a risk-benefit perspective. However, the patient continues to decline anticoagulation, rate control, and antiarrhythmic medications, and does not follow with a boat hand. She is alert and oriented and demonstrate decision-making capacity; her informed refusal is documented. A 12 lead ECG shows AFib with controlled rate and negative troponin. Prior echocardiogram (November 2024) revealed EF 55%, moderate LVH, moderate-severe aortic stenosis, mild pulmonary hypertension, and mild to moderate mitral regurgitation. Given her ongoing generalized weakness, it is reasonable to obtain a repeat transthoracic echocardiogram to assess valvular disease progression and pulmonary pressures. No acute cardiac intervention is indicated at this time. Cardiology will continue to follow during hospitalization for further evaluation and guidance. This medical document was created using an electronic medical record system with voice recognition software and computerized dictation system. Although this document has been carefully reviewed, there might still be some phonetic and typographical errors. Occasional wrong-word or ``sound-alike substitutions may have occurred due to the inherent limitations of voice recognition software. These areas are purely typographical due to imperfections of the software progr ams and do not reflect any compromise in the patient's medical care. Please read the chart carefully and recognize, using context, where these substitutions have occurred. Plan discussed with: Patient Plan discussed with: Patient NYHA Physical activity limitations: Class1(None)absent sob, Date of Service: Feb 19, 2025 Billing Provider: LOS ADAMS MD Cardiology Common Codes: CONSULT ONLY Cardiology Consultation Codes: [id number] CONSULT <45MIN ALEJANDRA GLEASON [facility] Feb 19, 2025 12:47
[2025-02-19 13:26] LABS: Triglycerides 145.0 mg/dL (< 150)
[2025-02-19 13:27] LABS: Magnesium 2.0 mg/dL (1.6-2.6)
[2025-02-19 13:28] LABS: Cholesterol 184.0 mg/dL (< 200); HDL Cholesterol 47.0 mg/dL (40-59)
--- NOTE | 2025-02-19 23:50 | DVHINCON2 ---
Date Seen: Feb 19, 2025 Referring Physician MD Shaun Reason for Consultation Atrial fibrillation History of Present Illness This is a 79-year-old female with a past medical history of chronic AFib, diabetes, uterine cancer, post total hysterectomy, dyslipidemia, obesity, and documented medical noncompliance presents to the emergency department via EMS with complaint of generalized weakness and gluteal pressure ulcers. C ardiologist consulted for evaluation of known chronic atrial fibrillation. Patient is alert and oriented x 3, she confirms a known history of chronic AFib but states that she refuses to take antiarrhythmic, rate control, or anticoagulation medications. Patient does not follow with a crane service technician. Patient denies chest pain shortness of breath, palpitation, or dizziness. In the ED, 12 lead ECG shows atrial fibrillation with controlled ventricular response. Troponin is negative. Chart review reveals a prior admission at this facility in November 2024 for pressure ulcers, during which an echocardiogram showed: EF 55%, moderate left ventricular hypertrophy, moderate to severe aortic stenosis, mild pulmonary hypertension, and mild to moderate mitral regurgitation. Chest x-ray showed NAD. Past Medical History As stated in HPI Past Surgical History Hysterectomy Appendectomy Family History: FH: brain cancer G8 MOTHER FH: heart attack G8 FATHER No Family History of: Alcoholism Cancer Cancer of colon Allergies: Coded Allergies: Codeine (Verified Allergy, Mild, 03/10/17) Penicillins (Verified Allergy, Mild, 03/10/17) Tetanus Toxoid (Verified Allergy, Unknown, 03/10/17) SWELLING Uncoded Allergies: TAPE (Allergy, Unknown, 10/18/10) Home Meds Active Scripts Ergocalciferol (VITAMIN D 80278 UNIT) 50,000 [place], [address] UNIT PO Q7D for 90 Days, #12 CAP Prov:MILO OSWALD RESIDENT 12/08/24 Atorvastatin Calcium (ATORVASTATIN CALCIUM) 20 Mg Tab, 40 MG PO HS for 30 Days, #60 TAB Prov:MILO OSWALD RESIDENT 12/08/24 Gabapentin (Gabapentin) 100 Mg Cap, 100 MG PO TID for 30 Days, #30 CAP Prov:MILO OSWALD RESIDENT 12/08/24 Apixaban Base (ELIQUIS) 5 Mg Tab, 5 MG PO BID, #180 TAB Prov:PAM GONZALEZ MD 07/12/24 Reported Medications Glyburide-Metformin (Glucovance) 1 Tab Tab, 2 TAB PO BID 3/31/11 Current Medications Current Medications Medications (Trade) Dose Ordered Sig/Ladan Route PRN Reason Start Time Stop Time Status Last Admin Pantoprazole Sodium (Protonix Tablet) 40 mg DAILY PO 02/19/25 10:00 Apixaban (Eliquis) 5 mg BID PO 02/19/25 10:00 Diagnostic Test (Pha) (Accu-Chek Comfort Curve T) 1 strip Q6HR 02/19/25 06:00 02/19/25 12:17 Insulin Human Regular (InsuLIN R) Q6HR SC 02/19/25 06:00 Dextrose 50 ml UD PRN IV Blood Sugar LESS THAN 60 02/19/25 03:45 Gabapentin (Neurontin Capsule) 100 mg TID PO 02/19/25 06:00 Review of Systems Constitutional: Generalized weakness Ears, Nose, & Throat: No symptom reported Eyes: No symptom reported Neurological: No symptoms reported Pulmonary/Respiratory: No symptom reported Cardiovascular: Denies chest pain, palpitations, and syncope Gastrointestinal: No symptom reported Genitourinary: No symptom reported Musculoskeletal: No symptom reported Skin: No symptom reported Psychiatric: No symptom reported Endocrine: No symptom reported Hematologic/Lymphatic: No symptom reported Vital Signs Vital Signs Date Time Temp Pulse Resp B/P (MAP) Pulse Ox O2 Delivery O2 Flow Rate FiO2 02/19/25 13:30 66 15 136/54 (81) 94 02/19/25 07:30 Room Air* 0 21 02/19/25 07:30 97.7 97.7 Physical Exam GENERAL: Alert and oriented x 3. No acute distress. EYES: PERRL, EOMI. Anicteric. HENT: Moist mucous membranes. LUNGS: Clear to auscultation bilaterally. CARDIOVASCULAR: Irregular rate and rhythm. ABDOMEN: Soft, nontender and nondistended. EXTREMITIES: No edema. NEUROLOGIC: No focal neurological deficits. SKIN: Warm, dry. Labs/Diagnostic Data Labs Test 02/19/25 14:04 02/19/25 09:40 02/19/25 06:16 02/19/25 03:05 Range/Units Magnesium Level 1.9 1.6-2.6 mg/dL Influenza Type A Antigen Positive Negative Influenza Type B Antigen Positive Negative SARS-CoV-2 Antigen (Rapid) Negative NEGATIVE POC Glucose 120 H 70-106 mg/dl White Blood Count 5.9 4.4-10.8 10^3/uL Red Blood Count 4.74 4.0-5.20 10^6/uL Hemoglobin 13.5 12.2-16.2 g/dL Hematocrit 40.2 36.0-46.0 % Mean Corpuscular Volume 84.9 80.0-100.0 fL Mean Corpuscular Hemoglobin 28.4 28.0-32.0 pg Mean Corpuscular Hemoglobin Concent 33.5 32.0-36.0 g/dL Red Cell Distribution Width 14.9 H 11.8-14.3 % Platelet Count 156 140-450 10^3/uL Mean Platelet Volume 8.6 6.9-10.8 fL Neutrophils (%) (Auto) 61.3 37.0-80.0 % Lymphocytes (%) (Auto) 27.9 10.0-50.0 % Monocytes (%) (Auto) 8.9 0.0-12.0 % Eosinophils (%) (Auto) 1.2 0.0-7.0 % Basophils (%) (Auto) 0.7 0.0-2.0 % Neutrophils # (Auto) 3.6 1.6-8.6 10 ^3/uL Lymphocytes # (Auto) 1.6 0.4-5.4 10 ^3/uL Monocytes # (Auto) 0.5 0-1.3 10 ^3/uL Eosinophils # (Auto) 0.1 0-0.8 10 ^3/uL Basophils # (Auto) 0 0-0.2 10 ^3/uL Nucleated Red Blood Cells 0.2 % Sodium Level 138 136-145 mmol/L Potassium Level 4.0 3.5-5.1 mmol/L Chloride Level 103 98-107 mmol/L Carbon Dioxide Level 27 20-31 mmol/L Anion Gap 8 5-15 Blood Urea Nitrogen 17 9-23 mg/dL Creatinine 1.15 H 0.550-1.02 mg/dL Glomerular Filtration Rate Calc 49 >90 mL/min BUN/Creatinine Ratio 14.8 10.0-20.0 Serum Glucose 123 H 74-106 mg/dL Lactic Acid Level 1.7 0.4-2.0 mmol/L Calcium Level 9.7 8.7-10.4 mg/dL Total Bilirubin 1.0 0.2-1.0 mg/dL Aspartate Amino Transferase (AST) 30 13-40 U/L Alanine Aminotransferase (ALT) 12 7-40 U/L Alkaline Phosphatase 87 46-116 U/L Total Protein 7.5 5.7-8.2 g/dL Albumin 4.2 3.2-4.8 g/dL Triglycerides Level 145 < 150 mg/dL Cholesterol Level 184 < 200 mg/dL LDL Cholesterol 122 H < 100 mg/dL HDL Cholesterol 47 40-59 mg/dL Test 02/19/25 01:13 02/18/25 22:03 Range/Units Troponin I High Sensitivity 13 </=34 ng/L B-Type Natriuretic Peptide 170.26 0-100 pg/mL Assessment Chronic afib. Moderate to severe aortic stenosis. Moderate LVH and mild moderate MR. Mild pulmonary hypertension. Pressure ulcers, gluteal region. HIRAL on CKD. Type 2 diabetes, A1c controlled. Dyslipidemia. Obesity. Medical noncompliance. Plan/Recommendation I agree with your ongoing assessment and care of plan. Patient has been seen by Denisha Sultana NP on my behalf, her and I discussed the plan with the patient. From a Cardiology perspective, the patient is known case of chronic atrial fibrillation with controlled ventricular response, currently asymptomatic with a negative troponin and no signs of decompensation. Her CHADS-VASc score is 4, indicating a high risk for cardioembolic stroke, for which anticoagulation would be strongly recommended. her HAS-BLED score is 1, reflecting a low bleeding risk and supporting the safety of anticoagulation from a risk-benefit perspective. However, the patient continues to decline anticoagulation, rate control, and antiarrhythmic medications, and does not follow with a crane service technician. She is alert and oriented and demonstrate decision-making capacity; her informed refusal is documented. A 12 lead ECG shows AFib with controlled rate and negative troponin. Prior echocardiogram (November 2024) revealed EF 55%, moderate LVH, moderate-severe aortic stenosis, mild pulmonary hypertension, and mild to moderate mitral regurgitation. Given her ongoing generalized weakness, it is reasonable to obtain a repeat transthoracic echocardiogram to assess valvular disease progression and pulmonary pressures. No acute cardiac intervention is indicated at this time. Cardiology will continue to follow during hospitalization for further evaluation and guidance. Additional plan as per the hospital course. Plan discussed with: Patient NYHA Physical activity limitations: Class1(None)absent sob, Date of Service: Feb 19, 2025 Billing Provider: LOS CRUZ MD Cardiology Common Codes: [id number] INP/OBS CARE (High) Cardiology Consultation Codes: [id number] CONSULT <45MIN LOS CRUZ MD Feb 19, 2025 14:59
[2025-02-20 00:30] VITALS: PULSE 71; RESP 13; O2SAT 96
[2025-02-20 08:00] VITALS: PULSE 66; RESP 16; O2SAT 98
--- NOTE | 2025-02-20 08:49 | DVHPN2 ---
Reviewed: Care Plan, H&P, Labs, Medications, Previous Orders, Radiology Changes from previous H/P or p: No Changes Eyes: No Pain, No Vision change, No Conjunctivae inflammation, No Eyelid inflammation, No Other, No Redness ENT: No Ear pain, No Ear discharge, No Nose pain, No Nose discharge, No Nose congestion, No Mouth pain, No Mouth swelling, No Throat pain, No Throat swelling, No Other Cardiovascular: No Chest Pain, No Palpitations, No Orthopnea, No Paroxysmal Noc. Dyspnea, No Edema, No Lt Headedness, No Other Respiratory: No Cough, No Dry, No Shortness of breath, No SOB with excertion, No Wheezing, No Hemoptysis, No Pleuritic Pain, No Sputum, No Other Gastrointestinal: No Nausea, No Vomiting, No Abdominal Pain, No Diarrhea, No Constipation, No Melena, No Hematochezia, No Other Genitourinary: No Dysuria, No Frequency, No Incontinence, No Hematuria, No Retention, No Other Musculoskeletal: other (Right Knee pain and warmth) Skin: No Rash, No Lesions, No Jaundice, No Bruising, No Other Objective Vitals Vital Signs Date Time Temp Pulse Resp B/P (MAP) Pulse Ox O2 Delivery O2 Flow Rate FiO2 02/20/25 06:19 77 14 157/54 (88) 98 02/20/25 00:30 Room Air* 0 21 02/20/25 00:30 98.1 98.1 Intake/Output Intake and Output 02/20/25 07:00 Output Total 500 ml Balance -500 ml Output Urine Total 500 ml Medications Current Medications Medications Dose Ordered Sig/Ladan Route Start Time Stop Time Status Last Admin Dose Admin Pantoprazole Sodium 40 mg DAILY PO 02/19/25 10:00 Apixaban 5 mg BID PO 02/19/25 10:00 Diagnostic Test (Pha) 1 strip Q6HR 02/19/25 06:00 02/20/25 06:18 1 STRIP Insulin Human Regular Q6HR SC 02/19/25 06:00 02/19/25 18:25 2 UNITS Dextrose 50 ml UD PRN IV 02/19/25 03:45 Gabapentin 100 mg TID PO 02/19/25 06:00 Laboratory Results Laboratory Tests 02/19/25 03:05 Chemistry Test 02/19/25 14:04 Magnesium Level 1.9 mg/dL (1.6-2.6) Microbiology Microbiology Date/Time Source Procedure Growth Status 02/19/25 03:05 Blood Blood Culture - Preliminary NO GROWTH AFTER 24 HOURS OF INCUBATION. Resulted Labs and/or images reviewed: Labs reviewed by me, Image(s) reviewed by me Assessment/Plan Assessment/Plan Chronic afib. Patient declines to be placed on anticoagulation medication, rate control medication and anti arrhythmic medications, cardiology consult by Dr. Dipti Adams appreciated Moderate to severe aortic stenosis. Moderate LVH and mild moderate MR. Ejection fraction 55 % Acute generalized weakness Mild pulmonary hypertension. Pressure ulcers, gluteal region. HIRAL on CKD. Type 2 diabetes, A1c controlled. Dyslipidemia. Obesity. Medical noncompliance. Hypertension History of coronary arterial disease History of bilateral lower extremity cellulitis History of osteoarthritis of the knees Time spent 70 minutes Advanced care planning time 20 minutes Patient is full code Plan discussed with: Patient Date of Service: Feb 20, 2025 Billing Provider: PAM GONZALEZ MD Common Visit Codes: [id number] CARE 30-74 MIN PAM GONZALEZ MD Feb 20, 2025 08:49
[2025-02-20] MEDS: OSELTAMIVIR 75 MG CAP PO SCH (10:26)
[2025-02-20 16:32] VITALS: BP 152/81; PULSE 65; RESP 19; TEMP 98.1; O2SAT 96
[2025-02-20 20:00] VITALS: PULSE 61; RESP 16; O2SAT 98
[2025-02-20 20:28] LABS: Urine Protein, UAD TRACE (Negative)
[2025-02-20 20:44] LABS: Amphetamine Screen, Urine Neg (NEGATIVE); Barbiturate Scree,Urine Neg (NEGATIVE); Benzodiazephine Screen, Urine Neg (NEGATIVE); Cannabinoid Screen, Urine Neg (NEGATIVE); Cocaine Screen, Urine Neg (NEGATIVE); Opiate Scree,Urine Neg (NEGATIVE); Phencyclidine Screen, Urine Neg (NEGATIVE)
[2025-02-20 21:00] VITALS: BP 166/84; PULSE 71; RESP 16; TEMP 98.1; O2SAT 98
[2025-02-20] MEDS: OSELTAMIVIR 30 MG CAP PO SCH (22:04)
--- NOTE | 2025-02-20 23:59 | DVHPN2 ---
Progress Note - Dictate Date Seen: Feb 20, 2025 Medical Necessity Reason Pt with a Central, PICC or Fol: No Subjective Patient was seen and evaluated in follow up. Patient is complaining of generalized discomfort. Patient is refusing medications. BS are WNL. Telemetry reviewed. vital signs Vital Sign Date Time Temp Pulse Resp B/P (MAP) Pulse Ox O2 Delivery O2 Flow Rate FiO2 02/20/25 21:00 98.1 71 16 166/84 (111) 98 98.1 02/20/25 16:20 Room Air* 0 21 Total Intake and Output 02/19/25 02/19/25 02/20/25 15:00 23:00 07:00 Output Total 500 ml Balance -500 ml medications Current Medications Medications Dose Ordered Sig/Ladan Route Start Time Stop Time Status Last Admin Dose Admin Pantoprazole Sodium 40 mg DAILY PO 02/19/25 10:00 Apixaban 5 mg BID PO 02/19/25 10:00 Diagnostic Test (Pha) 1 strip Q6HR 02/19/25 06:00 02/20/25 16:49 1 STRIP Insulin Human Regular Q6HR SC 02/19/25 06:00 02/19/25 18:25 2 UNITS Dextrose 50 ml UD PRN IV 02/19/25 03:45 Gabapentin 100 mg TID PO 02/19/25 06:00 Oseltamivir Phosphate 30 mg Q12HR PO 02/20/25 22:00 02/24/25 10:01 objective GENERAL: Alert and oriented x 3. No acute distress. EYES: PERRL, EOMI. Anicteric. HENT: Moist mucous membranes. LUNGS: Clear to auscultation bilaterally. CARDIOVASCULAR: Irregular rate and rhythm. ABDOMEN: Soft, nontender and nondistended. EXTREMITIES: No edema. NEUROLOGIC: No focal neurological deficits. SKIN: Warm, dry. laboratory and microbiology Laboratory Tests 02/19/25 03:05 Test 02/19/25 03:05 Range/Units Serum Glucose 123 H 74-106 mg/dL Problem List Chronic afib. Moderate to severe aortic stenosis. Moderate LVH and mild moderate MR. Mild pulmonary hypertension. Pressure ulcers, gluteal region. HIRAL on CKD. Type 2 diabetes, A1c controlled. Dyslipidemia. Obesity. Medical noncompliance. Assessment/Plan Continued all current supportive medical care. Echocardiogram. Eliquis. Tamiflu. GI prophylactics. Additional plan as per the hospital course. Dietary Evaluation Review Recommendations by RD: Protein Supplementation Comments: 1) Initiate MVI @ 1 tb qd 2) Initiate vitamin C @ 500 mg bid and zinc sulfate @ 220 mg for 7 days 3) Initiate Glucerna qd. Encourage optimal PO intake 4) Add cardiac restriciton to 45g CCHO diet 5) Follow-up with cardiology and nephrology 6) Continue to monitor I&O, labs, and skin integrity Expected Outcomes/Goals: 1) appetite and labs to improve 2) wound to improve 3) gradual wt loss 4) f/u in 3-5 days Plan discussed with: Patient LOS CRUZ MD Feb 20, 2025 21:39
[2025-02-21] VITALS (8 sets, daily range): BP systolic 118–150; BP diastolic 49–74; PULSE 52–74; RESP 18–19; TEMP 97.7–99; O2SAT 92–96
--- NOTE | 2025-02-21 09:21 | DVHPN2 ---
Reviewed: Care Plan, H&P, Labs, Medications, Previous Orders, Radiology Changes from previous H/P or p: No Changes Eyes: No Pain, No Vision change, No Conjunctivae inflammation, No Eyelid inflammation, No Other, No Redness ENT: No Ear pain, No Ear discharge, No Nose pain, No Nose discharge, No Nose congestion, No Mouth pain, No Mouth swelling, No Throat pain, No Throat swelling, No Other Cardiovascular: No Chest Pain, No Palpitations, No Orthopnea, No Paroxysmal Noc. Dyspnea, No Edema, No Lt Headedness, No Other Respiratory: No Cough, No Dry, No Shortness of breath, No SOB with excertion, No Wheezing, No Hemoptysis, No Pleuritic Pain, No Sputum, No Other Gastrointestinal: No Nausea, No Vomiting, No Abdominal Pain, No Diarrhea, No Constipation, No Melena, No Hematochezia, No Other Genitourinary: No Dysuria, No Frequency, No Incontinence, No Hematuria, No Retention, No Other Musculoskeletal: other (Right Knee pain and warmth) Skin: No Rash, No Lesions, No Jaundice, No Bruising, No Other Objective Vitals Vital Signs Date Time Temp Pulse Resp B/P (MAP) Pulse Ox O2 Delivery O2 Flow Rate FiO2 02/21/25 08:40 99.0 52 18 122/60 (80) 95 99.0 02/20/25 20:00 Room Air* 0 21 Intake/Output Intake and Output 02/21/25 07:00 Intake Total 800 ml Balance 800 ml Intake Oral 800 ml # Voids 2 Medications Current Medications Medications Dose Ordered Sig/Ladan Route Start Time Stop Time Status Last Admin Dose Admin Pantoprazole Sodium 40 mg DAILY PO 02/19/25 10:00 Apixaban 5 mg BID PO 02/19/25 10:00 Diagnostic Test (Pha) 1 strip Q6HR 02/19/25 06:00 02/21/25 05:27 1 STRIP Insulin Human Regular Q6HR SC 02/19/25 06:00 02/19/25 18:25 2 UNITS Dextrose 50 ml UD PRN IV 02/19/25 03:45 Gabapentin 100 mg TID PO 02/19/25 06:00 Oseltamivir Phosphate 30 mg Q12HR PO 02/20/25 22:00 02/24/25 10:01 02/20/25 22:04 30 MG Laboratory Results Laboratory Tests 02/19/25 03:05 Urinalysis Test 02/20/25 20:16 Urine Color Light-yellow (Yellow) Urine Clarity Turbid (Clear) H Urine pH 7.0 (5.0-9.0) Urine Specific [place] 1.009 (1.001-1.035) Urine Protein Trace (Negative) H Urine Ketones Negative (Negative) Urine Blood Trace /uL (Negative) H Urine Nitrite Negative (Negative) Urine Bilirubin Negative (Negative) Urine Urobilinogen Normal mg/dL (Negative) Urine Leukocyte Esterase 3+ /uL (Negative) Urine RBC 7 /hpf (0 - 4) Urine Microscopic WBC 381 /HPF (0-5) H Urine Squamous Epithelial Cells Few /hpf (<5) Urine Bacteria Few /hpf (None Seen) H Urine Glucose Normal mg/dL (Normal) Microbiology Microbiology Date/Time Source Procedure Growth Status 02/19/25 03:05 Blood Blood Culture - Preliminary NO GROWTH AFTER 48 HOURS OF INCUBATION. Resulted Labs and/or images reviewed: Labs reviewed by me, Image(s) reviewed by me Assessment/Plan Assessment/Plan Chronic afib. Eliquis , patient declines Eliquis, rate control medication and anti arrhythmic medications, patient was educated, cardiology consult by Dr. Dipti Adams appreciated Moderate to severe aortic stenosis. Moderate LVH and mild moderate MR. Ejection fraction 55 % Influenza type A and B: Tamiflu Severe pain right knee: CT right knee ortho consult Acute generalized weakness Mild pulmonary hypertension. Pressure ulcers, gluteal region. HIRAL on CKD. Type 2 diabetes, A1c controlled. Dyslipidemia. Obesity. Medical noncompliance. Hypertension History of coronary arterial disease History of bilateral lower extremity cellulitis History of osteoarthritis of the knees Time spent 50 minutes Patient lives alone in [place] Patient is full code Plan discussed with: Patient My Orders Orders - PAM GONZALEZ MD Procedure Category Date Status Time Oseltamivir 30mg PHA 02/20/25 In Process Capsule (Tamiflu 30mg 22:00 * Rn Radiation Oncology CONS 02/20/25 Transmitted Consult 17:03 Mrsa Screen SILVIA 02/20/25 In Process 17:03 Date of Service: Feb 21, 2025 Billing Provider: PAM GONZALEZ MD Common Visit Codes: [id number] INP/OBS CARE(HIGH) PAM GONZALEZ MD Feb 21, 2025 09:21
--- NOTE | 2025-02-21 23:02 | DVHPN2 ---
Progress Note - Dictate Date Seen: Feb 21, 2025 Medical Necessity Reason Pt with a Central, PICC or Fol: No Subjective Patient was seen and evaluated in follow up. Patient is complaining of generalized discomfort. Per RN, patient continues to refuse medications and insulin. BS remain WNL. Telemetry reviewed. vital signs Vital Sign Date Time Temp Pulse Resp B/P (MAP) Pulse Ox O2 Delivery O2 Flow Rate FiO2 02/21/25 12:30 98.1 57 18 131/49 (76) 94 98.1 02/21/25 08:00 Room Air* 0 21 Total Intake and Output 02/20/25 02/20/25 02/21/25 15:00 23:00 07:00 Intake Total 0 ml 800 ml Balance 0 ml 800 ml medications Current Medications Medications Dose Ordered Sig/Ladan Route Start Time Stop Time Status Last Admin Dose Admin Pantoprazole Sodium 40 mg DAILY PO 02/19/25 10:00 Diagnostic Test (Pha) 1 strip Q6HR 02/19/25 06:00 02/21/25 12:21 1 STRIP Insulin Human Regular Q6HR SC 02/19/25 06:00 02/19/25 18:25 2 UNITS Dextrose 50 ml UD PRN IV 02/19/25 03:45 Gabapentin 100 mg TID PO 02/19/25 06:00 Oseltamivir Phosphate 30 mg Q12HR PO 02/20/25 22:00 02/24/25 10:01 02/21/25 09:53 30 MG objective GENERAL: Alert and oriented x 3. No acute distress. EYES: PERRL, EOMI. Anicteric. HENT: Moist mucous membranes. LUNGS: Clear to auscultation bilaterally. CARDIOVASCULAR: Irregular rate and rhythm. ABDOMEN: Soft, nontender and nondistended. EXTREMITIES: No edema. NEUROLOGIC: No focal neurological deficits. SKIN: Warm, dry. laboratory and microbiology Laboratory Tests 02/19/25 03:05 Test 02/19/25 03:05 Range/Units Serum Glucose 123 H 74-106 mg/dL Problem List Chronic afib. Moderate to severe aortic stenosis. Moderate LVH and mild moderate MR. Mild pulmonary hypertension. Pressure ulcers, gluteal region. HIRAL on CKD. Type 2 diabetes, A1c controlled. Dyslipidemia. Obesity. Medical noncompliance. Assessment/Plan Continued all current supportive medical care. Echocardiogram. IVFs. Tamiflu. GI prophylactics. Additional plan as per the hospital course. Dietary Evaluation Review Recommendations by RD: Protein Supplementation Comments: 1) Initiate MVI @ 1 tb qd 2) Initiate vitamin C @ 500 mg bid and zinc sulfate @ 220 mg for 7 days 3) Initiate Glucerna qd. Encourage optimal PO intake 4) Add cardiac restriciton to 45g CCHO diet 5) Follow-up with cardiology and nephrology 6) Continue to monitor I&O, labs, and skin integrity Expected Outcomes/Goals: 1) appetite and labs to improve 2) wound to improve 3) gradual wt loss 4) f/u in 3-5 days Plan discussed with: Patient LOS CRUZ MD Feb 21, 2025 13:10
[2025-02-22] VITALS (8 sets, daily range): BP systolic 135–159; BP diastolic 63–77; PULSE 51–81; RESP 17–19; TEMP 97.1–98.6; O2SAT 94–100
--- NOTE | 2025-02-22 09:54 | DVHPN2 ---
Reviewed: Care Plan, H&P, Labs, Medications, Previous Orders, Radiology Changes from previous H/P or p: No Changes Eyes: No Pain, No Vision change, No Conjunctivae inflammation, No Eyelid inflammation, No Other, No Redness ENT: No Ear pain, No Ear discharge, No Nose pain, No Nose discharge, No Nose congestion, No Mouth pain, No Mouth swelling, No Throat pain, No Throat swelling, No Other Cardiovascular: No Chest Pain, No Palpitations, No Orthopnea, No Paroxysmal Noc. Dyspnea, No Edema, No Lt Headedness, No Other Respiratory: No Cough, No Dry, No Shortness of breath, No SOB with excertion, No Wheezing, No Hemoptysis, No Pleuritic Pain, No Sputum, No Other Gastrointestinal: No Nausea, No Vomiting, No Abdominal Pain, No Diarrhea, No Constipation, No Melena, No Hematochezia, No Other Genitourinary: No Dysuria, No Frequency, No Incontinence, No Hematuria, No Retention, No Other Musculoskeletal: other (Right Knee pain and warmth) Skin: No Rash, No Lesions, No Jaundice, No Bruising, No Other Objective Vitals Vital Signs Date Time Temp Pulse Resp B/P (MAP) Pulse Ox O2 Delivery O2 Flow Rate FiO2 02/22/25 08:50 98.6 60 17 148/69 (95) 94 98.6 02/21/25 20:00 Room Air* 0 21 Intake/Output Intake and Output 02/22/25 07:00 Intake Total 1360 ml Balance 1360 ml Intake Oral 1360 ml # Voids 9 # Bowel Movements 3 Medications Current Medications Medications Dose Ordered Sig/Ladan Route Start Time Stop Time Status Last Admin Dose Admin Pantoprazole Sodium 40 mg DAILY PO 02/19/25 10:00 Diagnostic Test (Pha) 1 strip Q6HR 02/19/25 06:00 02/22/25 05:03 1 STRIP Insulin Human Regular Q6HR SC 02/19/25 06:00 02/19/25 18:25 2 UNITS Dextrose 50 ml UD PRN IV 02/19/25 03:45 Gabapentin 100 mg TID PO 02/19/25 06:00 Oseltamivir Phosphate 30 mg Q12HR PO 02/20/25 22:00 02/24/25 10:01 02/22/25 09:27 30 MG Laboratory Results Laboratory Tests 02/19/25 03:05 Urinalysis Test 02/20/25 20:16 Urine Color Light-yellow (Yellow) Urine Clarity Turbid (Clear) H Urine pH 7.0 (5.0-9.0) Urine Specific [place] 1.009 (1.001-1.035) Urine Protein Trace (Negative) H Urine Ketones Negative (Negative) Urine Blood Trace /uL (Negative) H Urine Nitrite Negative (Negative) Urine Bilirubin Negative (Negative) Urine Urobilinogen Normal mg/dL (Negative) Urine Leukocyte Esterase 3+ /uL (Negative) Urine RBC 7 /hpf (0 - 4) Urine Microscopic WBC 381 /HPF (0-5) H Urine Squamous Epithelial Cells Few /hpf (<5) Urine Bacteria Few /hpf (None Seen) H Urine Glucose Normal mg/dL (Normal) Microbiology Microbiology Date/Time Source Procedure Growth Status 02/20/25 17:33 Nose MRSA Screen - Final Complete 02/19/25 03:05 Blood Blood Culture - Preliminary NO GROWTH AFTER 72 HOURS OF INCUBATION. Resulted Labs and/or images reviewed: Labs reviewed by me, Image(s) reviewed by me Assessment/Plan Assessment/Plan Chronic afib. Eliquis , patient declines Eliquis, rate control medication and anti arrhythmic medications, patient was educated, cardiology consult by Dr. Dipti Adams appreciated Moderate to severe aortic stenosis. Moderate LVH and mild moderate MR. Ejection fraction 55 % Influenza type A and B: Tamiflu Severe pain right knee: CT right knee ortho consult Acute generalized weakness Mild pulmonary hypertension. Pressure ulcers, gluteal region. HIRAL on CKD. Type 2 diabetes, A1c controlled. Dyslipidemia. Obesity. Medical noncompliance. Hypertension History of coronary arterial disease History of bilateral lower extremity cellulitis History of osteoarthritis of the knees Time spent 50 minutes Patient lives alone in [place] Patient is full code Plan discussed with: Patient My Orders Orders - PAM GONZALEZ MD Procedure Category Date Status Time Apply Barrier Cream ANGELITA 02/21/25 In Process 10:37 * Dietary Consult CONS 02/21/25 Transmitted 16:22 Date of Service: Feb 22, 2025 Billing Provider: PAM GONZALEZ MD Common Visit Codes: [id number] INP/OBS CARE(HIGH) PAM GONZALEZ MD Feb 22, 2025 09:54
--- NOTE | 2025-02-22 12:52 | DVHINCON2 ---
Consult Note Consult Consult Note Reason for Consult: Right knee pain --- History of Present Illness (HPI): Patient is an inpatient with a chronic history of right knee pain, worsened recently. The pain is primarily located along the medial joint line. The patient deneismany hx of injury , truama, fall or slip. many year hx of right knee pain and falirups. She had one previous right knee aspiration in the past. She denies any history of knee surgeries, knee replacement, or prior infections. She has never received corticosteroid, hyaluronic acid (gel), or other intra- articular injections. Currently, the patient is admitted for other comorbidities. uses walker for ambulation, no new worsening of right knee pain with ambulation. pain with WB is 5-6/10 no LE numbenss/tingling or reduced right knee rom reported today --- Review of Systems (ROS): Musculoskeletal: Chronic right knee pain, no recent trauma. Constitutional: No fever, chills, or weight loss reported. Integumentary: No redness, swelling, or warmth around the knee. Other Systems: Negative except as noted. --- Physical Exam: General: Alert, oriented, in mild discomfort due to knee pain. Right Knee: Range of Motion (ROM): 0 to 120 Inspection: No edema, erythema, or warmth. Palpation: Tenderness along medial joint line. Neurovascular: Intact. Other Extremities: Unremarkable. --- Imaging: CT Right Knee: 1. Severe osteoarthritis most pronounced in the medial compartment.Cortical irregularity and sclerosis suggesting sequelae of osteomyelitis in the distal femur and proximal tibia. If there is concern for active infection, MRI is recommended for further evaluation. --- Assessment: 1. Right knee osteoarthritis with chronic pain (medial joint line tenderness). 2. Rule out Osteomyelitis , Chronic infection Right knee 2. Inpatient for other comorbidities (orthopedic management focused on knee pain). --- Plan: MRI W/O Contrast Right knee r/o Osteomylitis Pain management with standard measures (ice, elevation as tolerated). walker (patient uses at this time) as needed Follow-up:with Ortho after completion of MRI right knee All questions were answered, and the patient agreed with the plan. ADDENDUM 02/23/2025: MRI OF RIGHT KNEE REVIEWED WITH DR. GUARDADO CONSISTENT WITH SEVERE KNEE OA, Ptis ranging her knee 0-120 with minimal pain. Most pain with TTP medial joint line, no warmth, swelling of knee noted today. Patient to followup with orthopedic as Outpatient in 1 week from Discharge HOSPITAL TEAM: Please contact Ortho if any further changes in patient knee pain or other conerns arises Plan discussed with: Patient, Other (Bedside nurse) Visit Coding Surgery Date of Service if different f: Feb 22, 2025 Billing Provider: MONSE BORGES Surgery Visit Codes: [id number] - INP CONSULT <55 MIN MONSE BORGES Feb 22, 2025 12:52
--- NOTE | 2025-02-22 16:15 | DVH ---
CLINICAL INDICATION: Severe pain. TECHNIQUE: Noncontrast CT of the right knee was performed. Sagittal and coronal reformatted images ar e provided. COMPARISON: MRI RT KNEE WITH OUT CON on DOS: 12/03/24. CT Dose: CTDI volume is 8.13 mGy. Dose-length product is 3.85 mGy*cm FINDINGS: No fracture or dislocation. There is cortical irregularity in the medial femoral condyle, medial tib ial plateau with sclerosis. This may represent sequelae of chronic osteomyelitis. Scattered lucencie s are present throughout the distal femur and proximal tibia which could be related to osseous demine ralization. There is no fracture. Severe medial compartment joint space narrowing with near bone-on- bone contact. Moderate lateral tibiofemoral joint space narrowing and moderate patellofemoral joint space narrowing. There are tricompartment osteophytes. Small knee joint effusion. Mild subcutaneous edema in the medial and lateral knee. Mild fatty replacement of the muscles of the knee. There soft tissue thickening of the medial collateral ligament. IMPRESSION: 1. Severe osteoarthritis most pronounced in the medial compartment. 2. Cortical irregularity and sclerosis suggesting sequelae of osteomyelitis in the distal femur and p roximal tibia. If there is concern for active infection, MRI is recommended for further evaluation. 3. Mild subcutaneous edema. All CT scans at this medical facility are performed using dose modulation techniques as appropriate t o a performed exam including the following: Automated exposure control was utilized; adjustment of th e MA and/or KV according to patient size; and use of iterative reconstruction technique.
--- NOTE | 2025-02-22 22:49 | DVHPN2 ---
Progress Note - Dictate Date Seen: Feb 22, 2025 Medical Necessity Reason Pt with a Central, PICC or Fol: No Subjective Patient was seen and evaluated in follow up. Patient is complaining of generalized discomfort. Patient is adamantly refusing to take Insulin. CT knee is pending. Telemetry reviewed. vital signs Vital Sign Date Time Temp Pulse Resp B/P (MAP) Pulse Ox O2 Delivery O2 Flow Rate FiO2 02/22/25 08:50 98.6 60 17 148/69 (95) 94 98.6 02/21/25 20:00 Room Air* 0 21 Total Intake and Output 02/21/25 02/21/25 02/22/25 15:00 23:00 07:00 Intake Total 960 ml 400 ml Balance 960 ml 400 ml medications Current Medications Medications Dose Ordered Sig/Ladan Route Start Time Stop Time Status Last Admin Dose Admin Pantoprazole Sodium 40 mg DAILY PO 02/19/25 10:00 Diagnostic Test (Pha) 1 strip Q6HR 02/19/25 06:00 02/22/25 05:03 1 STRIP Insulin Human Regular Q6HR SC 02/19/25 06:00 02/19/25 18:25 2 UNITS Dextrose 50 ml UD PRN IV 02/19/25 03:45 Gabapentin 100 mg TID PO 02/19/25 06:00 Oseltamivir Phosphate 30 mg Q12HR PO 02/20/25 22:00 02/24/25 10:01 02/22/25 09:27 30 MG objective GENERAL: Alert and oriented x 3. No acute distress. EYES: PERRL, EOMI. Anicteric. HENT: Moist mucous membranes. LUNGS: Clear to auscultation bilaterally. CARDIOVASCULAR: Irregular rate and rhythm. ABDOMEN: Soft, nontender and nondistended. EXTREMITIES: No edema. NEUROLOGIC: No focal neurological deficits. SKIN: Warm, dry. laboratory and microbiology Laboratory Tests 02/19/25 03:05 Test 02/19/25 03:05 Range/Units Serum Glucose 123 H 74-106 mg/dL Problem List Chronic afib. Moderate to severe aortic stenosis. Moderate LVH and mild moderate MR. Mild pulmonary hypertension. Pressure ulcers, gluteal region. HIRAL on CKD. Type 2 diabetes, A1c controlled. Dyslipidemia. Obesity. Medical noncompliance. Assessment/Plan Continued all current supportive medical care. Echocardiogram. IVFs. Tamiflu. Additional plan as per the hospital course. Dietary Evaluation Review Recommendations by RD: Protein Supplementation Comments: CCHO-60 Cardiac diet Wt management Expected Outcomes/Goals: Controlled DM, gradual wt loss Plan discussed with: Patient LOS CRUZ MD Feb 22, 2025 12:47
[2025-02-23] VITALS (8 sets, daily range): BP systolic 129–153; BP diastolic 57–77; PULSE 51–64; RESP 16–20; TEMP 96.7–98.5; O2SAT 93–98
--- NOTE | 2025-02-23 08:36 | DVHPN2 ---
Reviewed: Care Plan, H&P, Labs, Medications, Previous Orders, Radiology Changes from previous H/P or p: No Changes Eyes: No Pain, No Vision change, No Conjunctivae inflammation, No Eyelid inflammation, No Other, No Redness ENT: No Ear pain, No Ear discharge, No Nose pain, No Nose discharge, No Nose congestion, No Mouth pain, No Mouth swelling, No Throat pain, No Throat swelling, No Other Cardiovascular: No Chest Pain, No Palpitations, No Orthopnea, No Paroxysmal Noc. Dyspnea, No Edema, No Lt Headedness, No Other Respiratory: No Cough, No Dry, No Shortness of breath, No SOB with excertion, No Wheezing, No Hemoptysis, No Pleuritic Pain, No Sputum, No Other Gastrointestinal: No Nausea, No Vomiting, No Abdominal Pain, No Diarrhea, No Constipation, No Melena, No Hematochezia, No Other Genitourinary: No Dysuria, No Frequency, No Incontinence, No Hematuria, No Retention, No Other Musculoskeletal: other (Right Knee pain and warmth) Skin: No Rash, No Lesions, No Jaundice, No Bruising, No Other Objective Vitals Vital Signs Date Time Temp Pulse Resp B/P (MAP) Pulse Ox O2 Delivery O2 Flow Rate FiO2 02/23/25 05:00 98.0 54 18 129/57 (81) 94 98.0 02/22/25 20:00 Room Air* 0 21 Intake/Output Intake and Output 02/23/25 07:00 Intake Total 1230 ml Balance 1230 ml Intake Oral 1230 ml # Voids 6 # Bowel Movements 3 Medications Current Medications Medications Dose Ordered Sig/Ldaan Route Start Time Stop Time Status Last Admin Dose Admin Pantoprazole Sodium 40 mg DAILY PO 02/19/25 10:00 Diagnostic Test (Pha) 1 strip Q6HR 02/19/25 06:00 02/23/25 06:15 1 STRIP Insulin Human Regular Q6HR SC 02/19/25 06:00 02/19/25 18:25 2 UNITS Dextrose 50 ml UD PRN IV 02/19/25 03:45 Gabapentin 100 mg TID PO 02/19/25 06:00 Oseltamivir Phosphate 30 mg Q12HR PO 02/20/25 22:00 02/24/25 10:01 02/22/25 21:26 30 MG Laboratory Results Laboratory Tests 02/19/25 03:05 Urinalysis Test 02/20/25 20:16 Urine Color Light-yellow (Yellow) Urine Clarity Turbid (Clear) H Urine pH 7.0 (5.0-9.0) Urine Specific [place] 1.009 (1.001-1.035) Urine Protein Trace (Negative) H Urine Ketones Negative (Negative) Urine Blood Trace /uL (Negative) H Urine Nitrite Negative (Negative) Urine Bilirubin Negative (Negative) Urine Urobilinogen Normal mg/dL (Negative) Urine Leukocyte Esterase 3+ /uL (Negative) Urine RBC 7 /hpf (0 - 4) Urine Microscopic WBC 381 /HPF (0-5) H Urine Squamous Epithelial Cells Few /hpf (<5) Urine Bacteria Few /hpf (None Seen) H Urine Glucose Normal mg/dL (Normal) Microbiology Microbiology Date/Time Source Procedure Growth Status 02/20/25 17:33 Nose MRSA Screen - Final Complete 02/19/25 03:05 Blood Blood Culture - Preliminary NO GROWTH AFTER 72 HOURS OF INCUBATION. Resulted Labs and/or images reviewed: Labs reviewed by me, Image(s) reviewed by me Assessment/Plan Assessment/Plan Chronic afib. Eliquis , patient declines Eliquis, rate control medication and anti arrhythmic medications, patient was educated, cardiology consult by Dr. Dipti Adams appreciated Moderate to severe aortic stenosis. Moderate LVH and mild moderate MR. Ejection fraction 55 % Influenza type A and B: Tamiflu Severe pain right knee: CT right knee shows severe osteoarthritis, MRI right knee without contrast to rule out osteomyelitis ordered by orthopedics Acute generalized weakness Mild pulmonary hypertension. Pressure ulcers, gluteal region, wound cultures growing possible Enterococcus species., Zyvox 600 mg iv q 12 hrs HIRAL on CKD. Type 2 diabetes, A1c controlled. Dyslipidemia. Obesity. Medical noncompliance. Hypertension History of coronary arterial disease History of bilateral lower extremity cellulitis History of osteoarthritis of the knees Time spent 50 minutes Patient lives alone in [place] Patient is full code Plan discussed with: Patient My Orders Orders - PAM GONZALEZ MD Procedure Category Date Status Time Ct R Knee Wo Contrast CT 02/22/25 Resulted 09:45 * Orthopedic Consult CONS 02/22/25 Transmitted 09:45 Date of Service: Feb 23, 2025 Billing Provider: PAM GONZALEZ MD Common Visit Codes: [id number] INP/OBS CARE(HIGH) PAM GONZALEZ MD Feb 23, 2025 08:36
[2025-02-23] MEDS: LINEZOLID 600MG/300ML 300 ML IV SCH (10:05)
--- NOTE | 2025-02-23 12:51 | DVH ---
CLINICAL INDICATION: rule out osteomyelitis TECHNIQUE: Multiplanar, multisequence MRI of the right knee was performed without contrast. Contrast: None. COMPARISON: CT CT R KNEE WO CONTRAST on DOS: 02/22/25 FINDINGS: Joint space and synovium: There is small complex joint effusion. There is severe synovitis. Bones and articular cartilage: There are serpiginous, mixed T2 hypointense and hyperintense lesions i n the proximal tibia and distal femur suggestive of intramedullary bone infarcts. Additional bone inf arct also noted in the fibular head. There is patchy bone marrow edema in the articular surface of th e distal femurs and proximal tibias compatible with degenerative changes. No definite confluence rep lacement of the bone marrow to suggest osteomyelitis. No fracture or dislocation. Diffuse, full-thick ness articular cartilage loss present on both sides of the medial tibiofemoral compartment and latera l tibiofemoral compartment with exposed bone. Diffuse exposed bone noted in the patellar apex and mu ltifocal chondral thinning on both sides of the remainder of the patellofemoral joint. Bulky tricomp artment osteophytes. Menisci: There is a macerated tear of the medial meniscus. The posterior horn and body are not well v isualized. Medial displacement of the remnant body into the medial gutter abutting the medial collate ral ligament. Complex tear of the lateral meniscus with radial component. Tendons and ligaments: The tendons in the posterior knee are intact. The quadriceps tendon is intac t. The distal patellar tendon shows mild tendinosis. The anterior cruciate ligament is completely torn. The posterior cruciate ligament is intact. The medial collateral ligament and the lateral collateral ligament stabilizing complex are intact. Iliotibial band is intact. Muscles: There is intramuscular edema in the posterior medial muscles of the knee. Other: Mild subcutaneous edema. IMPRESSION: 1. Joint effusion and severe synovitis in the right knee. This could be reactive in the setting of se orlin tricompartment osteoarthritis. Although not entirely excluded, septic arthritis is considered le ss likely given the small size of the joint effusion and the lack of convincing evidence for osteomye litis. Correlation with patient's symptoms recommended and if clinical concern for infection, fluid s ampling is recommended. 2. Severe tricompartment osteoarthritis, unchanged. 3. Multiple intramedullary bone infarcts. 4. Macerated tears of the medial and lateral menisci, unchanged. 5. Full-thickness ACL tear, unchanged.
--- NOTE | 2025-02-23 23:52 | DVHPN2 ---
Progress Note - Dictate Date Seen: Feb 23, 2025 Medical Necessity Reason Pt with a Central, PICC or Fol: No Subjective Patient was seen and evaluated in follow up. Patient is complaining of right knee pain. Patient is refusing medication. CT right knee showed severe osteoarthritis most pronounced in the medial compartment. Cortical irregularity and sclerosis suggesting sequelae of osteomyelitis in the distal femur and proximal tibia. Mild subcutaneous edema. Telemetry reviewed. vital signs Vital Sign Date Time Temp Pulse Resp B/P (MAP) Pulse Ox O2 Delivery O2 Flow Rate FiO2 02/23/25 08:57 96.7 59 19 134/60 (84) 95 96.7 02/23/25 08:00 Room Air* 0 21 Total Intake and Output 02/22/25 02/22/25 02/23/25 15:00 23:00 07:00 Intake Total 980 ml 250 ml Balance 980 ml 250 ml medications Current Medications Medications Dose Ordered Sig/Ladan Route Start Time Stop Time Status Last Admin Dose Admin Pantoprazole Sodium 40 mg DAILY PO 02/19/25 10:00 Diagnostic Test (Pha) 1 strip Q6HR 02/19/25 06:00 02/23/25 12:05 1 STRIP Insulin Human Regular Q6HR SC 02/19/25 06:00 02/19/25 18:25 2 UNITS Dextrose 50 ml UD PRN IV 02/19/25 03:45 Gabapentin 100 mg TID PO 02/19/25 06:00 Oseltamivir Phosphate 30 mg Q12HR PO 02/20/25 22:00 02/24/25 10:01 02/23/25 10:05 30 MG Linezolid 300 ml @ 150 mls/hr Q12HR IV 02/23/25 10:00 02/23/25 10:05 150 MLS/HR objective GENERAL: Alert and oriented x 3. No acute distress. EYES: PERRL, EOMI. Anicteric. HENT: Moist mucous membranes. LUNGS: Clear to auscultation bilaterally. CARDIOVASCULAR: Irregular rate and rhythm. ABDOMEN: Soft, nontender and nondistended. EXTREMITIES: No edema. NEUROLOGIC: No focal neurological deficits. SKIN: Warm, dry. laboratory and microbiology Laboratory Tests 02/19/25 03:05 Test 02/19/25 03:05 Range/Units Serum Glucose 123 H 74-106 mg/dL Problem List Chronic afib. Moderate to severe aortic stenosis. Moderate LVH and mild moderate MR. Mild pulmonary hypertension. Pressure ulcers, gluteal region. HIRAL on CKD. Type 2 diabetes, A1c controlled. Dyslipidemia. Obesity. Medical noncompliance. Assessment/Plan Continued all current supportive medical care. Echocardiogram. IVFs. Tamiflu. Additional plan as per the hospital course. Dietary Evaluation Review Recommendations by RD: Protein Supplementation Comments: CCHO-60 Cardiac diet Wt management Expected Outcomes/Goals: Controlled DM, gradual wt loss Plan discussed with: Patient LOS CRUZ MD Feb 23, 2025 12:26
[2025-02-24 01:00] VITALS: BP 173/101; PULSE 93; RESP 18; TEMP 97.9; O2SAT 90
[2025-02-24 05:00] VITALS: BP 148/80; PULSE 58; RESP 18; TEMP 97.6; O2SAT 97
[2025-02-24 08:00] VITALS: PULSE 54; RESP 17; O2SAT 98
--- NOTE | 2025-02-24 08:08 | DVHPN2 ---
Reviewed: Care Plan, H&P, Labs, Medications, Previous Orders, Radiology Changes from previous H/P or p: No Changes Eyes: No Pain, No Vision change, No Conjunctivae inflammation, No Eyelid inflammation, No Other, No Redness ENT: No Ear pain, No Ear discharge, No Nose pain, No Nose discharge, No Nose congestion, No Mouth pain, No Mouth swelling, No Throat pain, No Throat swelling, No Other Cardiovascular: No Chest Pain, No Palpitations, No Orthopnea, No Paroxysmal Noc. Dyspnea, No Edema, No Lt Headedness, No Other Respiratory: No Cough, No Dry, No Shortness of breath, No SOB with excertion, No Wheezing, No Hemoptysis, No Pleuritic Pain, No Sputum, No Other Gastrointestinal: No Nausea, No Vomiting, No Abdominal Pain, No Diarrhea, No Constipation, No Melena, No Hematochezia, No Other Genitourinary: No Dysuria, No Frequency, No Incontinence, No Hematuria, No Retention, No Other Musculoskeletal: other (Right Knee pain and warmth) Skin: No Rash, No Lesions, No Jaundice, No Bruising, No Other Objective Vitals Vital Signs Date Time Temp Pulse Resp B/P (MAP) Pulse Ox O2 Delivery O2 Flow Rate FiO2 02/24/25 05:00 97.6 58 18 148/80 (102) 97 97.6 02/23/25 20:00 Room Air* 0 21 Intake/Output Intake and Output 02/24/25 07:00 Intake Total 1825 ml Balance 1825 ml Intake Oral 1225 ml IV Total 600 ml # Voids 5 Medications Current Medications Medications Dose Ordered Sig/Ladan Route Start Time Stop Time Status Last Admin Dose Admin Pantoprazole Sodium 40 mg DAILY PO 02/19/25 10:00 Diagnostic Test (Pha) 1 strip Q6HR 02/19/25 06:00 02/24/25 05:24 1 STRIP Insulin Human Regular Q6HR SC 02/19/25 06:00 02/19/25 18:25 2 UNITS Dextrose 50 ml UD PRN IV 02/19/25 03:45 Gabapentin 100 mg TID PO 02/19/25 06:00 Oseltamivir Phosphate 30 mg Q12HR PO 02/20/25 22:00 02/24/25 10:01 02/23/25 22:23 30 MG Linezolid 300 ml @ 150 mls/hr Q12HR IV 02/23/25 10:00 02/23/25 22:23 150 MLS/HR Laboratory Results Laboratory Tests 02/19/25 03:05 Urinalysis Test 02/20/25 20:16 Urine Color Light-yellow (Yellow) Urine Clarity Turbid (Clear) H Urine pH 7.0 (5.0-9.0) Urine Specific [place] 1.009 (1.001-1.035) Urine Protein Trace (Negative) H Urine Ketones Negative (Negative) Urine Blood Trace /uL (Negative) H Urine Nitrite Negative (Negative) Urine Bilirubin Negative (Negative) Urine Urobilinogen Normal mg/dL (Negative) Urine Leukocyte Esterase 3+ /uL (Negative) Urine RBC 7 /hpf (0 - 4) Urine Microscopic WBC 381 /HPF (0-5) H Urine Squamous Epithelial Cells Few /hpf (<5) Urine Bacteria Few /hpf (None Seen) H Urine Glucose Normal mg/dL (Normal) Microbiology Microbiology Date/Time Source Procedure Growth Status 02/20/25 17:33 Nose MRSA Screen - Final Complete 02/19/25 03:05 Blood Blood Culture - Final NO GROWTH AFTER 5 DAYS OF INCUBATION. Complete Labs and/or images reviewed: Labs reviewed by me, Image(s) reviewed by me Assessment/Plan Assessment/Plan Chronic afib. Eliquis , patient declines Eliquis, rate control medication and anti arrhythmic medications, patient was educated, cardiology consult by Dr. Dipti Adams appreciated Moderate to severe aortic stenosis. Moderate LVH and mild moderate MR. Ejection fraction 55 % Influenza type A and B: Completed course of Tamiflu Severe pain right knee: CT right knee shows severe osteoarthritis, MRI right knee without contrast showed severe osteoarthritis and orthopedic advised patient to follow up with the orthopedic as an outpatient in one week Acute generalized weakness Mild pulmonary hypertension. Pressure ulcers, gluteal region, wound cultures growing possible E faecalis started on Zyvox 600 mg IV q.12 HIRAL on CKD. Type 2 diabetes, A1c controlled. Dyslipidemia. Obesity. Medical noncompliance. Hypertension History of coronary arterial disease History of bilateral lower extremity cellulitis History of osteoarthritis of the knees Patient is full code care home facility placement could not be arranged as the patient does not have any SNF days left Discharged home on p.o. antibiotics Patient does not want any home health arrangement as [place] in [place] Plan discussed with: Patient My Orders Orders - PAM GONZALEZ MD Procedure Category Date Status Time Linezolid 600mg/300ml PHA 02/23/25 In Process (Zyvox) 10:00 Date of Service: Feb 24, 2025 Billing Provider: PAM GONZALEZ MD Common Visit Codes: [id number] INP/OBS CARE(HIGH) PAM GONZALEZ MD Feb 24, 2025 08:08
[2025-02-24] MEDS ORDERED: LEVO500T91 PO (08:12)
[2025-02-24] MEDS ORDERED: LINE1TAB6 PO (08:12)
--- NOTE | 2025-02-24 08:20 | DVHDS2 ---
Discharge Summary Date of Admission Feb 19, 2025 at 02:31 Date of Discharge: Feb 24, 2025 Admitting Diagnosis Palpitations Wounds: Decubitus ulcers in the back Labs/Diagnostic Data: Laboratory Results Test 02/24/25 05:22 02/20/25 20:16 02/19/25 14:04 02/19/25 09:40 POC Glucose 122 mg/dl (70-106) Urine Color Light-yellow (Yellow) Urine Clarity Turbid (Clear) Urine pH 7.0 (5.0-9.0) Urine Specific [employer] 1.009 (1.001-1.035) Urine Protein Trace (Negative) Urine Ketones Negative (Negative) Urine Blood Trace /uL (Negative) Urine Nitrite Negative (Negative) Urine Bilirubin Negative (Negative) Urine Urobilinogen Normal mg/dL (Negative) Urine Leukocyte Esterase 3+ /uL (Negative) Urine RBC 7 /hpf (0 - 4) Urine Microscopic WBC 381 /HPF (0-5) Urine Squamous Epithelial Cells Few /hpf (<5) Urine Bacteria Few /hpf (None Seen) Urine Glucose Normal mg/dL (Normal) Urine Opiates Screen Neg (NEGATIVE) Urine Fentanyl Screen Neg (NEGATIVE) Urine Barbiturates Screen Neg (NEGATIVE) Urine Phencyclidine Screen Neg (NEGATIVE) Urine Amphetamines Screen Neg (NEGATIVE) Urine Benzodiazepines Screen Neg (NEGATIVE) Urine Cocaine Screen Neg (NEGATIVE) Urine Cannabinoids Screen Neg (NEGATIVE) Magnesium Level 1.9 mg/dL (1.6-2.6) Influenza Type A Antigen Positive (Negative) Influenza Type B Antigen Positive (Negative) SARS-CoV-2 Antigen (Rapid) Negative (NEGATIVE) Test 02/19/25 03:05 02/19/25 01:13 02/18/25 22:03 White Blood Count 5.9 10^3/uL (4.4-10.8) Red Blood Count 4.74 10^6/uL (4.0-5.20) Hemoglobin 13.5 g/dL (12.2-16.2) Hematocrit 40.2 % (36.0-46.0) Mean Corpuscular Volume 84.9 fL (80.0-100.0) Mean Corpuscular Hemoglobin 28.4 pg (28.0-32.0) Mean Corpuscular Hemoglobin Concent 33.5 g/dL (32.0-36.0) Red Cell Distribution Width 14.9 % (11.8-14.3) Platelet Count 156 10^3/uL (140-450) Mean Platelet Volume 8.6 fL (6.9-10.8) Neutrophils (%) (Auto) 61.3 % (37.0-80.0) Lymphocytes (%) (Auto) 27.9 % (10.0-50.0) Monocytes (%) (Auto) 8.9 % (0.0-12.0) Eosinophils (%) (Auto) 1.2 % (0.0-7.0) Basophils (%) (Auto) 0.7 % (0.0-2.0) Neutrophils # (Auto) 3.6 10 ^3/uL (1.6-8.6) Lymphocytes # (Auto) 1.6 10 ^3/uL (0.4-5.4) Monocytes # (Auto) 0.5 10 ^3/uL (0-1.3) Eosinophils # (Auto) 0.1 10 ^3/uL (0-0.8) Basophils # (Auto) 0 10 ^3/uL (0-0.2) Nucleated Red Blood Cells 0.2 % Sodium Level 138 mmol/L (136-145) Potassium Level 4.0 mmol/L (3.5-5.1) Chloride Level 103 mmol/L (98-107) Carbon Dioxide Level 27 mmol/L (20-31) Anion Gap 8 (5-15) Blood Urea Nitrogen 17 mg/dL (9-23) Creatinine 1.15 mg/dL (0.550-1.02) Glomerular Filtration Rate Calc 49 mL/min (>90) BUN/Creatinine Ratio 14.8 (10.0-20.0) Serum Glucose 123 mg/dL (74-106) Lactic Acid Level 1.7 mmol/L (0.4-2.0) Calcium Level 9.7 mg/dL (8.7-10.4) Total Bilirubin 1.0 mg/dL (0.2-1.0) Aspartate Amino Transferase (AST) 30 U/L (13-40) Alanine Aminotransferase (ALT) 12 U/L (7-40) Alkaline Phosphatase 87 U/L (46-116) Total Protein 7.5 g/dL (5.7-8.2) Albumin 4.2 g/dL (3.2-4.8) Triglycerides Level 145 mg/dL (< 150) Cholesterol Level 184 mg/dL (< 200) LDL Cholesterol 122 mg/dL (< 100) HDL Cholesterol 47 mg/dL (40-59) Troponin I High Sensitivity 13 ng/L (</=34) B-Type Natriuretic Peptide 170.26 pg/mL (0-100) Other Laboratory Tests 02/19/25 03:05 Brief Hx & Hospital Course: 79-year-old female with a history of chronic AFib came in for palpitations. Patient has declined to be placed on Eliquis rate controlled medications and antiarrhythmic medication patient was educated. Cardiology consult by Dr. Adams patient has moderate to severe aortic stenosis moderate LVH moderate MR with ejection fraction 55 percent found to have type a and type B flu treated with five day course of Tamiflu. Patient has had pressure ulcers with the gluteal region wound cultures grew E faecalis started on Zyvox also Klebsiella pneumoniae started on Levaquin other comorbid conditions include type 2 diabetes hypercholesterolemia hypertension medication noncompliance. Patient could not be discharged to longterm facility she has no more usp days left. The patient also denies home health as she [facility] in [place] and she says she can not get up and walk to open the gate also complained of right knee pain CT and MRI right knee showed severe degenerative joint disease and orthopedic Dr in a year advised outpatient follow up in one week Patient is being discharged home on p.o. Zyvox and p.o. Levaquin. She does not want any pain medication. She will follow up with the primary Dr, Dr. Dipti Adams and Dr Kendall. SHANITA Martínez at bedside at the time of discussion of discharge plan. Consults/Reason for consult Orthopedic Dr Kendall Cardiology Dr. Adams Operations or Procedures CT right knee MRI right knee Condition at Discharge: Fair Final Diagnosis/Problems List Chronic afib. Eliquis , patient declines Eliquis, rate control medication and anti arrhythmic medications, patient was educated, cardiology consult by Dr. Dipti Adams appreciated Moderate to severe aortic stenosis. Moderate LVH and mild moderate MR. Ejection fraction 55 % Influenza type A and B: Completed course of Tamiflu Severe pain right knee: CT right knee shows severe osteoarthritis, MRI right knee without contrast showed severe osteoarthritis and orthopedic advised patient to follow up with the orthopedic as an outpatient in one week Acute generalized weakness Mild pulmonary hypertension. Pressure ulcers, gluteal region, wound cultures growing possible E faecalis started on Zyvox 600 mg IV q.12 HIRAL on CKD. Type 2 diabetes, A1c controlled. Dyslipidemia. Obesity. Medical noncompliance. Hypertension History of coronary arterial disease History of bilateral lower extremity cellulitis History of osteoarthritis of the knees Discharge Disposition: Home Discharge Instruct/Medications Diet: Cardiac 2g Na,low cholest Activity: Light activity Follow Up/Referral: Follow up with the orthopedic Dr Kendall in one week Follow up with your primary Dr in one week Follow up with the Cardiology Dr. Adams in two weeks Resume all previous home medications Use new medications as prescribed Medications: Zyvox Levaquin Transmitted to pharmacy Scheduled Apixaban Base (Eliquis), 5 MG PO BID Atorvastatin Calcium (Atorvastatin Calcium), 40 MG PO HS Ergocalciferol (Vitamin D 21317 Unit), 50,000 UNIT PO Q7D Gabapentin (Gabapentin), 100 MG PO TID Glyburide-Metformin (Glucovance), 2 TAB PO BID, (Reported) 39 (Time taken for discharge summary 39 minutes) Discharge Statement: "Patient was advised to return to the ER or call 911 if any headaches, dizziness, shortness of breath, chest pain, abdominal pain, bleeding, fevers, or worsening of medical condition. Patient was counseled about treatment plan, medications, possible side effects, patientverbalized understanding. All questions were answered to the best of my ability. This discharge took greater then 30 minutes in planning, reviewing documentation, counseling the patient, and discussing with other team members." ASSESSMENT ASSESSMENT Assessment Chronic afib. Eliquis , patient declines Eliquis, rate control medication and anti arrhythmic medications, patient was educated, cardiology consult by Dr. Dipti Adams appreciated Moderate to severe aortic stenosis. Moderate LVH and mild moderate MR. Ejection fraction 55 % Influenza type A and B: Completed course of Tamiflu Severe pain right knee: CT right knee shows severe osteoarthritis, MRI right knee without contrast showed severe osteoarthritis and orthopedic advised patient to follow up with the orthopedic as an outpatient in one week Acute generalized weakness Mild pulmonary hypertension. Pressure ulcers, gluteal region, wound cultures growing possible E faecalis started on Zyvox 600 mg IV q.12 HIRAL on CKD. Type 2 diabetes, A1c controlled. Dyslipidemia. Obesity. Medical noncompliance. Hypertension History of coronary arterial disease History of bilateral lower extremity cellulitis History of osteoarthritis of the knees Date of Service: Feb 24, 2025 Billing Provider: PAM GONZALEZ MD Common Visit Codes: 99132-INZ/OBS DISCH DAY >30min PAM GONZALEZ MD Feb 24, 2025 08:20
[2025-02-24 08:48] VITALS: PULSE 61; RESP 17; TEMP 97.1; O2SAT 98
[2025-02-24 08:53] VITALS: BP 159/63; PULSE 61; RESP 17; TEMP 97.1; O2SAT 98
--- NOTE | 2025-02-24 21:56 | DVHPN2 ---
Progress Note - Dictate Date Seen: Feb 24, 2025 Medical Necessity Reason Pt with a Central, PICC or Fol: No Subjective Patient was seen and evaluated in follow up. Patient has no new complaints at this time. Patient denies any cardiac symptoms. Patient is cardiac stable for discharge. Telemetry reviewed. vital signs Vital Sign Date Time Temp Pulse Resp B/P (MAP) Pulse Ox O2 Delivery O2 Flow Rate FiO2 02/24/25 08:53 97.1 61 17 159/63 (95) 98 97.1 02/24/25 08:00 Room Air* 0 21 Total Intake and Output 02/23/25 02/23/25 02/24/25 15:00 23:00 07:00 Intake Total 300 ml 500 ml 1025 ml Balance 300 ml 500 ml 1025 ml objective GENERAL: Alert and oriented x 3. No acute distress. EYES: PERRL, EOMI. Anicteric. HENT: Moist mucous membranes. LUNGS: Clear to auscultation bilaterally. CARDIOVASCULAR: Irregular rate and rhythm. ABDOMEN: Soft, nontender and nondistended. EXTREMITIES: No edema. NEUROLOGIC: No focal neurological deficits. SKIN: Warm, dry. laboratory and microbiology Laboratory Tests 02/19/25 03:05 Test 02/19/25 03:05 Range/Units Serum Glucose 123 H 74-106 mg/dL Problem List Chronic afib. Moderate to severe aortic stenosis. Moderate LVH and mild moderate MR. Mild pulmonary hypertension. Pressure ulcers, gluteal region. HIRAL on CKD. Type 2 diabetes, A1c controlled. Dyslipidemia. Obesity. Medical noncompliance. Assessment/Plan Continued all current supportive medical care. IVFs. Tamiflu. Additional plan as per the hospital course. Dietary Evaluation Review Recommendations by RD: Protein Supplementation Comments: CCHO-60 Cardiac diet Wt management Expected Outcomes/Goals: Controlled DM, gradual wt loss Plan discussed with: Patient LOS CRUZ MD Feb 24, 2025 21:56
== END 2025-02-24 11:25 | disposition home or self-care (01) | DRG 593 ==
LOC: ER 21:01 → EDBD 21:01 → OVERFLOW 02-19 02:31 → TELE-CENTR 02-20 16:13
PROVIDERS: ADMIT Family Medicine; ATTEND Family Medicine
DX: L89.312 Pressure ulcer of right buttock, stage 2 (principal); I48.20 Chronic atrial fibrillation, unspecified; N17.9 Acute kidney failure, unspecified; I27.20 Pulmonary hypertension, unspecified; B96.1 Klebsiella pneumoniae [K. pneumoniae] as the cause of diseases classified elsewhere; E86.0 Dehydration; N18.9 Chronic kidney disease, unspecified; E66.9 Obesity, unspecified; I12.9 Hypertensive chronic kidney disease with stage 1 through stage 4 chronic kidney disease, or unspecified chronic kidney disease; E11.65 Type 2 diabetes mellitus with hyperglycemia; E11.42 Type 2 diabetes mellitus with diabetic polyneuropathy; J45.909 Unspecified asthma, uncomplicated; Z68.34 Body mass index [BMI] 34.0-34.9, adult; E11.22 Type 2 diabetes mellitus with diabetic chronic kidney disease; I08.0 Rheumatic disorders of both mitral and aortic valves; J10.1 Influenza due to other identified influenza virus with other respiratory manifestations; G89.29 Other chronic pain; M17.0 Bilateral primary osteoarthritis of knee; I25.10 Atherosclerotic heart disease of native coronary artery without angina pectoris; E78.00 Pure hypercholesterolemia, unspecified; Z60.2 Problems related to living alone; Z88.0 Allergy status to penicillin; Z88.5 Allergy status to narcotic agent; Z91.81 History of falling; Z91.148 Patient's other noncompliance with medication regimen for other reason; Z90.710 Acquired absence of both cervix and uterus; Z85.42 Personal history of malignant neoplasm of other parts of uterus; Z88.1 Allergy status to other antibiotic agents; Z82.49 Family history of ischemic heart disease and other diseases of the circulatory system; Z80.8 Family history of malignant neoplasm of other organs or systems; Z80.0 Family history of malignant neoplasm of digestive organs
CPT/HCPCS: 36415; 71045; 73700; 73721; 80048; 80053; 80061; 80307; 81001; 82962; 83605; 83735; 83880; 84484; 85025; 87040; 87077; 87081; 87186; 87205; 87426; 87804; 93005; 96365; G0378; G9035; J1815